=== PATIENT | female | born 1940 | race Caucasian/White ===

== ENCOUNTER → 2018-03-02 01:04 | Outpatient (CLI) | payer MEDICARE, OTHER, SELFPAY ==
--- NOTE | 2018-03-02 13:23 | DI.REPORT_ITS ---
SYMPTOM/DIAGNOSIS: RT NIPPLE PAIN, N64.4 MAMMOGRAM, RIGHT BREAST ULTRASOUND: 03/02 Mammograms were interpreted according to the usual protocol including computer analysis with CAD system, tomosynthesis and C view imaging. Mammogram and right breast ultrasound are interpreted in conjunction. The patient reportedly has tenderness associated with the right areolar region. No mass or clumped microcalcification identified in either breast. Comparison with previous examination of 07/16/15 shows no change in appearance of the breast. Breast ultrasound shows no evidence of a mass in the retroareolar portion of the right breast. CONCLUSION: No specific evidence of malignancy at this time. Routine screening examinations are suggested at yearly intervals in this age group according to the ACS/ACR guidelines. Category 1, breast density category B MQSA ASSESSMENT OF FINDINGS: Negative. Category 1. Patient will receive a letter notifying them of these results. BI-RADS category B. There are scattered areas of fibroglandular density.
== END ==
PROVIDERS: PCP Family Medicine; Visit Provider Family Medicine
DX: N64.4 Mastodynia (principal)
CPT/HCPCS: 76642; 77066; G0279; 77062

== ENCOUNTER 2018-07-04 16:43 | Outpatient (CLI) | payer MEDICARE, OTHER, SELFPAY ==
--- NOTE | 2018-07-04 15:27 | DI.RAD_ITS ---
SYMPTOMS/DIAGNOSIS: JOINT PAIN RIGHT KNEE: Three views were obtained. Cartilaginous joint spaces appear fairly well maintained as visualized. Minimal hypertrophic spurring of the bones of the knee noted. CONCLUSION: Minimal DJD of the knee.
== END 2018-07-04 17:03 ==
PROVIDERS: Visit Provider Nurse Practitioner
DX: M25.561 Pain in right knee (principal); M17.11 Unilateral primary osteoarthritis, right knee
CPT/HCPCS: 73562

== ENCOUNTER 2018-08-03 17:32 | Outpatient (REF) | payer MEDICARE, OTHER, SELFPAY ==
[2018-08-03 20:05] LABS: Anion Gap 9.3 mmol/L (3-11); BUN 13 mg/dL (7-18); CO2 31.7 mmol/L (21.0-32.0); CREATININE 0.92 mg/dL (0.55-1.02); Chloride 100 mmol/L (98-107); Estimated GFR 59.35 (mL/min/1.73m2); Glucose 96 mg/dL (70-100); Potassium 3.3 mmol/L (3.5-5.1); Sodium 141 mmol/L (136-145)
== END 2018-08-03 17:52 ==
LOC: NCHCN 17:32
PROVIDERS: Visit Provider Family Medicine
DX: I10 Essential (primary) hypertension (principal)
CPT/HCPCS: 80048

== ENCOUNTER 2019-01-17 19:20 | Outpatient (REF) | payer MEDICARE, OTHER, SELFPAY ==
[2019-01-17 19:14] LABS: HCT 36.6 % (36.0-46.0); HGB 12.2 g/dL (12.0-15.5); Mean Corp. HGB Concentration 33.3 g/dL (32.0-36.0); Mean Corpuscular Hemoglobin 31.2 pg (27.0-33.0); Mean Corpuscular Volume 93.6 fL (80-95); Mean Platelet Volume 10.7 fL (8.0-11.0); Platelet Count 274 x1000/uL (130-400); RBC 3.91 m/cumm (4.00-5.20); RBC Distribution Width 12.1 % (11.7-14.6); White Blood Cell Count 7.11 k/cumm (4.4-10.8)
[2019-01-17 20:02] LABS: ALT 19 U/L (12-78); AST 17 U/L (15-37); Albumin 3.6 g/dL (3.4-5.0); Alkaline Phosphatase 80 U/L (46-116); Anion Gap 10.3 mmol/L (3-11); BUN 33 mg/dL (7-18); Bilirubin, Total 0.3 mg/dL (0.2-1.0); CO2 26.7 mmol/L (21.0-32.0); CREATININE 1.29 mg/dL (0.55-1.02); Calcium 8.9 mg/dL (8.5-10.1); Chloride 104 mmol/L (98-107); Estimated GFR 40.18 (mL/min/1.73m2); Glucose 90 mg/dL (70-100); Potassium 3.8 mmol/L (3.5-5.1); Sodium 141 mmol/L (136-145); Vitamin B12 333 pg/mL (193-986)
[2019-01-17 20:09] LABS: ESR 46 MM/HR (0-30)
== END 2019-01-17 19:40 ==
LOC: NCHCN 19:20
PROVIDERS: PCP Family Medicine; Visit Provider Family Medicine
DX: R63.4 Abnormal weight loss (principal); I10 Essential (primary) hypertension; E87.6 Hypokalemia; R51 Headache; K21.9 Gastro-esophageal reflux disease without esophagitis; H53.9 Unspecified visual disturbance
CPT/HCPCS: 80053; 85027; 85652; 82607

== ENCOUNTER 2019-01-25 00:26 | Outpatient (CLI) | payer MEDICARE, OTHER, SELFPAY ==
--- NOTE | 2019-01-25 15:23 | DI.MRI_ITS ---
SYMPTOM/DIAGNOSIS: HEADACHE, R51, VISUAL CHANGES, H53.9 BRAIN MRI: Sagittal T 2, axial T 2, axial diffusion, axial FLAIR, axial GRE and axial T 1 pulse sequences were performed. Moderate generalized atrophy is demonstrated. There is no evidence of a mass or hemorrhage. There are small regions of increased signal in the frontoparietal white matter bilaterally consistent with small vessel disease. The ventricles are unremarkable. The normal flow void is demonstrated in the cerebral vessels. SUMMARY: Atrophic changes and evidence of small vessel disease. There is no evidence of an infarct or mass.
== END 2019-01-25 00:46 ==
PROVIDERS: PCP Family Medicine; Visit Provider Family Medicine
DX: R51 Headache (principal); H53.9 Unspecified visual disturbance; I67.89 Other cerebrovascular disease
CPT/HCPCS: 70551

== ENCOUNTER 2019-02-06 16:04 | Outpatient (REF) | payer MEDICARE, OTHER, SELFPAY ==
[2019-02-06 19:49] LABS: Anion Gap 10.6 mmol/L (3-11); BUN 27 mg/dL (7-18); CO2 28.4 mmol/L (21.0-32.0); CREATININE 1.32 mg/dL (0.55-1.02); Calcium 8.7 mg/dL (8.5-10.1); Chloride 101 mmol/L (98-107); Estimated GFR 39.13 (mL/min/1.73m2); Glucose 122 mg/dL (70-100); Potassium 3.6 mmol/L (3.5-5.1); Sodium 140 mmol/L (136-145)
[2019-02-06 21:06] LABS: ESR 48 mm/hr (0-30)
== END 2019-02-06 16:24 ==
LOC: NCHCN 16:04
PROVIDERS: PCP Family Medicine; Visit Provider Family Medicine
DX: R51 Headache (principal); N28.9 Disorder of kidney and ureter, unspecified
CPT/HCPCS: 80048; 85652

== ENCOUNTER 2019-09-19 16:54 | Outpatient (REF) | payer MEDICARE, OTHER, SELFPAY ==
[2019-09-19 19:04] LABS: Anion Gap 9.3 mmol/L (3-11); BUN 18 mg/dL (7-18); CO2 29.7 mmol/L (21.0-32.0); CREATININE 1.02 mg/dL (0.55-1.02); Calcium 8.8 mg/dL (8.5-10.1); Chloride 101 mmol/L (98-107); Estimated GFR 52.55 (mL/min/1.73m2); Glucose 81 mg/dL (74-106); Potassium 3.8 mmol/L (3.5-5.1); Sodium 140 mmol/L (136-145)
[2019-09-19 20:16] LABS: ESR 46 mm/hr (0-30)
== END 2019-09-19 17:14 ==
LOC: NCHCN 16:54
PROVIDERS: PCP Family Medicine; Visit Provider Family Medicine
DX: N28.9 Disorder of kidney and ureter, unspecified (principal); I10 Essential (primary) hypertension; E87.6 Hypokalemia; R70.0 Elevated erythrocyte sedimentation rate
CPT/HCPCS: 80048; 85652

== ENCOUNTER 2020-03-26 10:58 | Outpatient (REF) | payer MEDICARE, OTHER, SELFPAY ==
[2020-03-26 18:58] LABS: Anion Gap 8.1 mmol/L (3-11); BUN 17 mg/dL (7-18); CO2 28.9 mmol/L (21.0-32.0); CREATININE 1.13 mg/dL (0.55-1.02); Calcium 8.9 mg/dL (8.5-10.1); Chloride 100 mmol/L (98-107); Estimated GFR 46.69 (mL/min/1.73m2); Glucose 96 mg/dL (74-106); Magnesium 2.1 mg/dL (1.8-2.4); Potassium 4.1 mmol/L (3.5-5.1); Sodium 137 mmol/L (136-145)
[2020-03-26 19:33] LABS: ESR 45 mm/hr (0-30)
== END 2020-03-26 11:18 ==
LOC: NCHCN 10:58
PROVIDERS: PCP Family Medicine; Visit Provider Family Medicine
DX: E87.6 Hypokalemia (principal); R25.2 Cramp and spasm; R70.0 Elevated erythrocyte sedimentation rate
CPT/HCPCS: 80048; 85652; 83735

== ENCOUNTER 2020-04-04 02:06 | Outpatient (CLI) | payer MEDICARE, OTHER, SELFPAY ==
--- NOTE | 2020-04-04 | DI.MAMMO_ITS ---
EXAM: MG MAMMO DIAGNOSTIC BI and U/S breast LT limited CLINICAL HISTORY: TENDER LT LATERAL LUMP 2 OCLOCK,N63.0. TECHNIQUE: Craniocaudal and mediolateral oblique Full Field Digital Mammography views with Computer Aided Diagnosis followed by Tomosynthesis and left breast ultrasound. COMPARISON: Comparison with prior examinations. FINDINGS: Mammography/Tomosynthesis: Masses/Architectural Distortion: None seen. Microcalcifictions: No suspicious pleomorphic-type are seen. Skin Thickening/Nipple Retraction: None. Left breast US: Echotexture: Normal appearance of the glandular tissue. Shadowing: No suspicious foci. Cyst: None. Solid lesions: There is a 2.3 cm sonographically benign-appearing lymph node at the 2 o'clock positio n of the left breast in the left axillary tail corresponding to the palpable abnormality. Ductal dilation: None. IMPRESSION: 1. No evidence of malignancy is noted. 2. Unless there is more urgent need, follow-up screening mammography is recommended, as per [place] [employer] guidelines. 3. The findings were discussed with the patient on the date of the examination. BI-RADS Category 1 - Negative Breast Density - Category B - Scattered areas of fibroglandular density A negative radiographic report should not delay biopsy if a dominant or clinically suspicious mass is present. Up to ten percent of cancers are not identified on mammography. A negative report may reinforce clinical impression. Adenosis and dense breasts may obscure an underlying neoplasm. False positive reports average 6 to 10%. Patient will receive a letter notifying them of these results.
== END 2020-04-04 02:26 ==
PROVIDERS: PCP Family Medicine; Visit Provider Family Medicine
DX: N63.21 Unspecified lump in the left breast, upper outer quadrant (principal); R92.8 Other abnormal and inconclusive findings on diagnostic imaging of breast
CPT/HCPCS: 76642; 77062; 77066; G0279

== ENCOUNTER → 2020-04-29 14:22 | Outpatient (BNVA) | payer MEDICARE, OTHER, SELFPAY | PROVIDERS: PCP Family Medicine; Referring Provider Family Medicine; Visit Provider Surgery | DX: N63.21 Unspecified lump in the left breast, upper outer quadrant (principal); Z80.3 Family history of malignant neoplasm of breast | CPT/HCPCS: 99204; 99214 ==

== ENCOUNTER 2020-05-10 02:03 | Outpatient (CLI) | payer MEDICARE, OTHER, SELFPAY ==
[2020-05-13 10:12] LABS: SARS-CoV-2 RNA Not Detected (NotDetected); SARS-CoV-2 RNA Source Nasal/Nares
== END 2020-05-10 02:23 ==
PROVIDERS: Surgery; PCP Family Medicine; Visit Provider Surgery
DX: Z01.818 Encounter for other preprocedural examination (principal)
CPT/HCPCS: U0003

== ENCOUNTER 2020-05-14 01:33 | Outpatient (CLI) | payer MEDICARE, OTHER, SELFPAY | END 2020-05-14 01:53 | PROVIDERS: PCP Family Medicine; Visit Provider Surgery | DX: N64.4 Mastodynia (principal); R59.0 Localized enlarged lymph nodes; N63.20 Unspecified lump in the left breast, unspecified quadrant | CPT/HCPCS: 99212 ==

== ENCOUNTER 2020-12-04 19:31 | Outpatient (REF) | payer MEDICARE, OTHER, SELFPAY ==
[2020-12-04 16:47] LABS: ESR 53 mm/hr (0-30)
[2020-12-04 17:05] LABS: ALT 16 U/L (14-59); AST 18 U/L (15-37); Albumin 3.6 g/dL (3.4-5.0); Alkaline Phosphatase 84 U/L (46-116); Anion Gap 7.5 mmol/L (3-11); BUN 22 mg/dL (7-18); Bilirubin, Total 0.4 mg/dL (0.2-1.0); CO2 29.5 mmol/L (21.0-32.0); CREATININE 1.1 mg/dL (0.55-1.02); Chloride 102 mmol/L (98-107); Creatine Kinase 86 U/L (26-192); Estimated GFR 48.04 (mL/min/1.73m2); Glucose 101 mg/dL (74-106); Potassium 4.3 mmol/L (3.5-5.1); Sodium 139 mmol/L (136-145); TSH (W/Ref FT4) 2.24 uIU/mL (0.36-3.74); Total Protein 7.4 g/dL (6.4-8.2)
== END 2020-12-04 19:32 | disposition home or self-care (01) ==
LOC: NCHCN 19:31
PROVIDERS: PCP Family Medicine; Visit Provider Family Medicine
DX: R25.2 Cramp and spasm (principal); R70.0 Elevated erythrocyte sedimentation rate; N28.89 Other specified disorders of kidney and ureter
CPT/HCPCS: 80053; 82550; 85652; 84443

== ENCOUNTER 2021-03-03 12:45 | Emergency (ER) | payer MEDICARE, OTHER, SELFPAY ==
[2021-03-03] VITALS (25 sets, daily range): BP systolic 111–134; BP diastolic 38–79; PULSE 60–73; RESP 9–24; TEMP 36.5–36.7; O2SAT 93–97
--- NOTE | 2021-03-03 12:45 | DI.CT_ITS ---
Exam(s) CT HEAD WO EXAM: CT HEAD WO CLINICAL HISTORY: fall. TECHNIQUE: Imaging Protocol: Axial computed tomography images with coronal and sagittal reformatted images were created and reviewed COMPARISON: CT HEAD WITHOUT CONTRAST from 12/28/2017 FINDINGS: There are no skull fractures nor fluid in the visualized paranasal sinuses. There is a surgical def ect in the medial wall the right maxillary sinus and the maxillary sinuses presently clear, as is the opposite-left maxillary sinus. The previously opacified left sphenoid sinus is presently clear as a re the model air cells and frontal sinuses. Mastoid air cells are also clear. There is heavy calcification of the left vertebral artery at the skull base, unchanged. Milder calci fication of the right vertebral artery at this level. Heavy calcification of the intracavernous inte rnal carotid arteries also noted. 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 There is no evidence of intracranial hemorrhage, mass effect, or shift of midline structures. There are no extra-axial fluid collections. The ventricles are not enlarged or shifted and there is no blo od within the ventricular system nor within the basal cisterns. Mild asymmetric hypodensity around the frontal horn of the right lateral ventricle is unchanged. No evidence of new territorial infarction. IMPRESSION: No acute intracranial findings on this noninfused CT scan of the brain. White matter findings as above, unchanged from December 2017. Vascular calcifications the skull base again noted as described above. Significant improvement in previously present paranasal sinus disease. There is evidence of previous endoscopic surgery, with a surgical defect in the medial wall the right maxillary sinus evident. RADIATION DOSE DELIVERED: 679.73mGy.cm Total DLP DATA REPOSITORY: All CT scans at this facility are submitted to the National Radiology Data Registry (NRDR) Dose Index Registry (DIR) with the [employer] (ACR). RADIATION OPTIMIZATION: All CT scans at this facility use at least one of these dose optimization te chniques: automated exposure control; mA and/or kV adjustment per patient size (includes targeted exa ms where dose is matched to clinical indication); or iterative reconstruction.
--- NOTE | 2021-03-03 12:45 | RT.EKG_ITS ---
APPROVED REPORT Exam: Resting ECG Reason for Exam: syncope Patient Location: E HR:68 bpm ECG Measurements Heart Rate 68 AXIS NJ 142 P -9 QRSd 85 QRS -10 QT 398 T 17 QTc 423 Conclusion Sinus rhythm...normal P axis, V-rate 60- 99
--- NOTE | 2021-03-03 13:01 | ED.GENADUL_ITS ---
Discharge Plan Disposition Patient Disposition: HOME Condition: Stable Discharge Details Clinical Impression: Episode of syncope, Concussion, Contusion of knee Primary Care Provider: Solomon Leslie ED Provider: Xuan Diaz Home Meds and New Rx's Prescriptions: Continued Lumigan 0.01 % drops 1 drp ophthalmic (eye) DAILY RF: 0 acetaminophen 325 mg capsule 325 mg PO ONCE PRNRF: 0 docusate sodium 100 mg capsule 100 mg PO .every other night RF: 0 lisinopril-hydrochlorothiazide 10-12.5 mg tablet 1 tab PO DAILY RF: 0 Flovent HFA 12 GM HFA aerosol inhaler 2 puff Inhalation DAILY Qty: 3 RF: 12 omeprazole 20 MG capsule,delayed release(DR/EC) 20 mg PO DAILY Qty: 90 RF: 12 escitalopram oxalate [Lexapro] 10 MG tablet 10 mg PO DAILY Qty: 90 RF: 11 Metoprolol Succinate 25 MG TAB.ER.24H 25 mg PO DAILY Qty: 90 RF: 11 Discharge Instructions Instructions: Syncope (ED), Concussion (ED) Additional Instructions: As discussed, I believe that you had a syncopal episode. Because it would is cu rrently slightly unclear. This may be associated with any unusual rhythm of your heart as we discussed such as when you had paroxysmal tachycardia historically. Please discuss repeating your Holter monitor with Dr. Leslie. Please encourage hydration. Please call your primary care tomorrow and follow- up appointment for later this week. In regard to concussion, please encourage hydration. Please encourage brain rest including abstaining from screen time as well as physical exertion until your headache is completely cleared. Regard to your knee pain, please encourage rest, ice, elevation. Tylenol and/or ibuprofen as needed for discomfort. As discussed, please return with any new or worsening symptoms. Please follow- up with Dr. Leslie this week for reevaluation. Referrals: Solomon Leslie [Primary Care Provider] - Discharge Data Discharge Date/Time-TO BE ENTERED AT DEPARTURE: 03/03/21 17:52 Medical Decision Making Patient is a pleasant 80-year-old female presents with chief complaint of fall. Patient reports that at 7 AM she was repairing her dog's medications when she suddenly had a feeling of weakness and dizziness. States that she felt like she was dipping. States that she was then fell backwards onto the ground and struck the posterior aspect of her head. States she was awake when she actually hit the ground but believes she may have lost consciousness on the way down briefly. States she did have some chest discomfort during that episode but no sense of palpitations. Patient has had SVT before but states this did not feel the same. She denies any shortness of breath. States she was sweaty afterwards. He has not had recurrence of symptoms since then. States that she was recently started on cyclobenzaprine, otherwise her medications have been the same. She only takes cyclobenzaprine at night. She denies having history of syncopal episodes. States that she does periodically have chest discomfort but does not link this with any particular activity or with exertion. States is been about 2 months since she last had this discomfort. Also suffered injury to the left knee. She does have a small abrasion to the right knee but she states that the nontender. Patient not anticoagulated. She did take an NSAID which greatly help with her discomfort. Past medical history is pertinent for tremor, vertigo, depression, hyperlipidemia, reactive airway disease. On exam, patient appears nontoxic. She is resting comfortably. She does appear slightly anxious. Vital signs are stable. She has a small area of swelling at the top of her head. No appreciable skull fracture or evidence of significant trauma. No break in the skin. She has no midline cervical, thoracic or lumbar spine pain. Lungs are clear, normal cardiac exam. No lower extremity edema. She does have some discomfort with palpation of the anterior aspect of the left knee. Ligamentously intact. Full extension. She is lacking approximately 15 degrees of full flexion compared to the contralateral side. Small abrasion noted on the right anterior knee. Patient is neurologically intact. Will assess gait and balance when she is returned from her head CT. Differential is fairly broad. She does have hx of vertigo as well as SVT. these are highests on ddx based on her discription. However, reports that it was slightly different than previous episodes of these. She has had no exetrional sxs, low suspicion of ACS. She has no SOB, is not tachycardic or hypoxic. Not consistent with PE. She has 2+ distal pulses in all extremities and no pain, no evidence to suggest dissection or signficant bleeding. Considered elctrolyte abnormality, thyroid dysfunction. ECG reviewed by Dr. Rios. NSR, rate 68 with no acute ischemic changes. FINDINGS: There is no evidence fracture nor obvious joint effusion. There is significant degenerative changes knee. There is advanced narrowing of the patellofemoral compartment lateral aspect. Chondrocalcinosis is seen in the lateral compartm ent of the tibiofemoral joint. Milder chondrocalcinosis seen in the medial compartment. No marginal osteophytes evident although there is degenerative pointing the tibial spines. Bone density normal. No osseous lesions. IMPRESSION: Degenerative changes, as described above. No fracture evident. FINDINGS: There are no skull fractures nor fluid in the visualized paranasal sinuses. There is a surgical defect in the medial wall the right maxillary sinus and the maxillary sinuses presently clear, as is the opposite-left maxillary sinus. The previously opacified left sphenoid sinus is presently clear as are the model air cells and frontal sinuses. Mastoid air cells are also clear. There is heavy calcification of the left vertebral artery at the skull base, unchanged. Milder calcification of the right vertebral artery at this level. Heavy calcification of the intracavernous internal carotid arteries also noted. 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 There is no evidence of intracranial hemorrhage, mass effect, or shift of midline structures. There are no extra-axial fluid collections. The ventricles are not enlarged or shifted and there is no blood within the ventricular system nor within the basal cisterns. Mild asymmetric hypodensity around the frontal horn of the right lateral ventricle is unchanged. No evidence of new territorial infarction. IMPRESSION: No acute intracranial findings on this noninfused CT scan of the brain. White matter findings as above, unchanged from December 2017. Vascular calcifications the skull base again noted as described above. Significant improvement in previously present paranasal sinus disease. There is evidence of previous endoscopic surgery, with a surgical defect in the medial wall the right maxillary sinus evident. Labs reviewed. No leukocytosis, stable H&H. Creatining and BUN slightlyu elevated from her baseline. No other signficant abnormalities on CMP. TSH WNL. Repeat troponin remains WNL. Discussed findings with the patient. Unclear exact cause of her syncopal episode. We discussed event monitor, patient would prefer to hold off on this. Would prefer to discuss this with her PCP further. We discussed inpatient monitoring but patient prefers d/c to home. Return precautions discussed. Encouraged hydration. She will f/u with PCP in the next week for reevaluation. All of her questions and concerns were addressed, she is in agreement with this plan. HPI General Mode of arrival: ambulatory . Date/Time Provider Initiated Documentation: 03/03/21 12:45 . Limitations to Documentation: no limitations . Information obtained by: patient and RN notes reviewed . History of Present Illness 80 year old F presents to the emergency department with the chief complaint of fall, described as mild, with intensity rated at 2. Quality is described as aching, and is localized to the face, left and lower extremity. Patient reports no radiation. Patient started experiencing this hour(s) (0700) and it has been constant. Medication improves symptom(s), (improved after NSAID) No exacerbating factors reported . Patient notes chest pain, diaphoresis and weakness (generalized); denies cough, fever/chills, nausea/vomiting, rash and shortness of breath. Patient did receive the following treatments prior to arrival, NSAID Related Data Home Medications Medication Instructions Recorded Confirmed Flovent HFA 2 puff INHALATION DAILY #3 inhaler 10/23/16 04/29/20 omeprazole 20 mg PO DAILY #90 tab-cap 07/29/17 05/10/20 escitalopram oxalate [Lexapro] 10 mg PO DAILY #90 tab-cap 11/09/17 05/10/20 acetaminophen 325 mg capsule 325 mg PO ONCE PRN 04/26/20 05/10/20 bimatoprost 0.01 % eye drops 1 drp OPHTHALMIC (EYE) DAILY 04/26/20 05/10/20 docusate sodium 100 mg capsule 100 mg PO .every other night cap 04/26/20 05/10/20 lisinopril 10 1 tab PO DAILY 04/26/20 05/10/20 mg-hydrochlorothiazide 12.5 mg tablet Previous Rx's Medication Instructions Recorded omeprazole 20 mg PO DAILY #90 tab-cap 07/29/17 escitalopram oxalate [Lexapro] 10 mg PO DAILY #90 tab-cap 11/09/17 Allergies Allergy/AdvReac Type Severity Reaction Status Date / Time celecoxib Allergy Intermediate Skin Rash Verified 03/03/21 12:55 codeine Allergy Unknown Verified 03/03/21 12:55 morphine AdvReac Intermediate Nausea Verified 03/03/21 12:55 methylprednisolone AdvReac Nausea Verified 03/03/21 12:55 [From Medrol] General Stated Complaint: Dizzy/Sync CIPRIANO: 2 Review of Systems Constitutional Constitutional: Reports as per HPI, Denies chills, Denies fever(s), Reports headache(s) and Reports weakness (generalized) Eyes Eyes: Reports as per HPI, Denies blurry vision, Denies change in vision and Denies loss of vision ENT Ears, Nose, Mouth, and Throat: Denies abnormal hearing and Reports headache(s) Cardiovascular Cardiovascular: Reports as per HPI, Reports chest pain (resolved) and Denies dyspnea Respiratory Respiratory: Reports as per HPI, Denies cough, Denies pain on inspiration, Denies pain with cough and Denies dyspnea Gastrointestinal Gastrointestinal: Reports as per HPI, Denies abdominal pain, Denies nausea and Denies vomiting Genitourinary Genitourinary: Reports as per HPI and Denies urinary incontinence Musculoskeletal Musculoskeletal: Reports as per HPI Integumentary/Breasts Skin/Breast: Reports as per HPI and Reports other (abrasion right knee) Neurologic Neurologic: Reports as per HPI, Denies abnormal hearing, Denies abnormal movements, Denies abnormal speech, Reports headache(s), Denies lack of coordination, Denies localized weakness, Denies loss of vision, Denies seizure- like activity, Denies paresthesias and Reports weakness (generalized) [facility] Medical History Depressive disorder (06/10/02) Essential tremor GERD (gastroesophageal reflux disease) Glaucoma HIATAL HERNIA REPAIR Hyperlipidemia Reactive airway disease (06/04/14) Seasonal allergic rhinitis Surgical History Extraction of cataract 08/2013 History of cholecystectomy History of colonoscopy History of esophagogastroduodenoscopy (EGD) History of tonsillectomy Hysterectomy, Laproscopic RADICAL; FOR FIBROIDS Rotator Cuff Repair RIGHT Family History Mother Essential hypertension Personal history of malignant neoplasm SKIN Depression Heart disease Stroke Father Personal history of malignant neoplasm [place] Grandfather Arthritis Grandfather , IN A FIRE at age 80. Diabetes Stroke Grandmother No problems noted. Grandmother Essential hypertension Personal history of malignant neoplasm BREAST Stroke Son Diabetes Son Essential hypertension Hyperlipidemia Daughter Essential hypertension Fibromyalgia Heart disease Hyperlipidemia Social History Smoking/Tobacco Use Status: Never Smoking risk assessment performed?: Yes Alcohol Intake: never Drug use: Never Do you feel safe at home: Yes Do you feel safe in your relationship?: Yes Exam Const General: cooperative, healthy appearing, comfortable, no acute distress, well developed, well groomed and anxious Nutritional Appearance: average body habitus and well nourished Orientation: alert, awake and oriented x3 [facility] Head: no palpable skull fracture, normocephalic, no Connelly's sign, no hematomas, no lacerations, no palpable skull fracture, no raccoon eyes and scalp tenderness Head images: 1. area of swelling. No discoloration, no break in the skin. No palpable skull fracture Ears: hearing grossly normal bilaterally, external ears normal and TM's normal bilaterally General nose exam: external nose normal Mouth: oral mucosae normal, lip normal and tongue normal Throat: posterior oropharynx normal Eyes General: appearance normal, both eyes and all related structures Visual Tamayo: normal visual tamayo by confrontation Alignment and Position: alignment normal Periorbital: periorbital findings normal Eyelids: eyelids normal Conjunctivae: conjunctivae normal Pupils: PERRL EOM: EOM intact bilaterally Neck Neck: normal visual inspection, full ROM, no lymphadenopathy, no meningeal signs, trachea midline and supple Chest Chest: normal inspection of the chest, normal palpation of entire chest wall, no crepitus and no localized rib tenderness Resp Effort & Inspection: normal respiratory effort, able to speak in complete sentences and no respiratory distress Auscultation: clear to auscultation bilaterally, no rales, no rhonchi and no wheezes Cardio Rate: regular rate Rhythm: regular rhythm Heart Sounds: S1 normal and S2 normal GI Inspection: normal to inspection, no abdominal wall ecchymosis, no edema and non-distended Palpation: soft, no hepatosplenomegaly, not firm, no guarding, no pulsatile masses, not rigid and nontender Auscultation: normal bowel sounds Back/Spine/Pelvis Back: no CVA tenderness Cervical Spine: normal cervical lordosis and cervical ROM normal Thoracic/Lumbar Spine: thoracic and lumbar spine normal to inspection, thoraco- lumbar ROM normal, No thoraco-lumbar ROM limited, No thoraco-lumbar spasm and No thoracic spinal tenderness Pelvis: no pain with anterior-posterior compression and no pain with lateral compression Skin General skin exam: no rashes or lesions noted Lesions: no lesions Rashes: no rashes Trauma: no lacerations or abrasions Wounds: no wounds Neuro General: patient alert, patient awake, patient oriented x3, gait normal, tone normal and moves all extremities Cranial Nerves: CN's II-XI intact bilaterally Cognition: normal cognition Speech: speech normal Gait: normal gait Motor: muscle tone normal throughout and strength 5/5 throughout Sensory Exam: no sensory deficits noted (no saddle paresthesias) Extrem General: normal to inspection, full ROM, capillary refill normal, no pedal edema and no calf tenderness Psych Appearance: grossly normal and well kempt Mental Status: mental status grossly normal Speech and Movement: speech and movement normal Course Vital Signs Vital signs: Vital Signs Temperature 36.7 C 03/03/21 12:48 Pulse 68 03/03/21 12:48 Respiratory Rate 12 03/03/21 12:48 Blood Pressure 134/46 L 03/03/21 12:48 Pulse Oximetry 97 03/03/21 12:48 Temperature 36.7 C 03/03/21 12:48 Temperature Source Skin 03/03/21 12:48 Pulse 68 03/03/21 12:48 Respiratory Rate 12 03/03/21 12:48 Respiratory Effort 03/03/21 12:56 Blood Pressure 134/46 L 03/03/21 12:48 Pulse Oximetry 97 03/03/21 12:48 Oxygen Delivery Method Room Air 03/03/21 12:48 Oxygen Flow Rate 0 03/03/21 12:48 Pain Level 8 03/03/21 12:48 Comment 03/03/21 12:48
--- NOTE | 2021-03-03 13:15 | DI.RAD_ITS ---
Exam(s) XR KNEE LT 4V AP,LAT,RNADALL,PAT EXAM: XR KNEE LT 4V AP,LAT,RANDALL,PAT CLINICAL HISTORY: fall, diffuse pain. TECHNIQUE: 2D digital imaging was performed. COMPARISON: CR RIGHT KNEE LIMITED 1 OR 2 VIEW from 12/30/2015 FINDINGS: There is no evidence fracture nor obvious joint effusion. There is significant degenerative changes knee. There is advanced narrowing of the patellofemoral compartment lateral aspect. Chondrocalcinos is is seen in the lateral compartment of the tibiofemoral joint. Milder chondrocalcinosis seen in th e medial compartment. No marginal osteophytes evident although there is degenerative pointing the ti bial spines. Bone density normal. No osseous lesions. IMPRESSION: Degenerative changes, as described above. No fracture evident. DATA REPOSITORY: RADIATION DOSE DELIVERED:
[2021-03-03 13:34] LABS: Abs Immature Grans 0.03 10^3/uL (0.0-0.06); Absolute Basophil Count 0.07 10^3/uL (0.0-0.2); Absolute Eosinophil Count 0.08 10^3/uL (0.0-0.7); Absolute Lymphocyte Count 2.82 10^3/uL (1.2-3.4); Absolute Monocyte Count 0.72 10^3/uL (0.1-0.8); Absolute Neutrophil Count 6.18 10^3/uL (1.2-6.7); Basophils % 0.7; Eosinophils % 0.8; HCT 37.5 % (36.0-46.0); Immature Grans % 0.3; Lymphocytes % 28.5; MCH 28.2 pg (27.0-33.0); MPV 9.8 fL (8.0-11.0); Monocytes % 7.3; Neutrophils % 62.4; Nucleated RBC 0 %; Platelet Count 265 10^3/uL (130-400); RBC 4.26 10^6/uL (3.93-5.22); RDW 13.4 % (11.7-14.6); RDW-SD 43.3 fL
[2021-03-03 13:45] LABS: Bilirubin Small (Negative); Blood Negative (Negative); Clarity Sl Cloudy (Clear); Glucose Negative (Negative); Ketones Trace mg/dL (Negative); Leukocyte Esterase Negative (Negative); Nitrite Negative (Negative); Specific Gravity 1.015 (1.005-1.025); Urobilinogen 0.2 EU/dL (Up TO 0.2); pH 5.5 (5-8)
[2021-03-03 13:45] LABS: ALT 16 U/L (14-59); AST 17 U/L (15-37); Albumin 3.5 g/dL (3.4-5.0); Alkaline Phosphatase 77 U/L (46-116); Anion Gap 6.1 mmol/L (3-11); BUN 31 mg/dL (7-18); Bilirubin, Total 0.5 mg/dL (0.2-1.0); CO2 29.9 mmol/L (21.0-32.0); CREATININE 1.2 mg/dL (0.55-1.02); Chloride 101 mmol/L (98-107); Estimated GFR 43.45 (mL/min/1.73m2); Glucose 96 mg/dL (74-106); Sodium 137 mmol/L (136-145); Total Protein 7.6 g/dL (6.4-8.2)
[2021-03-03 13:53] LABS: TSH (W/Ref FT4) 3.46 uIU/mL (0.36-3.74)
[2021-03-03 13:55] LABS: Magnesium 2.3 mg/dL (1.8-2.4); TSH 3.43 uIU/mL (0.36-3.74)
[2021-03-03 13:56] LABS: Troponin I < 0.05 ng/mL (<0.06)
[2021-03-03] MEDS: Normal Saline 1,000 ML 500 ML IV (14:22)
[2021-03-03 16:53] LABS: Troponin I < 0.05 ng/mL (<0.06)
== END 2021-03-03 17:52 | disposition home or self-care (01) ==
PROVIDERS: Emergency Provider Physician Assistant; PCP Family Medicine
DX: R55 Syncope and collapse (principal); S80.02XA Contusion of left knee, initial encounter; S06.0X9A Concussion with loss of consciousness of unspecified duration, initial encounter; W18.39XA Other fall on same level, initial encounter; R42 Dizziness and giddiness; E78.5 Hyperlipidemia, unspecified
CPT/HCPCS: 36415; 80053; 93005; 96360; 96361; 99285; 70450; 73564; 81003; 83735; 84443; 84484; 85025; 93010; 99284

== ENCOUNTER 2021-03-12 03:16 | Outpatient (CLI) | payer MEDICARE, OTHER, SELFPAY ==
--- NOTE | 2021-04-03 09:15 | ZIOP_ITS ---
Date of service: 04/03/21 Time of Service: 09:15 14 Day [employer] Presser Referring Provider:: Solomon Leslie Indications:: Syncope Note: This was a 14-day cardiac catheterization technician ordered for symptoms of syncope Predominant rhythm was sinus. Average heart rate was 67. Minimum heart rate was 51, maximum 121 There were rare ventricular ectopic beats There were occasional atrial premature beats. There were occasional self-limited atrial runs, the longest of which was 20 beats in duration. Majority of these were asymptomatic There was no atrial fibrillation. There was no high-grade AV block. There were no pauses greater than 3 seconds Patient symptoms were reported. Most of these were associated with sinus rhythm, rarely with sinus tachycardia, not with any dysrhythmia.. 1 isolated PVC corresponded to symptoms. One 6 beat run of SVT corresponded to symptom
== END 2021-03-12 03:17 | disposition home or self-care (01) ==
LOC: RT 03:16
PROVIDERS: PCP Family Medicine; Visit Provider Family Medicine
DX: R55 Syncope and collapse (principal)
CPT/HCPCS: 93246; 93270

== ENCOUNTER 2021-04-03 09:15 | Outpatient (CLI) | payer MEDICARE, OTHER, SELFPAY | END 2021-04-03 09:16 | LOC: CARDO 04-07 13:02 | PROVIDERS: PCP Family Medicine; Referring Provider Family Medicine; Visit Provider Internal Medicine Cardiovascular Disease | DX: R55 Syncope and collapse (principal); I47.1 Supraventricular tachycardia; I49.1 Atrial premature depolarization | CPT/HCPCS: 93248 ==

== ENCOUNTER 2021-09-09 17:32 | Observation (INO) | payer MEDICARE, OTHER, SELFPAY ==
[2021-09-09] VITALS (14 sets, daily range): BP systolic 141–175; BP diastolic 64–82; PULSE 57–82; RESP 9–20; TEMP 36.5–36.7; O2SAT 93–96
--- NOTE | 2021-09-09 17:30 | RT.EKG_ITS ---
APPROVED REPORT Exam: Resting ECG Reason for Exam: syncopal episode Patient Location: E HR:58 bpm ECG Measurements Heart Rate 58 AXIS SC 157 P -24 QRSd 91 QRS -2 QT 435 T 21 QTc 427 Conclusion Sinus bradycardia...rate< 60 sinus arminda, t wave inversion III
--- NOTE | 2021-09-09 18:00 | DI.RAD_ITS ---
Exam(s) XR PORTABLE CHEST AP EXAM: XR PORTABLE CHEST AP CLINICAL HISTORY: recurrent syncope. TECHNIQUE: 2D digital imaging was performed. COMPARISON: CR CHEST 2 VIEWS PA,LAT from 12/28/2017 FINDINGS: LUNGS: Clear. No pleural abnormality seen. HEART: Normal. MEDIASTINUM: Normal. OTHER FINDINGS: None. IMPRESSION: No acute pulmonary findings. DATA REPOSITORY: RADIATION DOSE DELIVERED: Total DLP
[2021-09-09 18:08] LABS: Bilirubin Negative (Negative); Blood Trace-intact (Negative); Clarity Clear (Clear); Glucose Negative (Negative); Ketones Negative (Negative); Leukocyte Esterase Negative (Negative); Nitrite Negative (Negative); Specific Gravity 1.015 (1.005-1.025); Urobilinogen 0.2 EU/dL (Up TO 0.2)
[2021-09-09] MEDS: Normal Saline 500 ML 1000 ML IV (18:20)
[2021-09-09 18:29] LABS: Abs Immature Grans 0.02 10^3/uL (0.0-0.06); Absolute Basophil Count 0.11 10^3/uL (0.0-0.2); Absolute Eosinophil Count 0.25 10^3/uL (0.0-0.7); Absolute Lymphocyte Count 3.84 10^3/uL (1.2-3.4); Absolute Monocyte Count 0.65 10^3/uL (0.1-0.8); Absolute Neutrophil Count 3.93 10^3/uL (1.2-6.7); Basophils % 1.3; Eosinophils % 2.8; HCT 36.3 % (36.0-46.0); HGB 11.2 g/dL (11.2-15.7); Immature Grans % 0.2; Lymphocytes % 43.6; MCH 26.7 pg (27.0-33.0); MCHC 30.9 % (32.0-36.0); MCV 86.4 fL (80-95); MPV 9.9 fL (8.0-11.0); Monocytes % 7.4; Neutrophils % 44.7; Nucleated RBC 0 %; Platelet Count 330 10^3/uL (130-400); RDW 13.2 % (11.7-14.6); RDW-SD 41.4 fL
[2021-09-09 18:30] LABS: Bacteria Negative HPF (Negative); C & S Indicated? No; Casts Negative LPF (Negative); Crystals Negative HPF (Negative); Epithelial Cells Negative HPF (Negative); Mucus Negative (Negative); Other Cells Negative (Negative); RBC Negative HPF (0-2); WBC Negative HPF (0-5)
--- NOTE | 2021-09-09 18:42 | ED.GENADUL_ITS ---
Discharge Plan Disposition Patient Disposition: [facility] INPATIENT Condition: Stable Discharge Details Chief Complaint: Dizzy/Sync Clinical Impression: Syncope Primary Care Provider: Solomon Leslie ED Provider: Allen Miles Home Meds and New Rx's Prescriptions: No Action acetaminophen 325 mg capsule 325 mg PO ONCE PRN0RF Flovent HFA 12 GM HFA aerosol inhaler 2 puff Inhalation DAILY Qty: 3 12RF Label Comments: pt has not used in a while 02/04/17 omeprazole 20 MG capsule,delayed release(DR/EC) 20 mg PO DAILY Qty: 90 12RF escitalopram oxalate [Lexapro] 10 MG tablet 10 mg PO DAILY Qty: 90 11RF lisinopril 10 mg tablet 10 mg PO DAILY 0RF Vyzulta 0.024 % drops 0RF Label Comments: INSTILL 1 DROP IN BOTH EYES EVERY EVENING DIRECTED Vyzulta 0.024 % drops 1 drp ophthalmic (eye) .QHS 0RF Label Comments: INSTILL 1 DROP IN BOTH EYES EVERY EVENING DIRECTED magnesium 250 mg Tablet 250 mg PO DAILY 0RF Medical Decision Making 81-year-old female history of hyperlipidemia vertigo and recurrent syncope presents with syncope from rest in the doctor's office this afternoon, no chest pain or shortness of breath, did have diaphoresis and nausea during event not currently, EKG sinus bradycardia nonischemic, neurologically intact afebrile nontoxic. No signs of trauma. Consider vasovagal syncope versus orthostasis versus must consider arrhythmia versus unlikely PE versus must consider ACS versus less likely intracranial process such as hemorrhage or CVA. Patient stable, anxious regarding multiple syncopal events is worried about falling at home alone, primary care and patient would feel more comfortable having patient received expedited cardiac evaluation as an inpatient. Patient labs have been sent, EKG chest x-ray, will likely admit patient for telemetry further observation echo and cardiac eval. Resting comfortably no acute distress neurologically intact. No syncopal episodes or arrhythmia during ED stay. Given level of symptomatology increasing as well as syncope from rest and recommendation for admission by primary care patient will be admitted to the hospital for further evaluation cardiology evaluation echocardiogram. HPI General Date/Time Provider Initiated Documentation: 09/09/21 17:33 . HPI Narrative: 81-year-old female history of vertigo hyperlipidemia recurrent syncope, presents referred in by primary care Dr. Mitchell after syncopal episode in the office from a seated position, has had multiple events of syncope over the past several w eeks to months often without a prodrome, most often it is when patient is standing however today was from a seated/resting position. No chest pain or shortness of breath, patient did endorse some diaphoresis and nausea. Patient has had a Holter monitor over the past several weeks that showed no arrhythmia. Denies thromboembolic risk factors denies leg pain, denies chest pain denies shortness of breath denies weakness numbness or change in speech. No blood thinner use. Related Data Home Medications Medication Instructions Recorded Confirmed fluticasone propionate 110 2 puff INHALATION DAILY #3 inhaler 10/23/16 09/09/21 mcg/actuation HFA aerosol inhaler (Flovent HFA) omeprazole 20 mg capsule,delayed 20 mg PO DAILY #90 tab-cap 07/29/17 09/09/21 release escitalopram oxalate 10 mg tablet 10 mg PO DAILY #90 tab-cap 11/09/17 09/09/21 (Lexapro) acetaminophen 325 mg capsule 325 mg PO ONCE PRN 04/26/20 09/09/21 latanoprostene bunod 0.024 % eye 1 drp OPHTHALMIC (EYE) .QHS 09/09/21 09/09/21 drops (Vyzulta) latanoprostene bunod 0.024 % eye drp 09/09/21 09/09/21 drops (Vyzulta) lisinopril 10 mg tablet 10 mg PO DAILY 09/09/21 09/09/21 magnesium 250 mg tablet 250 mg PO DAILY 09/09/21 09/09/21 Previous Rx's Medication Instructions Recorded omeprazole 20 mg capsule,delayed 20 mg PO DAILY #90 tab-cap 07/29/17 release escitalopram oxalate 10 mg tablet 10 mg PO DAILY #90 tab-cap 11/09/17 (Lexapro) Allergies Allergy/AdvReac Type Severity Reaction Status Date / Time celecoxib Allergy Intermediate Skin Rash Verified 09/09/21 17:52 codeine Allergy Unknown Verified 09/09/21 17:52 morphine AdvReac Intermediate Nausea Verified 09/09/21 17:52 methylprednisolone AdvReac Nausea Verified 09/09/21 17:52 [From Medrol] General Stated Complaint: Dizzy/Sync CIPRIANO: 3 Review of Systems Narrative: Review of Systems Constitutional: negative Eyes: negative ENT: negative Cardiovascular: Syncope Respiratory: negative Gastrointestinal: negative : negative Musculoskeletal: negative Skin: negative Neurologic: negative Psych: negative PFSH All Active Problems (Updated 09/09/21 @ 20:46 by Allen Miles MD) Episode of syncope (Chronic) Concussion (Acute) Contusion of knee (Acute) Syncope (Chronic) Breast pain, left (Acute) Breast pain, right (Acute 03/01/18) Elevated blood pressure reading in office without diagnosis of hypertension (Acute 07/29/17) Insomnia (Acute) Lumbar back pain (Acute 12/17/14) Memory changes (Acute 12/17/14) Polyp of colon (Acute) adenoma Radicular pain of left lower extremity (Acute 12/17/14) Right hip pain (Acute 12/05/15) Soft tissue lesion of foot (Acute 07/04/15) Tachycardia (Acute 11/09/17) Tremor (Acute) Trochanteric bursitis, right hip (Acute 05/22/16) Tubular adenoma (Acute) Vertigo (Acute 03/01/18) Breast mass (Acute) Elevated sed rate (Acute) Depressive disorder (Acute 06/10/02) Hyperlipidemia (Acute) Reactive airway disease (Acute 06/04/14) Glaucoma (Chronic) Essential tremor (Acute) Medical History Depressive disorder (06/10/02) Essential tremor GERD (gastroesophageal reflux disease) Glaucoma HIATAL HERNIA REPAIR Hyperlipidemia Reactive airway disease (06/04/14) Seasonal allergic rhinitis Surgical History Extraction of cataract 08/2013 History of cholecystectomy History of colonoscopy History of esophagogastroduodenoscopy (EGD) History of tonsillectomy Hysterectomy, Laproscopic RADICAL; FOR FIBROIDS Rotator Cuff Repair RIGHT Family History Mother Essential hypertension Personal history of malignant neoplasm SKIN Depression Heart disease Stroke Father Personal history of malignant neoplasm [place] Grandfather Arthritis Grandfather , IN A FIRE at age 80. Diabetes Stroke Grandmother No problems noted. Grandmother Essential hypertension Personal history of malignant neoplasm BREAST Stroke Son Diabetes Son Essential hypertension Hyperlipidemia Daughter Essential hypertension Fibromyalgia Heart disease Hyperlipidemia Social History (Reviewed 03/03/21 @ 13:33 by SAMAN Coffman Smoking/Tobacco Use Status: Never Smoking risk assessment performed?: Yes Alcohol Intake: never Drug use: Never Do you feel safe at home: Yes Do you feel safe in your relationship?: Yes Exam Narrative Exam Narrative: Physical Examination General: alert, awake, cooperative, resting comfortably, no acute distress HEENT: normocephalic, atraumatic; PERRL, EOM intact, conjunctiva normal; no nasal discharge; moist mucous membranes, oral and pharyngeal mucosa normal, tolerating secretions Neck: supple, trachea midline; full ROM Chest: normal to inspection Respiratory: normal respiratory effort, speaking in full sentences, clear to auscultation, no wheezing, rales or rhonchi Cardiac: regular rate, regular rhythm, S1S2 intact, no murmurs rubs or gallops GI: abdomen soft, non-tender, non-distended; no palpable mass or hepatosplenomegaly Skin: no lesions, rashes or trauma appreciated Neuro: AAOx3, normal speech, moving all extremities; 5-5 strength upper and lower extremities, cranial nerves II to XII intact Extremities: No peripheral edema Psych: Appropriate mood and affect Course Vital Signs Vital signs: Vital Signs Temperature 36.7 C 09/09/21 17:43 Pulse 63 09/09/21 17:43 Respiratory Rate 16 09/09/21 17:43 Blood Pressure 141/76 H 09/09/21 17:43 Pulse Oximetry 96 09/09/21 17:43 Temperature 36.7 C 09/09/21 17:43 Temperature Source Skin 09/09/21 17:43 Pulse 57 L 09/09/21 18:30 Pulse 58 L 09/09/21 18:30 Respiratory Rate 10 L 09/09/21 18:30 Respiratory Effort Non-Labored 09/09/21 18:39 Respiratory Depth Normal 09/09/21 18:39 Respiratory Pattern Normal 09/09/21 18:39 Blood Pressure 169/64 H 09/09/21 18:30 Blood Pressure Mean 91 09/09/21 18:30 Blood Pressure Position Supine 09/09/21 17:43 Pulse Oximetry 94 09/09/21 18:30 Oxygen Delivery Method Room Air 09/09/21 17:43 Oxygen Flow Rate 0 09/09/21 17:43 Pain Level 4 09/09/21 17:43 Lab/Test Results Lab/Test Results: Laboratory Tests Range/Units 09/09/21 09/09/21 09/09/21 15:48 17:45 18:00 WBC (4.4-10.8) 10^3/uL 8.80 RBC (3.93-5.22) 10^6/uL 4.20 Hgb (11.2-15.7) g/dL 11.2 Hct (36.0-46.0) % 36.3 MCV (80-95) fL 86.4 MCH (27.0-33.0) pg 26.7 L MCHC (32.0-36.0) % 30.9 L RDW (11.7-14.6) % 13.2 Plt Count (130-400) 10^3/uL 330 MPV (8.0-11.0) fL 9.9 Immature Gran % 0.2 Neutrophils % 44.7 Lymphocytes % 43.6 Monocytes % 7.4 Eosinophils % 2.8 Basophils % 1.3 Nucleated RBC % % 0 Absolute Neutrophils (1.2-6.7) 10^3/uL 3.93 Absolute Lymphocytes (1.2-3.4) 10^3/uL 3.84 H Absolute Monocytes (0.1-0.8) 10^3/uL 0.65 Absolute Eosinophils (0.0-0.7) 10^3/uL 0.25 Absolute Basophils (0.0-0.2) 10^3/uL 0.11 Urine Color (Yellow) Yellow Cancelled Urine Clarity (Clear) Clear Cancelled Urine pH (5-8) 7.0 Cancelled Ur Specific [place] (1.005-1.025) 1.015 Cancelled Urine Protein (Negative) mg/dL Negative Cancelled Urine Ketones (Negative) mg/dL Negative Cancelled Urine Blood (Negative) Trace-intact H Cancelled Urine Nitrite (Negative) Negative Cancelled Urine Bilirubin (Negative) Negative Cancelled Urine Urobilinogen (Up TO 0.2) EU/dL 0.2 Cancelled Ur Leukocyte Esterase (Negative) Negative Cancelled Urine RBC (0-2) HPF Negative Urine WBC (0-5) HPF Negative Ur Epithelial Cells (Negative) HPF Negative Urine Crystals (Negative) HPF Negative Urine Bacteria (Negative) HPF Negative Urine Casts (Negative) LPF Negative Urine Mucus (Negative) Negative Urine Other (Negative) Negative Ur Culture Indicated? No Urine Glucose (Negative) mg/dL Negative Cancelled
--- NOTE | 2021-09-09 18:45 | DI.CT_ITS ---
Exam(s) CT BRAIN NECK CTA EXAM: CT BRAIN NECK CTA CLINICAL HISTORY: multiple syncopes, personality change per family. TECHNIQUE: Imaging Protocol: Axial CT angiography was performed with multi-slice acquisition and mu lti-planar and/or 3D reconstructions. CONTRAST MATERIAL: Intravenous: Omnipaque 350 Contrast volume:structured data in ml COMPARISON: No exams were available for comparison FINDINGS: CT angiography of the cervical cranial region was performed according to the usual protocol with intr avenous infusion of 85 cc of Omnipaque 350.. Initial noncontrast scanning of the head is unremarkable except for mild generalized cerebral atrophy . Visualized lung apices are clear. Visualized portions of thoracic aorta and pulmonary arterial circul ation are unremarkable. There is no evidence of a cervical mass or adenopathy. The tracheal laryngeal structures appear intact. The common, internal, and external carotid arteries are within normal limits in the cervical region w ith no evidence of aneurysm, stenosis, or dissection. The vertebral arteries are unremarkable in appearance in the cervical region with no evidence of aneu rysm, stenosis, or dissection. Intracranial portions of the internal carotid arteries appear normal with no evidence of aneurysm, st enosis, or dissection. Intracranial vertebral arteries and basilar artery appear normal with no evidence of aneurysm, stenos is or dissection. No aneurysm identified in the region of the [id number]. The anterior, middle, and posterior cer ebral arteries and major branches appear intact with no evidence of aneurysm, stenosis, or dissection . No enhancing brain lesion identified on 5 minutes delayed images.. IMPRESSION: Negative CT angiography of the cervical cranial region. RADIATION DOSE DELIVERED: 1,797.35mGy.cmTotal DLP 1,797.35mGy.cm Total DLP !Error CTDIvol DATA REPOSITORY: All CT scans at this facility are submitted to the National Radiology Data Registry (NRDR) Dose Index Registry (DIR) with the [employer] (A[employer]). RADIATION OPTIMIZATION: All CT scans at this facility use at least one of these dose optimization te chniques: automated exposure control; mA and/or kV adjustment per patient size (includes targeted exa ms where dose is matched to clinical indication); or iterative reconstruction.
[2021-09-09 19:01] LABS: ALT < 6 U/L (14-59); AST 17 U/L (15-37); Albumin 3.6 g/dL (3.4-5.0); Alkaline Phosphatase 94 U/L (46-116); Anion Gap 11.1 mmol/L (3-11); BUN 17 mg/dL (7-18); Bilirubin, Total 0.3 mg/dL (0.2-1.0); CO2 24.9 mmol/L (21.0-32.0); CREATININE 1.2 mg/dL (0.55-1.02); Calcium 8.7 mg/dL (8.5-10.1); Chloride 102 mmol/L (98-107); Estimated GFR 43.34 (mL/min/1.73m2); Glucose 100 mg/dL (74-106); Magnesium 2.2 mg/dL (1.8-2.4); NT-proBNP 148 pg/mL (<300); Potassium 3.9 mmol/L (3.5-5.1); Sodium 138 mmol/L (136-145); Total Protein 8.3 g/dL (6.4-8.2); Troponin I < 50 ng/L (<or=60)
--- NOTE | 2021-09-09 19:03 | DI.VRAD_ITS ---
PROCEDURE INFORMATION: Exam: XR Chest Exam date and time: 09/09/2021 6:47 PM Age: 81 years old Clinical indication: Other: Recurrent syncope TECHNIQUE: Imaging protocol: XR of the chest. Views: 1 view. Other technique: Portable exam. COMPARISON: CR CHEST 2 VIEWS PA,LAT 12/28/2017 3:10 PM FINDINGS: Lungs: Unremarkable. No consolidation. Pleural spaces: Unremarkable. No pleural effusion. No pneumothorax. Heart/Mediastinum: Borderline cardiomegaly unchanged. Vasculature: Atherosclerotic change again seen in the vasculature. Bones/joints: Degenerative changes again noted right shoulder. IMPRESSION: No evidence for acute abnormality in the chest. Dictated and Authenticated by: Diane Leyva MD. Ordering:ROBIN Villa MD
[2021-09-09] MEDS: Omnipaque 350 MG/ML 100 ML BTL IJ (19:19)
[2021-09-09] MEDS: Normal Saline Flush 10 ML SYR IVP (19:21)
--- NOTE | 2021-09-09 19:56 | DI.VRAD_ITS ---
PROCEDURE INFORMATION: Exam: CT Angiography Head With Contrast, Arteriography Exam date and time: 09/09/2021 6:59 PM Age: 81 years old Clinical indication: Other: Multiple syncopes, personality change per family TECHNIQUE: Imaging protocol: Computed tomography angiography of the head with contrast. Exam focused on the arteries. 3D rendering (Not supervised by radiologist): MIP and/or 3D reconstructed images were created by the technologist. Contrast material: OMIPAQUE 350; Contrast volume: 85 ml; Contrast route: INTRAVENOUS (IV); COMPARISON: CT HEAD WO 03/03/2021 2:06 PM FINDINGS: ANTERIOR CIRCULATION: Right internal carotid artery: Unremarkable. Intracranial segment is patent with no significant stenosis. No aneurysm. Right middle cerebral artery: Unremarkable. No occlusion or significant stenosis. No aneurysm. Right anterior cerebral artery: Unremarkable. No occlusion or significant stenosis. No aneurysm. Left internal carotid artery: Unremarkable. Intracranial segment is patent with no significant stenosis. No aneurysm. Left middle cerebral artery: Unremarkable. No occlusion or significant stenosis. No aneurysm. Left anterior cerebral artery: Unremarkable. No occlusion or significant stenosis. No aneurysm. POSTERIOR CIRCULATION: Right vertebral artery: Unremarkable. No occlusion or significant stenosis. No aneurysm. Left vertebral artery: Unremarkable. No occlusion or significant stenosis. No aneurysm. Basilar artery: Unremarkable. No occlusion or significant stenosis. No aneurysm. Right posterior cerebral artery: Unremarkable. No occlusion or significant stenosis. No aneurysm. Left posterior cerebral artery: Unremarkable. No occlusion or significant stenosis. No aneurysm. Brain: No definite mass, mass effect, or midline shift. Cerebral ventricles: No ventriculomegaly. Bones/joints: Unremarkable. No acute fracture. Soft tissues: Unremarkable. IMPRESSION: No evidence for central vascular occlusion or stenosis. PROCEDURE INFORMATION: Exam: CT Angiography Neck With Contrast Exam date and time: 09/09/2021 6:59 PM Age: 81 years old Clinical indication: Other: Multiple syncopes, personality change per family TECHNIQUE: Imaging protocol: Computed tomography angiography of the neck with contrast. 3D rendering (Not supervised by radiologist): MIP and/or 3D reconstructed images were created by the technologist. Radiation optimization: All CT scans at this facility use at least one of these dose optimization techniques: automated exposure control; mA and/or kV adjustment per patient size (includes targeted exams where dose is matched to clinical indication); or iterative reconstruction. Contrast material: OMIPAQUE 350; Contrast volume: 85 ml; Contrast route: INTRAVENOUS (IV); COMPARISON: CT HEAD WO 03/03/2021 2:06 PM FINDINGS: Right common carotid artery: No stenosis. No dissection or occlusion. Right internal carotid artery: No stenosis of the extracranial segment. No dissection or occlusion. Right external carotid artery: No occlusion or stenosis of the origin. Left common carotid artery: No stenosis. No dissection or occlusion. Left internal carotid artery: No stenosis of the extracranial segment. No dissection or occlusion. Left external carotid artery: No occlusion or stenosis of the origin. Right vertebral artery: No stenosis. No dissection or occlusion. Left vertebral artery: No stenosis. No dissection or occlusion. Soft tissues: Normal. No significant soft tissue swelling. Bones/joints: No acute fracture. IMPRESSION: No evidence for hemodynamically significant stenosis or occlusion. REFERENCES: NASCET CRITERIA. The degree of internal carotid artery stenosis is based on NASCET criteria. Normal is no stenosis. Mild is less than 50% stenosis. Moderate is 50-69% stenosis. Severe is 70% to 99% stenosis. Total occlusion is no detectable patent lumen. Dictated and Authenticated by: Diane Leyva MD. Ordering:ROBIN Villa MD
[2021-09-09 21:06] LABS: Source Nasal/Nares
[2021-09-09 21:23] LABS: Troponin I < 50 ng/L (<or=60)
[2021-09-09 21:46] LABS: COVID-19 PCR Negative (Negative)
[2021-09-09] MEDS: Enoxaparin 40 MG/0.4 ML SYR SC (23:13)
[2021-09-09] MEDS: Acetaminophen 325 MG TAB PO (23:13)
--- NOTE | 2021-09-09 23:22 | HPE_ITS ---
Date of service: 09/09/21 Time of Service: 23:22 Assessment and Plan Assessment and plan (1) Syncope: Status: Chronic Assessment and plan: check MRI brain, echocardiogram (although doubt that this will be revealing of any cause for her episodes of syncope; request cardiology and neurology consultation; monitor orthostatic vitals; may need 30 day cardiac event recorder or even an implantable loop recorder History of Present Illness History of Present Illness Chief Complaint: syncope Narrative: 81-year-old female with a past medical history of glaucoma, essential hyper tension who presents from her primary care provider's office with 2 episodes of syncope today. Prior to this she had had 2 episodes in February 2021. She had a prior work-up including a 14-day cardiac event recorder that was unremarkable March 2021. States this morning while ambulating to the bathroom she had a syncopal spell without warning. She says so she hit the floor she was awake. There was no visible tonic-clonic activity. She did not have any pre-syncopal warning of dizziness, palpitations, CP. Her syncopal spell was witnessed by her daughter who lives with her. She was then seen in the office by her primary care provider and when she was getting up off the examination table she had a spell which sounds vertiginous in nature which she felt like the room was spinning. Her daughter in the office and was try to help her up and the patient slid off the edge of the table landing on her buttocks on the pullout footstool for the examination table. Patient says that so she hit that she immediately was awake. She had EKG done in the office that showed no arrhythmias. She was sent to the emergency department by her PCP for further evaluation and admission including echocardiography and cardiology consultation. Diagnostic work-up in the emergency department included routine labs including CBC which was unremarkable, CMP that was also unremarkable. Troponin I levels x2 sets's which were normal. Nasal swab for COVID-19 was negative. Chest x-ray showed no acute abnormality. CTA of the head neck showed no evidence of vascular occlusion or stenosis. Treatment emergency department included a bolus of IV saline x1000 mL. Patient is now admitted to the medical/surgical floor on telemetry monitoring for further cardiac and neurologic work-up of her syncopal spells and near syncopal spells. Review of Systems Constitutional Constitutional: Reports as per HPI Eyes Eyes: Reports system reviewed and no additional complaints, except as documented ENT Ears, Nose, Mouth, and Throat: Reports system reviewed and no additional complaints, except as documented Cardiovascular Cardiovascular: Reports as per HPI Respiratory Respiratory: Reports system reviewed and no additional complaints, except as documented Gastrointestinal Gastrointestinal: Reports system reviewed and no additional complaints, except as documented Genitourinary Genitourinary: Reports urinary incontinence Musculoskeletal Musculoskeletal: Reports system reviewed and no additional complaints, except as documented Integumentary/Breasts Skin/Breast: Reports system reviewed and no additional complaints, except as documented Neurologic Neurologic: Reports as per HPI Endocrine Endocrine: Reports system reviewed and no additional complaints, except as documented Hematologic/Lymphatic Hematologic/Lymphatic: Reports system reviewed and no additional complaints, except as documented Allergic/Immunologic Allergic/Immunologic: Reports system reviewed and no additional complaints, except as documented PFSH All Active Problems Episode of syncope (Chronic) Concussion (Acute) Contusion of knee (Acute) Syncope (Chronic) Breast pain, left (Acute) Breast pain, right (Acute 03/01/18) Elevated blood pressure reading in office without diagnosis of hypertension (Acute 07/29/17) Insomnia (Acute) Lumbar back pain (Acute 12/17/14) Memory changes (Acute 12/17/14) Polyp of colon (Acute) adenoma Radicular pain of left lower extremity (Acute 12/17/14) Right hip pain (Acute 12/05/15) Soft tissue lesion of foot (Acute 07/04/15) Tachycardia (Acute 11/09/17) Tremor (Acute) Trochanteric bursitis, right hip (Acute 05/22/16) Tubular adenoma (Acute) Vertigo (Acute 03/01/18) Breast mass (Acute) Elevated sed rate (Acute) Depressive disorder (Acute 06/10/02) Hyperlipidemia (Acute) Reactive airway disease (Acute 06/04/14) Glaucoma (Chronic) Essential tremor (Acute) Medical History GERD (gastroesophageal reflux disease) Seasonal allergic rhinitis Surgical History Extraction of cataract 08/2013 History of cholecystectomy History of colonoscopy History of esophagogastroduodenoscopy (EGD) History of tonsillectomy Hysterectomy, Laproscopic RADICAL; FOR FIBROIDS Rotator Cuff Repair RIGHT Family History Mother Essential hypertension Personal history of malignant neoplasm SKIN Depression Heart disease Stroke Father Personal history of malignant neoplasm [place] Grandfather Arthritis Grandfather , IN A FIRE at age 80. Diabetes Stroke Grandmother No problems noted. Grandmother Essential hypertension Personal history of malignant neoplasm BREAST Stroke Son Diabetes Son Essential hypertension Hyperlipidemia Daughter Essential hypertension Fibromyalgia Heart disease Hyperlipidemia Social History Smoking/Tobacco Use Status: Never Smoking risk assessment performed?: Yes Alcohol Intake: never Drug use: Never Do you feel safe at home: Yes Do you feel safe in your relationship?: Yes Meds Allergies and Home Medications Allergies Allergy/AdvReac Type Severity Reaction Status Date / Time celecoxib Allergy Intermediate Skin Rash Verified 09/09/21 17:52 codeine Allergy Unknown Verified 09/09/21 17:52 morphine AdvReac Intermediate Nausea Verified 09/09/21 17:52 methylprednisolone AdvReac Nausea Verified 09/09/21 17:52 [From Medrol] Home Medications Medication Instructions Recorded Confirmed Type fluticasone propionate 110 2 puff INHALATION DAILY #3 inhaler 10/23/16 09/09/21 History mcg/actuation HFA aerosol inhaler (Flovent HFA) omeprazole 20 mg capsule,delayed 20 mg PO DAILY #90 tab-cap 07/29/17 09/09/21 Rx release escitalopram oxalate 10 mg tablet 10 mg PO DAILY #90 tab-cap 11/09/17 09/09/21 Rx (Lexapro) acetaminophen 325 mg capsule 325 mg PO ONCE PRN 04/26/20 09/09/21 History latanoprostene bunod 0.024 % eye 1 drp OPHTHALMIC (EYE) .QHS 09/09/21 09/09/21 History drops (Vyzulta) latanoprostene bunod 0.024 % eye drp 09/09/21 09/09/21 History drops (Vyzulta) lisinopril 10 mg tablet 10 mg PO DAILY 09/09/21 09/09/21 History magnesium 250 mg tablet 250 mg PO DAILY 09/09/21 09/09/21 History Exam Narrative Exam Narrative: Elderly white female alert and oriented person place time circumstance in no acute distress. HEENT is unremarkable. No dysarthric speech normal facial mimetic muscle movement full extraocular motion intact pupils equally round reactive to light. Oropharynx noninjected no exudate normal movement of her tongue and palate normal speech pattern Neck supple nontender normal carotid pulses no bruits no JVD no thyromegaly Lungs clear to auscultation Heart regular rate and rhythm without murmur rub or gallop Abdomen is soft nontender without bruits no palpable masses no organomegaly Extremities without peripheral cyanosis or edema Neurologic exam cranial nerves II through XII grossly intact no focal motor or sensory deficits normal DTRs Babinski's absent bilaterally normal strength and range of motion. No pronator drift. No ataxia Results Labs Result diagrams: 09/09/21 18:00 09/09/21 18:00 Labs: Laboratory Results - last 24 hr 09/09/21 09/09/21 09/09/21 15:48 17:45 18:00 WBC RBC Hgb Hct MCV MCH MCHC RDW Plt Count MPV Immature Gran % Neutrophils % Lymphocytes % Monocytes % Eosinophils % Basophils % Nucleated RBC % Absolute Neutrophils Absolute Lymphocytes Absolute Monocytes Absolute Eosinophils Absolute Basophils Sodium 138 Potassium 3.9 Chloride 102 Carbon Dioxide 24.9 Anion Gap 11.1 H BUN 17 Creatinine 1.2 H Estimated GFR/1.73 m2 43.34 Glucose 100 Calcium 8.7 Magnesium 2.2 Total Bilirubin 0.3 AST 17 ALT < 6 L Alkaline Phosphatase 94 Troponin I < 50 NT-Pro-B Natriuret Pep 148 Total Protein 8.3 H Albumin 3.6 Urine Color Yellow Cancelled Urine Clarity Clear Cancelled Urine pH 7.0 Cancelled Ur Specific [place] 1.015 Cancelled Urine Protein Negative Cancelled Urine Ketones Negative Cancelled Urine Blood Trace-intact H Cancelled Urine Nitrite Negative Cancelled Urine Bilirubin Negative Cancelled Urine Urobilinogen 0.2 Cancelled Ur Leukocyte Esterase Negative Cancelled Urine RBC Negative Urine WBC Negative Ur Epithelial Cells Negative Urine Crystals Negative Urine Bacteria Negative Urine Casts Negative Urine Mucus Negative Urine Other Negative Ur Culture Indicated? No Urine Glucose Negative Cancelled COVID-19 Source SARS-CoV-2 (PCR) 09/09/21 09/09/21 09/09/21 18:00 21:00 21:00 WBC 8.80 RBC 4.20 Hgb 11.2 Hct 36.3 MCV 86.4 MCH 26.7 L MCHC 30.9 L RDW 13.2 Plt Count 330 MPV 9.9 Immature Gran % 0.2 Neutrophils % 44.7 Lymphocytes % 43.6 Monocytes % 7.4 Eosinophils % 2.8 Basophils % 1.3 Nucleated RBC % 0 Absolute Neutrophils 3.93 Absolute Lymphocytes 3.84 H Absolute Monocytes 0.65 Absolute Eosinophils 0.25 Absolute Basophils 0.11 Sodium Potassium Chloride Carbon Dioxide Anion Gap BUN Creatinine Estimated GFR/1.73 m2 Glucose Calcium Magnesium Total Bilirubin AST ALT Alkaline Phosphatase Troponin I < 50 NT-Pro-B Natriuret Pep Total Protein Albumin Urine Color Urine Clarity Urine pH Ur Specific [place] Urine Protein Urine Ketones Urine Blood Urine Nitrite Urine Bilirubin Urine Urobilinogen Ur Leukocyte Esterase Urine RBC Urine WBC Ur Epithelial Cells Urine Crystals Urine Bacteria Urine Casts Urine Mucus Urine Other Ur Culture Indicated? Urine Glucose COVID-19 Source Cancelled SARS-CoV-2 (PCR) Cancelled 09/09/21 21:00 WBC RBC Hgb Hct MCV MCH MCHC RDW Plt Count MPV Immature Gran % Neutrophils % Lymphocytes % Monocytes % Eosinophils % Basophils % Nucleated RBC % Absolute Neutrophils Absolute Lymphocytes Absolute Monocytes Absolute Eosinophils Absolute Basophils Sodium Potassium Chloride Carbon Dioxide Anion Gap BUN Creatinine Estimated GFR/1.73 m2 Glucose Calcium Magnesium Total Bilirubin AST ALT Alkaline Phosphatase Troponin I NT-Pro-B Natriuret Pep Total Protein Albumin Urine Color Urine Clarity Urine pH Ur Specific [place] Urine Protein Urine Ketones Urine Blood Urine Nitrite Urine Bilirubin Urine Urobilinogen Ur Leukocyte Esterase Urine RBC Urine WBC Ur Epithelial Cells Urine Crystals Urine Bacteria Urine Casts Urine Mucus Urine Other Ur Culture Indicated? Urine Glucose COVID-19 Source Nasal/Nares SARS-CoV-2 (PCR) Negative Last Vital Signs Temp 36.5 C 09/09/21 22:06 Pulse 75 09/09/21 22:14 Resp 20 09/09/21 22:06 BP 171/82 H 09/09/21 22:06 Pulse Ox 95 09/09/21 22:06
[2021-09-09] MEDS: Escitalopram 10 MG TAB PO (23:49)
[2021-09-09] MEDS: Lisinopril 10 MG TAB PO (23:49)
[2021-09-09] MEDS: Omeprazole 20 MG CAPCR PO (23:49)
[2021-09-09] MEDS: Refresh PLUS Eye Drops 0.4ml 1 EACH OU (23:58)
[2021-09-10] VITALS (8 sets, daily range): BP systolic 120–145; BP diastolic 62–73; PULSE 62–71; RESP 16–18; TEMP 35.9–37.5; O2SAT 94–97
[2021-09-10] MEDS: Magnesium Gluconate 500 MG TAB 250 MG PO (08:24)
--- NOTE | 2021-09-10 08:53 | INITIAL_ITS ---
- If Service Date Differs Date of service: 09/10/21 Time of Service: 08:53 Care Management Initial Assess REASON FOR HOSPITALIZATION:: Syncope PAST MEDICAL HISTORY/PAST SURGICAL HISTORY:: All Active Problems . Episode of syncope (Chronic). Concussion (Acute). Contusion of knee (Acute). Syncope (Chronic). Breast pain, left (Acute). Breast pain, right (Acute 03/01/18). Elevated blood pressure reading in office without diagnosis of hypertension (Acute 07/29/17). Insomnia (Acute). Lumbar back pain (Acute 12/17/14). Memory changes (Acute 12/17/14). Polyp of colon (Acute). adenoma. Radicular pain of left lower extremity (Acute 12/17/14). Right hip pain (Acute 12/05/15). Soft tissue lesion of foot (Acute 07/04/15). Tachycardia (Acute 11/09/17). Tremor (Acute). Trochanteric bursitis, right hip (Acute 05/22/16). Tubular adenoma (Acute). Vertigo (Acute 03/01/18). Breast mass (Acute). Elevated sed rate (Acute). Depressive disorder (Acute 06/10/02). Hyperlipidemia (Acute). Reactive airway disease (Acute 06/04/14). Glaucoma (Chronic). Essential tremor (Acute). Medical History . GERD (gastroesophageal reflux disease). Seasonal allergic rhinitis. Surgical History . Extraction of cataract. 08/2013. History of cholecystectomy. History of colonoscopy. History of esophagogastroduodenoscopy (EGD). History of tonsillectomy. Hysterectomy, Laproscopic. RADICAL; FOR FIBROIDS. Rotator Cuff Repair. RIGHT PREVIOUS FUNCTIONAL STATUS/SOCIAL/FAMILY SUPPORTS:: Princess lives in a home in [place], [place] The house has a complete apartment in the lower level with a kitchen, bath, livingroom and 2 bedrooms. Princess and her son Avelino live there. Her daughter Belkys and her family live on the main floor. Princess is . She has another son Ced who also lives in [place]. The family is very close and supportive of one another. Princess is independent and only uses a cane on occasion. CURRENT FUNCTIONAL STATUS:: Princess was sitting up in a chair when CM met with her. She was very pleasant and interacted well with CM. Princess talkked about her family and their unique living arrangement. Her when her children were younger and she thinks that their desire to live together stems from that time. She informed CM that sometimes they have meals together but that they all have their own space and privacy so it works well for all of them. Princess also talked about her syncopal episodes and her fear of being alone as a result. In the evening the family is together but everyone works during the day. CM discussed possible ways to increase her sense of safety. She is considering purchasing a smart watch that can detect a fall and send an alert. She also plans to get a Life Alert system and possibly security cameras that can be monitored by her children from their phone. ADVANCE DIRECTIVES:: none on file Has patient been provided with info about the portal/API?: Yes Did the patient sign up for the portal?: Yes (previously) CODE STATUS:: Full Code INSURANCE COVERAGE / FINANCIAL ISSUES:: Medicare. for Life CURRENT HOME/COMMUNITY SERVICES/EQUIPMENT:: none PRIMARY CARE PHYSICIAN:: Solomon Leslie POTENTIAL DISCHARGE NEEDS:: Follow up with PCP and plan of care PATIENT/FAMILY EDUCATION NEEDS:: Review of discharge instructions, activity, follow up plan, limitations, discuss [employer] TRANSPORTATION:: via private vehicle with family PLAN:: Princess will likley be discharged home with no new services. She will follow up with her PCP, Cardiology and other community providers and transport with family. CM will continue to support Princess and her discharge planning needs.
[2021-09-10] MEDS: Acetaminophen 325 MG TAB PO (09:09)
[2021-09-10] MEDS: Normal Saline Flush 10 ML SYR IVP (09:10)
[2021-09-10] MEDS: Refresh PLUS Eye Drops 0.4ml 1 EACH OU ×2 (09:14→19:51)
--- NOTE | 2021-09-10 11:32 | DI.MRI_ITS ---
Exam(s) MR BRAIN WO EXAM: MR BRAIN WO CLINICAL HISTORY: syncope, vertigo TECHNIQUE: Multiplanar multisequence MRI of the brain was performed. COMPARISON: No exams were available for comparison FINDINGS: There is mild generalized cerebral atrophy and there are multiple areas of abnormal signal in perive ntricular and subcortical white matter consistent with mild microvascular ischemic changes.. No signal abnormality identified in the brain. The orbital and temporal bone structures appear intact as does the pituitary. Diffusion weighted imaging shows no evidence of infarction. Susceptibility weighted imaging shows no evidence of intracranial hemorrhage. There is normal flow void in the [place] vasculature. IMPRESSION: No evidence of acute intracranial process. DATA REPOSITORY:
--- NOTE | 2021-09-10 16:57 | W.PM.PROGNOT ---
Date of Service Date of service: 09/10/21 Time of Service: 16:57 Assessment and Plan Assessment and plan (1) Syncope: Status: Chronic Assessment and plan: awaiting MRI brain, echocardiogram (although doubt that this will be revealing of any cause for her episodes of syncope; request cardiology and neurology consultation; monitor orthostatic vitals; may need 30 day cardiac event recorder or even an implantable loop recorder no events since admission no dysrhythmias on telemetry will see cardiology tomorrow. see neurology note, plan to stop ibuprofen, start gabapentin 100 mg po qid prn headache considering complex migraine. discussed with DR Jones Subjective Subjective Patient reports: no new complaints, feels better, tolerating liquids well, tolerating a regular diet and afebrile Exam Const General: cooperative, healthy appearing, comfortable and no acute distress Nutritional Appearance: overweight Orientation: alert, awake and oriented x3 HENMT Head: normal to inspection, normocephalic and atraumatic Mouth: oral mucosae normal Eyes General: appearance normal, both eyes and all related structures Neck Neck: normal visual inspection Chest Chest: normal inspection of the chest Resp Effort & Inspection: normal respiratory effort Cardio Rate: regular rate Rhythm: regular rhythm GI Inspection: normal to inspection Palpation: soft Auscultation: normal bowel sounds Skin General skin exam: no rashes or lesions noted Neuro General: patient alert, patient awake, patient oriented x3, no focal motor deficits and CN's II-XI intact bilaterally Cognition: normal cognition Speech: speech normal Gait: normal gait Motor: muscle tone normal throughout Sensory Exam: no sensory deficits noted Objective Last Vital Signs Temp 37.1 C 09/10/21 15:40 Pulse 67 09/10/21 15:40 Resp 16 09/10/21 15:40 BP 120/70 09/10/21 15:40 Pulse Ox 94 09/10/21 15:40 Laboratory Results - last 24 hr 09/09/21 09/09/21 09/09/21 15:48 17:45 18:00 WBC RBC Hgb Hct MCV MCH MCHC RDW Plt Count MPV Immature Gran % Neutrophils % Lymphocytes % Monocytes % Eosinophils % Basophils % Nucleated RBC % Absolute Neutrophils Absolute Lymphocytes Absolute Monocytes Absolute Eosinophils Absolute Basophils Sodium 138 Potassium 3.9 Chloride 102 Carbon Dioxide 24.9 Anion Gap 11.1 H BUN 17 Creatinine 1.2 H Estimated GFR/1.73 m2 43.34 Glucose 100 Calcium 8.7 Magnesium 2.2 Total Bilirubin 0.3 AST 17 ALT < 6 L Alkaline Phosphatase 94 Troponin I < 50 NT-Pro-B Natriuret Pep 148 Total Protein 8.3 H Albumin 3.6 Urine Color Yellow Cancelled Urine Clarity Clear Cancelled Urine pH 7.0 Cancelled Ur Specific [place] 1.015 Cancelled Urine Protein Negative Cancelled Urine Ketones Negative Cancelled Urine Blood Trace-intact H Cancelled Urine Nitrite Negative Cancelled Urine Bilirubin Negative Cancelled Urine Urobilinogen 0.2 Cancelled Ur Leukocyte Esterase Negative Cancelled Urine RBC Negative Urine WBC Negative Ur Epithelial Cells Negative Urine Crystals Negative Urine Bacteria Negative Urine Casts Negative Urine Mucus Negative Urine Other Negative Ur Culture Indicated? No Urine Glucose Negative Cancelled COVID-19 Source SARS-CoV-2 (PCR) 09/09/21 09/09/21 09/09/21 18:00 21:00 21:00 WBC 8.80 RBC 4.20 Hgb 11.2 Hct 36.3 MCV 86.4 MCH 26.7 L MCHC 30.9 L RDW 13.2 Plt Count 330 MPV 9.9 Immature Gran % 0.2 Neutrophils % 44.7 Lymphocytes % 43.6 Monocytes % 7.4 Eosinophils % 2.8 Basophils % 1.3 Nucleated RBC % 0 Absolute Neutrophils 3.93 Absolute Lymphocytes 3.84 H Absolute Monocytes 0.65 Absolute Eosinophils 0.25 Absolute Basophils 0.11 Sodium Potassium Chloride Carbon Dioxide Anion Gap BUN Creatinine Estimated GFR/1.73 m2 Glucose Calcium Magnesium Total Bilirubin AST ALT Alkaline Phosphatase Troponin I < 50 NT-Pro-B Natriuret Pep Total Protein Albumin Urine Color Urine Clarity Urine pH Ur Specific [place] Urine Protein Urine Ketones Urine Blood Urine Nitrite Urine Bilirubin Urine Urobilinogen Ur Leukocyte Esterase Urine RBC Urine WBC Ur Epithelial Cells Urine Crystals Urine Bacteria Urine Casts Urine Mucus Urine Other Ur Culture Indicated? Urine Glucose COVID-19 Source Cancelled SARS-CoV-2 (PCR) Cancelled 09/09/21 21:00 WBC RBC Hgb Hct MCV MCH MCHC RDW Plt Count MPV Immature Gran % Neutrophils % Lymphocytes % Monocytes % Eosinophils % Basophils % Nucleated RBC % Absolute Neutrophils Absolute Lymphocytes Absolute Monocytes Absolute Eosinophils Absolute Basophils Sodium Potassium Chloride Carbon Dioxide Anion Gap BUN Creatinine Estimated GFR/1.73 m2 Glucose Calcium Magnesium Total Bilirubin AST ALT Alkaline Phosphatase Troponin I NT-Pro-B Natriuret Pep Total Protein Albumin Urine Color Urine Clarity Urine pH Ur Specific [place] Urine Protein Urine Ketones Urine Blood Urine Nitrite Urine Bilirubin Urine Urobilinogen Ur Leukocyte Esterase Urine RBC Urine WBC Ur Epithelial Cells Urine Crystals Urine Bacteria Urine Casts Urine Mucus Urine Other Ur Culture Indicated? Urine Glucose COVID-19 Source Nasal/Nares SARS-CoV-2 (PCR) Negative
--- NOTE | 2021-09-10 17:13 | W.NEUROCONSU ---
Date of service: 09/10/21 Time of Service: 17:13 Assessment and Plan Assessment and plan (1) Syncope: Status: Chronic (2) Chronic headache: Status: Acute (3) Migraine headache with aura: Status: Acute Assessment and plan: Ms. Alston is a 81 year-old woman admitted after 2 recent spells yesterday. She has no epileptic risk factors and her events do not sound like seizure. Events sound most consistent with syncope. Not likely to be cardiac given lack of events over time, but defer to cardiology team. Events are not clearly orthostatic but certainly possible. However, I suspect events may be vasovagal and may be due to her chronic daily migraines - complicated by medication overuse and ?JA. She will continue further work-up as per primary team and cardiology. Otherwise, I recommend she stop ibuprofen. Instead, she can use gabapentin 100mg q6hr prn headache. If this is ineffective, would increase to 300mg q6hr prn. ADRs discussed. I also recommend a referral to the sleep clinic for outpatient evaluation of JA. She should follow-up in neurology clinic in 4-6 weeks. Please call with any further questions or concerns. History of Present Illness History of Present Illness Chief Complaint: syncope Narrative: Handedness: right. HPI: Ms. Alston is a 81 year-old woman with hypertension, hyperlipidemia, depression, and GERD. She was admitted yesterday to [facility] after 2 spells. In the last 1 year, she has had 4 total events. #1. and #2. February 2021. These are hard to recall. Recalls moving around kitchen and then getting a sensation as if she was going to fall vs pass out and then falling backwards. She recalls hitting the ground. These were unwitnessed. #3. 3/08/02 AM. After awaking, she got up to use the bathroom. She stopped to feet her cat. After standing up and turning around, she had a sensation as if she was dropping. She remembers starting to fall over and remembers hitting the ground. She doesn't remember in between. Her fall was unwitnessed. She called out to her family who came and helped her up. She had no post-ictal fatigue. #4. 3 PM. At PCP's office. She laid down to get EKG when she felt the room spinning. She had to close her eyes and keep her head still to stop the sensation. After the EKG was completed, she had the same sensation upon sitting. After sitting still with eyes closed, sensation again resolved. However, when she went to stand up, she developed that dropping sensation and slid down to the floor - daughter and staff there to help her not fall. There was no obvious YULIA, however, she notes that her daughter told her after sliding down that she cursed several times using language she finds abhorrent and would never use. She has no recollection of this happening still today. She dose however recall feeling nauseated, overheated, and with red ears after this event. Prior, she has had no other passing out episodes or episodes of vertigo. She has a history of palpitations and SVT but none of the events have been associated with palpitations. She has no family history of seizures. No prior SHIPPING HELPER infections or TBIs. She has chronic daily headaches of unclear duration and a history of ocular migraines last summer. She takes ibuprofen 400mg BID for her headaches with temporary improvement. She drinks one cup of coffee daily. She has risk factors for JA and has been recommended PSG in the past but has been hesitant to pursue. She notes that she had headaches after events #3 and #4 - does not recall if she did with the earlier events. She takes a magnesium supplement daily. She has no numbness in her feet. She occasionally becomes imbalanced but notes that these events are different. She stopped driving several years ago as she no longer needed to drive. She lives in a multi-generational home with separate but attached living quarters. She is home alone during the day. Work-up: -Labs: WBC 8.8, Hgb 11.2, Plt 330, Na 138, Cr 1.2, Trop x2 neg, U spec grav 1.015 -MRI brain w/o (09/10/21): No acute findings. Minimal chronic vascular changes. I reviewed these images personally and this is my personal interpretation. -cardiac monitor technician x 14 days (Mar 2021): HR 51-121. Several atrial runs. 1 x 6 beats SVT. None of the above events were captured. Consults Requesting physician: Jean Carlos Oliveira Review of Systems Constitutional Constitutional: Reports as per HPI PFSH All Active Problems (Updated 09/10/21 @ 19:52 by Nabila Cartagena MD) Migraine headache with aura (Acute) Chronic headache (Acute) Episode of syncope (Chronic) Concussion (Acute) Contusion of knee (Acute) Syncope (Chronic) Breast pain, left (Acute) Breast pain, right (Acute 03/01/18) Elevated blood pressure reading in office without diagnosis of hypertension (Acute 07/29/17) Insomnia (Acute) Lumbar back pain (Acute 12/17/14) Memory changes (Acute 12/17/14) Polyp of colon (Acute) adenoma Radicular pain of left lower extremity (Acute 12/17/14) Right hip pain (Acute 12/05/15) Soft tissue lesion of foot (Acute 07/04/15) Tachycardia (Acute 11/09/17) Tremor (Acute) Trochanteric bursitis, right hip (Acute 05/22/16) Tubular adenoma (Acute) Vertigo (Acute 03/01/18) Breast mass (Acute) Elevated sed rate (Acute) Depressive disorder (Acute 06/10/02) Hyperlipidemia (Acute) Reactive airway disease (Acute 06/04/14) Glaucoma (Chronic) Essential tremor (Acute) Medical History GERD (gastroesophageal reflux disease) Seasonal allergic rhinitis Surgical History Extraction of cataract 08/2013 History of cholecystectomy History of colonoscopy History of esophagogastroduodenoscopy (EGD) History of tonsillectomy Hysterectomy, Laproscopic RADICAL; FOR FIBROIDS Rotator Cuff Repair RIGHT Family History Mother Essential hypertension Personal history of malignant neoplasm SKIN Depression Heart disease Stroke Father Personal history of malignant neoplasm HODGKINS Grandfather Arthritis Grandfather , IN A FIRE at age 80. Diabetes Stroke Grandmother No problems noted. Grandmother Essential hypertension Personal history of malignant neoplasm BREAST Stroke Son Diabetes Son Essential hypertension Hyperlipidemia Daughter Essential hypertension Fibromyalgia Heart disease Hyperlipidemia Social History Smoking/Tobacco Use Status: Never Smoking risk assessment performed?: Yes Alcohol Intake: never Drug use: Never Do you feel safe at home: Yes Do you feel safe in your relationship?: Yes Visit Medication and Allergies Active Medications Generic Name Dose Route Start Last Admin Trade Name Freq PRN Reason Stop Dose Admin Acetaminophen 325 - 650 mg 09/09/21 20:48 09/10/21 09:09 Acetaminophen 325 Mg Tab PO 650 mg Q4H PRN PRN Administration Al Hydrox/Mg Hydrox/Simethicone 30 ml 09/09/21 20:48 Mylanta Suspension 30 Ml Cup PO Q2H PRN PRN Carboxymethylcellulose Sodium 1 each 09/09/21 23:23 09/10/21 09:14 Refresh Plus Eye Drops 0.4ml OU 1 drp Q4H PRN PRN Administration Diazepam 5 mg 09/10/21 08:30 Diazepam 5 Mg Tab PO ONCE PRN emergency communications operator to MRI scan Dimethicone/Zinc Oxide 0 gm 09/09/21 20:48 Chela Protect Cream 142 Gm Tube TP PRN PRN Docusate Sodium 100 mg 09/09/21 20:48 Docusate Sodium 100 Mg Cap PO TID PRN PRN Enoxaparin Sodium 40 mg 09/09/21 23:00 09/09/21 23:13 Enoxaparin 40 Mg/0.4 Ml Syr SC 40 mg Q24H KIRSTEN Administration Escitalopram Oxalate 10 mg 09/09/21 23:15 09/09/21 23:49 Escitalopram 10 Mg Tab PO 10 mg HS KIRSTEN Administration Gabapentin 100 mg 09/10/21 16:56 Gabapentin 100 Mg Cap PO QID PRN PRN Sodium Chloride 500 mls @ 0 mls/hr 09/09/21 20:48 Saline 500ml Bag IV PRN PRN As Directed IV Miscellaneous Supplies 1 each 09/09/21 21:00 Iv Access IV DIRECTED KIRSTEN Lisinopril 10 mg 09/09/21 23:15 09/09/21 23:49 Lisinopril 10 Mg Tab PO 10 mg HS KIRSTEN Administration Magnesium Gluconate 250 mg 09/10/21 08:30 09/10/21 08:24 Magnesium Gluconate 500 Mg Tab PO 250 mg DAILY KIRSTEN Administration Magnesium Hydroxide 30 ml 09/09/21 20:48 Milk Of Magnesia 30 Ml Cup PO DAILY PRN PRN Omeprazole 20 mg 09/09/21 23:15 09/09/21 23:49 Omeprazole 20 Mg Capcr PO 20 mg HS KIRSTEN Administration Patient's Own 1 each 09/10/21 22:00 Medication ( OU Latanoprostene Bunod HS KIRSTEN [Vyzulta] 0.024 % Drops) Polyethylene Glycol 17 gm 09/09/21 20:48 Polyethylene Glycol 3350 17 Gm Packet PO DAILY PRN PRN Constipation Sodium Chloride 0 ml 09/09/21 20:48 09/10/21 09:10 Normal Saline Flush 10 Ml Syr IVP 10 ml PRN PRN Administration Allergies celecoxib Allergy (Intermediate, Verified 09/09/21 17:52) Skin Rash codeine Allergy (Unknown, Verified 09/09/21 17:52) morphine Adverse Reaction (Intermediate, Verified 09/09/21 17:52) Nausea methylprednisolone [From Medrol] Adverse Reaction (Verified 09/09/21 17:52) Nausea Exam Narrative Exam Narrative: Physical Exam: Gen: Patient of apparent stated age, NAD Head and face: no facial or cranial abnormalities Neck: Supple, no meningismus, no occipital tenderness CV: + S1, S2, RRR Resp: CTA B/L Abd: soft, nontender, nondistended Ext: No edema. No clubbing or cyanosis. No bony deformity. Neuro Exam: Language: fluency, naming, repetition, and comprehension intact; Mental Status: AAOx3, current events intact, fund of knowledge intact; Speech: no dysarthria Cranial nerves: Funduscopy: not performed CN II: visual tamayo intact CN III, IV, : extraocular movements intact, no nystagmus, pupils symmetric and reactive to light CN V: face sensation intact to LT and PP CN VII: no facial asymmetry noted CN VIII: hearing intact bilaterally CN IX, X: palate rises symmetrically CN XI: trapezius/SCM 5/5 bilaterally CN XII: protrudes tongue symmetrically Sensory: intact to LT, PP, vibration, and joint position in all extremities, absent Romberg Motor: bulk and tone intact. Fine motor movements intact bilaterally. No pronator drift. Strength 5/5 throughout including the deltoids, biceps, triceps, wrist extensors, hip flexors, knee flexors, knee extensors, ankle flexors, and ankle extensors. EHL 5/5. Reflexes: hyporeflexic throughout; toes down going bilaterally; Coordination: FTN and HTS intact bilaterally Gait: not tested Results Last Vital Signs Temp 98.8 F 09/10/21 15:40 Pulse 67 09/10/21 15:40 Resp 16 09/10/21 15:40 BP 120/70 09/10/21 15:40 Pulse Ox 94 09/10/21 15:40 Labs Result diagrams: 09/09/21 18:00 09/09/21 18:00 Labs: Laboratory Results - last 24 hr 09/09/21 09/09/21 09/09/21 15:48 17:45 18:00 WBC RBC Hgb Hct MCV MCH MCHC RDW Plt Count MPV Immature Gran % Neutrophils % Lymphocytes % Monocytes % Eosinophils % Basophils % Nucleated RBC % Absolute Neutrophils Absolute Lymphocytes Absolute Monocytes Absolute Eosinophils Absolute Basophils Sodium 138 Potassium 3.9 Chloride 102 Carbon Dioxide 24.9 Anion Gap 11.1 H BUN 17 Creatinine 1.2 H Estimated GFR/1.73 m2 43.34 Glucose 100 Calcium 8.7 Magnesium 2.2 Total Bilirubin 0.3 AST 17 ALT < 6 L Alkaline Phosphatase 94 Troponin I < 50 NT-Pro-B Natriuret Pep 148 Total Protein 8.3 H Albumin 3.6 Urine Color Yellow Cancelled Urine Clarity Clear Cancelled Urine pH 7.0 Cancelled Ur Specific [place] 1.015 Cancelled Urine Protein Negative Cancelled Urine Ketones Negative Cancelled Urine Blood Trace-intact H Cancelled Urine Nitrite Negative Cancelled Urine Bilirubin Negative Cancelled Urine Urobilinogen 0.2 Cancelled Ur Leukocyte Esterase Negative Cancelled Urine RBC Negative Urine WBC Negative Ur Epithelial Cells Negative Urine Crystals Negative Urine Bacteria Negative Urine Casts Negative Urine Mucus Negative Urine Other Negative Ur Culture Indicated? No Urine Glucose Negative Cancelled COVID-19 Source SARS-CoV-2 (PCR) 09/09/21 09/09/21 09/09/21 18:00 21:00 21:00 WBC 8.80 RBC 4.20 Hgb 11.2 Hct 36.3 MCV 86.4 MCH 26.7 L MCHC 30.9 L RDW 13.2 Plt Count 330 MPV 9.9 Immature Gran % 0.2 Neutrophils % 44.7 Lymphocytes % 43.6 Monocytes % 7.4 Eosinophils % 2.8 Basophils % 1.3 Nucleated RBC % 0 Absolute Neutrophils 3.93 Absolute Lymphocytes 3.84 H Absolute Monocytes 0.65 Absolute Eosinophils 0.25 Absolute Basophils 0.11 Sodium Potassium Chloride Carbon Dioxide Anion Gap BUN Creatinine Estimated GFR/1.73 m2 Glucose Calcium Magnesium Total Bilirubin AST ALT Alkaline Phosphatase Troponin I < 50 NT-Pro-B Natriuret Pep Total Protein Albumin Urine Color Urine Clarity Urine pH Ur Specific [place] Urine Protein Urine Ketones Urine Blood Urine Nitrite Urine Bilirubin Urine Urobilinogen Ur Leukocyte Esterase Urine RBC Urine WBC Ur Epithelial Cells Urine Crystals Urine Bacteria Urine Casts Urine Mucus Urine Other Ur Culture Indicated? Urine Glucose COVID-19 Source Cancelled SARS-CoV-2 (PCR) Cancelled 09/09/21 21:00 WBC RBC Hgb Hct MCV MCH MCHC RDW Plt Count MPV Immature Gran % Neutrophils % Lymphocytes % Monocytes % Eosinophils % Basophils % Nucleated RBC % Absolute Neutrophils Absolute Lymphocytes Absolute Monocytes Absolute Eosinophils Absolute Basophils Sodium Potassium Chloride Carbon Dioxide Anion Gap BUN Creatinine Estimated GFR/1.73 m2 Glucose Calcium Magnesium Total Bilirubin AST ALT Alkaline Phosphatase Troponin I NT-Pro-B Natriuret Pep Total Protein Albumin Urine Color Urine Clarity Urine pH Ur Specific [place] Urine Protein Urine Ketones Urine Blood Urine Nitrite Urine Bilirubin Urine Urobilinogen Ur Leukocyte Esterase Urine RBC Urine WBC Ur Epithelial Cells Urine Crystals Urine Bacteria Urine Casts Urine Mucus Urine Other Ur Culture Indicated? Urine Glucose COVID-19 Source Nasal/Nares SARS-CoV-2 (PCR) Negative
[2021-09-10] MEDS: Polyethylene Glycol 3350 17 GM PACKET PO (22:11)
[2021-09-10] MEDS: Enoxaparin 40 MG/0.4 ML SYR SC (22:11)
[2021-09-10] MEDS: Escitalopram 10 MG TAB PO (22:11)
[2021-09-10] MEDS: Omeprazole 20 MG CAPCR PO (22:12)
[2021-09-10] MEDS: Lisinopril 10 MG TAB PO (22:12)
[2021-09-10] MEDS: Gabapentin 100 MG CAP PO (22:13)
--- NOTE | 2021-09-10 22:36 | NUR.NOTE ---
Addendum entered by Daphne Santos 09/10/21 22:39: Pt's call negro is in reach. Original Note: Nursing Note: Pt requested for the bed alarm to be off as it goes off every time she repositions. Pt is call negro appropriate and stated that she will call for assistance if she needs to get up to go to the bathroom .Education about fall safety in regard to bed alarms. Pt understands and wishes to leave the alarm off. Pt also requested to have all 4 bed rails up as it helps her turn and reposition in bed.
[2021-09-11] VITALS: PULSE 63
[2021-09-11 03:36] VITALS: BP 124/62; PULSE 66; RESP 18; TEMP 36.8; O2SAT 97
[2021-09-11 06:47] LABS: Platelet Count 268 10^3/uL (130-400)
[2021-09-11 07:26] VITALS: BP 118/55; PULSE 65; RESP 17; TEMP 36.6; O2SAT 95
[2021-09-11 07:44] VITALS: PULSE 64
[2021-09-11] MEDS: Magnesium Gluconate 500 MG TAB 250 MG PO (07:51)
[2021-09-11] MEDS: Refresh PLUS Eye Drops 0.4ml 1 EACH OU (07:51)
[2021-09-11] MEDS: Normal Saline Flush 10 ML SYR IVP (07:58)
[2021-09-11] MEDS: Acetaminophen 325 MG TAB PO (08:06)
--- NOTE | 2021-09-11 08:52 | CCONE_ITS ---
Date of service: 09/11/21 Time of Service: 08:52 Assessment and Plan Assessment and plan (1) Episode of syncope: Status: Chronic Assessment and plan: Patient has had several spells. The 2 in February and the 1 early Wednesday are similar. The one later on Wednesday in the doctor's office sounds more like vertigo. The fact that one spell occurred on the toilet while straining makes vasovagal syncope a strong consideration. Overall I do not think any of these sound like a cardiac dysrhythmia. She has no significant structural heart disease, no symptoms concerning for angina. There are no specific recommendations as to medication changes. I also have no specific recommendations as to additional cardiac testing (2) Vertigo: Status: Acute (3) Elevated blood pressure reading in office without diagnosis of hypertension: Status: Acute History of Present Illness History of Present Illness Chief Complaint: Syncope Narrative: Cardiac evaluation is requested in this 81-year-old woman Who has had several spells 2 of these occurred back in February 2021. On one occasion she was walking in her kitchen and going to feed her cat when without any premonitory symptoms she fell over backwards and hit her head. She says she dropped to the floor. Other than a subsequent headache, she had no sequelae. She had a second episode which occurred while she was sitting on the toilet. This was witnessed by her daughter and may have been associated with straining to move her bowels, as she had been constipated. She did not fall at that time but was caught before she could go over forwards. These episodes prompted cardiac monitoring, which showed predominant sinus rhythm with an average heart rate of 67. There were rare atrial and ventricular ectopic beats. There were several self-limited atrial runs. Overall there was no concerning dysrhythmia that would account for syncope Patient then did well without further symptoms until September 09. She again had an episode where she collapsed without warning. She fell forward and hit her arms. At that point her daughter brought her to her primary care provider. When she was placed on the exam table to have an EKG and lay down, she developed a spinning sensation which was entirely new. She had to close her eyes. She was nauseated. When she went to get up off the exam table she experienced further spinning sensation and then she started to go down again. She did not end up on the ground because people caught her. She then began to behave bizarrely and reportedly used profanity that would be unusual for her. The patient does not recall any of these behavioral changes. An ambulance was summoned. Her mental status was at baseline when she got in the ambulance. She has been monitored here in the hospital without any obvious dysrhythmia. Her baseline electrocardiogram shows early R wave transition, sinus rhythm. An ec hocardiogram was performed. This was interpreted by [facility]. LV function was normal. There was mild aortic stenosis with a peak gradient of 18, mean of 9 and an estimated right ventricular systolic pressure of 35 to 40 mmHg She has a longstanding history of palpitations. These have not been worse lately and appeared to not correspond in any way to her spells Review of Systems Cardiovascular Cardiovascular: Reports as per HPI, Denies chest pain, Reports syncope, Reports lightheadedness and Denies slow heart rate Neurologic Neurologic: Reports syncope PFSH All Active Problems Migraine headache with aura (Acute) Chronic headache (Acute) Episode of syncope (Chronic) Concussion (Acute) Contusion of knee (Acute) Syncope (Chronic) Breast pain, left (Acute) Breast pain, right (Acute 03/01/18) Elevated blood pressure reading in office without diagnosis of hypertension (Acute 07/29/17) Insomnia (Acute) Lumbar back pain (Acute 12/17/14) Memory changes (Acute 12/17/14) Polyp of colon (Acute) adenoma Radicular pain of left lower extremity (Acute 12/17/14) Right hip pain (Acute 12/05/15) Soft tissue lesion of foot (Acute 07/04/15) Tachycardia (Acute 11/09/17) Tremor (Acute) Trochanteric bursitis, right hip (Acute 05/22/16) Tubular adenoma (Acute) Vertigo (Acute 03/01/18) Breast mass (Acute) Elevated sed rate (Acute) Depressive disorder (Acute 06/10/02) Hyperlipidemia (Acute) Reactive airway disease (Acute 06/04/14) Glaucoma (Chronic) Essential tremor (Acute) Medical History GERD (gastroesophageal reflux disease) Seasonal allergic rhinitis Surgical History Extraction of cataract 08/2013 History of cholecystectomy History of colonoscopy History of esophagogastroduodenoscopy (EGD) History of tonsillectomy Hysterectomy, Laproscopic RADICAL; FOR FIBROIDS Rotator Cuff Repair RIGHT Family History Mother Essential hypertension Personal history of malignant neoplasm SKIN Depression Heart disease Stroke Father Personal history of malignant neoplasm HODGKINS Grandfather Arthritis Grandfather , IN A FIRE at age 80. Diabetes Stroke Grandmother No problems noted. Grandmother Essential hypertension Personal history of malignant neoplasm BREAST Stroke Son Diabetes Son Essential hypertension Hyperlipidemia Daughter Essential hypertension Fibromyalgia Heart disease Hyperlipidemia Social History Smoking/Tobacco Use Status: Never Smoking risk assessment performed?: Yes Alcohol Intake: never Drug use: Never Do you feel safe at home: Yes Do you feel safe in your relationship?: Yes Exam Const Other: Well-developed well-nourished mildly overweight looks younger than stated age no acute distress. Very good historian Neck Other: No neck vein distention normal carotid upstrokes no bruits Resp Other: Lungs are clear Cardio Other: Heart is regular brief 1/6 to 2/6 systolic ejection quality murmur Extrem Other: No peripheral edema intact distal pulses Results Last Vital Signs Temp 36.6 C 09/11/21 07:26 Pulse 65 09/11/21 07:26 Resp 17 09/11/21 07:26 BP 118/55 L 09/11/21 07:26 Pulse Ox 95 09/11/21 07:26 Labs Result diagrams: 09/11/21 06:32 09/09/21 18:00 Labs: Laboratory Results - last 24 hr 09/11/21 06:32 Plt Count 268
--- NOTE | 2021-09-11 09:11 | CMPROGNOTE_ITS ---
- If Service Date Differs Date of service: 09/11/21 Time of Service: 09:11 Care Management Progress Note S/O: A: 81 year old female admitted to [facility] on 09/09/2021 for Syncope. P: Princess will likley be discharged home with no new services. She will follow up with her PCP, Cardiology and other community providers and transport with family. CM will continue to support Princess and her discharge planning needs.
[2021-09-11 11:45] VITALS: BP 125/72; PULSE 68; RESP 17; TEMP 37; O2SAT 95
--- NOTE | 2021-09-11 13:21 | W.PM.DS.N ---
Date of service: 09/11/21 Time of Service: 13:21 DS: Diagnosis Discharge Diagnosis (1) Episode of syncope: Start date: 09/11/21 Start time: 13:22 Status: Chronic Asessment and Plan: Seen by both cardiology and neurology, this has been worked up in the past, appears to be vagalvaso in manner. She has not had any episodes while in the hospital She is refusing a 30 day event recorder as she states she has already had 2 without any evidence of activity therefore she is being discharged home without any device. (2) Vertigo: Start date: 09/11/21 Start time: 13:40 Status: Acute Asessment and Plan: Happened prior to admission at PCP office. No events while in the hospital. discussed with Dr. Jones Discharge Plan Disposition Patient Disposition: HOME Condition: Good Discharge Details Reason For Visit: Syncope Admit Date/Time: 09/09/21 20:30 Admit Provider: Jean Carlos Oliveira Attending Provider: Jean Carlos Oliveira Primary Care Provider: [facility] Hospital Course: 81 y.o female with PMH of HTN, syncope, back pain, migraines, HLD, depression, tremor, admitted from PCP office overnight after having syncopal episode. She was evaluated by both cardiology and neurology and found to have nothing more than chronic migraines byneurology who recommends gabapentin 100 q6 hour prn BACA with increase (can be done by PCP) up to 300 mg for BACA. There was recommendation for 30 day event recorder but patient is refusing as she states she has done this twice in the past and nothing has been found. From cardiac stand point this does not appear to be cardiac related. Vasovagal likely as patient revealed sometimes this happens when she urinates. Will have her f/u with her PCP with in 1-2 weeks. F/u with neurology in 4-6 weeks. Home Meds and New Rx's Prescriptions: New gabapentin 100 mg Capsule 100 mg PO QID PRN PRNQty: 30 0RF Continued acetaminophen 325 mg capsule 325 mg PO ONCE PRN0RF omeprazole 20 MG capsule,delayed release(DR/EC) 20 mg PO DAILY Qty: 90 12RF escitalopram oxalate [Lexapro] 10 MG tablet 10 mg PO DAILY Qty: 90 11RF lisinopril 10 mg tablet 10 mg PO DAILY 0RF Vyzulta 0.024 % drops 1 drp ophthalmic (eye) .QHS 0RF Label Comments: INSTILL 1 DROP IN BOTH EYES EVERY EVENING DIRECTED magnesium 250 mg Tablet 250 mg PO DAILY 0RF polyethylene glycol 3350 [Miralax] 17 gram/dose powder 17 g PO PRN PRN0RF Label Comments: Take by mouth as needed prn for bowel movements Discharge Instructions Instructions: Vertigo (DC), Syncope (DC), Dizziness (GEN) Additional Instructions: f/u with PCP in 1-2 weeks take gapabentin every 6 hours as needed for BACA F/u with Dr. Reeder in 4-6 week Activity:: Activity as Tolerated Equipment/Supplies:: No Equipment Needed Diet:: Low Sodium Discharge Orders Discharge Orders: Discharge Order (Routine); Ordered 09/11/21 Ordered By: Laurel Belcher DS: Summary Time Spent with Patient providing and/or coordinating discharge services: Less than 30 minutes Status at Discharge Functional status at discharge: independent ambulation Overall status at discharge: patient is back to baseline Mental Status: mental status grossly normal Speech and Movement: speech and movement normal Mood: congruent mood Affect: normal affect Exam Const General: cooperative, healthy appearing, comfortable and no acute distress Nutritional Appearance: overweight Orientation: alert, awake and oriented x3 HENMT Head: normal to inspection, normocephalic and atraumatic Mouth: oral mucosae normal Eyes General: appearance normal, both eyes and all related structures Neck Neck: normal visual inspection Chest Chest: normal inspection of the chest Resp Effort & Inspection: normal respiratory effort Cardio Rate: regular rate Rhythm: regular rhythm GI Inspection: normal to inspection Palpation: soft Auscultation: normal bowel sounds Skin General skin exam: no rashes or lesions noted Neuro General: patient alert, patient awake, patient oriented x3, no focal motor deficits and CN's II-XI intact bilaterally Cognition: normal cognition Speech: speech normal Gait: normal gait Motor: muscle tone normal throughout Sensory Exam: no sensory deficits noted Psych Mental Status: mental status grossly normal Speech and Movement: speech and movement normal Mood: congruent mood Affect: normal affect DS: Data Vitals/I&O Vitals and I&O: Vital Signs Temperature 37 C 09/11/21 11:45 Temperature Source Tympanic 09/11/21 11:45 Pulse 68 09/11/21 11:45 Pulse Rhythm Regular 09/11/21 11:57 Pulse 66 09/09/21 21:30 Respiratory Rate 17 09/11/21 11:45 Respiratory Effort 09/11/21 11:57 Respiratory Depth Normal 09/11/21 11:57 Respiratory Pattern Normal 09/11/21 11:57 Blood Pressure 125/72 09/11/21 11:45 Blood Pressure Mean 90 09/09/21 21:30 Blood Pressure Position Supine 09/09/21 17:43 Pulse Oximetry 95 09/11/21 11:45 Oxygen Delivery Method Room Air 09/11/21 07:26 Oxygen Flow Rate 0 09/11/21 07:26 Pain Level 3 09/11/21 08:06 Comment 09/10/21 07:59 Intake & Output 09/10/21 09/11/21 09/11/21 23:59 11:59 23:59 Intake Total 490 / 850 Output Total 1050 / 1925 600 / 600 Balance -560 / -1075 -600 / -600 Weight 85 kg Intake: IV Oral 480 / 840 Output: Urine 1050 / 1925 600 / 600 Other: Urine Color Yellow Yellow Urine Appearance Clear Clear Urine Odor None None Voiding Methods Toilet Toilet Data Completed and Pending Completed studies during hospitalization [Text1]: FINDINGS: ?There is mild generalized cerebral atrophy and there are multiple areas of abnormal signal in periventricular and subcortical white matter consistent with mild microvascular ischemic changes.. No signal abnormality identified in the brain. The orbital and temporal bone structures appear intact as does the pituitary. Diffusion weighted imaging shows no evidence of infarction. Susceptibility weighted imaging shows no evidence of intracranial hemorrhage. There is normal flow void in the [place] vasculature. IMPRESSION: No evidence of acute intracranial process. FINDINGS: LUNGS: Clear. No pleural abnormality seen. HEART: Normal. MEDIASTINUM: Normal. OTHER FINDINGS: None. IMPRESSION: No acute pulmonary findings. FINDINGS: CT angiography of the cervical cranial region was performed according to the usual protocol with intravenous infusion of 85 cc of Omnipaque 350.. Initial noncontrast scanning of the head is unremarkable except for mild generalized cerebral atrophy. Visualized lung apices are clear. Visualized portions of thoracic aorta and pulmonary arterial circulation are unremarkable. There is no evidence of a cervical mass or adenopathy. The tracheal laryngeal structures appear intact. The common, internal, and external carotid arteries are within normal limits in the cervical region with no evidence of aneurysm, stenosis, or dissection. The vertebral arteries are unremarkable in appearance in the cervical region with no evidence of aneurysm, stenosis, or dissection. Intracranial portions of the internal carotid arteries appear normal with no evidence of aneurysm, stenosis, or dissection. Intracranial vertebral arteries and basilar artery appear normal with no evidence of aneurysm, stenosis or dissection. No aneurysm identified in the region of the [id number]. The anterior, middle, and posterior cerebral arteries and major branches appear intact with no evidence of aneurysm, stenosis, or dissection. No enhancing brain lesion identified on 5 minutes delayed images.. IMPRESSION: Negative CT angiography of the cervical cranial region. FINDINGS: Lungs: Unremarkable. No consolidation. Pleural spaces: Unremarkable. No pleural effusion. No pneumothorax. Heart/Mediastinum: Borderline cardiomegaly unchanged. Vasculature: Atherosclerotic change again seen in the vasculature. Bones/joints: Degenerative changes again noted right shoulder. IMPRESSION: No evidence for acute abnormality in the chest. POSTERIOR CIRCULATION: Right vertebral artery: Unremarkable. No occlusion or significant stenosis. No aneurysm.? Left vertebral artery: Unremarkable. No occlusion or significant stenosis. No aneurysm.? Basilar artery: Unremarkable. No occlusion or significant stenosis. No aneurysm. Right posterior cerebral artery: Unremarkable. No occlusion or significant stenosis. No aneurysm.? Left posterior cerebral artery: Unremarkable. No occlusion or significant stenosis. No aneurysm.? Brain: No definite mass, mass effect, or midline shift. Cerebral ventricles: No ventriculomegaly. Bones/joints: Unremarkable. No acute fracture. Soft tissues: Unremarkable. IMPRESSION: No evidence for central vascular occlusion or stenosis. Labs on day of discharge: Labs from last 24 hours 09/11/21 06:32 Plt Count 268 PFSH All Active Problems Migraine headache with aura (Acute) Chronic headache (Acute) Episode of syncope (Chronic) Concussion (Acute) Contusion of knee (Acute) Syncope (Chronic) Breast pain, left (Acute) Breast pain, right (Acute 03/01/18) Elevated blood pressure reading in office without diagnosis of hypertension (Acute 07/29/17) Insomnia (Acute) Lumbar back pain (Acute 12/17/14) Memory changes (Acute 12/17/14) Polyp of colon (Acute) adenoma Radicular pain of left lower extremity (Acute 12/17/14) Right hip pain (Acute 12/05/15) Soft tissue lesion of foot (Acute 07/04/15) Tachycardia (Acute 11/09/17) Tremor (Acute) Trochanteric bursitis, right hip (Acute 05/22/16) Tubular adenoma (Acute) Vertigo (Acute 03/01/18) Breast mass (Acute) Elevated sed rate (Acute) Depressive disorder (Acute 06/10/02) Hyperlipidemia (Acute) Reactive airway disease (Acute 06/04/14) Glaucoma (Chronic) Essential tremor (Acute) Medical History GERD (gastroesophageal reflux disease) Seasonal allergic rhinitis Surgical History Extraction of cataract 08/2013 History of cholecystectomy History of colonoscopy History of esophagogastroduodenoscopy (EGD) History of tonsillectomy Hysterectomy, Laproscopic RADICAL; FOR FIBROIDS Rotator Cuff Repair RIGHT Family History Mother Essential hypertension Personal history of malignant neoplasm SKIN Depression Heart disease Stroke Father Personal history of malignant neoplasm [place] Grandfather Arthritis Grandfather , IN A FIRE at age 80. Diabetes Stroke Grandmother No problems noted. Grandmother Essential hypertension Personal history of malignant neoplasm BREAST Stroke Son Diabetes Son Essential hypertension Hyperlipidemia Daughter Essential hypertension Fibromyalgia Heart disease Hyperlipidemia Social History Smoking/Tobacco Use Status: Never Smoking risk assessment performed?: Yes Alcohol Intake: never Drug use: Never Do you feel safe at home: Yes Do you feel safe in your relationship?: Yes
--- NOTE | 2021-09-11 15:16 | PDOC.CMDIS ---
- If Service Date Differs Date of service: 09/11/21 Time of Service: 15:16 LACE Index Scoring Tool - Questions: Length of Stay (in days): 2 Acuity (Admit via E.D.?): Yes E.D. Visits: 2 - Answers: Total Score: 7 Risk of Readmission: Low Risk Care Management Discharge Reason for Hospitalization: Syncope Discharge Plan: Discharge home with no new [facility] services via private vehicle with daughter. Resume activity as tolerated and consume a low sodium diet. May take Gabapentin QID-PRN for headaches. Follow up with PCP on 09/19/21 and Neurology on 10/20/21. Patient/Family Education Needs: Review discharge instructions, limitations, medications and plan to follow up with community providers. ask me three.
== END 2021-09-11 14:45 | disposition home or self-care (01) ==
LOC: ER 21:18 → MS 21:51
PROVIDERS: Admitting Provider Internal Medicine; Emergency Provider Emergency Medicine; PCP Family Medicine; Visit Provider Internal Medicine
DX: R55 Syncope and collapse (principal); G89.29 Other chronic pain; G43.109 Migraine with aura, not intractable, without status migrainosus; E78.5 Hyperlipidemia, unspecified; R61 Generalized hyperhidrosis; R00.1 Bradycardia, unspecified; G47.00 Insomnia, unspecified; M54.50 Low back pain, unspecified; F32.9 Major depressive disorder, single episode, unspecified; J45.909 Unspecified asthma, uncomplicated; K21.9 Gastro-esophageal reflux disease without esophagitis; G25.0 Essential tremor; I10 Essential (primary) hypertension
CPT/HCPCS: 36415; 70496; 70498; 80053; 87635; 93005; 96360; 99213; 99285; J1650; 70551; 71045; 81003; 81015; 83735; 83880; 84484; 85025; 85049; 93010; 93306; 99217; 99225; G0378; J3490

== ENCOUNTER → 2021-09-10 07:38 | Outpatient (BNVA) | payer MEDICARE, OTHER, SELFPAY | PROVIDERS: PCP Family Medicine; Referring Provider Family Medicine; Visit Provider Psychiatry & Neurology Neurology | DX: R69 Illness, unspecified (principal) ==

== ENCOUNTER → 2021-09-11 08:07 | Outpatient (BNVA) | payer MEDICARE, OTHER, SELFPAY | PROVIDERS: PCP Family Medicine; Referring Provider Family Medicine; Visit Provider Internal Medicine Cardiovascular Disease | DX: R69 Illness, unspecified (principal) ==

== ENCOUNTER → 2021-10-13 13:44 | Outpatient (BNVA) | payer MEDICARE, OTHER, SELFPAY | PROVIDERS: PCP Family Medicine; Referring Provider Family Medicine; Visit Provider Internal Medicine Cardiovascular Disease | DX: R55 Syncope and collapse (principal); I10 Essential (primary) hypertension | CPT/HCPCS: 99214 ==

== ENCOUNTER 2023-01-07 15:22 | Outpatient (REF) | payer MEDICARE, OTHER, SELFPAY ==
[2023-01-07 21:36] LABS: Abs Immature Grans 0.02 10^3/uL (0.0-0.06); Absolute Basophil Count 0.08 10^3/uL (0.0-0.2); Absolute Eosinophil Count 0.19 10^3/uL (0.0-0.7); Absolute Lymphocyte Count 3.03 10^3/uL (1.2-3.4); Absolute Monocyte Count 0.55 10^3/uL (0.1-0.8); Absolute Neutrophil Count 3.68 10^3/uL (1.2-6.7); Basophils % 1.1; Eosinophils % 2.5; HCT 33.3 % (36.0-46.0); HGB 9.8 g/dL (11.2-15.7); Immature Grans % 0.3; Lymphocytes % 40.1; MCH 23.4 pg (27.0-33.0); MCHC 29.4 % (32.0-36.0); MCV 80 fL (80-95); Monocytes % 7.3; Neutrophils % 48.7; Platelet Count 344 10^3/uL (130-400); RBC 4.18 10^6/uL (3.93-5.22); RDW 15.8 % (11.7-14.6); RDW-SD 45.3 fL; WBC 7.55 10^3/uL (4.4-10.8)
[2023-01-07 21:52] LABS: ALT 14 U/L (14-59); AST 25 U/L (15-37); Albumin 3.4 g/dL (3.4-5.0); Alkaline Phosphatase 100 U/L (46-116); Anion Gap 7.9 mmol/L (3-11); BUN 19 mg/dL (7-18); Bilirubin, Total 0.2 mg/dL (0.2-1.0); CO2 27.1 mmol/L (21.0-32.0); CREATININE 1.1 mg/dL (0.55-1.02); Calcium 8.7 mg/dL (8.5-10.1); Chloride 103 mmol/L (98-107); Glucose 88 mg/dL (74-106); Magnesium 2.1 mg/dL (1.8-2.4); Potassium 4.6 mmol/L (3.5-5.1); Sodium 138 mmol/L (136-145); TSH (W/Ref FT4) 3.14 uIU/mL (0.36-3.74); Total Protein 7.7 g/dL (6.4-8.2)
[2023-01-07 21:54] LABS: Hemoglobin A1C 6.5 % (<5.7)
== END 2023-01-07 15:23 | disposition home or self-care (01) ==
LOC: NCHCN 15:22
PROVIDERS: PCP Family Medicine; Visit Provider Nurse Practitioner Family
DX: R20.2 Paresthesia of skin (principal); R25.2 Cramp and spasm
CPT/HCPCS: 80053; 83036; 83735; 84443; 85025

== ENCOUNTER 2023-04-19 15:03 | Outpatient (REF) | payer MEDICARE, OTHER, SELFPAY | END 2023-04-19 15:04 | disposition home or self-care (01) | LOC: NCHCN 15:03 | PROVIDERS: PCP Family Medicine; Visit Provider Nurse Practitioner Family | DX: R35.0 Frequency of micturition (principal) | CPT/HCPCS: 87086 ==

== ENCOUNTER → 2023-04-19 15:31 | Outpatient (CLI) | payer MEDICARE, OTHER, SELFPAY ==
--- NOTE | 2023-04-19 | DI.RAD_ITS ---
Exam(s) XR SACRUM COCCYX EXAM: XR SACRUM COCCYX CLINICAL HISTORY: SACRAL BACK PAIN M54.89. TECHNIQUE: 2D digital imaging was performed. COMPARISON: No exams were available for comparison FINDINGS: BONES: No acute fracture is present. No bony destructive lesion is seen. JOINTS: Mild spurring at the SI joints. Hip joints are unremarkable. No periarticular erosions. SOFT TISSUE: Normal. IMPRESSION: mild degenerative changes of the SI joints.. DATA REPOSITORY: RADIATION DOSE DELIVERED:
== END ==
PROVIDERS: PCP Family Medicine; Visit Provider Nurse Practitioner Family
DX: M54.89 Other dorsalgia (principal)
CPT/HCPCS: 72220

== ENCOUNTER 2023-07-23 15:57 | Outpatient (REF) | payer MEDICARE, OTHER, SELFPAY ==
[2023-07-23 18:22] LABS: Abs Immature Grans 0.02 10^3/uL (0.0-0.06); Absolute Basophil Count 0.12 10^3/uL (0.0-0.2); Absolute Eosinophil Count 0.17 10^3/uL (0.0-0.7); Absolute Lymphocyte Count 3.23 10^3/uL (1.2-3.4); Absolute Monocyte Count 0.53 10^3/uL (0.1-0.8); Absolute Neutrophil Count 3.43 10^3/uL (1.2-6.7); Basophils % 1.6; Eosinophils % 2.3; HCT 35.8 % (36.0-46.0); HGB 10.6 g/dL (11.2-15.7); Immature Grans % 0.3; Lymphocytes % 43.1; MCH 23.7 pg (27.0-33.0); MCHC 29.6 % (32.0-36.0); MCV 80 fL (80-95); Monocytes % 7.1; Neutrophils % 45.6; Platelet Count 338 10^3/uL (130-400); RBC 4.47 10^6/uL (3.93-5.22); RDW 15.8 % (11.7-14.6); RDW-SD 46.1 fL
[2023-07-23 18:40] LABS: ALT 16 U/L (14-59); AST 21 U/L (15-37); Albumin 3.4 g/dL (3.4-5.0); Alkaline Phosphatase 97 U/L (46-116); Anion Gap 7.6 mmol/L (3-11); BUN 20 mg/dL (7-18); Bilirubin, Total 0.4 mg/dL (0.2-1.0); CO2 27.4 mmol/L (21.0-32.0); CREATININE 1.2 mg/dL (0.55-1.02); Calcium 9.3 mg/dL (8.5-10.1); Chloride 103 mmol/L (98-107); Estimated GFR 45.48 (mL/min/1.73m2); Glucose 95 mg/dL (74-106); Potassium 4.5 mmol/L (3.5-5.1); Sodium 138 mmol/L (136-145)
[2023-07-23 19:30] LABS: Hemoglobin A1C 6.3 % (<5.7)
== END 2023-07-23 15:58 | disposition home or self-care (01) ==
LOC: NCHCN 15:57
PROVIDERS: PCP Family Medicine; Visit Provider Nurse Practitioner Family
DX: I10 Essential (primary) hypertension (principal); E11.9 Type 2 diabetes mellitus without complications
CPT/HCPCS: 80053; 83036; 85025

== ENCOUNTER → 2023-08-20 02:03 | Outpatient (CLI) | payer MEDICARE, OTHER, SELFPAY ==
--- NOTE | 2023-08-20 10:45 | DI.MRI_ITS ---
Exam(s) MR LOWER JOINT RT WO EXAM: MR LOWER JOINT RT WO CLINICAL HISTORY: PAIN RT KNEE M25.561INSTABILITY, REDUCED ROM, ? MENISCAL TEAR. TECHNIQUE: Multiplanar multisequence MRI was performed. COMPARISON: Most recent plain films are dated 04 July 2018 FINDINGS: BONES: There is no fracture or contusion pattern. JOINTS: No joint effusion is present. Articular cartilage: Patellofemoral joint: Articular cartilage show severe thinning, extending down to bone. Mild underlying high signal in the marrow.. Medial femoral tibial joint: Cartilage thinning. No focal defect. Lateral femoral tibial joint: Cartilage thinning. No focal defect. TENDONS: Extensor mechanism: Unremarkable. Medial retinaculum: Unremarkable. Lateral retinaculum: Unremarkable. Popliteus: Unremarkable. MUSCLES: Unremarkable. MENISCI: Medial meniscus: The posterior horn is extremely diminutive and irregular. There is a low density se en on in the joint space at the inferior margin of the patella which could represent a displaced meni scal fragment or loose body. The lateral meniscus is unremarkable. SOFT TISSUES: Unremarkable. LIGAMENTS: Anterior Cruciate: Unremarkable. Posterior Cruciate: Unremarkable. Medial Collateral:Unremarkable. Lateral Collateral: Unremarkable. IMPRESSION: Tear of the posterior horn of the medial meniscus. And low-density fragment seen beneath the inferio r border of the patella which could represent loose body versus displaced meniscal fragment. DATA REPOSITORY:
== END ==
PROVIDERS: PCP Family Medicine; Visit Provider Nurse Practitioner Family
DX: M23.211 Derangement of anterior horn of medial meniscus due to old tear or injury, right knee (principal)
CPT/HCPCS: 73721

== ENCOUNTER 2023-09-09 14:16 | Outpatient (CLI) | payer MEDICARE, OTHER, SELFPAY ==
--- NOTE | 2023-09-09 12:45 | DI.RAD_ITS ---
Exam(s) XR KNEE RT 3V AP,LAT,RANDALL EXAM: XR KNEE RT 3V AP,LAT,RANDALL CLINICAL HISTORY: RIGHT KNEE PAIN. TECHNIQUE: 2D digital imaging was performed of the right knee. Three views obtained. Merchant, AP, l ateral and PA tunnel views were obtained. COMPARISON: CR RIGHT KNEE LIMITED 1 OR 2 VIEW from 12/30/2015 FINDINGS: BONES: No acute fracture is present. No bony destructive lesion is seen. There is an enthesophyte at the superior patella. JOINTS: There is moderate narrowing of the medial femoral tibial joint. There are osteophytes seen a t the posterior patella and in the medial femoral tibial joint. There is calcification seen in the l ateral femoral tibial joint consistent with chondrocalcinosis. This can be seen with CPPD arthropath y. No joint effusion is seen. SOFT TISSUE: Normal. IMPRESSION: Moderate right knee arthrosis. DATA REPOSITORY: RADIATION DOSE DELIVERED:
== END 2023-09-09 14:17 | disposition home or self-care (01) ==
LOC: DIORS 14:16
PROVIDERS: PCP Nurse Practitioner Family; Referring Provider Nurse Practitioner Family; Visit Provider Physician Assistant
DX: M17.11 Unilateral primary osteoarthritis, right knee
CPT/HCPCS: 20610; 73562; 99213; J1030

== ENCOUNTER 2023-10-01 13:57 | Outpatient (REF) | payer MEDICARE, OTHER, SELFPAY ==
[2023-10-01 15:16] LABS: Abs Immature Grans 0.09 10^3/uL (0.0-0.06); Absolute Basophil Count 0.07 10^3/uL (0.0-0.2); Absolute Lymphocyte Count 1.69 10^3/uL (1.2-3.4); Absolute Monocyte Count 1.16 10^3/uL (0.1-0.8); Basophils % 0.5; Eosinophils % 0.3; HCT 32.8 % (36.0-46.0); HGB 10.1 g/dL (11.2-15.7); Immature Grans % 0.6; Lymphocytes % 11.7; MCH 25.2 pg (27.0-33.0); MCHC 30.8 % (32.0-36.0); MCV 82 fL (80-95); MPV 10.2 fL (8.0-11.0); Neutrophils % 78.9; Platelet Count 305 10^3/uL (130-400); RBC 4.01 10^6/uL (3.93-5.22); RDW-SD 50.7 fL; WBC 14.46 10^3/uL (4.4-10.8)
[2023-10-01 15:19] LABS: Absolute Eosinophil Count 0.04 10^3/uL (0.0-0.7); Absolute Neutrophil Count 11.41 10^3/uL (1.2-6.7)
[2023-10-01 16:26] LABS: Iron 9 ug/dL (50-170); Total Iron Binding Capacity 264 ug/dL (250-450); Transferrin Sat 3 % (15-50)
[2023-10-01 16:31] LABS: ALT 115 U/L (14-59); AST 116 U/L (15-37); Albumin 2.6 g/dL (3.4-5.0); Alkaline Phosphatase 428 U/L (46-116); Anion Gap 15.1 mmol/L (3-11); BUN 17 mg/dL (7-18); Bilirubin, Total 2.6 mg/dL (0.2-1.0); CO2 20.9 mmol/L (21.0-32.0); CREATININE 1.2 mg/dL (0.55-1.02); Calcium 8.7 mg/dL (8.5-10.1); Chloride 99 mmol/L (98-107); Estimated GFR 45.48 (mL/min/1.73m2); Ferritin 247 ng/mL (8-252); Folate 4.4 ng/mL (8.6-20.0); Glucose 123 mg/dL (74-106); Potassium 3.6 mmol/L (3.5-5.1); Sodium 135 mmol/L (136-145); Total Protein 6.9 g/dL (6.4-8.2); Vitamin B12 438 pg/mL (193-986)
== END 2023-10-01 13:58 | disposition home or self-care (01) ==
LOC: NCHCN 13:57
PROVIDERS: PCP Nurse Practitioner Family; Visit Provider Student in an Organized Health Care Education/Training Program
DX: D64.9 Anemia, unspecified (principal); R10.13 Epigastric pain; R79.89 Other specified abnormal findings of blood chemistry; Z79.899 Other long term (current) drug therapy
CPT/HCPCS: 80053; 87338; 82607; 82728; 82746; 83540; 83550; 85025

== ENCOUNTER 2023-10-01 18:14 | Emergency (ER) | payer MEDICARE, OTHER, SELFPAY ==
[2023-10-01] VITALS (43 sets, daily range): BP systolic 124–183; BP diastolic 45–114; PULSE 72–124; RESP 14–25; TEMP 37.6; O2SAT 93–98
--- NOTE | 2023-10-01 18:29 | DI.CT_ITS ---
Exam(s) CT CHEST PE ABD PELVIS W EXAM: CT CHEST PE ABD PELVIS W CLINICAL HISTORY: dyspnea, abdomen pain and elevated lft's. TECHNIQUE: Imaging Protocol: Axial CT angiography was performed with multi-slice acquisition and mu lti-planar and/or 3D reconstructions. CONTRAST MATERIAL: Intravenous: Omnipaque 350 Contrast volume:100 ml COMPARISON: CT CT BRAIN NECK CTA from 09/09/2021 FINDINGS: CHEST: Pulmonary Arteries: No evidence of filling defects to suggest pulmonary emboli. Tracheobronchial tree: No bronchiectasis or mucus plugging. Mediastinum and Winifred: Small hiatal hernia. No dominant adenopathy or fluid collection. Pulmonary parenchyma: Limited evaluation due to expiratory changes. No consolidation or dominant dereck surable mass. Pleura: No effusion. No pneumothorax. Heart: The heart is mildlydilated. [id number] coronary artery calcifications are seen. Zita l annular calcifications. Aorta: Thoracic aorta non-dilated. Moderate atherosclerotic changes Bones: Unremarkable for age. Tubes, Catheters, and Lines: None. Soft tissues: Unremarkable. ABDOMEN and PELVIS: Liver: Normal size. Normal density. No suspicious measurable mass. Portal, Superior Mesenteric, and Splenic Veins: Unremarkable. Gallbladder and Biliary Tract: Status post cholecystectomy. Common bile duct is dilated to 12 millim eters. Air bubble within common bile duct minimal amount intrahepatic biliary dilatation. Mild intr ahepatic biliary air. This could be secondary to sphincterotomy. No definite obstructing stones or masses. Pancreas: Somewhat atrophic. No abnormal calcifications or inflammatory process. Spleen: Normal. Adrenals: No masses seen. Kidneys: Normal size, contour and axis. No radiodense stones. No obstructive uropathy. No masses seen . Vasculature: Abdominal aorta non-dilated. Heavily calcified. Mild stenosis at celiac axis. Heavy calcification at the renal ostia with moderate to severe stenosis, right greater than left. 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 5 millimeter calcified mid left renal ar izaiah aneurysm. Calcification along the iliac arteries and proximal femoral arteries without signific ant stenosis. Bowel: No obstruction or bowel wall thickening. Sigmoid diverticulosis. No evidence of diverticulit is. Appendix normal. Appendix is unremarkable. Peritoneal Cavity: No ascites, collection or mesenteric inflammatory response. Lymph Nodes: Within normal limits. Soft Tissues: Unremarkable. Bladder: Nearly empty, not well evaluated. Reproductive Organs: Status post hysterectomy. Bones: Unremarkable for age.. IMPRESSION: 1. No evidence of pulmonary embolism or aortic dissection. No acute pulmonary abnormality.. 2. No acute abdominal or pelvic process. Aorta heavily calcified. Heavy calcification at the renal ostia with moderate to severe stenosis. 3. Status post cholecystectomy. Small amount of biliary air could be related to previous sphincterot ramesh. Clinical correlation recommended. RADIATION DOSE DELIVERED: Total DLP DATA REPOSITORY: All CT scans at this facility are submitted to the National Radiology Data Registry (NRDR) Dose Index Registry (DIR) with the [employer] (ACR). RADIATION OPTIMIZATION: All CT scans at this facility use at least one of these dose optimization te chniques: automated exposure control; mA and/or kV adjustment per patient size (includes targeted exa ms where dose is matched to clinical indication); or iterative reconstruction.
--- NOTE | 2023-10-01 18:30 | ED.GENADUL_ITS ---
Discharge Plan Disposition Specific Acute Inpt Facility: [facility] Condition: Stable Discharge Details Chief Complaint: GenMedical Clinical Impression: Sepsis, Acute cholangitis Primary Care Provider: Amanda Stevens ED Provider: Tye Magdaleno Home Meds and New Rx's Prescriptions: No Action acetaminophen 325 mg capsule 325 mg PO ONCE PRN omeprazole 20 MG capsule,delayed release(DR/EC) 20 mg PO DAILY Qty: 90 12RF escitalopram oxalate [Lexapro] 10 MG tablet 10 mg PO DAILY Qty: 90 11RF Lumigan 0.01 % drops 1 drp ophthalmic (eye) DAILY lisinopril 10 mg tablet 10 mg PO DAILY Hold Instructions: Changed by Provider metformin 500 mg tablet 500 mg PO DAILY Hold Instructions: Changed by Provider Vyzulta 0.024 % drops 1 drp ophthalmic (eye) .QHS Patient Comments: INSTILL 1 DROP IN BOTH EYES EVERY EVENING DIRECTED magnesium 250 mg Tablet 250 mg PO DAILY polyethylene glycol 3350 [Miralax] 17 gram/dose powder 17 g PO PRN PRN Patient Comments: Take by mouth as needed prn for bowel movements HPI General Date/Time Provider Initiated Documentation: 10/01/23 18:18 . Limitations to Documentation: no limitations . Information obtained by: patient . History of Present Illness 83 year old F presents to the emergency department with the chief complaint of Fatigue, chills, described as moderate, Patient started experiencing this month(s) (2) and it has been intermittent. No relieving factors improve symptom(s), No exacerbating factors reported . Patient notes cough and nausea/vomiting; denies chest pain. Patient did receive the following treatments prior to arrival, none Related Data Home Medications Medication Instructions Recorded Confirmed omeprazole 20 mg capsule,delayed 20 mg PO DAILY #90 tab-caps 07/29/17 10/01/23 release escitalopram oxalate 10 mg tablet 10 mg PO DAILY #90 tab-caps 11/09/17 10/01/23 (Lexapro) acetaminophen 325 mg capsule 325 mg PO ONCE PRN 04/26/20 10/01/23 latanoprostene bunod 0.024 % eye 1 drp ophthalmic (eye) .QHS 09/09/21 10/01/23 drops (Vyzulta) magnesium 250 mg tablet 250 mg PO DAILY 09/09/21 10/01/23 polyethylene glycol 3350 17 17 g PO PRN PRN 09/10/21 10/01/23 gram/dose oral powder (Miralax) bimatoprost 0.01 % eye drops 1 drp ophthalmic (eye) DAILY 09/22/21 10/01/23 (Lumigan) lisinopril 10 mg tablet 10 mg PO DAILY 08/25/23 10/01/23 metformin 500 mg tablet 500 mg PO DAILY 08/25/23 10/01/23 Previous Rx's Medication Instructions Recorded omeprazole 20 mg capsule,delayed 20 mg PO DAILY #90 tab-caps 07/29/17 release escitalopram oxalate 10 mg tablet 10 mg PO DAILY #90 tab-caps 11/09/17 (Lexapro) Allergies Allergy/AdvReac Type Severity Reaction Status Date / Time celecoxib Allergy Intermediate Skin Rash Verified 10/01/23 18:26 codeine Allergy Unknown Other (See Verified 10/01/23 18:26 Comment) morphine AdvReac Intermediate Nausea Verified 10/01/23 18:26 prednisone AdvReac Intermediate Other (See Verified 10/01/23 18:26 Comment) methylprednisolone AdvReac Nausea Verified 10/01/23 18:26 [From Medrol] General Stated Complaint: GenMedical CIPRIANO: 3 Review of Systems All systems reviewed & are unremarkable except as noted in HPI and below Constitutional Constitutional: Reports chills and Denies fever(s) Cardiovascular Cardiovascular: Denies chest pain and Denies dyspnea Respiratory Respiratory: Reports cough and Denies dyspnea Gastrointestinal Gastrointestinal: Reports abdominal pain and Denies vomiting Musculoskeletal Musculoskeletal: Denies joint swelling Exam Const General: no acute distress Orientation: alert HENMT Head: normal to inspection Ears: external ears normal General nose exam: external nose normal Mouth: moist mucous membranes Eyes General: appearance normal, both eyes and all related structures Neck Neck: normal visual inspection Resp Effort & Inspection: normal respiratory effort Auscultation: clear to auscultation bilaterally Cardio Rate: regular rate Heart Sounds: no murmurs GI Palpation: soft and tender Skin General skin exam: no rashes or lesions noted Neuro General: patient alert and patient oriented x3 Extrem General: normal to inspection Psych Mental Status: mental status grossly normal Course Vital Signs Vital signs: Vital Signs Temperature 37.6 C 10/01/23 18:18 Pulse 124 H 10/01/23 18:18 Respiratory Rate 18 10/01/23 18:18 Blood Pressure 183/114 H 10/01/23 18:18 Pulse Oximetry 98 10/01/23 18:18 Temperature 37.6 C H 10/01/23 18:22 Temperature Source Oral 10/01/23 18:22 Pulse 122 H 10/01/23 18:22 Respiratory Rate 18 10/01/23 18:22 Respiratory Effort Normal 10/01/23 18:22 Respiratory Depth Normal 10/01/23 18:22 Respiratory Pattern Normal 10/01/23 18:22 Blood Pressure 183/114 H 10/01/23 18:22 Blood Pressure Position Supine 10/01/23 18:22 Pulse Oximetry 98 10/01/23 18:22 Oxygen Delivery Method Room Air 10/01/23 18:22 Oxygen Flow Rate 0 10/01/23 18:18 Pain Level 0 10/01/23 18:22 Lab/Test Results Lab/Test Results: 10/01/23 18:24 Blood Blood Culture - Pending 10/01/23 18:24 Blood Blood Culture - Pending Medical Decision Making 83-year-old female with a history of hyperlipidemia, comes in with several months of fatigue, loss of appetite, losing weight, and intermittent chills. She had lab work done today which showed a white count of 14 and her LFTs were elevated so she was referred here. She is alert and oriented on arrival, denies any chest pain, no rashes, no headache or neck stiffness. She does appear pale, she has clear lungs, abdomen is soft but is tender in the right upper quadrant. Unclear etiology for her symptoms, will check procalcitonin, repeat CBC and CMP, and obtain CTA of the chest abdomen pelvis to evaluate for entities such as pneumonia, cholecystitis, and given the weight loss screen for intrathoracic or intra-abdominal cancer. Patient's white count 11, LFTs continue to be elevated, which is new for her today, CT showing pneumobilia, concern for possible cholangitis, patient stable, will order Zosyn and consult GI at [facility] GI Dr. gtz reviewed the labs and imaging and feels she likely has cholangitis, prefers to have patient transferred sooner rather than later, transfer center is going to check to see if they can accommodate. Patient stable blood pressure 125/72, heart rate 90. Transfer center called back and they can accommodate the patient I spoke with Dr. Dumont hospitalist at [facility] and reviewed the case and she accepts to their center. Patient updated and is in agreement with the plan. Differential Diagnosis Differential Diagnosis: Cholecystitis, cancer, pneumonia Medical Records Medical records reviewed: Yes I reviewed the patient's medical records. Imaging Data Radiologic Study: Attestation: I personally reviewed and interpreted this imaging study as follows: Imaging: CT Scan Radiologist's impression: VASCULATURE: Pulmonary arteries: No pulmonary emboli. Aorta: No aortic aneurysm. No aortic dissection. 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 Chronic appearing moderate to severe stenosis right worse than left renal artery ostia. There may be additionally a tiny peripherally calcified mid left renal artery aneurysm of about 5 mm. This is almost certainly chronic CHEST: Lungs: Micro atelectasis and air trapping. No airspace consolidation to suggest pneumonia or infarct. Pleural spaces: Unremarkable. No pneumothorax. No pleural effusion. Heart: Mild cardiomegaly. Diaphragm: Elevated right hemidiaphragm. Small hiatal hernia. ABDOMEN AND PELVIS: Liver: No hepatic masses. Gallbladder and bile ducts: Pneumobilia is most consistent with a sphincterotomy. Cholecystectomy. Typical caliber of the CBD for a post cholecystectomy patient. Pancreas: . No mass. No ductal dilation. Spleen: . No splenomegaly. Adrenal glands: . No mass. Kidneys and ureters: . No solid mass. No hydronephrosis. Stomach and bowel: Colonic diverticulosis without diverticulitis. No colitis. No focal pathology in the small bowel. Intraperitoneal space: . No free air. No significant fluid collection. Urinary bladder: Mild asymmetric thickening left bladder wall. Reproductive: Hysterectomy. Lymph nodes: Unremarkable. No enlarged lymph nodes. Bones/joints: Chronic bony changes with no acute fracture. Soft tissues: Unremarkable. IMPRESSION: 1. No acute findings. 2. Mild asymmetric thickening left bladder wall, could be asymmetric cystitis, chronic neurogenic changes, less likely malignancy. 3. Incidental findings as described. Lab Data Lab results reviewed: Yes I reviewed the patient's lab results. Quality:SDOH Health Related Social Needs: No Data to Display PFSH All Active Problems (Updated 10/01/23 @ 21:22 by Tye Magdaleno MD) Acute cholangitis (Acute) Sepsis (Acute) Osteoarthritis of right knee (Acute) DEPO MEDROL 09/09/23 Rotator cuff syndrome (Acute 04/25/13) Herpes zoster (Acute 10/10/03) Soft tissue lesion of foot (Acute 07/04/15) Essential hypertension (Acute 04/24/13) Acute pain of right knee (Acute 12/05/15) Heart murmur (Acute) Diverticulosis of colon without diverticulitis (Acute) Anemia (Chronic) Concussion (Acute) Contusion of knee (Acute) Breast pain, left (Acute) Breast pain, right (Acute 03/01/18) Insomnia (Acute) Lumbar back pain (Acute 12/17/14) Memory changes (Acute 12/17/14) Polyp of colon (Acute) adenoma Radicular pain of left lower extremity (Acute 12/17/14) Right hip pain (Acute 12/05/15) Soft tissue lesion of foot (Acute 07/04/15) Tachycardia (Acute 11/09/17) Tremor (Acute) Trochanteric bursitis, right hip (Acute 05/22/16) Tubular adenoma (Acute) Breast mass (Acute) Elevated sed rate (Acute) Depressive disorder (Acute 06/10/02) Hyperlipidemia (Acute) Reactive airway disease (Acute 06/04/14) Glaucoma (Chronic) Essential tremor (Acute) Medical History Chronic headache Closed fracture of humerus (09/12/12) Elevated blood pressure reading in office without diagnosis of hypertension (07/29/17) Episode of syncope GERD (gastroesophageal reflux disease) Migraine headache with aura Seasonal allergic rhinitis Syncope Vertigo (03/01/18) Surgical History Extraction of cataract 08/2013 History of cholecystectomy History of colonoscopy History of esophagogastroduodenoscopy (EGD) History of repair of hiatal hernia History of surgical procedure History of tonsillectomy Hysterectomy, Laproscopic RADICAL; FOR FIBROIDS Rotator Cuff Repair RIGHT Status post rotator cuff repair Family History Mother Essential hypertension Personal history of malignant neoplasm SKIN Depression Heart disease Stroke Father Personal history of malignant neoplasm HODGKINS Grandfather Arthritis Grandfather , IN A FIRE at age 80. Diabetes Stroke Grandmother No problems noted. Grandmother Essential hypertension Personal history of malignant neoplasm BREAST Stroke Son Diabetes Son Essential hypertension Hyperlipidemia Daughter Essential hypertension Fibromyalgia Heart disease Hyperlipidemia Social History Smoking/Tobacco Use Status: Never Smoking risk assessment performed?: Yes Alcohol Intake: never Drug use: Never Do you feel safe at home: Yes Do you feel safe in your relationship?: Yes
[2023-10-01 18:52] LABS: Abs Immature Grans 0.08 10^3/uL (0.0-0.06); Absolute Basophil Count 0.07 10^3/uL (0.0-0.2); Absolute Lymphocyte Count 1.35 10^3/uL (1.2-3.4); Absolute Monocyte Count 0.87 10^3/uL (0.1-0.8); Basophils % 0.6; Eosinophils % 0.8; HCT 34.9 % (36.0-46.0); HGB 10.7 g/dL (11.2-15.7); Immature Grans % 0.7; Lymphocytes % 11.3; MCH 25.2 pg (27.0-33.0); MCHC 30.7 % (32.0-36.0); MCV 82 fL (80-95); Monocytes % 7.3; Neutrophils % 79.3; RBC 4.25 10^6/uL (3.93-5.22); RDW 17.1 % (11.7-14.6); RDW-SD 51.4 fL; WBC 11.97 10^3/uL (4.4-10.8)
[2023-10-01 18:56] LABS: Lactate 2.6 mmol/L (0.6-1.4)
[2023-10-01] MEDS: Normal Saline 1,000 ML 1000 ML IV (18:57)
[2023-10-01 19:04] LABS: INR 1.1 (0.9-1.1); PTT Activated 28.6 sec (23.6-32.8); Prothrombin Time 11.1 sec (9.1-11.1)
[2023-10-01] MEDS: Omnipaque 350 MG/ML 100 ML BTL IJ (19:04)
[2023-10-01] MEDS: Normal Saline - Diluent 50 ML VIAL IJ (19:04)
[2023-10-01 19:08] LABS: ALT 108 U/L (14-59); AST 89 U/L (15-37); Albumin 2.7 g/dL (3.4-5.0); Alkaline Phosphatase 425 U/L (46-116); Anion Gap 10.9 mmol/L (3-11); BUN 18 mg/dL (7-18); Bilirubin, Direct 1.5 mg/dL (0.0-0.2); Bilirubin, Total 2.1 mg/dL (0.2-1.0); CO2 25.1 mmol/L (21.0-32.0); CREATININE 1.2 mg/dL (0.55-1.02); Calcium 9.3 mg/dL (8.5-10.1); Chloride 95 mmol/L (98-107); Estimated GFR 45.48 (mL/min/1.73m2); Glucose 121 mg/dL (74-106); Lipase 21 U/L (16-77); Magnesium 1.7 mg/dL (1.8-2.4); Potassium 3.4 mmol/L (3.5-5.1); Sodium 131 mmol/L (136-145); Total Protein 8.4 g/dL (6.4-8.2)
[2023-10-01 19:10] LABS: Absolute Neutrophil Count 9.49 10^3/uL (1.2-6.7)
[2023-10-01 19:12] LABS: Diff Comment PLT Morph Reviewed; RBC Morphology Normal
[2023-10-01 19:34] LABS: Procalcitonin 3.7 ng/mL
[2023-10-01 19:36] LABS: COVID-19 PCR Negative (Negative); Influenza A PCR Negative (Negative); Influenza B PCR Negative (Negative); RSV PCR Negative (Negative)
[2023-10-01 19:37] LABS: Source NASOPHARYNX
[2023-10-01 19:49] LABS: Bilirubin Small (Negative); Blood Trace-intact (Negative); Clarity Clear (Clear); Glucose Negative (Negative); Ketones Negative (Negative); Leukocyte Esterase Negative (Negative); Nitrite Negative (Negative); Specific Gravity 1.015 (1.005-1.025)
[2023-10-01] MEDS: MAGNESIUM SULFATE 1 GM/100 ML BAG IVPB (19:50)
--- NOTE | 2023-10-01 19:51 | DI.VRAD_ITS ---
PROCEDURE INFORMATION: Exam: CTA Chest With Contrast CTA Abdomen With Contrast Exam date and time: 10/01/2023 19:08 Age: 83 years old Clinical indication: Other: Abdomen pain; Difficulty breathing or dyspnea; Abdominal pain; Generalized; Additional info: Dyspnea, abdomen pain and elevated lft's TECHNIQUE: Imaging protocol: Computed tomographic angiography of the chest with contrast. Exam focused on the arteries. Computed tomographic angiography of the abdomen with contrast. Exam focused on the arteries. 3D rendering (Not supervised by radiologist): MIP and/or 3D reconstructed images were created by the technologist. Contrast material: OMNI 350; Contrast volume: 100 ml; Contrast route: INTRAVENOUS (IV); COMPARISON: CR XR PORTABLE CHEST AP 09/09/2021 18:34 FINDINGS: VASCULATURE: Pulmonary arteries: No pulmonary emboli. Aorta: No aortic aneurysm. No aortic dissection. 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 Chronic appearing moderate to severe stenosis right worse than left renal artery ostia. There may be additionally a tiny peripherally calcified mid left renal artery aneurysm of about 5 mm. This is almost certainly chronic. CHEST: Lungs: Micro atelectasis and air trapping. No airspace consolidation to suggest pneumonia or infarct. Pleural spaces: Unremarkable. No pneumothorax. No pleural effusion. Heart: Mild cardiomegaly. Diaphragm: Elevated right hemidiaphragm. Small hiatal hernia. ABDOMEN AND PELVIS: Liver: No hepatic masses. Gallbladder and bile ducts: Pneumobilia is most consistent with a sphincterotomy. Cholecystectomy. Typical caliber of the CBD for a post cholecystectomy patient. Pancreas: . No mass. No ductal dilation. Spleen: . No splenomegaly. Adrenal glands: . No mass. Kidneys and ureters: . No solid mass. No hydronephrosis. Stomach and bowel: Colonic diverticulosis without diverticulitis. No colitis. No focal pathology in the small bowel. Intraperitoneal space: . No free air. No significant fluid collection. Urinary bladder: Mild asymmetric thickening left bladder wall. Reproductive: Hysterectomy. Lymph nodes: Unremarkable. No enlarged lymph nodes. Bones/joints: Chronic bony changes with no acute fracture. Soft tissues: Unremarkable. IMPRESSION: 1. No acute findings. 2. Mild asymmetric thickening left bladder wall, could be asymmetric cystitis, chronic neurogenic changes, less likely malignancy. 3. Incidental findings as described. Dictated and Authenticated by: Kari Coates MD. Ordering:RENATO Gamble MD
[2023-10-01 19:57] LABS: Bacteria Negative HPF (Negative); Crystals Rare Calcium Oxalate HPF (Negative); Epithelial Cells Many HPF (Negative); Mucus Trace (Negative); RBC 0-2 HPF (0-2); WBC 0-2 HPF (0-5)
[2023-10-01 19:58] LABS: C & S Indicated? No
[2023-10-01] MEDS: PIPERACILLIN/TAZO 4.5 GM in Normal Saline 100 ML IVPB (20:29)
[2023-10-01] MEDS: Acetaminophen 500 MG TAB 1000 MG PO (21:41)
[2023-10-01] MEDS: Normal Saline 1,000 ML 125 ML IV (22:39)
--- NOTE | 2023-10-02 10:38 | NUR.NOTE ---
Received specimen report stating that Pt has positive test results. Spoke with Dr Ramos about the results and faxed a copy of the specimen to [facility].
--- NOTE | 2023-10-07 00:26 | ED.FU.B_ITS ---
Date of service: 10/07/23 Time of Service: 00:26 Follow Up Plan: Blood cultures resulted growing e.coli resistant to ampicillin and ampicillin/sulfa Bactrim, otherwise sensitive. Other blood culture growing Staphylococcus capitis. I called [facility] [place]: They note that the patient was discharged after s ignificant clinical improvement. Blood culture results were sent to [facility] transfer center who will relay them to the hospitalist team.
--- NOTE | 2023-10-07 00:26 | W.ED.FU ---
Date of service: 10/07/23 Time of Service: 00:26 Follow Up Plan: Blood cultures resulted growing e.coli resistant to ampicillin and ampicillin/sulfa Bactrim, otherwise sensitive. Other blood culture growing Staphylococcus capitis. I [place] [facility] [place] They note that the patient was discharged after significant clinical improvement. Blood culture results were sent to [facility] [place] who will relay them to the hospitalist team.
== END 2023-10-01 22:42 | disposition home or self-care (01) ==
LOC: ER 18:46
PROVIDERS: Emergency Provider Emergency Medicine; PCP Nurse Practitioner Family
DX: K83.09 Other cholangitis (principal); A41.9 Sepsis, unspecified organism; Z90.49 Acquired absence of other specified parts of digestive tract; I10 Essential (primary) hypertension; E78.5 Hyperlipidemia, unspecified; Z11.52 Encounter for screening for COVID-19
CPT/HCPCS: 36415; 71275; 74177; 80053; 83690; 84145; 87040; 87077; 87637; 96361; 96365; 96367; 99285; 81003; 81015; 82248; 83605; 83735; 85025; 85610; 85730; 87186; J2543; J3475; J3490

== ENCOUNTER 2023-10-06 12:44 | Outpatient (REF) | payer MEDICARE, OTHER, SELFPAY ==
[2023-10-06 16:37] LABS: ALT 30 U/L (14-59); AST 22 U/L (15-37); Albumin 2.2 g/dL (3.4-5.0); Alkaline Phosphatase 210 U/L (46-116); BUN 7 mg/dL (7-18); Bilirubin, Total 0.5 mg/dL (0.2-1.0); CREATININE 0.8 mg/dL (0.55-1.02); Calcium 8.4 mg/dL (8.5-10.1); Chloride 102 mmol/L (98-107); Estimated GFR 73.98 (mL/min/1.73m2); Glucose 92 mg/dL (74-106); Potassium 3.9 mmol/L (3.5-5.1); Sodium 138 mmol/L (136-145); TSH 2.59 uIU/Ml (0.36-3.74); Total Protein 6.4 g/dL (6.4-8.2)
== END 2023-10-06 12:45 | disposition home or self-care (01) ==
LOC: LBN 12:44
PROVIDERS: PCP Nurse Practitioner Family; Visit Provider Student in an Organized Health Care Education/Training Program
DX: I10 Essential (primary) hypertension (principal)
CPT/HCPCS: 80053; 84443

== ENCOUNTER 2023-10-12 15:22 | Outpatient (REF) | payer MEDICARE, OTHER, SELFPAY ==
[2023-10-12 15:22] LABS: ALT 17 U/L (14-59); AST 19 U/L (15-37); Albumin 2.5 g/dL (3.4-5.0); Alkaline Phosphatase 160 U/L (46-116); Anion Gap 13.2 mmol/L (3-11); BUN 14 mg/dL (7-18); Bilirubin, Total 0.4 mg/dL (0.2-1.0); CO2 27.8 mmol/L (21.0-32.0); Calcium 8.5 mg/dL (8.5-10.1); Chloride 103 mmol/L (98-107); Glucose 87 mg/dL (74-106); Potassium 4.5 mmol/L (3.5-5.1); Sodium 144 mmol/L (136-145); Total Protein 7.1 g/dL (6.4-8.2)
== END 2023-10-12 15:23 | disposition home or self-care (01) ==
LOC: NCHCN 15:22
PROVIDERS: PCP Nurse Practitioner Family; Visit Provider Student in an Organized Health Care Education/Training Program
DX: E88.09 Other disorders of plasma-protein metabolism, not elsewhere classified (principal)
CPT/HCPCS: 80053

== ENCOUNTER 2024-02-09 12:36 | Outpatient (REF) | payer MEDICARE, OTHER, SELFPAY ==
--- OUTSIDE RECORDS SUMMARY | 2024-02-09 12:39 | XMS_ITS | Encounter Summary ---
Author Organization [facility] [place] [address] Care Team Providers Care Boiler Coverer Name Role Phone Lauren Tee Primary Care Provider + Reason for Visit * Auth/Cert (Routine) Specialty Diagnoses / Procedures Referred By Sav t Referred To Contact Diagnoses Cholangitis R/o cholangitis [place] [address] [facility] Referral ID Status Reason Start Date Expiration Date Visits Re quested Visits Authorized [id number] 1 1 Encounter Details Date Type Department Care Team (Late st Contact Info) Description 10/04/2023 10:00 AM EDT - 10/04/2023 11:00 AM EDT Surgery [place] [address] Brijesh Fisher MD [facility] [place] [address] ERCP (WRVU 5.85) Social History Tobacco Use Types Packs/Day Years Used Date Smoking Tobacco: Never Smokeless Tobacco: Never Tobacco Cessation:Counseling Given: Not Answered Comments:Denies vaping Alcohol Use Standard Drinks/Week Comments No 0 (1 standard drink = 0.6 oz pur e alcohol) [facility] Utilities Answer Date Recorded In the past 12 months has [employer] electric, gas, oil, or water company threatened to shut off services in your home? No 10/03/2023 Hunger Vital Sign Answer Date Recorded Within the past 12 months, y ou worried that your food would run out before you got the money to buy more. Never true 10/03/19 Within the past 12 months, t he food you bought just didn't last and you didn't have money to get more. Never true 10/03/2023 PRAPARE - Transportation Answer Date Re corded In the past 12 months, has l ack of transportation kept you from medical appointments or from getting medications? No 09/10 In the past 12 months, has l ack of transportation kept you from meetings, work, or from getting things needed for daily living? No 10/03/2023 Housing Stability Vital Sign Answer Best e Recorded In the last 12 months, was t here a time when you were not able to pay the mortgage or rent on time? No 10/03/2023 In the last 12 months, how many places have you lived? 1 10/03/2023 In the last 12 months, was t here a time when you did not have a steady place to sleep or slept in a fci (including now)? No 10/03/2023 DH IPV Inpatient Questions Answer Date Recorded Does Anyone Try to Keep You From Having Contact with Others or Doing Things Outside Your Home? no 10/02/2023 Feels Threatened by Someone no 09/10 Feels Unsafe at Home or Work/School no 10/02/2023 Physical Signs of Abuse Present no 10/02/2023 Sex and Gender Information Value Date Recorded Sex Assigned at Not on file Gender Identity Not on file Sexual Orientation Not on file documented as of this encounter Last Filed Vital Signs Vital Sign Reading Time Taken Comments Blood Pressure 116/50 10/04/2023 11:00 AM EDT Pulse 59 10/04/2023 10:44 AM EDT Temperature 36.8 ??C (98.2 ??F) 10/04/2023 8:15 AM ED T Respiratory Rate 17 10/04/2023 11:0 0 AM EDT Oxygen Saturation 94% 10/04/2023 11: 00 AM EDT Inhaled Oxygen Concentration - - Weight 76.2 kg (167 lb 15.9 oz) 024 12:12 AM EDT Height 161 cm (5' 3.39) 10/02/2023 12: 12 AM EDT Body Mass Index 29.4 10/02/2023 12:12 AM EDT documented in this encounter Discharge Summaries * Holly Flanagan DO - 10/04/2023 11:46 AM EDT Discharge Summary Patient Name: Princess Alston Patient Age: 83 y.o. Language: Irish Race: White Ethnicity: Not nor Admit date: 10/01/2023 Discharge date and time: 10/03 Attending Physician: Salvador Perea MD Discharge Physician: Dr. Garcia Follow-up Recommendations for Providers: #Hui Med Changes: N/A #Monitoring/Labs -Patient records showed Pravastatin stopped in 2020. Unclear of last lipid panel/A1c results. Please consider restarting as appropriate. -Could consider outpatient TSH for ongoing chills (deferred on admission due to concern for possible infection influencing results) -Please repeat iron studies after antibiotics and consider iron supplementation (iron deficient here but also in the setting of illness) -Consider colonoscopy based on patient's goals -Consider MDS workup Inpatient Provider Contact Information: For questions regarding this document or issues relating to this hospitalization on the Medical Service, please contact your inpatient physician through the [facility] General Utility Maintenance Repairer . Issues afterhours and on weekends will be handled by the Hospitalist staff on-call. Discharge Diagnoses (Hospital Problems) and Secondary Diagnoses (Chronic Problems): Active Hospital Problems Diagnosis Cholangitis Resolved Hospital Problems No resolved problems to display. Active Non-Hospital Problems Diagnosis Pseudophakia Operations/Major Procedures: Operations: Procedure(s): ERCP (WRVU 5.85) CHOLANGIOGRAM ERCP W/SPHINCTEROTOMY/PAPILLOTOMY (WRVU 6.5) ERCP W/REMOVAL CALCULI/DEBRIS FROM BILARY/PANCREATIC DUCT(S) (WRVU 6.63) 10/04/2023 Other Major Procedures: n/a History of Presentation: Princess is an 83 year old woman with a PMH of cholecystectomy, GERD (hx H.pylori), HTN, DM (or pre-DM), and anxiety who is a transfer from [facility] for possible cholangitis. She has been struggling with intermittent severe chills and epigastric abdominal pain for the last 6-8 weeks. In the past week she had intermittent low grade fevers of 99 degrees. Labs were ordered by her PCP for workup which showed newly elevated LFTs. She was instructed by her PCP to be evaluated in the ED for this. On arrival to the ED she was hemodynamically stable but tachycardic with a HR of 122, afebrile. Labs showed a leukocytosis of 14, Alk phos 225, Tbili 2.1, AST 89, ALT 108. Lactate mildly elevated at 2.4. She was given IV fluids and started on pip/tazo. A CT abdomen pelvis showed pneumobilia. She is now transferred to [facility] out of concern for cholangitis with need for ERCP. On arrival to [facility], she is hemodynamically stable and afebrile. She feels tired but denies current fever/chills, abdominal pain, nausea, vomiting, or other associated symptoms. No tobacco use, no alcohol use, no drug use. PCP had her stop metformin and lisinopril recently. Hospital Course: #Choledocholithiasis without cholangitis Patient started on Zosyn (10/01-10/03) empirically due to concern for cholangitis. ERCP on 10/03 with choledocholithasis, stones were removed. Diet advanced as tolerated. #Anxiety continued home escitalopram 10 mg. #GERD #Hx of H. Pylori, previously treated Given pantoprazole 40 mg (home omeprazole not on formulary). #HTN Held home lisinopril originally due to concern for infection, VSS, restarted after re-assuring ERCP. Vital Signs at Discharge: BP: 129/49, Heart Rate: 59, Temp: 36.5 ??C (97.7 ??F), Resp: 19, BMI (Calculated): 29.39 Height: 161 cm (5' 3.39) (10/02/2311) Weight: 76.2 kg (167 lb 15.9 oz) (03/23/24 0012) Functional and Cognitive Status: Princess Alston is awake, alert, and oriented to person, place, and time, and able to return to normal activity with exceptions as outlined in the instructions below. Important Studies and Lab Data: Labs: Recent Labs 10/04/23 0406 10/03/23 0336 10/02/23 0133 WBC 6.7 8.6 10.1* HGB 7.9* 8.3* 8.2* HCT 25.3* 26.9* 27.0* PLATELET 249 247 234 Recent Labs 10/04/23 0406 10/03/23 0336 10/02/23 0133 NA 137 138 134* K 3.4* 3.9 3.5 CL 107 106 103 CO2 22 22 19* BUN 9 10 13 CREATININE 0.84 0.91 0.94 Recent Labs 10/04/23 0406 10/03/23 0336 10/02/23 0133 AST 22 16 42* ALT 26 33* 55* ALKPHOS 241* 223* 286* BILITOT 0.4 0.5 1.1 BILIDIR 0.2 0.3 0.7* Recent Labs 10/04/23 0406 10/03/23 0336 10/02/23 0133 CALCIUM 8.1* 8.4* 8.1* MAGNESIUM -- -- 0.82 No results for input(s): INR, PT, PTT in the last 168 hours. No results for input(s): CK, TROPONINT in the last 168 hours. No results for input(s): POCGLU in the last 168 hours. Studies: ERCP 10/03 with choledocholithasis, no cholangitis Pending Studies and Lab Data: n/a Discharge Conditions/Prognosis: Upon discharge the pt is hemodynamically stable, without requiring supplemental oxygen, afebrile and pain free Discharge to: home Updated Allergies/ADRs: Allergies Allergen Reactions Celebrex [Celecoxib] Rash Codeine Phosphate Morphine Sulfate CIS - Nausea/Vomiting Prednisone Nausea And Vomiting Balsam Sanchez CIS - contact dermatitis Immunizations Given this Hospitalization: Immunization History Administered Date(s) Administered Influenza Vaccine, Whole 05/20/2005, 04/03/2009 Pneumococcal Polysaccharide (Pneumovax 23) 07/12/1999 Td, adult 02/23/2002 Discharge Medications: Your Medications Continued medications, unchanged Dose Details cyclobenzaprine 5 mg tablet Commonly known as: Flexeril Take 1 tablet by mouth nightly as needed for Muscle spasms. 5 mg Quantity: 14 tablet Refills: 0 escitalopram 10 mg tablet Commonly known as: Lexapro Take 10 mg by mouth daily. 10 mg Refills: 0 lisinopriL-hydroCHLOROthiazide 10-12.5 mg tablet Commonly known as: Zestoretic Refills: 0 PRILOSEC ORAL Refills: 0 Vyzulta 0.024 % Drops Generic drug: latanoprostene bunod Refills: 0 STOPPED Medications CIS FREE TEXT MED citalopram 20 mg tablet Commonly known as: CeleXA PravachoL 20 mg tablet Generic drug: pravastatin Smoking Status at Discharge: Social History Tobacco Use Smoking Status Never Smokeless Tobacco Never Tobacco Comments Denies vaping Instructions Given to Patient at Discharge: Patient Instructions Patient Instructions on Discharge to Home Why you were hospitalized - You were hospitalized for concerning liver lab abnormalities in the setting of ongoing chills and abdominal pain. Our GI team evaluated you and removed a few gall stones from your common bile duct; however, there was no evidence of infection in the common bile duct called cholangitis. Monitoring -Patient records showed Pravastatin stopped in 2020. Unclear of last lipid panel/A1c results. Please consider restarting as appropriate. -Could consider outpatient TSH for ongoing chills (deferred on admission due to concern for possible infection influencing results) Call your doctor or seek medical attention if you develop the following - chest pain, shortness of breath, passing out, feeling dizzy upon standing, passing out, diarrhea, constipation lasting longerthan 2 days, fevers (temperature over 100.3), chills, abdominal pain, vomiting, difficulty or discomfort when urinating, bloody or black bowel movements, or any other acute or concerning symptom. Other Important Instructions F/u PCP 10/10 Follow-up Appointments No future appointments. Your Discharge Medication List Your Medications Continued medications, unchanged Dose Details cyclobenzaprine 5 mg tablet Commonly known as: Flexeril Take 1 tablet by mouth nightly as needed for Muscle spasms. 5 mg Quantity: 14 tablet Refills: 0 escitalopram 10 mg tablet Commonly known as: Lexapro Take 10 mg by mouth daily. 10 mg Refills: 0 lisinopriL-hydroCHLOROthiazide 10-12.5 mg tablet Commonly known as: Zestoretic Refills: 0 PRILOSEC ORAL Refills: 0 Vyzulta 0.024 % Drops Generic drug: latanoprostene bunod Refills: 0 STOPPED Medications CIS FREE TEXT MED citalopram 20 mg tablet Commonly known as: CeleXA PravachoL 20 mg tablet Generic drug: pravastatin Your Inpatient Medical Team at [facility] Name(s) of your inpatient provider(s): Dr. Garcia Attending: Residents: For questions regarding issues relating to your hospitalization on the Hospital Medicine Service, please contact your inpatient physician through the [facility] General Utility Maintenance Repairer [phone]. Issues after hours and on weekends will be handled by the Hospitalist staff on-call. Your Primary Care Provider KEKE Porter [phone] Holly Flanagan, Internal Medicine, PGY-1 10/04/2023 General Instructions Endoscopic Retrograde Cholangiopancreatogram (ERCP): What to Expect at Home Your Recovery After you have an endoscopic retrograde cholangiopancreatogram (ERCP), you will be able to go home after your doctor or a nurse checks to make sure you are not having any problems. If you stay in thehospital overnight, you may go home the next day. You may have a sore throat for a day or two after the procedure. This care sheet gives you a general idea about how long it will take for you to recover. But each person recovers at a different pace. Follow the steps below to get better as quickly as possible. How can you care for yourself at home? Activity Rest when you feel tired. You can do your normal activities when it feels okay to do so. Diet Follow your doctor's directions for eating. Unless your doctor has told you not to, drink plenty of fluids. Do not drink alcohol. Medicines Your doctor will tell you if and when you can restart your medicines. He or she will also give you instructions about taking any new medicines. If you take blood thinners, such as warfarin (Coumadin), clopidogrel (Plavix), or aspirin, be sure to talk to your doctor. He or she will tell you if and when to start taking those medicines again. Make sure that you understand exactly what your doctor wants you to do. If a sphincterotomy was done during the test, your doctor may tell you not to take aspirin or otheranti-inflammatory medicines for a few days. These include ibuprofen (Advil, Motrin) and naproxen (Aleve). If you have a sore throat the day after the procedure, use an uhvg-wot-qtfjqsu spray to numb your throat. Sucking on throat lozenges and gargling with warm salt water may also help relieve your symptoms. Other instructions For your safety, do not drive or operate machinery until the medicine wears off and you can think clearly. Your doctor may tell you not to drive or operate machinery until the day after your test. Do not sign legal documents or make major decisions until the medicine wears off and you can think clearly. The anesthesia can make it hard for you to fully understand what you are agreeing to. Additional Information for Sedation Patients For patients who received sedation: You may have received medications before and/or during your procedure which effects your judgement and reaction time. Do not drive, operate machinery, drink alcoholic beverages or make important decisions for 24 hours. Be careful on stairs as you may be unsteady on your feet. You may eat a regular diet as tolerated. Do not smoke if you are alone. IV site: Slight redness or tenderness is normal, you can use a warm compress if you would like. If tenderness and/or redness increase or if foul drainage occurs, please contact your Doctor. Please call [phone] before 8pm Mon-Fri with problems, questions or concerns. If you call after 8pm or on weekends, call the Hospital at [phone] and ask to speak to the Steam Shovel Operating Engineer rehabilitation tech and the doughnut machine operator helper will contact that person for you. When should you call for help? Call 551 anytime you think you may need emergency care. For example, call if: You passed out (lost consciousness). You pass maroon or bloody stools. You have trouble breathing. Call your doctor now or seek immediate medical care if: You have pain that does not get better after you take pain medicine. You are sick to your stomach or cannot drink fluids. You have new or worse belly pain. You have blood in your stools. You have a fever. You cannot pass stools or gas. Watch closely for changes in your health, and be sure to contact your doctor if you have any problems, like Where can you learn more? [email or web address] View your After Visit Summary and more online at [email or web address] If you would like to provide feedback about your hospital experience, please call the Office of Patient and Family Relations at . If you have received this After Visit Summary in error, please immediately return it in person to the department, or notify the [facility] Privacy Office by calling toll free at between the hours of 8AM and 5PM to arrange for our retrieval of the documents at no cost to you. Content Version: 12.2 ?? [id number] [employer]. Care instructions adapted under license by [facility]. If you have questions about a medical condition or this instruction, always ask your healthcare professional. [employer] disclaims any warranty or liability for your use of this information. YOU ARE SCHEDULED FOR FOLLOW UP APPOINTMENT WITH YOUR PRIMARY CARE PROVIDER, LAUREN DAVIES, ON 10/11/2023 AT 10:10AM Discharge References/Attachments None documented in this encounter Discharge Instructions * Discharge Instructions* Rhoda Lind CMA - 10/04/2023 11:21 AM EDT Endoscopic Retrograde Cholangiopancreatogram (ERCP): What to Expect at Home Your Recovery After you have an endoscopic retrograde cholangiopancreatogram (ERCP), you will be able to go home after your doctor or a nurse checks to make sure you are not having any problems. If you stay in thehospital overnight, you may go home the next day. You may have a sore throat for a day or two after the procedure. This care sheet gives you a general idea about how long it will take for you to recover. But each person recovers at a different pace. Follow the steps below to get better as quickly as possible. How can you care for yourself at home? Activity Rest when you feel tired. You can do your normal activities when it feels okay to do so. Diet Follow your doctor's directions for eating. Unless your doctor has told you not to, drink plenty of fluids. Do not drink alcohol. Medicines Your doctor will tell you if and when you can restart your medicines. He or she will also give you instructions about taking any new medicines. If you take blood thinners, such as warfarin (Coumadin), clopidogrel (Plavix), or aspirin, be sure to talk to your doctor. He or she will tell you if and when to start taking those medicines again. Make sure that you understand exactly what your doctor wants you to do. If a sphincterotomy was done during the test, your doctor may tell you not to take aspirin or otheranti-inflammatory medicines for a few days. These include ibuprofen (Advil, Motrin) and naproxen (Aleve). If you have a sore throat the day after the procedure, use an ozkk-mki-kzvvwyk spray to numb your throat. Sucking on throat lozenges and gargling with warm salt water may also help relieve your symptoms. Other instructions For your safety, do not drive or operate machinery until the medicine wears off and you can think clearly. Your doctor may tell you not to drive or operate machinery until the day after your test. Do not sign legal documents or make major decisions until the medicine wears off and you can think clearly. The anesthesia can make it hard for you to fully understand what you are agreeing to. Additional Information for Sedation Patients For patients who received sedation: You may have received medications before and/or during your procedure which effects your judgement and reaction time. Do not drive, operate machinery, drink alcoholic beverages or make important decisions for 24 hours. Be careful on stairs as you may be unsteady on your feet. You may eat a regular diet as tolerated. Do not smoke if you are alone. IV site: Slight redness or tenderness is normal, you can use a warm compress if you would like. If tenderness and/or redness increase or if foul drainage occurs, please contact your Doctor. Please call [phone] before 8pm Mon-Fri with problems, questions or concerns. If you call after 8pm or on weekends, call the Hospital at [phone] and ask to speak to the Steam Shovel Operating Engineer rehabilitation tech and the doughnut machine operator helper will contact that person for you. When should you call for help? Call 911 anytime you think you may need emergency care. For example, call if: You passed out (lost consciousness). You pass maroon or bloody stools. You have trouble breathing. Call your doctor now or seek immediate medical care if: You have pain that does not get better after you take pain medicine. You are sick to your stomach or cannot drink fluids. You have new or worse belly pain. You have blood in your stools. You have a fever. You cannot pass stools or gas. Watch closely for changes in your health, and be sure to contact your doctor if you have any problems, like Where can you learn more? [facility] View your After Visit Summary and more online at [email or web address] If you would like to provide feedback about your hospital experience, please call the Office of Patient and Family Relations at . If you have received this After Visit Summary in error, please immediately return it in person to the department, or notify the [facility] Privacy Office by calling toll free at between the hours of 8AM and 5PM to arrange for our retrieval of the documents at no cost to you. Content Version: 12.2 ?? [id number] [employer]. Care instructions adapted under license by [facility]. If you have questions about a medical condition or this instruction, always ask your healthcare professional. [employer] disclaims any warranty or liability for your use of this information. YOU ARE SCHEDULED FOR FOLLOW UP APPOINTMENT WITH YOUR PRIMARY CARE PROVIDER, LAUREN DAVIES, ON 10/11/2023 AT 10:10AM * Patient Instructions* Tye Aburto MD - 10/04/2023 11:51 AM EDT Patient Instructions on Discharge to Home Why you were hospitalized - You were hospitalized for concerning liver lab abnormalities in the setting of ongoing chills and abdominal pain. Our GI team evaluated you and removed a few gall stones from your common bile duct; however, there was no evidence of infection in the common bile duct called cholangitis. Monitoring -Patient records showed Pravastatin stopped in 2020. Unclear of last lipid panel/A1c results. Please consider restarting as appropriate. -Could consider outpatient TSH for ongoing chills (deferred on admission due to concern for possible infection influencing results) Call your doctor or seek medical attention if you develop the following - chest pain, shortness of breath, passing out, feeling dizzy upon standing, passing out, diarrhea, constipation lasting longerthan 2 days, fevers (temperature over 100.3), chills, abdominal pain, vomiting, difficulty or discomfort when urinating, bloody or black bowel movements, or any other acute or concerning symptom. Other Important Instructions F/u PCP 10/10 Follow-up Appointments No future appointments. Your Discharge Medication List Your Medications New Medications Dose Details amoxicillin-clavulanate 875-125 mg tablet Commonly known as: Augmentin Take 1 tablet by mouth 2 times daily. 1 tablet Quantity: 3 tablet Refills: 0 Continued medications, unchanged Dose Details cyclobenzaprine 5 mg tablet Commonly known as: Flexeril Take 1 tablet by mouth nightly as needed for Muscle spasms. 5 mg Quantity: 14 tablet Refills: 0 escitalopram 10 mg tablet Commonly known as: Lexapro Take 10 mg by mouth daily. 10 mg Refills: 0 lisinopriL-hydroCHLOROthiazide 10-12.5 mg tablet Commonly known as: Zestoretic Refills: 0 PRILOSEC ORAL Refills: 0 Vyzulta 0.024 % Drops Generic drug: latanoprostene bunod Refills: 0 STOPPED Medications CIS FREE TEXT MED citalopram 20 mg tablet Commonly known as: CeleXA PravachoL 20 mg tablet Generic drug: pravastatin Your Inpatient Medical Team at [facility] Name(s) of your inpatient provider(s): Dr. Garcia Attending: Residents: For questions regarding issues relating to your hospitalization on the Hospital Medicine Service, please contact your inpatient physician through the [facility] General Utility Maintenance Repairer [phone]. Issues after hours and on weekends will be handled by the Hospitalist staff on-call. Your Primary Care Provider KEKE Porter [phone] Tye Aburto MD Internal Medicine, PGY-1 10/04/2023 documented in this encounter Medications at Time of Discharge Medication Sig Dispensed Refills Start Date End Date amoxicillin-clavulanate (Augmentin) 875-125 mg tablet Take 1 tablet by mouth 2 times daily. 3 tablet 10/04/2023 escitalopram (Lexapro) 10 mg Tablet Take 10 mg by mouth daily. 12/14/2020 lisinopriL-hydrochloroth iazide (Zestoretic) 10-12.5 mg Tablet 12/07/2020 Vyzulta 0.024 % Drops 10/24/2020 cyclobenzaprine (Flexeril) 5 mg Tablet Take 1 tablet by mouth nightly as needed for Muscle spasms. 14 tablet 02/13/2021 OMEPRAZOLE (PRILOSEC ORAL) 04/16/2009 documented as of this encounter Progress Notes * Salvador Garcia MD - 10/04/2023 3:00 PM EDT Hospital Medicine - Attending Day of Discharge Documentation Discharge diagnosis Active Hospital Problems Diagnosis Cholangitis Resolved Hospital Problems No resolved problems to display. Secondary Issues Active Non-Hospital Problems Diagnosis Pseudophakia I have personally seen and examined the patient and they are ready for discharge. I spent <30 minutes (Day of Discharge Code 58605) involved in the final examination of the patient, discussion of the hospital stay, instructions for continuing care to all relevant caregivers, and preparation of discharge records, prescriptions and referral forms. Plans Discharge to home Follow-up scheduled with none Please see the Discharge Summary for complete details of any medication changes and additional plans. * Marlee Bueno RN - 10/04/2023 2:58 PM EDT D/C instructions given at this time. She has no concerns at this time. Daughter here for transportation. IV access already removed prior. Belongings sent with pt. D/C home at this time. * Cristina Daniel RN - 10/03/2023 10:57 AM EDT Pt NPO since [place], ?ERCP today. Denies pain or nausea. IV ABX continued. VSS. Report given to RN. Dhruv At 1100. * Haily Rudolph MD - 10/03/2023 8:40 AM EDT MEDICINE PAGER [phone] - [facility] Daily Progress Note Page [phone] to reach a provider 01/02 Admit Date: 10/01/2023 Encounter Date: October 03, 2023 Anticipated Discharge Date: 10/06/2023 Hospital Day: 2 24 Hour Events/Subjective: -NAEO -feeling well this AM, denying any abdominal pain, nausea, vomiting, or diarrhea Objective: Last value Range last 24 hrs Temp: 37.1 ??C (98.8 ??F) Temp: [36.7 ??C (98.1 ??F)-37.1 ??C (98.8 ??F)] Heart Rate from SpO2: 68 bpm Heart Rate: -- BP: 136/68 BP: (121-138)/(48-68) Resp: 16 Resp: [16-18] SpO2: 99 % SpO2: [95 %-99 %] Height: 161 cm (5' 3.39) Weight: 76.2 kg (167 lb 15.9 oz) BMI (Calculated): 29.39 BMI Classification: Over Weight Intake/Output Summary (Last 24 hours) at 10/03/2023 0840 Last data filed at 10/03/2023 0831 Gross per 24 hour Intake 2918 ml Output 1300 ml Net 1618 ml Patient Vitals for the past 72 hrs: Weight 10/02/23 0012 76.2 kg (167 lb 15.9 oz) EXAM: Gen: Alert & oriented x3, in NAD HEENT: MMM CV: Normal rate and regular rhythm. No murmurs appreciated. Pulm: Normal respiratory effort, CTA with good air entery bilaterally, no rales/rhonchi/wheezes Abd: Soft, bowel sounds present, nontender Ext: No pedal edema, good ROM of right shoulder Neuro: Grossly intact, moving all four extremities. 8.3 138 106 10 2.6 5.9 8.4 8.6 H/H 247 3.9 22 .91 .3 .5 -- 26.9 16 33 -- 223 73.1N (.3B) / 14.8L / 9.9M / 1.3E / .6B Results for orders placed or performed during the hospital encounter of 10/01/23 (from the past 24 hour(s)) Request For 2nd Read CT Chest Abdomen Pelvis (Exam End: 10/02/2023 12:14 PM) Impression 1. Biliary dilation, pneumobilia and hyperdense versus enhancing material at the ampulla. Equivocal mural enhancement without thickening. Favor obstructing sludge over mass given lack of pancreatic ductal calcification. Findings raise the possibility for an obstructing central common duct cholesterol cholelithiasis. Gastroenterologic opinion recommended. 2. 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 3. Normal caliber thoracic and abdominal aorta without dissection. Thank you for letting us participate in the care of this patient. If you are a health care provider and have any questions regarding this report, please contact the number below. For patients who have questions please contact the health college and career counselor that requested your imaging first. Electronically signed by: Vania Rodriguez MD, [facility] ([phone]), at 10/02/2023 1:[address] Angiogram Chest for Pulmonary Embolus w Contrast (Exam End: 10/02/2023 12:29 PM) Impression No pulmonary embolism identified. No acute findings or active disease in the chest. Coronary arterial sclerosis. Thank you for letting us participate in the care of this patient. If you are a health care provider and have any questions regarding this report, please contact the number below. For patients who have questions please contact the health college and career counselor that requested your imaging first. A/P 2nd read 1. Biliary dilation, pneumobilia and hyperdense versus enhancing material at the ampulla. Equivocalmural enhancement without thickening. Favor obstructing sludge over mass given lack of pancreatic ductal calcification. Findings raise the possibility for an obstructing central common duct cholesterol cholelithiasis. Gastroenterologic opinion recommended. 2. 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 3. Normal caliber thoracic and abdominal aorta without dissection. CONSULTANTS: IP CONSULT TO GASTROENTEROLOGY Assessment: Princess Alston is a 83 y.o. female w/ PMH of cholecystectomy, HTN, anxiety, GERD (history of treated H. Pylori), pre-DM admitted for elevated LFTs and ongoing fevers concerning for cholangitis. 10/03/23 Patient remains HDS and asymptomatic at this time. LFTs improving. CTAP second read more concerningfor obstructing sludge rather than mass. Will likely undergo ERCP tomorrow for further evaluation. Continuing IV abx for now. Plan: #Concern for cholangitis -- pip/tazo -- GI following, appreciate recs -plan for ERCP -- PRN tylenol #Anxiety - continue home escitalopram 10 mg #GERD #Hx of H. Pylori, previously treated -- pantoprazole 40 mg (home omeprazole not on formulary) #DM -- hold home metformin -- sensitive SSI #HTN -- held home lisinopril originally due to concern for infection, VSS, consider re-starting tomorrow Diet: NPO diet (Give Meds) Last BM documented: 10/01/23 DVT Prophylaxis: None Daily Checklist: Last Family Communication: Discharge Location: [facility] Basic Mobility Raw Score: 24 PT: OT: Code status Attempt Cardiopulmonary Resuscitation - Inpatient PCP Solomon Leslie MD [phone] Active Hospital Problems Diagnosis Cholangitis Resolved Hospital Problems No resolved problems to display. Associated attestation - Salvador Garcia MD - 10/04/2023 7:55 AM EDT Attending Attestation and Certification Please see Haily Rudolph MD's note for details of the patient history of presentation and data. Ihave discussed, reviewed and agree with the documented History, Physical findings, Assessment and Plan of care. I have examined the patient myself and personally reviewed all studies. In addition, I certify thatI am a [facility] credentialed attending provider with admitting privileges and that the patient meets or has met medical necessity to require an inpatient IPI level of care meeting a minimum of two midnights or is on the [facility] inpatient only procedure list (status C) due to: Cholangitis For ERCP on 10/04. Likely discharge thereafter. * Alcides Jonas MD - 10/03/2023 7:30 AM EDT GASTROENTEROLOGY & HEPATOLOGY INPATIENT PROGRESS NOTE ID: 83 yo female with hx of CCY two days of RUQ abdominal pain and chills sent from her PCP's office to the ER after a finding of abnormal LFTs c/f cholangitis. Interval History: -- Remains afebrile, VSS\ -- Patient feels well -- WBC and T Bili normalized; on IV Zosyn CT A/P 2nd read 1. Biliary dilation, pneumobilia and hyperdense versus enhancing material at the ampulla. Equivocalmural enhancement without thickening. Favor obstructing sludge over mass given lack of pancreatic ductal calcification. Findings raise the possibility for an obstructing central common duct cholesterol cholelithiasis. Gastroenterologic opinion recommended. 2. 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 3. Normal caliber thoracic and abdominal aorta without dissection. Active Hospital Problem List Patient Active Problem List Diagnosis Code Pseudophakia Z96.1 Cholangitis K83.09 Scheduled Meds: escitalopram 10 mg Oral Daily sodium chloride 0.9 % (flush) 5 mL Intravenous BID piperacillin-tazobactam 3.375 g Intravenous Q8H pantoprazole EC 40 mg Oral Daily polyethylene glycoL (MIRALAX) oral powder 17 g Oral Daily hyaluronidase 1-10 mL Subcutaneous Once Continuous Infusions: sodium chloride 0.9% 1,000 mL (10/02/23 2204) PRN Meds:.sodium chloride 0.9 % (flush), lidocaine, acetaminophen, melatonin, influenza vaccine (65yrs +) Physical Examination Vitals: 10/02/23 0804 10/02/23 1240 10/02/23 2042 10/03/23 0152 BP: 146/74 132/59 121/48 138/59 BP Location (NBP): Left arm Left arm Left arm Left arm Patient Position: Lying Sitting Lying Lying Resp: 18 18 18 16 Temp: 37.2 ??C (99 ??F) 36.7 ??C (98.1 ??F) 37.1 ??C (98.8 ??F) 36.8 ??C (98.2 ??F) TempSrc: Oral Oral Oral Oral SpO2: 98% 97% 95% 99% Weight: Height: PHYSICAL EXAM GENERAL: No acute distress, alert and oriented HEENT: AT/NC, sclerae anicteric, moist mucous membranes ABDOMEN: Soft, normoactive bowel sounds, non-tender, non-distended EXT: Warm, no edema SKIN: No jaundice Pertinent Recent labs CBC Lab Results Component Value Date WBC 8.6 10/03/2023 Hemoglobin 8.3 (L) 10/03/2023 Hematocrit 26.9 (L) 10/03/2023 Platelets 247 10/03/2023 Lab Results Component Value Date Sodium 138 10/03/2023 Potassium 3.9 10/03/2023 Chloride 106 10/03/2023 CO2 22 10/03/2023 BUN 10 10/03/2023 Creatinine 0.91 10/03/2023 Glucose Lvl 98 10/03/2023 LFT's Lab Results Component Value Date Alk Phos 223 (H) 10/03/2023 AST 16 10/03/2023 Albumin 2.6 (L) 10/03/2023 Bili, Direct 0.3 10/03/2023 Total Bilirubin 0.5 10/03/2023 ALT 33 (H) 10/03/2023 Total Protein 5.9 (L) 10/03/2023 Pertinent Endoscopic Procedures/Reports: N/A Pertinent Recent Imaging: Results for orders placed or performed during the hospital encounter of 10/01/23 CT Angiogram Chest for Pulmonary Embolus w Contrast (Exam End: 10/02/2023 12:29 PM) Impression No pulmonary embolism identified. No acute findings or active disease in the chest. Coronary arterial sclerosis. Thank you for letting us participate in the care of this patient. If you are a health care provider and have any questions regarding this report, please contact the number below. For patients who have questions please contact the health college and career counselor that requested your imaging first. Request For 2nd Read CT Chest Abdomen Pelvis (Exam End: 10/02/2023 12:14 PM) Impression 1. Biliary dilation, pneumobilia and hyperdense versus enhancing material at the ampulla. Equivocal mural enhancement without thickening. Favor obstructing sludge over mass given lack of pancreatic ductal calcification. Findings raise the possibility for an obstructing central common duct cholesterol cholelithiasis. Gastroenterologic opinion recommended. 2. 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 3. Normal caliber thoracic and abdominal aorta without dissection. Thank you for letting us participate in the care of this patient. If you are a health care provider and have any questions regarding this report, please contact the number below. For patients who have questions please contact the health college and career counselor that requested your imaging first. Electronically signed by: Vania Rodriguez MD, [facility] ([phone]), at 10/02/2023 1:28 PM Impression: 83 yo female with hx of CCY two days of RUQ abdominal pain and chills sent from her PCP's office tothe ER after a finding of abnormal LFTs c/f cholangitis. Patient's liver tests and symptoms overall improved on IV antibiotics. Second read on OSH CT notingbiliary dilation, pneumobilia and hyperdense versus enhancing material at the ampulla favoring obstructing sludge over mass. We should pursue evaluation with ERCP given presentation was consistent with cholangitis. Given ongoing improvement today, will plan for ERCP tomorrow. Recommendations: - ERCP tomorrow, NPOaMN - Continue IV antibiotics - Trend LFTs This case was discussed with Dr. Jonas. Guido Morelos D.O. Fellow in Gastroenterology & Hepatology Pager #[phone] 10/03/2023 I have seen and evaluated the patient with Dr. Morelos. I have reviewed the fellow's history during the encounter and I agree with the details as written above. My physical examination confirms the above findings. The assessment and plan were formulated in discussion with me at the time of the encounter and I agree with them as documented. Hoping for late- morning ERCP tomorrow with hopeful plan for d/c afterwards. Alcides Jonas MD, [employer] grades 9 through 12 teacher Attendant Child Activity, Gastroenterology and Hepatology * Deanna Richard RN - 10/03/2023 6:08 AM EDT OUTCOME EVALUATION NOTE: OUTCOME SUMMARY: Princess Alston is here for RUQ pain, chills, and elevated LFTS, with suspected cholangitis. A&Ox4 and VSS. Does not endorse pain or nausea. NS continued at 100 mL/hr. IV zosyn infused per SEP. Initiated NPO at midnight for possible ERCP today. Pain and swelling at IV site. Vasc paged and at bedside to assess. PIV removed, new PIV replaced. UA collected and sent. Patient sleeping between nursing care. PLAN MOVING FORWARD: Monitor labs and vitals IV abx ERCP today? INDIVIDUALIZED FALL PREVENTION INTERVENTIONS: Patient-specific fall risk factors per assessment: [current deficits]: IV pole, hospitalization, generalized weakness Assistance [level of assistance required for transfers and ambulation]: SBA Supervision [direct monitoring required during toileting and ADLs]: Eyes on Surveillance [continuous indirect monitoring]: masimo, purposeful rounding, bed alarm on, call light in reach, room near unit station Patient-specific fall prevention interventions for sensory deficits provided, if applicable: [X] N/A CPG GOAL OUTCOME EVALUATION: * Jannie Watson RN - 10/02/2023 4:46 PM EDT OUTCOME EVALUATION NOTE: OUTCOME SUMMARY: A&Ox4, VSS on RA. No c/o pain, n/v. IVF & ABX continued. CTA chest & abd done, neg for PE. No ERCP today. Regular diet. Will be NPO at [place] for ERCP tomorrow. PLAN MOVING FORWARD: Monitor labs and vitals IV abx ERCP 10/02 INDIVIDUALIZED FALL PREVENTION INTERVENTIONS: Patient-specific fall risk factors per assessment: [current deficits]: IV pole, hospitalization, generalized weakness Assistance [level of assistance required for transfers and ambulation]: SBA Supervision [direct monitoring required during toileting and ADLs]: Eyes on Surveillance [continuous indirect monitoring]: masimo, purposeful rounding, bed alarm on, call light in reach, room near unit station Patient-specific fall prevention interventions for sensory deficits provided, if applicable: [X] N/A CPG GOAL OUTCOME EVALUATION: * Holly Flanagan, DO - 10/02/2023 1:48 PM EDT MEDICINE PAGER [phone] - [facility] Daily Progress Note Page [phone] to reach a provider 01/02 Admit Date: 10/01/2023 Encounter Date: October 02, 2023 Anticipated Discharge Date: Hospital Day: 1 24 Hour Events/Subjective: -Admitted overnight -Endorses frequent urination, interest in external cath -no chills -endorses right shoulder pain from previous rigors Objective: Last value Range last 24 hrs Temp: 36.7 ??C (98.1 ??F) Temp: [36.7 ??C (98.1 ??F)-37.2 ??C (99 ??F)] Heart Rate from SpO2: 74 bpm Heart Rate: -- BP: 132/59 BP: (112-160)/(59-82) Resp: 18 Resp: [16-18] SpO2: 97 % SpO2: [95 %-98 %] Height: 161 cm (5' 3.39) Weight: 76.2 kg (167 lb 15.9 oz) BMI (Calculated): 29.39 BMI Classification: Over Weight Intake/Output Summary (Last 24 hours) at 10/02/2023 1650 Last data filed at 10/02/2023 1500 Gross per 24 hour Intake 1095 ml Output -- Net 1095 ml Patient Vitals for the past 72 hrs: Weight 10/02/23 0012 76.2 kg (167 lb 15.9 oz) EXAM: Gen: Alert & oriented x3, in NAD HEENT: MMM CV: Normal rate and regular rhythm. No murmurs appreciated. Pulm: Normal respiratory effort, CTA with good air entery bilaterally, no rales/rhonchi/wheezes Abd: Soft, RUQ tenderness, + Romero's sign Ext: No pedal edema, good ROM of right shoulder Neuro: Grossly intact, moving all four extremities. 8.2 134 103 13 2.6 5.9 8.1 10.1 H/H 234 3.5 19 .94 .7 1.1 0.82 27 42 55 -- 286 75.7N (.6B) / 14.1L / 8.3M / .7E / .6B Results for orders placed or performed during the hospital encounter of 10/01/23 (from the past 24 hour(s)) Request For 2nd Read CT Chest Abdomen Pelvis (Exam End: 10/02/2023 12:14 PM) Impression 1. Biliary dilation, pneumobilia and hyperdense versus enhancing material at the ampulla. Equivocal mural enhancement without thickening. Favor obstructing sludge over mass given lack of pancreatic ductal calcification. Findings raise the possibility for an obstructing central common duct cholesterol cholelithiasis. Gastroenterologic opinion recommended. 2. 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 3. Normal caliber thoracic and abdominal aorta without dissection. Thank you for letting us participate in the care of this patient. If you are a health care provider and have any questions regarding this report, please contact the number below. For patients who have questions please contact the health college and career counselor that requested your imaging first. Electronically signed by: Vania Rodriguez MD, [facility] ([phone]), at 10/02/2023 1:[address] Angiogram Chest for Pulmonary Embolus w Contrast (Exam End: 10/02/2023 12:29 PM) Impression No pulmonary embolism identified. No acute findings or active disease in the chest. Coronary arterial sclerosis. Thank you for letting us participate in the care of this patient. If you are a health care provider and have any questions regarding this report, please contact the number below. For patients who have questions please contact the health college and career counselor that requested your imaging first. ULTANTS: IP CONSULT TO GASTROENTEROLOGY Assessment: Princess Alston is a 83 y.o. female w/ PMH of cholecystectomy, HTN, anxiety, GERD (history of treated H. Pylori), pre-DM admitted for elevated LFTs and ongoing fevers concerning for cholangitis. 10/02/23 Overall patient stable. Afebrile while here, tolerating PO, but persistent RUQ pain. While patient has had gallbladder removed, I do wonder if a gallstone or gall sludge was transiently stuck in CBD leading to LFT elevation and pneumobilia. However, this wouldn't explain current tenderness to palpation on exam (unless there was residual inflammation there). CT a/p limited as ductal diameter difficult to appreciate s/p cholecystectomy. CT PE performed to evaluate for PE because of ongoing shortness of breath associated with xiphoid/lower sternal pain--negative for PE or pneumonia. For now, will make NPO at midnight for possible evaluation by GI tomorrow. Plan: #Ongoing chills, RUQ abdominal pain for 2 months #Pneumobilia on CT c/a/p at [facility] -- pip/tazo -- repeat CBC, CMP -- 1L IVF -- GI following, appreciate recs -- F/u 2nd read -- PRN tylenol #Anxiety - continue home escitalopram 10 mg #GERD #Hx of H. Pylori, previously treated -- pantoprazole 40 mg (home omeprazole not on formulary) #DM -- hold home metformin -- sensitive SSI #HTN -- held home lisinopril originally due to concern for infection, VSS, consider re-starting tomorrow Diet: NPO diet (Give Meds) Carb Control diet 60/60/75 CHO counting level 2 Last BM documented: 10/01/23 DVT Prophylaxis: None Daily Checklist: Last Family Communication: Discharge Location: [facility] Basic Mobility Raw Score: 24 PT: OT: Code status Attempt Cardiopulmonary Resuscitation - Inpatient PCP Solomon Leslie MD [phone] Active Hospital Problems Diagnosis Cholangitis Resolved Hospital Problems No resolved problems to display. * Deanna Richard RN - 10/02/2023 6:28 AM EDT OUTCOME EVALUATION NOTE: OUTCOME SUMMARY: Princess Alston is here for RUQ pain, chills, and elevated LFTS, with suspected cholangitis. Arrived from OSH around 2350. A&Ox4 and VSS. Does not endorse pain or nausea. NS started at 100 mL/hr. IV zosyn infused per SEP. Initiated NPO upon arrival for possible ERCP today. Patient sleeping between nursing care. PLAN MOVING FORWARD: Monitor labs and vitals IV abx ERCP today? INDIVIDUALIZED FALL PREVENTION INTERVENTIONS: Patient-specific fall risk factors per assessment: [current deficits]: IV pole, hospitalization, generalized weakness Assistance [level of assistance required for transfers and ambulation]: SBA Supervision [direct monitoring required during toileting and ADLs]: Eyes on Surveillance [continuous indirect monitoring]: masimo, purposeful rounding, bed alarm on, call light in reach, room near unit station Patient-specific fall prevention interventions for sensory deficits provided, if applicable: [X] N/A CPG GOAL OUTCOME EVALUATION: documented in this encounter H&P Notes * Terrance Rosario MD - 10/04/2023 9:07 AM EDT Gastroenterology and Hepatology Pre-Procedure History and Physical Exam Procedure: ERCP Indication: possible CBD stone, cholangitis, remote hx of cholecystectomy Patient Active Problem List Diagnosis Code Pseudophakia Z96.1 Cholangitis K83.09 EXAM: HEENT: Airway examined, oropharynx clear Mallampati Score: per anesthesia LUNGS: Clear to auscultation HEART: Regular rate and rhythm, normal S1, S2 ABDOMEN: Normal bowel sounds, soft, non tender, non distended A/P: Proceed with the planned endoscopic procedure. ASA 3 - Patient with moderate systemic disease with functional limitations Sedation Plan: anesthesia Risks and benefits of the procedure explained to the patient. Consent form signed and included in the patient's chart. Terrance Rosario MD Advanced Endoscopy Fellow Gastroenterology & Hepatology * Smiley Martin MD - 10/02/2023 12:36 AM EDT Images from the original note were not included. [facility] Medicine H&P Patient info: Name: Princess Alston : 1940 PCP: Solomon Leslie MD PCP phone number: [phone] Date of Admission: 10/01/2023 ( Hospital Day 1 day ) Attending:Sebastian Dumont MD ID: Princess Alston is a 83 y.o. female w/ PMH of cholecystectomy, GERD, HTN, anxiety, DM (or preDM) on Hospital Day1 for No chief complaint on file. HPI: Princess is an 83 year old woman with a PMH of cholecystectomy, GERD (hx H.pylori), HTN, DM (or pre-DM), and anxiety who is a transfer from [facility] for possible cholangitis. She has been struggling with intermittent severe chills and epigastric abdominal pain for the last 6-8 weeks. In the past week she had intermittent low grade fevers of 99 degrees. Labs were ordered by her PCP for workup which showed newly elevated LFTs. She was instructed by her PCP to be evaluated in the ED for this. On arrival to the ED she was hemodynamically stable but tachycardic with a HR of 122, afebrile. Labs showed a leukocytosis of 14, Alk phos 225, Tbili 2.1, AST 89, ALT 108. Lactate mildly elevated at 2.4. She was given IV fluids and started on pip/tazo. A CT abdomen pelvis showed pneumobilia. She is now transferred to [facility] out of concern for cholangitis with need for ERCP. On arrival to [facility], she is hemodynamically stable and afebrile. She feels tired but denies current fever/chills, abdominal pain, nausea, vomiting, or other associated symptoms. No tobacco use, no alcohol use, no drug use. PCP had her stop metformin and lisinopril recently. Review of Systems As per HPI PMH Past Medical History: Diagnosis Date Cataract Depression Patient lost x 4 years ago Hyperlipidemia Hypertension Strabismus Patched as a child PS Past Surgical History: Procedure Laterality Date CATARACT EXTRACTION, EXTRACAPSULAR, W/ LENS INSERTION 10/24/2013 OD SMP CATARACT REMOVAL 2008 OS smp Family History Family History Problem Relation Age of Onset Cataracts Mother Hypertension Mother Thyroid Disease Mother Heart Disease Mother Diabetes Paternal Grandfather Glaucoma Neg Hx Macular Degeneration Neg Hx Retinal Detachment Neg Hx Strabismus Neg Hx Amblyopia Neg Hx Cancer Father Social History Social History Socioeconomic History Marital status: Spouse name: Not on file Number of children: Not on file Years of education: Not on file Highest education level: Not on file Occupational History Not on file Tobacco Use Smoking status: Never Smokeless tobacco: Never Substance and Sexual Activity Alcohol use: No Drug use: Never Sexual activity: Not Currently Partners: Male Other Topics Concern Not on file Social History Narrative Not on file Social Determinants of Health Financial Resource Strain: Not on file Food Insecurity: Not on file Transportation Needs: Not on file Physical Activity: Not on file Intimate Partner Violence: Not At Risk (10/02/2023) IPV Inpatient Questions Prevent Contact with Others: no Feels Threatened by Someone: no Feels Unsafe at Home: no Physical Signs of Abuse Present: no Housing Stability: Not on file Allergies: Allergies Allergen Reactions Celebrex [Celecoxib] Rash Codeine Phosphate Morphine Sulfate CIS - Nausea/Vomiting Prednisone Nausea And Vomiting Balsam Sanchez CIS - contact dermatitis Objective: Vitals Last value Range last 24 hrs Temperature Temp: 36.7 ??C (98.1 ??F) Temp: [36.7 ??C (98.1 ??F)] Heart Rate Heart Rate: -- Blood Pressure BP: 112/63 BP: (112)/(63) Art Line BP BP (Arterial Line): -- MAP (NBP): [79 mmHg] Respiratory Rate Resp: 16 Resp: [16] SpO2 SpO2: 95 % SpO2: [95 %] Oxygen Delivery Oxygen Therapy O2 Device: None (Room air) No intake or output data in the 24 hours ending 10/02/23 0129 No data found. Admit wt: Physical Exam: Gen: in bed in NAD. HEENT: anicteric, EOMI intact, MMM. CV: RRR, no murmurs/rubs/gallops Resp: CTAB, no crackles/wheezes/ronchi, normal work of breathing Abd: normal bowel sounds, soft, non-tender to palpation, no rebound or guarding Ext: 2+ distal pulses, no pedal edema. Neuro: no focal deficits noted, moves all extremities spontaneously Psych: cooperative. Skin: no rashes on exposed skin. Lines/Drains/Airways Lines: PIV 10/02/23 0030 18 gauge median cubital vein (antecubital fossa), right (Active) Indication/Daily Review of Necessity fluid therapy intermittent;medication therapy intermittent 10/02/23 0000 Site Preparation/Maintenance dressing: dry and intact 03/23/24 0000 Securement catheter stabilization device, secured with 10/02/23 Patency/Maintenance flushed without difficulty;alcohol impregnated cap applied 10/02/23 Phlebitis 0-->no symptoms 10/02/23 Infiltration 0-->no symptoms 10/02/23 Site Signs/Symptoms no redness;no swelling;no warmth;no pain;no palpable cord;no streak formation;no drainage 10/02/23 Labs: No results for input(s): WBC, HGB, HCT, PLATELET, MCV in the last 168 hours. No results for input(s): NA, CL, CO2, K, MAGNESIUM, PHOS, CALCIUM, BUN, CREATININE in the last 168 hours. LFTs No results for input(s): PROT, ALBUMIN, AST, ALT, ALKPHOS, BILITOT, BILIDIR in the last 168 hours. Coags No results for input(s): INR, PT, PTT, FIBRINOGEN, DDIMER in the last 168 hours. Invalid input(s): THROMBIN TIME Cardiac Enzymes No results for input(s): CK, TROPONINT, PROBNP in the last 168 hours. Endocrine No results for input(s): TSH, CORTISOL in the last 7068 hours. Invalid input(s): [id number] No results for input(s): POCGLU in the last 168 hours. Heme No results for input(s): LDH, HAPTOGLOBIN, URICACID in the last 168 hours. ABG (Arterial Blood Gas) No results found for: PHART, PO2ART, LMJ1PLG, MGP1VJW Microbiology: Microbiology Results (Last 30 days) No results found for the last 720 hours. Imaging: No results found for this visit on 10/01/23. Medications See MAR Assessment & Plan: Princess Alston is a 83 y.o. female w/ PMH of cholecystectomy, HTN, anxiety, GERD (history of treated H. Pylori), DM on HD# 1 for possible cholangitis. She is currently hemodynamically stable and pain-free. No fever, jaundice, RUQ pain, or AMS. CT c/a/p images are available in PACS. Will continue pip/tazo, give additional IVF, obtain repeat labs, and keep NPO for anticipated ERCP. #Concern for cholangitis #Pneumobilia -- pip/tazo -- repeat CBC, CMP -- 1L IVF -- NPO -- consult GI for ERCP -- PRN tylenol #Anxiety - continue home escitalopram 10 mg #GERD #Hx of H. Pylori, previously treated -- pantoprazole 40 mg (home omeprazole not on formulary) #DM -- hold home metformin -- sensitive SSI #HTN -- hold home lisinopril #Routine Diet: NPO diet (Give Meds) DVT Prophylaxis: low risk GI Prophylaxis: home PPI Bowel regimen: Daily miralax Code Status: Attempt Cardiopulmonary Resuscitation - Inpatient Dispo: Pending clinical course Smiley Martin MD Internal Medicine, PGY-3 [facility] Medicine, #[id number] 10/02/23 1:29 AM Associated attestation - Salvador Garcia MD - 10/02/2023 8:51 PM EDT Attending Attestation and Certification Please see Smiley Martin MD's note for details of the patient history of presentation and data. I have discussed, reviewed and agree with the documented History, Physical findings, Assessment and Plan of care. I have examined the patient myself and personally reviewed all studies. In addition, I certify thatI am a D-H credentialed attending provider with admitting privileges and that the patient meets or has met medical necessity to require an inpatient IPI level of care meeting a minimum of two midnights or is on the [facility] inpatient only procedure list (status C) due to: Possible Cholangitis Appreciate GI consultation. Patient is status post cholecystectomy, but presents with symptoms thatcould possibly represent cholangitis. Imaging is inconclusive as patient has dilated CBD from previous cholecystectomy. Total bilirubin mildly up. Patient to pursue ERCP tomorrow. Patient complains of pleuritic right chest pain. Will rule out PE with CT PE today. documented in this encounter Miscellaneous Notes * Plan of Care - Marlee Bueno RN - 10/04/2023 3:00 PM EDT Problem: Adult Inpatient Plan of Care Goal: Plan of Care Review Outcome: Outcome (s) achieved Goal: Patient-Specific Goal (Individualized) Outcome: Outcome (s) achieved Goal: Absence of Hospital-Acquired Illness or Injury Outcome: Outcome (s) achieved Goal: Optimal Comfort and Wellbeing Outcome: Outcome (s) achieved Goal: Readiness for Transition of Care Outcome: Outcome (s) achieved Problem: Fall Injury Risk Goal: Absence of Fall and Fall-Related Injury Outcome: Outcome (s) achieved * Care Management Discharge - Joanne Chin RN - 10/04/2023 12:59 PM EDT CARE MANAGEMENT FINAL DISCHARGE NOTE Chart reviewed, care reviewed with primary team and at interdisciplinary rounds. Patient is medically ready for discharge to Home. Needs for Transition of Care: Plan for discharge is: Home w/o Services Outpatient Agency/Support Group Needs: None Agency Referrals & Follow-up Care: Contact information for follow-up Lauren Tee PA Relationship: PCP - General [facility] [address] [place] [address] Transportation: family or friend will provide *Jhonny Rizvi Wheelchair van/Ambulance? No Functional status prior to admission: Independent Home Environment: Others in the home: child(brad), adult. Current Living Arrangements: home/apartment/condo. Accessibility Concerns:lives on first floor. [address]. Current Functional Ability: Assistive Person *SBA DME used at home: walker - standard DME Needed at Discharge: None Patient is insured through: Primary Insurance: MEDICARE Payor: MEDICARE / Plan: MEDICARE PART A & B / Product Type: *No Product type* / Secondary Insurance: FOR LIFE Prescription Coverage: Yes This plan was formulated with input from patient and team. All are in agreement with plan. Joanne Chin RN, BSN Director Of Partnerships - Medicine Office of Care Management Office: Pager: [phone] * Plan of Care - Gisele Javier RN - 10/04/2023 5:08 AM EDT OUTCOME EVALUATION NOTE: OUTCOME SUMMARY: 10/02 PM: A&OX4. VSS on RA. Afebrile. Denies chest pain, SOB, nausea, vomiting. Pt tolerated dinner. She had intermittent epigastric pain after dinner but resolved soon. Prn tylenol given X1 for Rshoulder pain with good effect. NPO after MN for ERCP. PLAN MOVING FORWARD: IV zosyn NPO for ERCP 10/03 INDIVIDUALIZED FALL PREVENTION INTERVENTIONS: Patient-specific fall risk factors per assessment: [current deficits]: age, medications, weakness, IV line Assistance [level of assistance required for transfers and ambulation]: SBA Supervision [direct monitoring required during toileting and ADLs]: independent Surveillance [continuous indirect monitoring]: hourly rounding, call negro in reach, room near the nursing station, bed alarm on Patient-specific fall prevention interventions for sensory deficits provided, if applicable: [X] N/A CPG GOAL OUTCOME EVALUATION: Ongoing * Initial Assessments - Mague Hensley RN - 10/03/2023 6:09 PM EDT Office of Care Management Initial Assessment Mague Hensley RN reviewed record and discussed patient with Care Team. Source of Information: Team, bedside nurse, medical record, and Child (children) Introduced self/reviewed role; services accepted. Admitted From: Transfer from another hospital Location: [facility] Reason for Hospitalization: I've lost a lot of weight and have really bad stomach pains when I eat Covid Vaccination Status: 1st, 2nd & booster Last COVID test: Lab Results Component Value Date COVID19 Not Detected 05/10/2020 Past medical History: Past Medical History: Diagnosis Date Cataract Depression Patient lost x 4 years ago Hyperlipidemia Hypertension Strabismus Patched as a child Hospitalizations Within the Past 30 Days: no previous admission in last 30 days Current Decision-Making Capacity: Advance Care Planning: Attempt Cardiopulmonary Resuscitation - Inpatient Received -Advanced Directive: Yes, on file Who is your DPOA-HC?: Child Current Coping/Education/Information Needs: denies Current Functional Ability: Assistive Person Functional Status Prior to Admission: Independent Prior ADLs & IADLs: Assistance Needed with ADLs & IADLs Home Environment: Others in the home: child(brad), adult. Current Living Arrangements: home/apartment/condo. Accessibility Concerns:lives on first floor. [address]. In the last 12 months, was there a time when you were not able to pay the mortgage or rent on time?: No In the last 12 months, how many places have you lived?: 1 In the last 12 months, was there a time when you did not have a steady place to sleep or slept in ashelter (including now)?: No In the past 12 months has the [employer], gas, oil, or water Why Not Give Back threatened to shut off services in your home?: No Within the past 12 months, you worried that your food would run out before you got the money to buymore.: Never true Within the past 12 months, the food you bought just didn't last and you didn't have money to get more.: Never true Resource / Environmental Concerns: Resource/Environmental Concerns: none In the past 12 months, has lack of transportation kept you from medical appointments or from getting medications?: No In the past 12 months, has lack of transportation kept you from meetings, work, or from getting things needed for daily living?: No Current DME: [facility] Home Address confirmed as: [address] [place] [address] Social & Family Supports: All names listed below confirmed with patient as current and correct Extended Emergency Contact Information Primary Emergency Contact: Belkys Mann Mobile Relation: Child Secondary Emergency Contact: Avelino Alston Mobile Relation: Child Current Care Provided by: self, child(brad) Provides Primary Care For: no one Caregiver if needed: child(brad), adult Quality of Family relationships: helpful, involved Community Resources being provided currently: none Behavioral Health History: denies Substance Use/Abuse listed: Social History Tobacco Use Smoking Status Never Smokeless Tobacco Never 0 No problems reported 1-2 Low level 3-5 Moderate level 6-8 Substantial level 9- 10 Severe level 0 to 7 points: Low risk 8 to 15 points: Medium risk 16 to 19 points: High risk 20 to 40 points: Addiction likely Other Pertinent/Service Specific Information: denies Health/Prescription Coverage: Primary Insurance: MEDICARE Payor: MEDICARE / Plan: MEDICARE PART A & B / Product Type: *No Product type* / Secondary Insurance: FOR LIFE ONLY if patient has Medicare A&B - Does this patient have secondary insurance?: Yes ; Prescription Coverage: Yes Preferred Pharmacy: [id number] - [place], [place] - [address] [place] [id number] [facility] - [place], [place] - [address] [facility] [address] [facility] [address] Status: Patient is a : No Primary Care Provider listed: KEKE [place] out of [facility] in [facility]email sent to yoel to update Patient/Caregiver Goals of Treatment: to d/c home with family when medically ready. Potential Needs for Transition of Care: none Agency Referrals: Not Applicable Transportation: no concerns Transportation Anticipated: family or friend will provide Concerns to be Addressed: no discharge needs identified Assessment: Patient is admitted to medicine service for Cholangitis [K83.09]. Wound/Ostomy Clinical Nurse Specialist called patient's daughter (Belkys) to obtain all the information for this IA. Patient lives with her daughter, son and JILLIAN in a 2 story home with [address]. Patient has been wearing a knee brace and uses a FWW as needed for gait stability. Patient is independent with dressing and requires assistance from daughter (Belkys) with bathing & other needs. Plan for family to transport patient at discharge. Plan: Plan pending patient's hospital course. Per chart review- Plan for ERCP tomorrow, IV abxs, and continue to monitor LFTs. Plan for patient to d/c home with family supports in place when medically ready. A member of the Care Management team will continue to monitor progress, follow for continuity of care and assist with transition of care planning. Mague Hensley RN, CM Pager-[phone] * Plan of Care - Letitia Godinez RN - 10/03/2023 5:04 PM EDT OUTCOME EVALUATION NOTE: OUTCOME SUMMARY: Assumed care of patient at 1100, report from Cristina GOLDBERG. VSS on RA. Denied pain, nausea. Continues on IVF and zosyn. NPO for possible ERCP - changed to regular diet around lunch and plan for NPO at MN3/25 for ERCP. Family at bedside. Washed up with minimal assistance at bedside. Resting between care. PLAN MOVING FORWARD: Continue IV Zosyn Monitor LFTs NPO 10/03 at midnight for ERCP INDIVIDUALIZED FALL PREVENTION INTERVENTIONS: Patient-specific fall risk factors per assessment: [current deficits]: IV access, hospital environment, generalized weakness Assistance [level of assistance required for transfers and ambulation]: SBA Supervision [direct monitoring required during toileting and ADLs]: Eyes on Surveillance [continuous indirect monitoring]: Masimo, rounding, call negro in reach, bed alarm Patient-specific fall prevention interventions for sensory deficits provided, if applicable: [X] N/A CARE PLAN GOAL OUTCOME EVALUATION: Problem: Adult Inpatient Plan of Care Goal: Plan of Care Review Outcome: Ongoing (Interventions Implemented as Appropriate) Goal: Patient-Specific Goal (Individualized) Outcome: Ongoing (Interventions Implemented as Appropriate) Goal: Absence of Hospital-Acquired Illness or Injury Outcome: Ongoing (Interventions Implemented as Appropriate) Goal: Optimal Comfort and Wellbeing Outcome: Ongoing (Interventions Implemented as Appropriate) Goal: Readiness for Transition of Care Outcome: Ongoing (Interventions Implemented as Appropriate) Problem: Fall Injury Risk Goal: Absence of Fall and Fall-Related Injury Outcome: Ongoing (Interventions Implemented as Appropriate) * Consult Note - Anna Munoz RD - 10/02/2023 9:34 PM EDT Nutrition Consult Note Princses Alston is a 83 y.o. female admitted with w/ PMH of cholecystectomy, HTN, anxiety, GERD (history of treated H. Pylori), pre-DM admitted for elevated LFTs and ongoing fevers concerning for cholangitis. Reason for Assessment: Consult, MST Evaluation Nutrition Recommendations: Liberalize diet to provide variety optimizing intake: Regular diet Added Ensure plus BID Encourage adequate intake Document % po intake in flowsheets Daily weights Current Nutrition Regimen: Active Orders Diet Carb Control diet 60/60/75 CHO counting level 2 Frequency: Effective Now Number of Occurrences: Until Specified NPO diet (Give Meds) Frequency: Effective Midnight Number of Occurrences: Until Specified Assessment: Lab Results Component Value Date NA 134 (L) 10/02/2023 K 3.5 10/02/2023 CL 103 10/02/2023 CO2 19 (L) 10/02/2023 BUN 13 10/02/2023 CREATININE 0.94 10/02/2023 ESTGFR 61 10/02/2023 MAGNESIUM 0.82 10/02/2023 CALCIUM 8.1 (L) 10/02/2023 AST 42 (H) 10/02/2023 ALT 55 (H) 10/02/2023 ALKPHOS 286 (H) 10/02/2023 BILITOT 1.1 10/02/2023 BILIDIR 0.7 (H) 10/02/2023 No results found for: POCGLU Patient Lines/Drains/Airways Status Active Nutritional LDAs Name Placement date Placement time Site Days PIV 10/02/232126 22 gauge;1 in length cephalic vein (lateral side of arm), left 10/02/232126 -- less than 1 Physical Findings Gastrointestinal: constipation Oxygen Therapy / Airway Device: None (Room air) Shift Pressure Injury Prevention Occiput: No Injury Thoracic Spine: No Injury Sacral: No Injury Ischial - left: No Injury Ischial - right: No Injury Heel - left: No Injury Heel - right: No Injury Elbow - left: No Injury Elbow - right: No Injury Device Sites: IV sites, O2 sat monitor Last Bowel Movement: 10/01/23 Intake/Output Summary (Last 24 hours) at 10/02/20232133 Last data filed at 10/02/20232045 Gross per 24 hour Intake 1095 ml Output 400 ml Net 695 ml Relevant medications: miralax, protonix, others reviewed Anthropometrics: Admit Weight: 76.2 kg Estimated body mass index is 29.4 kg/m?? as calculated from the following: Height as of this encounter: 161 cm (5' 3.39). Weight as of this encounter: 76.2 kg (167 lb 15.9 oz). [place] Body Weight (IBW) (kg): 53.15 Usual Body Weight: 81kg (178lbs) (Pt reported) Weight Loss: unintentional Duration of Weight Loss: Other (2 months) Weight Lost: 4.7kg % of Weight Lost: 5% Wt Readings from Last 10 Encounters: 10/02/23 76.2 kg (167 lb 15.9 oz) 02/13/21 83.7 kg (184 lb 8 oz) Patient Vitals for the past 168 hrs: Weight 10/02/23 0012 76.2 kg (167 lb 15.9 oz) Weight Source: Standing Scale Estimated / Assessed Needs: Used current weight (76.2kg) Kcal / K - 1905 Kcal (20 Kcal/Kg - 25 Kcal/Kg) Estimated Protein Needs: 61 g - 91 g (0.8 g/Kg - 1.2 g/Kg) Nutrition intake and intake history / interview: Saw patient for MST Cx. She was alert and interactive. C/O chronic constipation (bowel regimen in place) with LBM on 09/29, poor dentition, feeling weak, and poor appetite for 2 months. Princess reports having about 50% of usual intake in same time period. Meals during this time consisted of Gr. Yogurt for breakfast. Her family cooks for dinner and she was only having 1/3 of her meal. She lives in a multigenerational home with her daughter and family. Amenable to trying Ensure TID. Recommend liberalizing diet with no evidence of DM. Blood glucose 107mg/dl no documented A1C. Need NFPE, monitor po intake and weight trends. Nutrition Focused Physical Exam: Not performed Reason NFPE Not Performed: Patient not available at time of assessment (provider arrived during interview). Malnutrition Diagnosis: Not enough data to assess (Keily, JPEN J Parenteral Enteral Nutr. 2011; 36(3): 273-83) Nutrition to continue to follow up while inpatient Thank you, Anna Donahue. BEKAH Munoz, LDN Clinical Nutrition * Consult Note - Alcides Jonas MD - 10/02/2023 7:28 AM EDT GASTROENTEROLOGY & HEPATOLOGY CONSULTATION Initial Consult Note Requesting Provider: Daya Dumont* REASON FOR CONSULTATION Cholangitis? HISTORY OF PRESENT ILLNESS 83 yo female with hx of CCY two days of RUQ abdominal pain and chills sent from her PCP's office tothe ER after a finding of abnormal LFTs c/f cholangitis. At the OSH: VS: 160/90, Temp 37.6, HR 122, RR 18, 98% RA CT shows pneumobilia No hx of Alysha-en-Y and not on blood thinners. Labs: WBC 14k T Bili 2.1, AST 89, ALT 108, AP 225 Started on IV Zosyn Here: Tachycardic (110s), otherwise HDS WBC 10k, Hbg 8.1, MCV 82, Plt 234 Na 134, CO2 19 Albumin 2.6 T Bili 1.1, AP 286, AST 42, ALT 55 IV Zosyn, 100 cc/hr of NS Patient reports to us that she'd been having rigors 2 days ago. Had abdominal pain but has seized since being here. She feels overall better. Reports her CCY was years ago and can't remember when, denies she's ever had an ERCP. No other acute symptoms noted. ROS: 10 systems reviewed and positive for those in HPI, otherwise negative PAST MEDICAL/SURGICAL HISTORY: Past Medical History: Diagnosis Date Cataract Depression Patient lost x 4 years ago Hyperlipidemia Hypertension Strabismus Patched as a child MEDICATIONS escitalopram 10 mg Oral Daily sodium chloride 0.9 % (flush) 5 mL Intravenous BID piperacillin-tazobactam 3.375 g Intravenous Q8H pantoprazole EC 40 mg Oral Daily polyethylene glycoL (MIRALAX) oral powder 17 g Oral Daily sodium chloride 0.9% 1,000 mL (10/02/23 0125) sodium chloride 0.9 % (flush), lidocaine, acetaminophen, melatonin, influenza vaccine (65 yrs +) ALLERGIES Allergies Allergen Reactions Celebrex [Celecoxib] Rash Codeine Phosphate Morphine Sulfate CIS - Nausea/Vomiting Prednisone Nausea And Vomiting Balsam Sanchez CIS - contact dermatitis SOCIAL HISTORY Social History Socioeconomic History Marital status: Spouse name: Not on file Number of children: Not on file Years of education: Not on file Highest education level: Not on file Occupational History Not on file Tobacco Use Smoking status: Never Smokeless tobacco: Never Substance and Sexual Activity Alcohol use: No Drug use: Never Sexual activity: Not Currently Partners: Male Other Topics Concern Not on file Social History Narrative Not on file Social Determinants of Health Financial Resource Strain: Not on file Food Insecurity: Not on file Transportation Needs: Not on file Physical Activity: Not on file Intimate Partner Violence: Not At Risk (10/02/2023) DH IPV Inpatient Questions Prevent Contact with Others: no Feels Threatened by Someone: no Feels Unsafe at Home: no Physical Signs of Abuse Present: no Housing Stability: Not on file FAMILY HISTORY Family History Problem Relation Age of Onset Cataracts Mother Hypertension Mother Thyroid Disease Mother Heart Disease Mother Diabetes Paternal Grandfather Glaucoma Neg Hx Macular Degeneration Neg Hx Retinal Detachment Neg Hx Strabismus Neg Hx Amblyopia Neg Hx Cancer Father Vitals: 10/02/23 0012 10/02/23 0620 BP: 112/63 160/82 BP Location (NBP): Left arm Left arm Patient Position: Lying Lying Resp: 16 18 Temp: 36.7 ??C (98.1 ??F) 36.7 ??C (98.1 ??F) TempSrc: Oral Oral SpO2: 95% 98% Weight: 76.2 kg (167 lb 15.9 oz) Height: 161 cm (5' 3.39) PHYSICAL EXAM GENERAL: No acute distress, alert and oriented ABDOMEN: Soft, non-tender, non-distended EXT: Warm, no edema NEURO: Grossly intact, moves all extremities, no asterixis SKIN: No jaundice LABS: Lab Results Component Value Date Sodium 134 (L) 10/02/2023 Potassium 3.5 10/02/2023 Chloride 103 10/02/2023 CO2 19 (L) 10/02/2023 BUN 13 10/02/2023 Creatinine 0.94 10/02/2023 Glucose Lvl 107 10/02/2023 CBC Lab Results Component Value Date WBC 10.1 (H) 10/02/2023 Hemoglobin 8.2 (L) 10/02/2023 Hematocrit 27.0 (L) 10/02/2023 Platelets 234 10/02/2023 LFT's Lab Results Component Value Date Alk Phos 286 (H) 10/02/2023 AST 42 (H) 10/02/2023 Albumin 2.6 (L) 10/02/2023 Bili, Direct 0.7 (H) 10/02/2023 Total Bilirubin 1.1 10/02/2023 ALT 55 (H) 10/02/2023 Total Protein 5.9 (L) 10/02/2023 IMAGING: Reviewed in [facility] ENDOSCOPY: Reviewed in [facility] IMPRESSION: 83 yo female with hx of CCY two days of RUQ abdominal pain and chills sent from her PCP's office tothe ER after a finding of abnormal LFTs c/f cholangitis. Patient's liver tests and symptoms overall improved on IV antibiotics. CT reviewed, possible there is a small stone in the distal CBD though hard to assess this definitively and pneumobilia present. In any case we should pursue evaluation with ERCP given presentation was consistent with cholangitis. Given improved today, will reassess timing of endoscopic evaluatoin tomorrow. RECOMMENDATIONS: - Consider ERCP tomorrow - NPOaMN - Trend LFTs - F/U BCX from OSH - Continue IV antibiotics The plan as outlined above was discussed with Dr. Jonas. Guido Morelos D.O. Fellow in Gastroenterology & Hepatology Pager #[phone] 10/02/2023' I have seen and evaluated the patient with Dr. Morelos. I have reviewed the fellow's history during the encounter and I agree with the details as written above. My physical examination confirms the above findings. The assessment and plan were formulated in discussion with me at the time of the encounter and I agree with them as documented. Alcides Jonas MD, MS grades 9 through 12 teacher Attendant Child Activity, Gastroenterology and Hepatology documented in this encounter Plan of Treatment Not on file documented as of this encounter Procedures Procedure Name Priority Date/Time Associated Diagnosis Comments XR ERCP Routine 10/04/2023 12:23 PM EDT Ercp, W/Removal Stone, Raman/Pancr Ducts ([id number]) 10/04/2023 9:54 AM EDT cholangitis Ercp, Sphincterotomy ([id number]) 10/04/2023 9:54 AM EDT cholangitis CHOLANGIOGRAM 10/04/2023 9:54 AM EDT cholangitis Ercp, Diagnostic ([id number]) 10/04/2023 9:54 AM EDT cholangitis ERCP Routine 10/04/2023 9:08 AM EDT BILIRUBIN, DIRECT Routine 10/04/2023 4:0 6 AM EDT HEMOGRAM Routine 10/04/2023 4:06 AM EDT DIFFERENTIAL, AUTOMATED Routine 10/04/19 4:06 AM EDT HC VENIPUNCTURE Routine 10/04/2023 4:06 AM EDT COMPREHENSIVE METABOLIC PANEL (NON-FASTING) Routine 10/04/2023 4:06 AM EDT BILIRUBIN, DIRECT Routine 10/03/2023 3:3 6 AM EDT HEMOGRAM Routine 10/03/2023 3:36 AM EDT DIFFERENTIAL, AUTOMATED Routine 10/03/19 3:36 AM EDT HC IRON BINDING CAPACITY Routine 10/03/2023 3:36 AM EDT HC RETIC,AUTO INCLUDES RETHE & IRF Routine 10/03/2023 3:36 AM EDT HC CBC,PLT & AUTO DIFF Routine 3:36 AM EDT HC LACTIC DEHYDROGENASE Routine 10/03/19 3:36 AM EDT HC HAPTOGLOBINS, SERUM Routine 3:36 AM EDT HC FERRITIN, SERUM Routine 10/03/2023 3: 36 AM EDT COMPREHENSIVE METABOLIC PANEL (NON-FASTING) Routine 10/03/2023 3:36 AM EDT URINE HOLD Routine 10/02/2023 8:50 PM EDT URINALYSIS WITH REFLEX CULTURE Routine 10/02/2023 8:[address] CHEST PULMONARY EMBOLISM W CONTRAST STAT 10/02/2023 12:29 PM EDT REQUEST FOR 2ND READ CT CHEST ABDOMEN PELVIS Routine 10/02/2023 12:14 PM EDT HEMOGRAM STAT 10/02/2023 1:33 AM EDT DIFFERENTIAL, AUTOMATED STAT 10/02/19 1:33 AM EDT GREEN TUBE HOLD STAT 10/02/2023 1:33 AM EDT HC L-LACTATE STAT 10/02/2023 1:33 AM EDT HC CBC,PLT & AUTO DIFF STAT 1:33 AM EDT HC MAGNESIUM, SERUM STAT 10/02/2023 1 :33 AM EDT HEPATIC FUNCTION PANEL STAT 1:33 AM EDT BASIC METABOLIC PANEL (NON-FASTING) STAT 10/02/2023 1:33 AM EDT documented in this encounter Results * XR ERCP (10/04/2023 12:23 PM EDT) Narrative ANDREY - 10/04/2023 12:25 PM EDT See PACS for result report. Salvador Perea MD IMG FILM LIBRARY ORD ERABLES [place], [place] * ERCP (10/04/2023 9:08 AM EDT) ERCP [facility] Endoscopy Procedure Date: 10/04/2023 9:08 AM ? Patient Name: Princess Alston ? Date of : 1940 ? Age: 83 ? Order #: [id number] ? Instrument Name: [id number] ? Procedure: ? ERCP Indications: ? Evaluation and possible treatment ? of bile duct stone(s) Providers: ? Brijesh Fisher MD, Terrance Moya ? Freeman Rosario, ? Tye Gonzales Referring : ?Salvador Waldron: ? General Anesthesia Complications: ? No immediate complications. Procedure: ? Pre-Anesthesia Assessment: ? - Prior to the procedure, a History ? and Physical was performed, and ? patient medications and allergies ? were reviewed. The patient is ? competent. The risks and benefits ? of the procedure and the sedation ? options and risks were discussed ? with the patient. All questions ? were answered and informed consent ? was obtained. Patient ? identification and proposed ? procedure were verified in the ? pre-procedure area. Mental Status ? Examination: alert and oriented. ? Airway Examination: normal ? oropharyngeal airway and neck ? mobility. Respiratory Examination: ? clear to auscultation. CV ? Examination: normal. Prophylactic ? Antibiotics: The patient does not ? require prophylactic antibiotics. ? Prior Anticoagulants: The patient ? has taken no anticoagulant or ? antiplatelet agents. ASA Grade ? Assessment: II - A patient with ? mild systemic disease. After ? reviewing the risks and benefits, ? the patient was deemed in ? satisfactory condition to undergo ? the procedure. The anesthesia plan ? was to use general anesthesia. ? Immediately prior to administration ? of medications, the patient was ? re-assessed for adequacy to receive ? sedatives. The heart rate, ? respiratory rate, oxygen ? saturations, blood pressure, ? adequacy of pulmonary ventilation, ? and response to care were monitored ? throughout the procedure. The ? physical status of the patient was ? re-assessed after the procedure. ? The procedure, indications, ? benefits, risks and alternatives ? were explained to the patient. ? Specifically discussed were ? potential complications including, ? but not limited to, bleeding, ? perforation, infection, ? pancreatitis, missing a cancer, and ? adverse medication reactions. The ? Duodenoscope was introduced through ? the mouth, and advanced to the ? duodenum where it was used to ? inject contrast into and used to ? inject contrast into the bile duct. ? The ERCP was accomplished without ? difficulty. The patient tolerated ? the procedure well. ? Findings: ? The pre sales technical consultant film was normal. The esophagus was ? successfully intubated under direct vision. The scope ? was advanced to a normal major papilla in the ? descending duodenum without detailed examination of ? the pharynx, larynx and associated structures, and ? upper GI tract. The upper GI tract was grossly ? normal. The ampulla was located within the bottom of ? a diverticula but the bile duct was easily deeply ? cannulated with the short-nosed traction ? sphincterotome and a 25 Jagwire advanced to the ? intrahepatic ducts. Contrast was injected. ? Cholangiogram revealed a diffusely dilated CBD to 11 ? mm without filling into the cystic duct. There were ? several small round filling defects in the CBD. A 12 ? mm biliary sphincterotomy was made with a traction ? (standard) sphincterotome using ERBE electrocautery. ? There was no post-sphincterotom y bleeding. Next the ? duct was swept with the 11.5 mm balloon and multiple ? soft, brown pigment stones were removed. There was no ? pus. Occlusion cholangiogram revealed no focal ? filling defects. The PD was not accessed. ? Moderate Sedation: ? Not applicable - See Anesthesia documentation Impression: ?Choledocholithia sis without ? cholangitis s/p sphincterotomy and ? stone removal Recommendation: ?Return to floor ? Advance diet as tolerated ? Attending Participation: ? I was present and participated during the entire ? procedure, including non-hui portions. ? ___ Brijesh Fisher MD 10/04/2023 10:47:33 AM This report has been signed electronically. Number of Addenda: 0 Note Initiated On: 10/04/2023 9:08 AM [facility] 10/04/2023 9:08 AM EDT Salvador Perea MD GENERAL SURGICAL ORD ERABLES [facility] * Bilirubin, Direct (10/04/2023 4:06 AM EDT) Bili, Direct 0.2 0.0 - 0.3 mg/dL [facility] Blood 10/04/2023 4:06 AM EDT 10/04/2023 4:25 AM EDT Narrative Resulting Agency Comment Spec In Lab Holly Flanagan DO CHEMISTRY ORDERABL ES [facility] [place] [address] * Differential, Automated (10/04/2023 4:06 AM EDT) Pathologist [facility] Neutrophils % 64.3 % [facility] Neutr Abs (ANC) 4.33 1.70 - 6.10 x10(3)/[facility] LABORATORY Lymphocytes % 21.5 % [facility] Lymphocytes Abs 1.4 0.9 - 3.2 x10(3)/[facility] Monocytes % 11.1 % [facility] Monocyte Abs 0.8 0.3 - 0.9 x10(3)/[facility] LAB[facility]ORY Eosinophils % 1.6 % [facility] Eosinophils Abs 0.1 0.0 - 0.4 x10(3)/[facility] LAB[facility]ORY Basophils % 0.9 % [facility] Basophils Abs 0.1 0.0 - 0.1 x10(3)/[facility] LABORATORY Immature Gran % 0.60 % [facility] Comment: Immature granulocytes(IG's)percentage and absolute count will include metamyelocytes, myelocytes, and promyelocytes. Blood smears from CBCs yielding IG's will be scanned manually for concordance. If this scan disagrees with the automated IG or if promyelocytes are noted, a manual differential will be performed. Sayra Gran Abs 0.04 0.00 - 0.04 x10(3)/[facility] LAB[facility]ORY Blood 10/04/2023 4:06 AM EDT 10/04/2023 4:26 AM EDT Narrative Resulting Agency Comment Spec In Lab Sebastian Dumont MD HEMATOLOG Y ORDERABLES Performing Organization Address City/State/[facility] Co de Phone Number [facility] [place] [address] * (ABNORMAL) Hemogram (10/04/2023 4:06 AM EDT) WBC 6.7 4.0 - 9.5 x10(3)/[facility] LABORATORY RBC 3.08(L) 4.00 - 5.21 x10(6)/[facility] Hemoglobin 7.9(L) 11.7 - 15.5 g/dL [facility] Hematocrit 25.3(L) 35.7 - 45.8 % [facility] MCV 82.1(L) 82.6 - 94.4 fL [facility] MCH 25.6(L) 27.1 - 32.0 pg [facility] MCHC 31.2(L) 31.7 - 35.0 g/dL [facility] Platelets 249 145 - 357 x10(3)/[facility] LABORATORY RDWSD 52.6(H) 37.0 - 46.0 [facility] LABORATORY RDWCV 17.5(H) 11.5 - 14.1 % [facility] MPV 9.8 7.6 - 12.9 [facility]ORY nRBC % Auto 0.0 % [facility] nRBC Abs Auto 0.000 0.000 - 0.000 x10(3)/[facility] Blood 10/04/2023 4:06 AM EDT 10/04/2023 4:26 AM EDT Narrative Resulting Agency Comment Spec In Lab Sebastian Dumont MD HEMATOLOG Y ORDERABLES [facility] [place] [address] * (ABNORMAL) Comprehensive metabolic panel (non-fasting) (10/04/2023 4:06 AM EDT) Glucose Lvl 110 65 - 199 mg/dL [facility] Comment:Diabetes: >=200 mg/d L plus symptoms BUN 9 8 - 18 mg/dL [facility] Creatinine 0.84 0.70 - 1.20 mg/dL [facility] Sodium 137 135 - 145 mmol/L [facility] Potassium 3.4(L) 3.5 - 5.0 mmol/L [facility] Comment: Please note: ??Patients with WBC >100,000 may have falsely elevated Potassium levels. ??For accurate Potassium quantification in these patients send serum separator tube (gold top) for subsequent determinations. ??Contact the Clinical Chemistry Laboratory if there are any questions. Chloride 107 98 - 107 mmol/L [facility] CO2 22 22 - 31 mmol/L [facility] Anion Gap 8 5 - 15 mmol/L [facility] Calcium 8.1(L) 8.5 - 10.5 mg/dL [facility] Total Protein 5.5(L) 6.1 - 8.0 g/dL [facility] Albumin 2.6(L) 3.2 - 5.2 g/dL [facility] AST 22 0 - 30 unit/L [facility] ALT 26 0 - 30 unit/L [facility] Alk Phos 241(H) 35 - 105 unit/L [facility] Total Bilirubin 0.4 0.2 - 1.3 mg/dL [facility] Estimated GFR 70 >=60 mL/min/1. 73 m?? [facility] Comment: This patient's estimated GFR was calculated using the 2020 CKD-EPI equation. The estimated GFR can vary from the measured GFR by up to 30% in the absence of rapidly changing kidney function. Assessment of the estimated GFR is not appropriate when creatinine concentrations are rapidly changing. For clinical situations in which a more precise estimate of GFR is necessary, consider alternative methods of GFR estimation such as a 24-hour urine creatinine clearance. Assignment of CKD stage 1-5 for patients with an eGFR near the transition point between stages may be based on clinical assessment of muscle mass and symptoms in addition to eGFR. Blood 10/04/2023 4:06 AM EDT 10/04/2023 4:25 AM EDT Narrative Resulting Agency Comment Spec In Lab Sebastian Dumont MD CHEMISTRY ORDERABLES Performing Organization Address [facility]/ZIP Co de Phone Number [facility] [place] [address] * Bilirubin, Direct (10/03/2023 3:36 AM EDT) Bili, Direct 0.3 0.0 - 0.3 mg/dL [facility] Blood 10/03/2023 3:36 AM EDT 10/03/2023 4:12 AM EDT Narrative Resulting Agency Comment Spec In Lab Holly Flanagan DO CHEMISTRY ORDERABL ES Performing Organization Address City/[facility]/ZIP Co de Phone Number [facility] [place] [address] * (ABNORMAL) Differential, Automated (10/03/2023 3:36 AM EDT) Neutrophils % 73.1 % [facility] Neutr Abs (ANC) 6.27(H) 1.70 - 6.10 x10(3)/mc L [facility] Lymphocytes % 14.8 % [facility] Lymphocytes Abs 1.3 0.9 - 3.2 x10(3)/mc L [facility] Monocytes % 9.9 % [facility] Monocyte Abs 0.8 0.3 - 0.9 x10(3)/[facility] LABORATORY Eosinophils % 1.3 % [facility] Eosinophils Abs 0.1 0.0 - 0.4 x10(3)/[facility] LABORATORY Basophils % 0.6 % [facility] Basophils Abs 0.0 0.0 - 0.1 x10(3)/[facility] LABORATORY Immature Gran % 0.30 % [facility] Comment: Immature granulocytes(IG's)percentage and absolute count will include metamyelocytes, myelocytes, and promyelocytes. Blood smears from CBCs yielding IG's will be scanned manually for concordance. If this scan disagrees with the automated IG or if promyelocytes are noted, a manual differential will be performed. Sayra Gran Abs 0.03 0.00 - 0.04 x10(3)/[facility] LABORATORY Blood 10/03/2023 3:36 AM EDT 10/03/2023 4:11 AM EDT Narrative Resulting Agency Comment Spec In Lab Sebastian Dumont MD HEMATOLOG Y ORDERABLES Performing Organization Address City/State/[facility] Co de Phone Number [facility] [place] [address] * (ABNORMAL) Hemogram (10/03/2023 3:36 AM EDT) WBC 8.6 4.0 - 9.5 x10(3)/[facility] LABORATORY RBC 3.28(L) 4.00 - 5.21 x10(6)/[facility] Hemoglobin 8.3(L) 11.7 - 15.5 g/dL [facility] Hematocrit 26.9(L) 35.7 - 45.8 % [facility] MCV 82.0(L) 82.6 - 94.4 fL [facility] MCH 25.3(L) 27.1 - 32.0 pg [facility] MCHC 30.9(L) 31.7 - 35.0 g/dL [facility] Platelets 247 145 - 357 x10(3)/[facility] LABORATORY RDWSD 51.8(H) 37.0 - 46.0 fL [facility] RDWCV 17.5(H) 11.5 - 14.1 % [facility] MPV 9.8 7.6 - 12.9 fL [facility] nRBC % Auto 0.0 % [facility] nRBC Abs Auto 0.000 0.000 - 0.000 x10(3)/[facility] Blood 10/03/2023 3:36 AM EDT 10/03/2023 4:11 AM EDT Narrative Resulting Agency Comment Spec In Lab Sebastian Dumont MD HEMATOLOG Y ORDERABLES Performing Organization Address City/[facility]/[place] [address] * (ABNORMAL) Reticulocyte Count (10/03/2023 3:36 AM EDT) Retic Ct % 0.9 0.7 - 2.5 % [facility] Retic Ct Abs 0.030 0.020 - 0.110 x10(6)/[facility] Immature Retic% 16.3(H) 0.5 - 13.8 % [facility] Reticulated Hgb 26.6(L) 29.8 - 39.4 pg [facility] Blood 10/03/2023 3:36 AM EDT 10/03/2023 4:11 AM EDT Narrative Resulting Agency Comment Spec In Lab Salvador Perea MD HEMATOLOGY ORDERABLE S Performing Organization Address City/[facility]/ZIP Co de Phone Number [facility] [place] [address] * (ABNORMAL) Haptoglobin (10/03/2023 3:36 AM EDT) Haptoglobin 376(H) 30 - 200 mg/dL [facility] Comment: Haptoglobin concentrations in newborns is low to undetectable; however, adult concentrations are usually attained by 4 months of age. ??No sex-related differences for haptoglobin have been detected. Blood 10/03/2023 3:36 AM EDT 10/03/2023 4:11 AM EDT Narrative Resulting Agency Comment Spec In Lab Salvador Perea MD CHEMISTRY ORDERABLES Performing Organization Address City/[facility]/ZIP Co de Phone Number [facility] [place] [address] * (ABNORMAL) Lactate Dehydrogenase (10/03/2023 3:36 AM EDT) Pathologist [facility] LDH 96(L) 110 - 220 unit/L [facility] Blood 10/03/2023 3:36 AM EDT 10/03/2023 4:12 AM EDT Narrative Resulting Agency Comment Spec In Lab Salvador Perea MD CHEMISTRY ORDERABLES Performing Organization Address [facility] Co de Phone Number [facility] [place] [address] * Ferritin (10/03/2023 3:36 AM EDT) Pathologist [facility] Ferritin 142 11 - 328 ng/mL [facility] Comment: Please note that as of 06/16/2023, the reference intervals for Ferritin have been updated. Blood 10/03/2023 3:36 AM EDT 10/03/2023 4:11 AM EDT Narrative Resulting Agency Comment Spec In Lab Salvador Perea MD CHEMISTRY ORDERABLES Performing Organization Address City/[facility]/ZIP Co de Phone Number [facility] [place] [address] * (ABNORMAL) Iron and TIBC (10/03/2023 3:36 AM EDT) Iron 18(L) 30 - 150 mcg/dL [facility] TIBC 178(L) 250 - 450 mcg/dL [facility] Iron Saturation 10(L) 20 - 50 % [facility] Blood 10/03/2023 3:36 AM EDT 10/03/2023 4:12 AM EDT Narrative Resulting Agency Comment Spec In Lab Salvador Perea MD CHEMISTRY ORDERABLES [facility] [place] [address] * (ABNORMAL) Comprehensive metabolic panel (non-fasting) (10/03/2023 3:36 AM EDT) Glucose Lvl 98 65 - 199 mg/dL [facility] Comment:Diabetes: >=200 mg/d L plus symptoms BUN 10 8 - 18 mg/dL [facility] Creatinine 0.91 0.70 - 1.20 mg/dL [facility] Sodium 138 135 - 145 mmol/L [facility] Potassium 3.9 3.5 - 5.0 mmol/L [facility] Comment: Please note: ??Patients with WBC >100,000 may have falsely elevated Potassium levels. ??For accurate Potassium quantification in these patients send serum separator tube (gold top) for subsequent determinations. ??Contact the Clinical Chemistry Laboratory if there are any questions. Chloride 106 98 - 107 mmol/L [facility] CO2 22 22 - 31 mmol/L [facility] Anion Gap 10 5 - 15 mmol/L [facility] Calcium 8.4(L) 8.5 - 10.5 mg/dL [facility] Total Protein 5.9(L) 6.1 - 8.0 g/dL [facility] Albumin 2.6(L) 3.2 - 5.2 g/dL [facility] AST 16 0 - 30 unit/L [facility] ALT 33(H) 0 - 30 unit/L [facility] Alk Phos 223(H) 35 - 105 unit/L [facility] Total Bilirubin 0.5 0.2 - 1.3 mg/dL [facility] Estimated GFR 63 >=60 mL/min/1. 73 m?? [facility] Comment: This patient's estimated GFR was calculated using the 2020 CKD-EPI equation. The estimated GFR can vary from the measured GFR by up to 30% in the absence of rapidly changing kidney function. Assessment of the estimated GFR is not appropriate when creatinine concentrations are rapidly changing. For clinical situations in which a more precise estimate of GFR is necessary, consider alternative methods of GFR estimation such as a 24-hour urine creatinine clearance. Assignment of CKD stage 1-5 for patients with an eGFR near the transition point between stages may be based on clinical assessment of muscle mass and symptoms in addition to eGFR. Blood 10/03/2023 3:36 AM EDT 10/03/2023 4:12 AM EDT Narrative Resulting Agency Comment Spec In Lab Sebastian Dumont MD CHEMISTRY ORDERABLES [facility] [address] * Urine Hold (10/02/2023 8:50 PM EDT) Urine Hold Sample in lab. [facility] Comment: Collection date/time has been modified to: 20:50:00. ??Previous collection date/time: 20:36:00. Corrected from Sample in lab. [NA] on 10/02/23 21:00:54 EDT by Fredy Curtis. Urine Urine / Unknown 10/02/2023 8 :50 PM EDT 10/02/2023 9:00 PM EDT Holly Flanagan DO URINE ORDERABLES Performing Organization Address [facility] Co de Phone Number [facility] [place] [address] * Urinalysis with reflex Culture (10/02/2023 8:50 PM EDT) Glucose UA Negative Negative mg/dL [facility] Protein UA Negative Negative mg/dL [facility] Bilirubin UA Negative Negative mg/dL [facility] Comment: Clinical correlation required for positive Urine Bilirubin results as false positive may occur with some drugs and drug related products. If a false positive is suspected a serum total bilirubin should be considered if clinically indicated. Urobilinogen UA Normal Normal mg/dL [facility] pH UA 6.5 5.0 - 8.0 [facility] Blood UA Negative Negative mg/dL [facility] Ketones UA Negative Negative mg/dL [facility] Nitrite UA Negative Negative [facility] Leukocytes UA Negative Negative [facility] Appearance UA Clear Clear [facility] Spec [place] UA 1.017 1.005 - 1.030 [facility] Color UA Yellow Yellow [facility] Culture Reflexed No [facility] Clean Catch Urine 10/02/2023 8:50 PM EDT 10/02/2023 9:00 PM EDT Narrative Resulting Agency Comment Spec In Lab Salvador Perea MD URINE ORDERABLES Performing Organization Address [facility]/ZIP Co de Phone Number [facility] [place] [address] * CT Angiogram Chest for Pulmonary Embolus w Contrast (10/02/2023 12:29 PM EDT) Anatomical Region Laterality Modality Chest Computed Tomogra phy Impressions 10/02/2023 12:39 PM EDT No pulmonary embolism identified. No acute findings or active disease in the chest. Coronary arterial sclerosis. Thank you for letting us participate in the care of this patient. ??If you are a health care provider and have any questions regarding this report, please contact the number below. ??For patients who have questions please contact the health college and career counselor that requested your imaging first. ? Narrative 10/02/2023 12:39 PM EDT EXAMINATION: CTA CHEST PULMONARY EMBOLISM W CONTRAST CLINICAL HISTORY: Pulmonary embolism (PE) suspected, unknown D-dimer; cp, sob, r/o pe vs pna TECHNIQUE: 3 mm thick axial contiguous sections were obtained through the chest via helical acquisition after the intravenous administration of contrast, Administered 51.0 ml of OMNIPAQUE 350.00 mg/ml. Thin-section reconstructions as well as coronal and sagittal MIP reformatted images were generated to aid in evaluation. COMPARISON: October 01, 2023 FINDINGS: Pulmonary arteries: No pulmonary arterial filling defects. Other cardiovascular structures: Atherosclerotic disease with coronary arterial sclerosis. Pulmonary parenchyma: No significant findings. Airways: No significant findings. Pleura: No significant findings. Lymph nodes: No significant findings. Other mediastinal structures: No significant findings. Upper abdomen: No significant findings. Skeletal structures: No significant findings. Procedure Note Wilver Han MD - 10/02/2023 EXAMINATION: CTA CHEST PULMONARY EMBOLISM W CONTRAST CLINICAL HISTORY: Pulmonary embolism (PE) suspected, unknown D-dimer; cp,sob, r/o pe vs pna TECHNIQUE: 3 mm thick axial contiguous sections were obtained through thechest via helical acquisition after the intravenous administration ofcontrast, Administered 51.0 ml of OMNIPAQUE 350.00 mg/ml. Thin-sectionreconstructions as well as coronal and sagittal MIP reformatted images were generated to aidin evaluation. COMPARISON: October 01, 2023 FINDINGS: Pulmonary arteries: No pulmonary arterial filling defects. Other cardiovascular structures: Atherosclerotic disease with coronaryarterial sclerosis. Pulmonary parenchyma: No significant findings. Airways: No significant findings. Pleura: No significant findings. Lymph nodes: No significant findings. Other mediastinal structures: No significant findings. Upper abdomen: No significant findings. Skeletal structures: No significant findings. IMPRESSION No pulmonary embolism identified. No acute findings or active disease in the chest. Coronary arterial sclerosis. Thank you for letting us participate in the care of this patient. If youare a health care provider and have any questions regarding this report,please contact the number below. For patients who have questions please contactthe health college and career counselor that requested your imaging first. Salvador Perea MD IMG CT ORDERABLES * Request For 2nd Read CT Chest Abdomen Pelvis (10/02/2023 12:14 PM EDT) Anatomical Region Laterality Modality Chest, Abdomen, Pelvis SO Impressions 10/02/2023 1:28 PM EDT 1. ??Biliary dilation, pneumobilia and hyperdense versus enhancing material at the ampulla. Equivocal mural enhancement without thickening. Favor obstructing sludge over mass given lack of pancreatic ductal calcification. Findings raise the possibility for an obstructing central common duct cholesterol cholelithiasis. Gastroenterologic opinion recommended. 2. 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 3. ??Normal caliber thoracic and abdominal aorta without dissection. Thank you for letting us participate in the care of this patient. ??If you are a health care provider and have any questions regarding this report, please contact the number below. ??For patients who have questions please contact the health college and career counselor that requested your imaging first. ? Narrative 10/02/2023 1:28 PM EDT EXAMINATION: REQUEST FOR 2ND READ CT CHEST ABDOMEN PELVIS CLINICAL HISTORY: c/f cholangitis iso ongoin fevers/chills, RUQ tenderness; Sending Institution [facility]; Date of exam [id number]; I believe a reinterpretation of this exam may alter care of Patient. Yes TECHNIQUE: Helical CT angiogram of the chest, abdomen and pelvis following the intravenous administration of contrast. 100 cc Omnipaque 350 intravenous contrast. Maximum intensity projection (MIP) were reformatted. Study performed October 01, [address] [facility]. COMPARISON: None FINDINGS: VASCULAR FINDINGS Heart: Normal size. Thoracic aorta: Maximum caliber smooth-walled ascending thoracic aorta 3.4 cm. Caliber tapers expectedly through the arch and descending thoracic aortic segments. Moderate atherosclerotic mural calcification. No dissection. Arch branch vessel origins: Patent Pulmonary arteries: No central filling defects. Abdominal aorta: Circumferential mural calcification. No dissection. Celiac: Moderate origin calcification and stenosis SMA: Moderate origin calcification and stenosis Right renal artery: Moderate origin calcification and stenosis. Circumferentially calcified 7 mm distal aneurysm. Left renal artery: Moderate origin calcification stenosis. Circumferentially calcified 7 mm mid aneurysm. RISSA: Moderate origin calcification stenosis Right: Common iliac artery: No stenosis. Internal iliac artery: No stenosis. External iliac artery: No stenosis. Common femoral artery: No stenosis. Left: Common iliac artery: No stenosis. Internal iliac artery: No stenosis. External iliac artery: No stenosis. Common femoral artery: No stenosis. NON-VASCULAR FINDINGS Lungs and large airways: No consolidation. No mass. Pleura: No effusion. Mediastinum and fred: No pathologically enlarged lymph nodes. No hematoma. Liver: Normal size and attenuation without lesions. Bile ducts: Mild biliary dilation. Pneumobilia. Hyperdense versus enhancing material at the ampulla. Equivocal mural enhancement without thickening. Central gas bubble in the common duct, series 14 image 44 may in fact reflect central lucency of the cholesterol stone. Gallbladder: Absent Pancreas: Atrophic. No ductal dilation. Spleen: Normal. Adrenals: Normal. Kidneys: Normal. Urinary Bladder: Collapsed mild eccentric thickening left bladder wall. Lymph Nodes: No enlarged lymph nodes. Bowel: Small hiatal hernia. Stomach collapsed. Normal caliber small bowel. Diverticulosis without acuity. Peritoneum and retroperitoneum: No hemorrhage. No pneumoperitoneum. No fluid collection or mesenteric inflammation. Abdominal wall: No muscular asymmetry Reproductive organs: Uterus not visualized. Osseous structures: No suspicious lesions. Procedure Note Vania Rodriguez MD - 10/02/2023 EXAMINATION: REQUEST FOR 2ND READ CT CHEST ABDOMEN PELVIS CLINICAL HISTORY: c/f cholangitis iso ongoin fevers/chills, RUQtenderness; Sending Institution [facility]; Date of exam [id number]; I believe a reinterpretation of this exam may alter care ofPatient. Yes TECHNIQUE: Helical CT angiogram of the chest, abdomen and pelvis followingthe intravenous administration of contrast. 100 cc Omnipaque 350 intravenous contrast. Maximum intensity projection (MIP) were reformatted. Studyperformed October 01, [address] [facility]. COMPARISON: None FINDINGS: VASCULAR FINDINGS Heart: Normal size. Thoracic aorta: Maximum caliber smooth-walled ascending thoracic aorta 3.4cm. Caliber tapers expectedly through the arch and descending thoracicaortic segments. Moderate atherosclerotic mural calcification. No dissection. Arch branch vessel origins: Patent Pulmonary arteries: No central filling defects. Abdominal aorta: Circumferential mural calcification. No dissection. Celiac: Moderate origin calcification and stenosis SMA: Moderate origin calcification and stenosis Right renal artery: Moderate origin calcification and stenosis. Circumferentially calcified 7 mm distal aneurysm. Left renal artery: Moderate origin calcification stenosis.Circumferentially calcified 7 mm mid aneurysm. RISSA: Moderate origin calcification stenosis Right: Common iliac artery: No stenosis. Internal iliac artery: No stenosis. External iliac artery: No stenosis. Common femoral artery: No stenosis. Left: Common iliac artery: No stenosis. Internal iliac artery: No stenosis. External iliac artery: No stenosis. Common femoral artery: No stenosis. NON-VASCULAR FINDINGS Lungs and large airways: No consolidation. No mass. Pleura: No effusion. Mediastinum and fred: No pathologically enlarged lymph nodes. Nohematoma. Liver: Normal size and attenuation without lesions. Bile ducts: Mild biliary dilation. Pneumobilia. Hyperdense versusenhancing material at the ampulla. Equivocal mural enhancement without thickening.Central gas bubble in the common duct, series 14 image 44 may in fact reflectcentral lucency of the cholesterol stone. Gallbladder: Absent Pancreas: Atrophic. No ductal dilation. Spleen: Normal. Adrenals: Normal. Kidneys: Normal. Urinary Bladder: Collapsed mild eccentric thickening left bladder wall. Lymph Nodes: No enlarged lymph nodes. Bowel: Small hiatal hernia. Stomach collapsed. Normal caliber smallbowel. Diverticulosis without acuity. Peritoneum and retroperitoneum: No hemorrhage. No pneumoperitoneum. Nofluid collection or mesenteric inflammation. Abdominal wall: No muscular asymmetry Reproductive organs: Uterus not visualized. Osseous structures: No suspicious lesions. IMPRESSION 1. Biliary dilation, pneumobilia and hyperdense versus enhancing materialat the ampulla. Equivocal mural enhancement without thickening. Favorobstructing sludge over mass given lack of pancreatic ductal calcification. Findingsraise the possibility for an obstructing central common duct cholesterol cholelithiasis. Gastroenterologic opinion recommended. 2. 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 3. Normal caliber thoracic and abdominal aorta without dissection. Thank you for letting us participate in the care of this patient. If youare a health care provider and have any questions regarding this report,please contact the number below. For patients who have questions please contactthe health college and career counselor that requested your imaging first. Salvador Perea MD IMG OUTSIDE INTERPRE TATION ORDERABLES * Green Tube HOLD (10/02/2023 1:33 AM EDT) [facility] Green Hold Sample in lab. [facility] Blood Venous Draw / Unknown 10/02/2023 1:33 AM EDT 10/02/2023 1:41 AM EDT Sebastian Dumont MD CHEMISTRY ORDERABLES [facility] [place] [address] * (ABNORMAL) Differential, Automated (10/02/2023 1:33 AM EDT) [facility] Neutrophils % 75.7 % [facility] Neutr Abs (ANC) 7.65(H) 1.70 - 6.10 x10(3)/[facility] Lymphocytes % 14.1 % [facility] Lymphocytes Abs 1.4 0.9 - 3.2 x10(3)/[facility] Monocytes % 8.3 % [facility] Monocyte Abs 0.8 0.3 - 0.9 x10(3)/[facility] Eosinophils % 0.7 % [facility] Eosinophils Abs 0.1 0.0 - 0.4 x10(3)/[facility] Basophils % 0.6 % [facility] Basophils Abs 0.1 0.0 - 0.1 x10(3)/[facility] Immature Gran % 0.60 % [facility] Comment: Immature granulocytes(IG's)percentage and absolute count will include metamyelocytes, myelocytes, and promyelocytes. Blood smears from CBCs yielding IG's will be scanned manually for concordance. If this scan disagrees with the automated IG or if promyelocytes are noted, a manual differential will be performed. Sayra Gran Abs 0.06(H) 0.00 - 0.04 x10(3)/[facility] Blood 10/02/2023 1:33 AM EDT 10/02/2023 1:40 AM EDT Narrative Resulting Agency Comment Spec In Lab Sebastian Dumont MD HEMATOLOG Y ORDERABLES [facility] [place] [address] * (ABNORMAL) Hemogram (10/02/2023 1:33 AM EDT) WBC 10.1(H) 4.0 - 9.5 x10(3)/[facility] RBC 3.30(L) 4.00 - 5.21 x10(6)/[facility] Hemoglobin 8.2(L) 11.7 - 15.5 g/dL [facility] Hematocrit 27.0(L) 35.7 - 45.8 % [facility] MCV 81.8(L) 82.6 - 94.4 fL [facility] MCH 24.8(L) 27.1 - 32.0 pg [facility] MCHC 30.4(L) 31.7 - 35.0 g/dL [facility] Platelets 234 145 - 357 x10(3)/[facility]ORY RDWSD 50.5(H) 37.0 - 46.0 [facility]ORY RDWCV 17.0(H) 11.5 - 14.1 % [facility] MPV 9.5 7.6 - 12.9 [facility] nRBC % Auto 0.0 % [facility] nRBC Abs Auto 0.000 0.000 - 0.000 x10(3)/[facility] Blood 10/02/2023 1:33 AM EDT 10/02/2023 1:40 AM EDT Narrative Resulting Agency Comment Spec In Lab Sebastian Dumont MD HEMATOLOG Y ORDERABLES Performing Organization Address City/State/[facility] Co de Phone Number [facility] [place] [address] * Lactate, whole blood, send to lab ([facility]) (10/02/2023 1:33 AM EDT) Lactate WB 1.2 0.5 - 2.2 mmol/L [facility] Blood 10/02/2023 1:33 AM EDT 10/02/2023 1:40 AM EDT Narrative Resulting Agency Comment Spec In Lab Sebastian Dumont MD CHEMISTRY ORDERABLES Performing Organization Address City/[facility]/ZIP Co de Phone Number [facility] [place] [address] * Magnesium (10/02/2023 1:33 AM EDT) Pathologist [facility] Magnesium 0.82 0.69 - 1.07 mmol/L [facility] Blood 10/02/2023 1:33 AM EDT 10/02/2023 1:40 AM EDT Narrative Resulting Agency Comment Spec In Lab Sebastian Dumont MD CHEMISTRY ORDERABLES Performing Organization Address [facility] Co de Phone Number [facility] [place] [address] * (ABNORMAL) Hepatic Function Panel (10/02/2023 1:33 AM EDT) Pathologist [facility] Total Protein 5.9(L) 6.1 - 8.0 g/dL [facility] Albumin 2.6(L) 3.2 - 5.2 g/dL [facility] AST 42(H) 0 - 30 unit/L [facility] ALT 55(H) 0 - 30 unit/L [facility] Alk Phos 286(H) 35 - 105 unit/L [facility] Total Bilirubin 1.1 0.2 - 1.3 mg/dL [facility] Bili, Direct 0.7(H) 0.0 - 0.3 mg/dL [facility] Blood 10/02/2023 1:33 AM EDT 10/02/2023 1:40 AM EDT Narrative Resulting Agency Comment Spec In Lab Sebastian Dumont MD CHEMISTRY ORDERABLES Performing Organization Address City/[facility]/ZIP Co de Phone Number [facility] [place] [address] * (ABNORMAL) Basic Metabolic Panel (non-fasting) (10/02/2023 1:33 AM EDT) Glucose Lvl 107 65 - 199 mg/dL [facility] Comment:Diabetes: >=200 mg/d L plus symptoms BUN 13 8 - 18 mg/dL [facility] Creatinine 0.94 0.70 - 1.20 mg/dL [facility] Sodium 134(L) 135 - 145 mmol/L [facility] Potassium 3.5 3.5 - 5.0 mmol/L [facility] Comment: Please note: ??Patients with WBC >100,000 may have falsely elevated Potassium levels. ??For accurate Potassium quantification in these patients send serum separator tube (gold top) for subsequent determinations. ??Contact the Clinical Chemistry Laboratory if there are any questions. Chloride 103 98 - 107 mmol/L [facility] CO2 19(L) 22 - 31 mmol/L [facility] Anion Gap 12 5 - 15 mmol/L [facility] Calcium 8.1(L) 8.5 - 10.5 mg/dL [facility] Estimated GFR 61 >=60 mL/min/1. 73 m?? [facility] Comment: This patient's estimated GFR was calculated using the 2020 CKD-EPI equation. The estimated GFR can vary from the measured GFR by up to 30% in the absence of rapidly changing kidney function. Assessment of the estimated GFR is not appropriate when creatinine concentrations are rapidly changing. For clinical situations in which a more precise estimate of GFR is necessary, consider alternative methods of GFR estimation such as a 24-hour urine creatinine clearance. Assignment of CKD stage 1-5 for patients with an eGFR near the transition point between stages may be based on clinical assessment of muscle mass and symptoms in addition to eGFR. Blood 10/02/2023 1:33 AM EDT 10/02/2023 1:40 AM EDT Narrative Resulting Agency Comment Spec In Lab Sebastian Dumont MD CHEMISTRY ORDERABLES [facility] [place] [address] documented in this encounter Visit Diagnoses Not on filedocumented in this encounter Admitting Diagnoses Diagnosis Cholangitis documented in this encounter Administered Medications Inactive Administered Medications - up to 3 most recent administrations Medication Order MAR Action Action Date Dose Rate Site acetaminophen (Tylenol) tablet 650 mg 650 mg, Oral, EVERY 6 HOURS PRN, Starting on 10/02/23 at 0042, Until 10/04/23 at 1717, Pain, Fever, Administer for pain or temperature greater than or equal to 38.2 degrees Celsius. Maximum daily dose of acetaminophen from all sources not to exceed 4,000 mg. When ordered for pain, acetaminophen should be given even when other ordered pain medications are indicated., Routine Given 10/04/2023 11:08 AM EDT 650 mg Given 10/03/2023 9:35 PM EDT 650 mg Given 10/02/2023 5:39 PM EDT 650 mg escitalopram (Lexapro) tablet 10 mg 10 mg, Oral, DAILY, First dose on 10/02/23 at 0900, Until Discontinued, Routine Given 10/04/2023 8:23 AM EDT 10 mg Given 10/03/2023 8:33 AM EDT 10 mg Given 10/02/2023 9:09 AM EDT 10 mg influenza vaccine adjuvanted (Adult 65 Yrs +) (FluAD Quad) (PF) IM injection 0.5 mL 0.5 mL, Intramuscular, PRIOR TO DISCHARGE, 1 dose, Starting on 10/02/23 at 0900, Until 10/04/23 at 1717, Per Protocol, Routine pantoprazole EC (Protonix) tablet 40 mg 40 mg, Oral, DAILY, First dose on 10/02/23 at 0900, Until Discontinued, DO NOT CRUSH OR OPEN, Routine Given 10/04/2023 8:23 AM EDT 40 mg Given 10/03/2023 8:33 AM EDT 40 mg Given 10/02/2023 9:09 AM EDT 40 mg polyethylene glycoL (Miralax) packet 17 g 17 g, Oral, DAILY, First dose on 10/02/23 at 0900, Until Discontinued, Routine Given 10/03/2023 5:41 PM EDT 17 g Given 10/02/2023 2:23 PM EDT 17 g sodium chloride 0.9 % (flush) (BD PosiFlush Normal Saline 0.9) flush 5 mL 5 mL, Intravenous, 2 TIMES DAILY, First dose on 10/02/23 at 0130, Until Discontinued, Routine Given 10/04/2023 8:28 AM EDT 5 mLs Given 10/03/2023 9:00 PM EDT 5 mLs Given 10/02/2023 9:10 AM EDT 5 mLs sodium chloride 0.9% infusion 1,000 mL, at 100 mL/hr, Intravenous, CONTINUOUS, Starting on 10/02/23 at 0130, Until 10/04/23 at 1717 New Bag 10/04/2023 1:07 AM EDT 1,000 mLs 100 m L/hr New Bag 10/03/2023 5:29 PM EDT 1,000 mLs 100 mL/hr New Bag 10/03/2023 8:25 AM EDT 1,000 mLs 100 mL/hr documented in this encounter Active and Recently Administered Medications Times are shown in EDT. Scheduled Medication Order 10/02/2023 10/03/2023 10/04/2023 escitalopram (Lexapro) tablet 10 mg 10 mg, Oral, DAILY, First dose on 10/02/23 at 0900, Until Discontinued, Routine 0909 (Given - Provider: Jannie Watson RN) 0833 (Given - Provider: Cristina Daniel, YUSUF) 0823 (Given - Provider: Marlee Bueno RN)0900 ([facility] Hold - Provider: Admin Adt - Reason: Transfer to a Procedural area)1132 (MAR Unhold - Provider: Admin Adt) pantoprazole EC (Protonix) tablet 40 mg 40 mg, Oral, DAILY, First dose on 10/02/23 at 0900, Until Discontinued, DO NOT CRUSH OR OPEN, Routine 0909 (Given - Provider: Jannie Watson RN) 0833 (Given - Provider: Cristina Daniel, YUSUF) 0823 (Given - Provider: Marlee Bueno, YUSUF)0900 (MAR Hold - Provider: Admin Adt - Reason: Transfer to a Procedural area)1132 (MAR Unhold - Provider: Admin Adt) piperacillin-tazobact am (Zosyn) 3.375 g vial attach to sodium chloride 0.9% 50 mL Mini-Bag Plus (CANCELED) 3.375 g, Intravenous, EVERY 8 HOURS, First dose on 10/02/23 at 0130, Until Discontinued, Administer over 4 Hours, Warning Vesicant/Irritant Medication Do not administer or Y-site with lactated ringers., Indication for (Active or Suspected): GI/Intra-abdominal 0125 (New Bag - Provider: Deanna Richard RN)0525 (Stopped - Provider: Deanna Richard RN)0909 (New Bag - Provider: Jannie Watson RN)1309 (Stopped - Provider: Jannie Watson, RN)1737 (New Bag - Provider: Jannie Watson, RN)2046 (Paused - Provider: Deanna Richard RN - Comment: IV infiltrated)2125 (Restarted - Provider: Deanna Richard RN)2219 (Stopped - Provider: Deanna Richard, YUSUF) 0155 (New Bag - Provider: Deanna Richard RN)0555 (Stopped - Provider: Deanna Richard RN)0952 (New Bag - Provider: Cristina Daniel RN)1352 (Stopped - Provider: Letiita Godinez, YUSUF)1729 (New Bag - Provider: Letitia Godinez, YUSUF)2129 (Stopped - Provider: Gisele Javier RN) 0107 (New Bag - Provider: Gisele Javier RN)0507 (Stopped - Provider: Gisele Javier RN)0832 (Canceled Entry - Provider: Marlee Bueno RN - Reason: Transfer to a Procedural area - Comment: pt going for ERCP)0900 (SEP Hold - Provider: Admin Adt - Reason: Transfer to a Procedural area)0930 (Automatically Held - Provider: Admin Adt)1132 (SEP Unhold - Provider: Admin Adt)1135 (New Bag - Provider: Marlee Bueno RN)1323 (Stopped - Provider: Marlee Beuno RN - Comment: Time automatically adjusted from order being discontinued) polyethylene glycoL (Miralax) packet 17 g 17 g, Oral, DAILY, First dose on 10/02/23 at 0900, Until Discontinued, Routine 1423 (Given - Provider: Jannie Watson RN) 0833 (Not Given - Provider: Cristina Daniel RN - Reason: NPO)1741 (Given - Provider: Letitia Godinez RN - Comment: no longer NPO per patient request) 0900 (Not Given - Provider: Marlee Bueno, RN - Reason: Patient/family refused)0900 (SEP Hold - Provider: Admin Adt - Reason: Transfer to a Procedural area)1132 (SEP Unhold - Provider: Admin Adt) potassium chloride ER (Klor-Con M) crystal tablet 40 mEq (COMPLETED) 40 mEq, Oral, ONCE, 1 dose, On Wed10/04/23 at 0630, potassium chloride ER particle/crystal tablets (Klor-Con M) may be broken in half and each half swallowed separately. Tablets can be dissolved in ~4 ounces of water; allow ~2 minutes to dissolve, stir well and drink immediately. Do not crush, chew, or suck on tablet., Routine 0635 (Given - Provid er: Gisele Javier RN) sodium chloride 0.9 % (flush) (BD PosiFlush Normal Saline 0.9) flush 5 mL 5 mL, Intravenous, 2 TIMES DAILY, First dose on Wed10/02/23 at 0130, Until Discontinued, Routine 0126 (Given - Provider: Deanna Richard, YUSUF)0910 (Given - Provider: Jannie Watson RN)2100 (Not Given - Provider: Deanna Richard RN - Reason: Loss of access - Comment: IV infiltrated) 0952 (Not Given - Provider: Cristina Daniel RN - Reason: See comment - Comment: iv infusing)2100 (Given - Provider: Gisele Javier RN) 0828 (Given - Provider: Marlee Bueno, YUSUF)0900 (SEP Hold - Provider: Admin Adt - Reason: Transfer to a Procedural area)1132 (SEP Unhold - Provider: Admin Adt) Continuous Medication Order 10/02/2023 10/03/2023 10/04/2023 lactated ringers infusion (CANCELED) 100 mL/hr, Intravenous, CONTINUOUS, Starting on Wed10/04/23 at 0930, Until Wed10/04/23 at 1121, Endoscopy (Day of Procedure) 0907 (New Bag - Provider: Aliyah Nava RN)0953 (Anesthesia Volume Adjustment - Provider: Ankur Newberry CRNA) sodium chloride 0.9% infusion 1,000 mL, at 100 mL/hr, Intravenous, CONTINUOUS, Starting on 10/02/23 at 0130, Until 10/04/23 at 1717 0125 (New Bag - Provider: Deanna Richard, RN)1400 (New Bag - Provider: Jannie Watson RN)2046 (Paused - Provider: Deanna Richard RN - Comment: IV infiltrated)2125 (New Bag - Provider: Deanna Richard, RN)2204 (New Bag - Provider: Deanna Richard, RN) 0825 (New Bag - Provider: Tete Valle, YUSUF)1729 (New Bag - Provider: Letitia Godinez RN) 0107 (New Bag - Provider: Gisele Javier RN)0900 (SEP Hold - Provider: Admin Adt - Reason: Transfer to a Procedural area)1132 (SEP Unhold - Provider: Admin Adt)1717 (Due: Stopped) PRN Medication Order 10/02/2023 10/03/2023 10/04/2023 acetaminophen (Tylenol) tablet 650 mg 650 mg, Oral, EVERY 6 HOURS PRN, Starting on 10/02/23 at 0042, Until 10/04/23 at 1717, Pain, Fever, Administer for pain or temperature greater than or equal to 38.2 degrees Celsius. Maximum daily dose of acetaminophen from all sources not to exceed 4,000 mg. When ordered for pain, acetaminophen should be given even when other ordered pain medications are indicated., Routine 1739 (Given - Provider: Jannie Watson RN) 2135 (Given - Provider: Gisele Javier RN) 0900 (SEP Hold - Provider: Admin Adt - Reason: Transfer to a Procedural area)1108 (Given - Provider: Aliyah Nava RN)1132 (SEP Unhold - Provider: Admin Adt) influenza vaccine adjuvanted (Adult 65 Yrs +) (FluAD Quad) (PF) IM injection 0.5 mL 0.5 mL, Intramuscular, PRIOR TO DISCHARGE, 1 dose, Starting on 10/02/23 at 0900, Until 10/04/23 at 1717, Per Protocol, Routine 0900 (SEP Hold - Provider: Admin Adt - Reason: Transfer to a Procedural area)1132 ([facility] Unhold - Provider: Admin Adt) iohexoL (Omnipaque) (350 mg/mL) solution 0-200 mL (COMPLETED) 0-200 mL, Intravenous, ONCE PRN, 1 dose, Starting on 10/02/23 at 1224, Until 10/02/23 at 1224, Per Protocol, Warning Vesicant/Irritant Medication , Radiology Contrast, Routine 1224 (Given - Provider: Nicole Hein) lidocaine (Xylocaine) 1% (10 mg/mL) injection 3 mg 3 mg (0.3 mL), Subcutaneous, ONCE PRN, 1 dose, Starting on 10/02/23 at 0042, Until 10/04/23 at 1717, for discomfort with PIV insertion, Routine 0900 ([facility] Hold - Provider: Admin Adt - Reason: Transfer to a Procedural area)1132 ([facility] Unhold - Provider: Admin Adt) melatonin tablet 3 mg 3 mg, Oral, NIGHTLY PRN, Starting on 10/02/23 at 0042, Until 10/04/23 at 1717, Sleep, Sleep, Routine 0900 ([facility] Hold - Provider: Admin Adt - Reason: Transfer to a Procedural area)1132 ([facility] Unhold - Provider: Admin Adt) sodium chloride 0.9 % (flush) (BD PosiFlush Normal Saline 0.9) flush 5-20 mL 5-20 mL, Intravenous, EVERY 1 MIN PRN, Starting on 10/02/23 at 0042, Until 10/04/23 at 1717, flush, Flush pertains to all indwelling lines. Flush per protocol found in the job aid using the link provided on this medication record., Routine 0900 ([facility] Hold - Provider: Admin Adt - Reason: Transfer to a Procedural area)1132 ([facility] Unhold - Provider: Admin Adt) documented in this encounter Care Teams Boiler Coverer Relationship Specialty Start Date End Date Lauren Tee PA [facility] [place] [address] PCP - General Internal Medicine 10/01/23 documented as of this encounter
--- OUTSIDE RECORDS SUMMARY | 2024-02-09 12:39 | XMS_ITS | Encounter Summary ---
Author Organization [facility] Address [facility] [place] [address] Care Team Providers Care Photoengraving Proofer Name Role Phone Justin Tee Primary Care Provider + Encounter Details Date Type Department Care Team (Late st Contact Info) Description 10/07/2023 Notes Only Hospitalist at [facility] [place] [phone] Tye Aburto MD [facility] GENERAL [place] [address] Social History Tobacco Use Types Packs/Day Years Used Date Smoking Tobacco: Never Smokeless Tobacco: Never Comments:Denies vaping Alcohol Use Standard Drinks/Week Comments No 0 (1 standard drink = 0.6 oz pur e alcohol) [facility] Utilities Answer Date Recorded In the past 12 months has e [employer], gas, oil, or water [employer] threatened to shut off services in your home? No 10/03/2023 Hunger Vital Sign Answer Date Recorded Within the past 12 months, y ou worried that your food would run out before you got the money to buy more. Never true 10/03/19 24 Within the past 12 months, t he [...] place to sleep or slept in a group home (including now)? No 10/03/2023 DH IPV Inpatient [...] on file documented as of this encounter Progress Notes * Tye Aburto MD - 10/07/2023 8:16 AM EDT Called Princess to update her on the blood cultures collected at [facility] that popped positive for e.coli and staph capitus. Will have her take a 7-day course of levofloxacin to complete course of antibiotics post ERCP. Answered all questions. Patient reports she is feeling well. Tye Aburto MD documented in this encounter Plan of Treatment Not on file documented as of this encounter Visit Diagnoses Not on filedocumented in this encounter Care Teams Photoengraving Proofer Relationship Specialty Start Date End Date [place] [address] PCP - General Internal Medicine 10/01/23 documented as of this encounter
--- OUTSIDE RECORDS SUMMARY | 2024-02-09 12:39 | XMS_ITS | Encounter Summary ---
Author Organization [facility] Address [facility] [place] [address] Care Team Providers Care Auto Dismantler Name Role Phone Justin Tee Primary Care Provider + Encounter Details Date Type Department Care Team (Late st Contact Info) Description 10/07/2023 Orders Only Hospitalist at [facility] [place] [phone] Tye Aburto MD [facility] GENERAL [place] [address] Social History Tobacco Use Types Packs/Day Years Used Date Smoking Tobacco: Never Smokeless Tobacco: Never Comments:Denies vaping Alcohol Use Standard Drinks/Week Comments No 0 (1 standard drink = 0.6 oz pur e alcohol) [facility] Utilities Answer Date Recorded In the past 12 months has e [employer], gas, oil, or water [employer] threatened to shut off services in your [...] place to sleep or slept in a correction (including now)? No 10/03/2023 DH IPV Inpatient [...] on file documented as of this encounter Plan of Treatment Not on file documented as of this encounter Visit Diagnoses Not on filedocumented in this encounter Care Teams Auto Dismantler Relationship Specialty Start Date End Date Justin [place] [address] PCP - General Internal Medicine 10/01/23 documented as of this encounter
--- OUTSIDE RECORDS SUMMARY | 2024-02-09 12:39 | XMS_ITS | Encounter Summary ---
Author Organization [facility] Address [facility] [place] [address] Care Team Providers Care Time Study Clerk Name Role Phone Justin Tee Primary Care Provider + Encounter Details Date Type Department Care Team (Late st Contact Info) Description 10/07/2023 External Results Transfer Center [facility] [place] [phone] Social History Tobacco Use Types Packs/Day Years Used Date Smoking Tobacco: Never Smokeless Tobacco: Never Comments:Denies vaping Alcohol Use Standard Drinks/Week Comments No 0 (1 standard drink = 0.6 oz pur e alcohol) [facility] Utilities Answer Date Recorded In the past 12 months has th e [employer], gas, oil, or water [employer] threatened to shut off services in your [...] place to sleep or slept in a detention (including now)? No 10/03/2023 DH IPV Inpatient [...] Procedure Name Priority Date/Time Associated Diagnosis Comments BLOOD CULTURE Routine 10/02/2023 12:41 AM EDT documented in this encounter Results * Blood culture (10/02/2023 12:41 AM EDT) Blood Historical Provider MICROBIOLOGY - BL OOD ORDERABLES documented in this encounter Visit Diagnoses Not on filedocumented in this encounter Care Teams Time Study Clerk Relationship Specialty Start Date End Date Justin [place] [address] [place] [address] PCP - General Internal Medicine 10/01/23 documented as of this encounter
--- OUTSIDE RECORDS SUMMARY | 2024-02-09 12:39 | XMS_ITS | Clinical Summary ---
Author Organization [facility] Address [facility] [place] [address] Care Team Providers Care Certified Prosthetist Name Role Phone Justin Tee Primary Care Provider + Allergies Active Allergy Reactions Criticality Noted Date Comments [place] CIS - contact dermatitis Celecoxib Rash 08/11/2013 Codeine Phosphate Morphine Sulfate CIS - Nausea/Vomiting Prednisone Nausea And Vomiting 02/13/2021 Medications Medication Sig Dispensed Refills Start Date End Date Status OMEPRAZOLE (PRILOSEC ORAL) 04/16/2009 Active escitalopram (Lexapro) 10 mg Tablet Take 10 mg by mouth daily. 12/14/2020 Active lisinopriL-hydrochlor othiazide (Zestoretic) 10-12.5 mg Tablet 12/07/2020 Active Vyzulta 0.024 % Drops 10/24/2020 Act marcus cyclobenzaprine (Flexeril) 5 mg Tablet Take 1 tablet by mouth nightly as needed for Muscle spasms. 14 tablet 02/13/2021 Active amoxicillin-clavulana te (Augmentin) 875-125 mg tablet Take 1 tablet by mouth 2 times daily. 3 tablet 10/04/2023 Active levoFLOXacin (Levaquin) 750 mg tablet Take 1 tablet by mouth daily. 7 tablet 10/07/2023 Active Active Problems Problem Noted Date Diagnosed Date Cholangitis 10/02/2023 Pseudophakia 12/05/2013 Overview (12/05/2013): OU Resolved Problems Problem Noted Date Diagnosed Date Resolved Date Age related cataract 08/14/2013 014 Immunizations Name Administration Dates Next Due Influenza Vaccine, Whole 04/03/2009,05/20/2005 Pneumococcal Polysaccharide (Pneumovax 23) 07/12 TD Adult 02/23/2002 Family History Medical History Relation Comments Cancer Father Cataracts Mother Heart Disease Mother Hypertension Mother Thyroid Disease Mother Diabetes Paternal Grandfather Amblyopia Neg Hx Glaucoma Neg Hx Macular Degeneration Neg Hx Retinal Detachment Neg Hx Strabismus Neg Hx Relation Status Comments Father Mother Paternal Grandfather Social History Tobacco Use Types Packs/Day Years Used Date Smoking Tobacco: Never Smokeless Tobacco: Never Tobacco Cessation:Counseling Given: Not Answered Comments:Denies vaping Alcohol Use Standard Drinks/Week Comments No 0 (1 standard drink = 0.6 oz pur e alcohol) [facility] Utilities Answer Date Recorded In the past 12 months has th e electric, gas, oil, or water company threatened [...] place to sleep or slept in a care home (including now)? No 10/03/2023 DH IPV [...] on file Sexual Orientation Not on file Last Filed Vital Signs Vital Sign Reading Time Taken Comments Blood Pressure 129/49 10/04/2023 12:30 PM EDT Pulse 59 10/04/2023 10:44 AM EDT Temperature 36.5 ??C (97.7 ??F) 10/04/2023 1 2:30 PM EDT Respiratory Rate 19 10/04/2023 12:3 0 PM EDT Oxygen Saturation 98% 10/04/2023 12: 30 PM EDT Inhaled Oxygen Concentration - - Weight 76.2 kg (167 lb 15.9 oz) 024 12:12 AM EDT Height 161 cm (5' 3.39) 10/02/2023 12: 12 AM EDT Body Mass Index 29.4 10/02/2023 12:12 AM EDT Plan of Treatment Health Maintenance Due Date Last Done Comments Tdap adult 1961 Zoster vaccine (1 of 2) 1992 Bone Density Scan 2007 Pneumoccocal Vaccine: 65+ (2 of 2 - PCV) 2007 07/12/1999 Tetanus vaccine 02/24/2012 02/23/2002 Covid-19 Vaccine ( - 2022- season) 2023 Influenza (Flu) vaccine (1 o f 1 - Influenza standard series) 03/12/2024 04/03/2009, 05/20/2005 Medical Devices Implanted Type Area Guide Tour Device Identifier Shelf Expiration Date Model / Serial / Lot Iol,[id number],22. 0 ([id number]) ([employer]) - [id number] Implanted:Qty: 1 on 10/24/2013 by Libby Cintron MD at [facility] IMPLANTS Right: Eye [employer] - [id number] 07/26/2018 SN60WF 22.0 / [id number] / Advance Directives Documents on File Type Date Recorded Patient Hospice Care Consultant Expl anation Advance Directives and Livin g Will 10/24/2013 12:44 PM * Attempt Cardiopulmonary Resuscitation - Inpatient (Latest Code Status on File) Date Activated Date Inactivated Comments 10/02/2023 12:30 AM 10/04/2023 5:17 PM Question Answer Comments Code Status decision made by: Patient * Attempt Cardiopulmonary Resuscitation - Inpatient Date Activated Date Inactivated Comments 10/02/2023 12:09 AM 10/02/2023 12:30 AM Question Answer Comments Code Status decision made by: Patient Care Teams Certified Prosthetist Relationship Specialty Start Date [place] [address] PCP - General Internal Medicine 10/01/23
--- OUTSIDE RECORDS SUMMARY | 2024-02-09 12:39 | XMS_ITS | Encounter Summary ---
Author Organization [facility] Address [facility] [place] [address] Care Team Providers Care Service Unit Operator Name Role Phone Justin Tee Primary Care Provider + Encounter Details Date Type Department Care Team (Late st Contact Info) Description 10/11/2023 Telephone Gastroenterology at [facility] [place] [phone] Kareen Solorio Social History Tobacco Use Types Packs/Day Years Used Date Smoking Tobacco: Never Smokeless Tobacco: Never Comments:Denies vaping Alcohol Use Standard Drinks/Week Comments No 0 (1 standard drink = 0.6 oz pur e alcohol) [facility] Utilities Answer Date Recorded In the [...] place to sleep or slept in a prison (including now)? No 10/03/2023 DH IPV Inpatient [...] on file documented as of this encounter Miscellaneous Notes * Telephone Encounter - Kareen Solorio - 10/11/2023 11:57 AM EDT SOCCER: Study Of forCeps Cannulation during ERcp PI: Augie Fisher MD [place] [facility] # [id number] Objective of visit: IKareen , research coordinator, spoke to Princess Alston over the phone regarding protocol [id number]. As per the study protocol, I asked about the patient's pain and answered questions. Assessment/Outcome: Princess Alston reported that she is feeling tired and just not herself lately. She does not reportany pain related to the study and has no follow up questions for me. Plan: Update Dr. Fisher about the end of the study, patient's progress, and questions. File all CRFs into binder and close out patient on study. documented in this encounter Plan of Treatment Not on file documented as of this encounter Visit Diagnoses Not on filedocumented in this encounter Care Teams Service Unit Operator Relationship Specialty Start Date [place] [address] PCP - General Internal Medicine 10/01/23 documented as of this encounter
--- OUTSIDE RECORDS SUMMARY | 2024-02-09 12:39 | XMS_ITS | Encounter Summary ---
[place] [address] Care Team Providers Care Software Development Analyst Name Role Phone Justin Tee Primary Care Provider + Reason for Visit * Auth/Cert (Routine) Specialty Diagnoses / Procedures Referred By Sav t Referred To Contact Diagnoses Cholangitis R/o cholang[place] [address] [facility] Referral ID Status Reason Start Date Expiration Date Visits Re quested Visits Authorized [id number] 1 1 Encounter Details Date Type Department Care Team (Late st Contact Info) Description 10/04/2023 9:55 AM EDT Anesthesia [place] [address] Holly Newberry MD [facility] [place] [address] Anesthesia Record Procedure Summary Procedure Name Responsible Anesthesiologist Anesthesia Start Time Anesthesia Stop Time ERCP (WRVU 5.85) (Trunk) Holly Newberry MD 10/04/23 0955 10/04/23 1047 Events Date Time Event Comment 10/04/2023 0925 0955 AN Verify 0955 Start 0955 An Start Data 1004 An Induction 1005 An Intubation 1005 Anesthesia Ready 1012 Procedure Start 1040 Extubation/LMA Out 1043 an stop data 1047 Recovery or ICU Handoff Eliana ent care was transferred to the destination unit staff after review of the patient's medical history, current anesthetic/surgical status and plan, according to the Provider Handoff Checklist. 1047 Stop Meds Name Total IV Lidocaine 100 mg Propofol 200 mg PHENYLephrine 280 mcg Ondansetron 8 mg Succinylcholine 80 mg labetalol 10 mg lactated ringers infusion 500 mL * Agents Name O2 Air N2O Sevoflurane (et) * Blood No blood administrations on file. Lines, Drains, and Airways Type Details Placement Removal PIV 10/02/23; 2126; yptt-ell-sqieuu catheter system; 22 gauge, 1 in length; cephalic vein (lateral side of arm), left; Anatomical Landmarks; distraction, tolerated well; catheter tip/device sent to lab for culture; 10/04/23; 132 (leaking) 10/02/232126 by Laurel Trujillo LPN 10/04/23 132 by Marlee Bueno, RN ETT Mask Ventilation: No t Attempted (0); ETT Type: Cuffed, Oral; ETT Size: 7 mm; Mac Blade: 3; Notes: Asleep, Pre-O2, Stylette, RSI; Attempts: 1; Laryngoscopy Grade: 2; Secured at Teeth: 20 cm; Inserted by: Rohith VICTORIA; Removal Date: 10/04/23; Removal Time: 1040 10/04/23 1005 by Ankur Newberry CRNA 10/04/23 1040 by Ankur Newberry CRNA documented in this encounter Social History Tobacco Use Types Packs/Day Years Used Date Smoking Tobacco: Never Smokeless Tobacco: Never Comments:Denies vaping Alcohol Use Standard Drinks/Week Comments No 0 (1 standard drink = 0.6 oz pur e alcohol) [facility] Utilities Answer Date Recorded In the past 12 months has [email or web address], gas, oil, or water [employer] threatened to shut off services in your [...] place to sleep or slept in a long term (including now)? No 10/03/2023 DH IPV Inpatient [...] on file documented as of this encounter OR Notes * Anesthesia Postprocedure Evaluation - Holly Newberry MD - 10/04/2023 11:05 AM EDT Department of Anesthesiology Post-procedure Note Patient: Princess Alston Procedure Summary Date: 10/04/23 Room / Location: [facility] ENDO 2 / [facility]OSCOPY Anesthesia Start: 954 Anesthesia Stop: 1046 Procedures: ERCP (WRVU 5.85) (Trunk) CHOLANGIOGRAM ERCP W/SPHINCTEROTOMY/PAPILLOTOMY (WRVU 6.5) ERCP W/REMOVAL CALCULI/DEBRIS FROM BILARY/PANCREATIC DUCT(S) (WRVU 6.63) Diagnosis: (cholangitis) Surgeons: Brijesh Fisher MD Responsible Provider: Holly Newberry MD Anesthesia Type: general ASA Status: 2 All Anesthesia Providers: Anesthesiologist: Holly Newberry MD PEN MAKER: Ankur Newberry CRNA Vitals Value Taken Time BP 130/54 10/04/23 1110 Temp Pulse Resp 17 10/04/23 1110 SpO2 96 % 10/04/23 1112 Pain Level 0 10/04/23 1110 Vitals shown include unfiled device data. Patient Location: PACU/SDP Level of Consciousness: Awake and Alert Pain Management: Satisfactory Analgesia PONV: None Cardiovascular Status: At Baseline and Hemodynamically Stable Respiratory Status: At Baseline and Room Air Postoperative Fluid Status: Intravascular EUvolemia Possible Anesthetic Complications: NONE apparent at time of evaluation Final Primary Anesthesia Type: General (The anesthetic type performed was the same as planned.) Comments: Holly Newberry MD * Anesthesia Preprocedure Evaluation - Holly Newberry MD - 10/04/2023 8:18 AM EDT Images from the original note were not included. Pre-Anesthesia Evaluation for: Princess Alston a 83 y.o. female. Procedure(s): [facility] Patient Active Problem List Diagnosis Date Noted ??? *Cholangitis 10/02/2023 ??? Pseudophakia 12/05/2013 Past Medical History: Diagnosis Date ??? Cataract ??? Depression Patient lost x 4 years ago ??? Hyperlipidemia ??? Hypertension ??? Strabismus Patched as a child Past Surgical History: Procedure Laterality Date ??? CATARACT EXTRACTION, EXTRACAPSULAR, W/ LENS INSERTION 10/24/2013 OD SMP ??? CATARACT REMOVAL 2009 OS smp Social History Tobacco Use ??? Smoking status: Never ??? Smokeless tobacco: Never Substance Use Topics ??? Alcohol use: No Social History Substance and Sexual Activity Drug Use Never Allergies Allergen Reactions ??? Celebrex [Celecoxib] Rash ??? Codeine Phosphate ??? Morphine Sulfate CIS - Nausea/Vomiting ??? Prednisone Nausea And Vomiting ??? [place] CIS - contact dermatitis Medications: MAR and/or home medications have been reviewed. Physical Exam: Preprocedure Vitals Current as of 10/04/23 0818 BP: 137/63 Pulse: Resp: 20 SpO2: 97 Temp: 36.8 ??C (98.2 ??F) Height: 161 cm (5' 3.39) (10/02/23) Weight: 76.2 kg (167 lb 15.9 oz) (10/02/23) BMI: 29.39 IBW: 53.3 kg (117 lb 7.6 oz) Last edited 10/04/23 0815 by MARTÍN Airway Assessment: Mallampati: III TM distance: <3 FB Neck ROM: full Cardiovascular Assessment: Rhythm: regular Rate: normal (+) murmur PE comment: Grade II ASHLEY Pulmonary Assessment: pulmonary exam normal Dental Assessment: Misc Assessment: IV access: Peripheral line Last Filed Perioperative Cognitive Screening None Anesthesia Plan: ASA 2 general, with a(n) intravenous induction 83yoF with PMHx of HTN, HLD, depression, GERD s/p treatment for H. Pylori now with 2 day history ofnausea/vomiting/abdominal pain and imaging c/w cholangitis s/f ERCP. AnesHx: No previous anesthesia records on file. CVHx: Mobile ECHO 2021: Interpretation Summary 1. The left ventricle is normal in size and global systolic function, with ejection fraction 65% per Weeks's biplane method. There are no segmental wall motion abnormalities. Diastolic function is probably normal. 2. The right ventricle is probably normal in size, with normal global systolic function. Pulmonary artery systolic pressure is estimated at 36 mmHg plus right atrial pressure. 3. There is probably mild aortic stenosis, with Vmax 2.1 m/s, mean trans-valvular gradient 9 mmHg, peak gradient 18 mmHg. 4. There is no prior echocardiogram available for comparison. Pertinent imaging: Interpretation Summary 1. The left ventricle is normal in size and global systolic function, with ejection fraction 65% per Weeks's biplane method. There are no segmental wall motion abnormalities. Diastolic function is probably normal. 2. The right ventricle is probably normal in size, with normal global systolic function. Pulmonary artery systolic pressure is estimated at 36 mmHg plus right atrial pressure. 3. There is probably mild aortic stenosis, with Vmax 2.1 m/s, mean trans-valvular gradient 9 mmHg, peak gradient 18 mmHg. 4. There is no prior echocardiogram available for comparison. Plan: GA w/ ETT with RSI Standard ASA monitors Adequate PIV access Region - Other Informed Consent: Anesthetic plan and risks discussed with patient. Plan discussed with PEN MAKER and attending. Anesthesia Screening documented in this encounter Plan of Treatment Not on file documented as of this encounter Visit Diagnoses Not on filedocumented in this encounter Administered Medications Inactive Administered Medications - up to 3 most recent administrations Medication Order MAR Action Action Date Dose Rate Site labetaloL (Normodyne) (5 mg/mL) multi-dose injection Intravenous, PRN, Starting on Wed10/04/23 at 1038, Until Wed10/04/23 at 1127, Anesthesia Intra-op, Routine Given 10/04/2023 10:38 AM EDT 10 mg lidocaine (pf) (Xylocaine) (20 mg/mL) 2% injection syringe Intravenous, PRN, Starting on Wed10/04/23 at 1004, Until Wed10/04/23 at 1123, Anesthesia Intra-op, Routine Given 10/04/2023 10:04 AM EDT 100 mg ondansetron (pf) (Zofran) (2 mg/mL) injection Intravenous, PRN, Starting on Wed10/04/23 at 1017, Until Wed10/04/23 at 1123, Anesthesia Intra-op, Routine Given 10/04/2023 10:17 AM EDT 8 mg PHENYLephrine in NS (PF) (EVE-SYNEPHRINE) 0.8 mg/10 mL (80 mcg/mL) multi-dose injection Syringe Intravenous, PRN, Starting on Wed10/04/23 at 1004, Until Wed10/04/23 at 1123, Anesthesia Intra-op, Routine Given 10/04/2023 10:31 AM EDT 120 mcg Given 10/04/2023 10:26 AM EDT 80 mcg Given 10/04/2023 10:04 AM EDT 80 mcg propofoL (Diprivan) 10 mg/mL bolus injection (Anesthesia) Intravenous, PRN, Starting on Wed10/04/23 at 1012, Until Wed10/04/23 at 1123, Anesthesia Intra-op Given 10/04/2023 10:12 AM EDT 50 mg Given 10/04/2023 10:04 AM EDT 150 mg succinylcholine (Anectine;Quelicin) (20 mg/mL) injection Intravenous, PRN, Starting on Wed10/04/23 at 1004, Until Wed10/04/23 at 1123, Anesthesia Intra-op, Routine Given 10/04/2023 10:04 AM EDT 80 mg documented in this encounter Care Teams Software Development Analyst Relationship Specialty Start Date End Date Justin [place] [address] PCP - General Internal Medicine 10/01/23 documented as of this encounter
--- OUTSIDE RECORDS SUMMARY | 2024-02-09 12:39 | XMS_ITS | Encounter Summary ---
Author Organization [facility] [place] [address] Care Team Providers Care Recruiter Manager Name Role Phone Justin Tee Primary Care Provider + Reason for Visit * Auth/Cert (Routine) Specialty Diagnoses / Procedures Referred By Sav t Referred To Contact Diagnoses Cholangitis R/o cholangitis [place] [address] [facility] Referral ID Status Reason Start Date Expiration Date Visits Re quested Visits Authorized [id number] 1 1 Encounter Details Date Type Department Care Team (Late st Contact Info) Description 10/04/2023 9:10 AM EDT Ancillary Procedure [place] [address] Social History Tobacco Use Types Packs/Day Years Used Date Smoking Tobacco: Never Smokeless Tobacco: Never Comments:Denies vaping Alcohol Use Standard Drinks/Week Comments No 0 (1 standard drink = 0.6 oz pur e alcohol) [facility] Utilities Answer Date Recorded In the past 12 months has [employer] electric, gas, oil, or water company threatened [...] in a fci (including now)? No 10/03/2023 IPV Inpatient Questions Answer Date Recorded Does [...] XR ERCP Routine 10/04/2023 12:23 PM EDT documented in this encounter Results * XR ERCP (10/04/2023 12:23 PM EDT) Narrative [facility] - 10/04/2023 12:25 PM EDT See PACS for result report. Salvador Perea MD IMG FILM LIBRARY ORD ERABLES [place], [place] documented in this encounter Visit Diagnoses Not on filedocumented in this encounter Care Teams Recruiter Manager Relationship Specialty Start Date End Date Justin Tee [place] [address] PCP - General Internal Medicine 10/01/23 documented as of this encounter
--- OUTSIDE RECORDS SUMMARY | 2024-02-09 12:39 | XMS_ITS | Encounter Summary ---
Author Organization [facility] Address [facility] [place] [address] Care Team Providers Care Body Finisher Name Role Phone Justin Tee Primary Care Provider + Encounter Details Date Type Department Care Team (Late st Contact Info) Description 10/04/2023 Notes Only Gastroenterology at [facility] [place] [id number] Marilu Gudino Social History Tobacco Use Types Packs/Day Years Used Date Smoking Tobacco: Never Smokeless Tobacco: Never Comments:Denies vaping Alcohol Use Standard Drinks/Week Comments No 0 (1 standard drink = 0.6 oz pur e alcohol) [facility] Utilities Answer Date Recorded In the past [...] as of this encounter Progress Notes * Marilu Gudino - 10/04/2023 9:33 AM EDT SOCCER: Study Of forCeps Cannulation during ERcp PI: Augie Fisher MD MS Morales # [id number] Objective of visit: Marilu Crum , research coordinator, and Dr. Rosario and Dr. Fisher metwith Princess Alston in endo to provide information regarding protocol [id number], answer questions or concerns about study plan, and evaluate their interest in study participation. Information Provided: Protocol was reviewed with Princess Alston including, a description of the proposed care, treatment, services, medications, interventions, procedures, and follow-up including duration of subject's participation in study. Purpose of the study was also reviewed with the patient. Potential discomforts and risks were reviewed. The patient was informed regarding the uncertainties, both in terms of benefits as well as risks that are part of participation in clinical trials. Discussed confidentiality of patient's health information as specified in the protocol. Patient was advised that they may discontinue treatment at any time and that refusing to participate or discontinuing treatment will not compromise the patient's access to treatment options or care. Financial considerations in the context of clinical trials reviewed. The patient was given written information regarding the protocol during their visit on 10/04/23 andwas offered adequate time to review the information. The patient was given adequate time to ask questions and review concerns, all of which were answered to the patient's satisfaction by Dr. Fisher and Dr. Rosario The PI/Sub I was available to answer any medical related questions if applicable. Princess Alston did not have any inquiries. Assessment/Outcome: Princess Alston verbalized understanding of the protocol and consents for treatment by using the teach-back method and being able to relay the purpose of the study and known possible risks/side effects of the procedure and treatment. Princess Alston signed and dated consent version 1 on 10/04/23 . A copy of the signed consent form was given to them for their records. Original, signed informed consent document will be scanned into the patient's electronic medical record and stored in the subject's study binder. Written informed consent was obtained prior to any study related procedures being done. Plan: Princess Alston agreed to participate in the above mentioned clinical trial. Informed consent form signed Patient will continue to be screened on study [id number] to determine if patient meets criteria during the procedure This patient was enrolled in study protocol [id number] in which they were randomized to receive either the use of forceps or no use of forceps during cannulation in relation to studying the prevention of post-ERCP pancreatitis. The patient was given a copy of the ICF, date of follow up call, and business card with contact information. documented in this encounter Plan of Treatment Not on file documented as of this encounter Visit Diagnoses Not on filedocumented in this encounter Care Teams Body Finisher Relationship Specialty Start Date End Date Justin [place] [address] [place] [address] PCP - General Internal Medicine 10/01/23 documented as of this encounter
--- OUTSIDE RECORDS SUMMARY | 2024-02-09 12:40 | XMS_ITS | Clinical Summary ---
Author Organization [facility] Address [address] [place] [address] Care Team Providers Care Teaching Pastor Name Role Phone Unknown, Provider Primary Care Provider Social History Tobacco Use Types Packs/Day Years Used Date Smoking Tobacco: Never Assessed Sex and Gender Information Value Date Recorded Sex Assigned at Not on file Gender Identity Not on file Sexual Orientation Not on file Plan of Treatment Health Maintenance Due Date Last Done Comments RSV Immunization ( o r 60+ Years) (1 - 1-dose 60+ series) 2002 Fall Risk Screening 2007 COVID-19 Vaccine (2022-24 season) 2023 Care Teams Teaching Pastor Relationship Specialty Start Date End Date Unknown, Provider, PCP - General 05/31/15
--- OUTSIDE RECORDS SUMMARY | 2024-02-09 12:40 | XMS_ITS | Encounter Summary ---
Author Organization [facility] Address [facility] [place] [address] Care Team Providers Care Garment Folder Name Role Phone Juanita Colon MD Primary Care Provider [phone] Reason for Visit * Reason Comments Post Op Post Op Cataract CE/ OD Encounter Details Date Type Department Care Team (Late st Contact Info) Description 10/25/2013 10:45 AM EDT Office [place] [address] Libby Cintron MD [facility] [place] [address] Age related cataract; Status post cataract extraction and insertion of intraocular lens, right Discharge Disposition: Home Social History Tobacco Use Types Packs/Day Years Used Date Smoking Tobacco: Never Alcohol Use Standard Drinks/Week Comments No 0 (1 standard drink = 0.6 oz pur e alcohol) Sex and Gender Information Value Date Recorded Sex Assigned at Not on file Gender Identity Not on file Sexual Orientation Not on file documented as of this encounter Progress Notes * Libby Cintron MD - 10/25/2013 10:40 AM EDT Assessment: Encounter Diagnosis Name Primary? Age related cataract Princess Alston is POD#1 cataract surgery in her right eye Doing well with a normal post operative appearance. Plan: - Prednisolone acetate 1% qid in operative eye - Moxifloxicin qid in operative eye - Ketorolac qid in operative eye - Post op precaution sheet reviewed and given to patient Follow up: - 1 week or as needed. Upon return IOP OU MR operative eye documented in this encounter Plan of Treatment Not on file documented as of this encounter Visit Diagnoses Diagnosis Age related cataract Senile cataract, unspecified Status post cataract extraction and insertion of intraocular lens, right documented in this encounter Care Teams Garment Folder Relationship Specialty Start Date End Date Juanita Colon MD [address] [place] [address] [address] [place] [address] PCP - General 06/03/10 03/26/20 documented as of this encounter
--- OUTSIDE RECORDS SUMMARY | 2024-02-09 12:40 | XMS_ITS | Encounter Summary ---
Author Organization [facility] Address [address] [place] [address] Care Team Providers Care Green Chain Marker Name Role Phone Unavailable Primary Care Provider Unavailabl e Encounter Details Date Type Department Care Team (Late st Contact Info) Description 01/23/2008 Before PRISM Converted Visit ([place]) [address] [phone] Denys Vasques MD [address], [place] [id number] Social History Tobacco Use Types Packs/Day Years Used Date Smoking Tobacco: Never Assessed Sex and Gender Information Value Date Recorded Sex Assigned at Not on file Gender Identity Not on file Sexual Orientation Not on file documented as of this encounter Plan of Treatment Not on file documented as of this encounter Procedures Procedure Name Priority Date/Time Associated Diagnosis Comments SURGICAL PATHOLOGY Routine 01/23/2008 0:00 EDT documented in this encounter Results * SURGICAL PATHOLOGY (01/23/2008 0:00 EDT) Pathology Report: SURGICAL PATHOLOGY REPORT ? Reports generated via electronic interface contain original data; ? however they are lacking the format of the original report. ? Caution should be taken when reading/interpreti ng unformatted reports. ? Name: ? ALECIA, PRINCESS J ? Accession #: ? [id number] ? : ? 1940 (Age: 67) ??F ? Collect Date: ? 01/23/2008 ? Location: ? [facility] ? Receive Date: ? 01/23/2008 ? Provider: DENYS WALKO MD ? Copy to: CONNOR M DOBBERTIN MD ? Final Pathologic Diagnosis: ? Colon, sigmoid polyps, biopsies: ? - Hyperplastic polyps. ? Document reviewed and electronically signed by: ? Danny Omalley MD ? Report ??Date: 01/26/2008 17:39 ? By the signature above, the attending physician certifies that he/she has ? personally conducted a gross and/or microscopic examination of the described ? specimens and rendered or confirmed the above diagnosis. ? Specimen(s) Received: ? Sigmoid polyps x 2 ? Clinical History: ? Colorectal screen ? Gross Description: ? Received in Keny's fixative labelled Alecia and sigmoid polyps x 2 are two stafford-pink soft tissue fragments which average 0.2 x 0.2 x 0.1 cm. ? Submitted entirely in one cassette. ??(Dr. Martinez)/mpl ? End of Report ? [facility] 01/23/2008 01/23/2008 13: 33 EDT Denys Vasques MD PATHOLOGY ORDERABLES Performing Organization Address City/State/[facility] Co de Phone Number [facility] [address] [place] [address] documented in this encounter Visit Diagnoses Not on filedocumented in this encounter
--- OUTSIDE RECORDS SUMMARY | 2024-02-09 12:40 | XMS_ITS | Encounter Summary ---
Author Organization [facility] Address [facility] [place] [address] Care Team Providers Care Horse Doctor Name Role Phone Solomon Leslie MD Primary Care Provider [phone] Encounter Details Date Type Department Care Team (Late st Contact Info) Description 03/28/2020 Orders [place] [address] Allie Elias APRN [facility] [address] Breast lump; Unspecified lump in the left breast, upper outer quadrant Social History Tobacco Use Types Packs/Day Years [...] as of this encounter Visit Diagnoses Diagnosis Breast lump Lump or mass in breast Unspecified lump in the left breast, upper outer quadrant documented in this encounter Care Teams Horse Doctor Relationship Specialty Start Date End Date Solomon Leslie MD [address] [place] [address] [place] [address] PCP - General Family Medicine 03/27/20 09/30/23 documented as of this encounter
--- OUTSIDE RECORDS SUMMARY | 2024-02-09 12:40 | XMS_ITS | Encounter Summary ---
Author Organization [facility] Address [facility] [place] [address] Care Team Providers Care Blood Bank Supervisor Name Role Phone Juanita Colon MD Primary Care Provider Encounter Details Date Type Department Care Team (Late st Contact Info) Description 10/24/2013 1:40 PM EDT - 10/24/2013 2:20 PM EDT Surgery [place] [address] Ruth Langston MD [facility] [place] [address] CATARACT EXTRACTION, EXTRACAPSULAR, W/ LENS INSERTION (WRVU 7.35) Social History Tobacco Use Types Packs/Day Years [...] Sign Reading Time Taken Comments Blood Pressure 132/53 10/24/2013 2:13 PM EDT Pulse 62 10/24/2013 2:13 PM EDT Temperature 36.2 ??C (97.2 ??F) 10/24/2013 12:52 PM E DT Respiratory Rate 18 10/24/2013 2:13 PM EDT Oxygen Saturation 95% 10/24/2013 2:13 PM EDT Inhaled Oxygen Concentration - - Weight 83.9 kg (185 lb) 10/24/2013 12:52 PM EDT Height 161.3 cm (5' 3.5) 10/24/2013 12:52 PM ED T Body Mass Index 32.26 10/24/2013 12:52 PM EDT documented in this encounter Discharge Instructions * Discharge Instructions* Silvia Salazar RN - 10/24/2013 12:54 PM EDT Instructions for the first day following eye surgery Ruth Langston MD Section of Opthalmology [facility] [place] [facility] [phone] -Keep your eye patched, shielded, clean and dry overnight. The patch will be removed during your follow-up visit with Dr. Langston tomorrow. -The surgery center nurses should confirm time of your follow-up appointment for tomorrow with Dr. Langston. This appointment will be at the [facility] in the main building at [facility] [facility]. -Mild discomfort is normal, but if you have any severe eye pain or bleeding call [phone] and ask to speak with the eye doctor installation drafter. -Call your Primary Care Doctor or the Emergency Room for any non eye related medical issues. -Your eye will be red tomorrow - this is normal. You will go home with drops, but you will not start them until after your visit with Dr. Langston tomorrow. Additional instructions about your eyedrops, care of the eye and timing of visual recovery will be provided at that appointment. You may have received medication before and/or during your procedure, which affect your judgement and reaction time therefore for the next 24 hours: You may be unsteady on your feet, be careful on stairs. Do not smoke if you are alone. Do not drink alcoholic beverages. Do not drive or operate any type of machinery. Do not make important legal decisions. documented in this encounter Medications at Time of Discharge Medication Sig Dispensed Refills Start Date End Date OMEPRAZOLE (PRILOSEC ORAL) 04/16/2009 citalopram (CELEXA) 20 mg tablet Take 20 mg by mouth daily. 10/04/2023 CIS Free Text Med - Monopril 20mg, PO, Once daily 04/16/2009 024 pravastatin (PRAVACHOL) 20 mg tablet 20MG, PO, Once daily 04/16/2009 024 documented as of this encounter H&P Notes * Ruth Langston MD - 10/24/2013 1:11 PM EDT Patient denies changes or problems since pre-operative history and physical. documented in this encounter Miscellaneous Notes * OR Attestation - Ruth Langston MD - 10/24/2013 2:17 PM EDT Attestation: Case Date: 10/24/2013 I performed this procedure without the involvement of a resident. 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 Approximately 5 cc of 2% lidocaine with 1:200,000 epinephrine mixed in a 50:50 ratio with 0.5% Marcaine were drawn up into a 10-cc syringe. Approximately 2.0-cc amount of block was given in a retrobulbar fashion behind the right eye. The patient tolerated the anesthesia well and there were no complications. Description of Procedure: After discussing the risks, benefits and alternatives to cataract extraction, the patient elected to proceed and informed consent was signed. On the day of the surgery, the patient was brought to the Operating Room and placed in the supine position. The appropriate anesthesia monitoring devices were applied. The above-described anesthesia was then administered. The operating microscope was then brought onto the operating field. The patient was prepped and draped in the usual sterileophthalmic fashion, leaving the right eye exposed. A wire lid speculum was used to obtain blepharostasis of the right eye. A 69 blade was used to make a 50% scleral thickness 3- mm incision at the superior limbus in the right eye. This incision was then beveled forward using a crescent/pocket blade into clear cornea. A this stage, a supersharp was used at the 11 o'clock position to enter the anterior chamber. Using the second instrument port, the anterior chamber was filled with viscoelastic. The keratome was then used at the initial incision temporally to enter the anterior chamber. A bent 27-gauge needle on viscoelastic was then used to initiate and complete a continuous tear of capsulorrhexis of the anterior capsule. A blunt 27-gauge needle with 3 cc of BSS was then used to hydrodelineate and hydrodissect the nucleus. Once the nucleus was freely mobile, the phakoemulsification instrument was introduced into the anterior chamber. A second instrument was used at the second instrument port. The nucleus was then removed in its entirety using a chop technique. At this stage, the epinucleus was removed. The residual cortex was removed with irrigation and aspiration at this time. The internal diameter of the wound was then extendedslightly using a 69 blade. A foldable Toñito SN60WF 22.0 -diopter lens was then placed into the capsule after the capsule was reinflated with viscoelastic. Both haptics were shown to be in the capsular bag. The residual viscoelastic was then removed using irrigation and aspiration. The wound was found to be water tight. Subconjunctival kefzol and dexamethasone were injected at different places in t he conjunctiva. The eye was patched after dressing it with Trusopt and bacitracin ointment. The eyewas patched with a sterile eye pad and a plastic protective shield. The patient tolerated the procedure well and was discharged to the Same Day Surgery Unit in stable condition. The patient will follow up on postoperative day one with Dr. Ruth Langston in eye clinic. Disposition: aroused from sedation, and taken to the recovery room in a stable condition Condition: doing well without problems * Miscellaneous - Provider, Scanning - 10/24/2013 12:46 PM EDT documented in this encounter Plan of Treatment Not on file documented as of this encounter Procedures Procedure Name Priority Date/Time Associated Diagnosis Comments CATARACT EXTRACTION, EXTRACAPSULAR, W/ LENS INSERTION (WRVU 7.35) 10/24/2013 1:44 PM EDT Age related cataract documented in this encounter Visit Diagnoses Diagnosis Age related cataract Senile cataract, unspecified Age related cataract Senile cataract, unspecified documented in this encounter Administered Medications Inactive Administered Medications - up to 3 most recent administrations Medication Order MAR Action Action Date Dose Rate Site cyclopentolate (CYCLODRYL) 1 % ophthalmic solution 1 drop 1 drop, Right Eye, EVERY 5 MIN, 3 doses, First dose on e 10/24/13 at 1315, Last dose on Wed10/24/13 at 1325, 1 drop to the operative eye every 5 minutes times 3. Start day of surgery, Day of Surgery (Day of Procedure), Routine Given 10/24/2013 1:25 PM EDT 1 drop Given 10/24/2013 1:20 PM EDT 1 drop Given 10/24/2013 1:15 PM EDT 1 drop fentaNYL 50mcg/mL injection 25 mcg, Intravenous, EVERY 5 MIN PRN, Starting on Wed10/24/13 at 1248, Until Tu10/24/13 at 1416, Pain, Hold for respiratory rate less than 8 breaths per minute. (maximum dose 100 mcg) , Intra-Operative (Intra-Procedure), Routine Given 10/24/2013 1:57 PM EDT 25 mcg Given 10/24/2013 1:55 PM EDT 25 mcg Given 10/24/2013 1:00 PM EDT 25 mcg ketorolac tromethamine (ACULAR) 0.5 % ophthalmic solution 1 drop 1 drop, Right Eye, ONCE, 1 dose, On Wed10/24/13 at 1330, Day of Surgery (Day of Procedure), Routine Given 10/24/2013 1:30 PM EDT 1 drop lactated ringers infusion 1,000 mL 1,000 mL, at 100 mL/hr, Intravenous, CONTINUOUS, Starting on Wed10/24/13 at 1315, Until Wed10/24/13 at 1416, Day of Surgery (Day of Procedure) New Bag 10/24/2013 1:15 PM EDT 1,000 mLs 100 mL/hr midazolam (PF) (VERSED) 1 mg/mL injection 0.25-1 mg 0.25-1 mg, Intravenous, EVERY 5 MIN PRN, Starting on Wed10/24/13 at 1248, Until Wed10/24/13 at 1416, Anxiety, Hold for delirium/agitation. (Maximum dose 4 mg.), Intra-Operative (Intra-Procedure), Routine Given 10/24/2013 1:56 PM EDT 1 mg Given 10/24/2013 1:00 PM EDT 1 mg moxifloxacin (VIGAMOX) 0.5 % ophthalmic solution 1 drop 1 drop, Right Eye, EVERY 5 MIN, 3 doses, First dose on e 10/24/13 at 1315, Last dose on Wed10/24/13 at 1325, 1 drop to the operative eye every 5 minutes times 3. Start on the day of surgery. , Day of Surgery (Day of Procedure), Routine Given 10/24/2013 1:25 PM EDT 1 drop Given 10/24/2013 1:20 PM EDT 1 drop Given 10/24/2013 1:15 PM EDT 1 drop PHENYLephrine (MYDFRIN) 2.5 % ophthalmic solution 1 drop 1 drop, Right Eye, EVERY 5 MIN, 3 doses, First dose on Wed10/24/13 at 1315, Last dose on Wed10/24/13 at 1325, 1 drop to the operative eye every 5 minutes times 3. Start on the day of surgery. , Day of Surgery (Day of Procedure), Routine Given 10/24/2013 1:25 PM EDT 1 drop Given 10/24/2013 1:20 PM EDT 1 drop Given 10/24/2013 1:15 PM EDT 1 drop prednisoLONE acetate (PRED FORTE) 1 % ophthalmic suspension 1 drop 1 drop, Right Eye, ONCE, 1 dose, On 10/24/13 at 1315, 1 drop to the operative eye once, start on day of surgery, Day of Surgery (Day of Procedure), Routine Given 10/24/2013 1:15 PM EDT 1 drop documented in this encounter Active and Recently Administered Medications Times are shown in EDT. Scheduled Medication Order 10/22/2013 10/23/2013 10/24/2013 cyclopentolate (CYCLODRYL) 1 % ophthalmic solution 1 drop (COMPLETED) 1 drop, Right Eye, EVERY 5 MIN, 3 doses, First dose on 10/24/13 at 1315, Last dose on 10/24/13 at 1325, 1 drop to the operative eye every 5 minutes times 3. Start day of surgery, Day of Surgery (Day of Procedure), Routine 1315 (Given - Provid er: Silvia Salazar RN)1320 (Given - Provider: Silvia Salazar RN)1325 (Given - Provider: Silvia Salazar RN) ketorolac tromethamine (ACULAR) 0.5 % ophthalmic solution 1 drop (COMPLETED) 1 drop, Right Eye, ONCE, 1 dose, On 10/24/13 at 1330, Day of Surgery (Day of Procedure), Routine 1330 (Given - Provid er: Silvia Salazar RN) moxifloxacin (VIGAMOX) 0.5 % ophthalmic solution 1 drop (COMPLETED) 1 drop, Right Eye, EVERY 5 MIN, 3 doses, First dose on 10/24/13 at 1315, Last dose on 10/24/13 at 1325, 1 drop to the operative eye every 5 minutes times 3. Start on the day of surgery. , Day of Surgery (Day of Procedure), Routine 1315 (Given - Provid er: Silvia Salazar RN)1320 (Given - Provider: Silvia Salazar RN)1325 (Given - Provider: Silvia Salazar RN) PHENYLephrine (MYDFRIN) 2.5 % ophthalmic solution 1 drop (COMPLETED) 1 drop, Right Eye, EVERY 5 MIN, 3 doses, First dose on 10/24/13 at 1315, Last dose on 10/24/13 at 1325, 1 drop to the operative eye every 5 minutes times 3. Start on the day of surgery. , Day of Surgery (Day of Procedure), Routine 1315 (Given - Provid er: Silvia Salazar RN)1320 (Given - Provider: Silvia Salazar RN)1325 (Given - Provider: Silvia Salazar RN) prednisoLONE acetate (PRED FORTE) 1 % ophthalmic suspension 1 drop (COMPLETED) 1 drop, Right Eye, ONCE, 1 dose, On e 10/24/13 at 1315, 1 drop to the operative eye once, start on day of surgery, Day of Surgery (Day of Procedure), Routine 1315 (Given - Provid er: Silvia Salazar RN) Continuous Medication Order 10/22/2013 10/23/2013 10/24/2013 lactated ringers infusion 1,000 mL (CANCELED) 1,000 mL, at 100 mL/hr, Intravenous, CONTINUOUS, Starting on Wed10/24/13 at 1315, Until Wed10/24/13 at 1416, Day of Surgery (Day of Procedure) 1315 (New Bag - Prov ider: Silvia Salazar RN) PRN Medication Order 10/22/2013 10/23/2013 10/24/2013 fentaNYL 50mcg/mL injection (CANCELED) 25 mcg, Intravenous, EVERY 5 MIN PRN, Starting on e 10/24/13 at 1248, Until 10/24/13 at 1416, Pain, Hold for respiratory rate less than 8 breaths per minute. (maximum dose 100 mcg) , Intra-Operative (Intra-Procedure), Routine 1300 (Given - Provid er: Solomon Mcnamara RN)1355 (Given - Provider: Solomon Mcnamara RN)1357 (Given - Provider: Solomon Mcnamara RN) midazolam (PF) (VERSED) 1 mg/mL injection 0.25-1 mg (CANCELED) 0.25-1 mg, Intravenous, EVERY 5 MIN PRN, Starting on e 10/24/13 at 1248, Until 10/24/13 at 1416, Anxiety, Hold for delirium/agitation. (Maximum dose 4 mg.), Intra-Operative (Intra-Procedure), Routine 1300 (Given - Provid er: Solomon Mcnamara RN)1356 (Given - Provider: Solomon Mcnamara RN) documented in this encounter Care Teams Blood Bank Supervisor Relationship Specialty Start Date End Date Juanita Colon MD [address] [place] [address] PCP - General 06/03/10 03/26/20 documented as of this encounter
--- OUTSIDE RECORDS SUMMARY | 2024-02-09 12:40 | XMS_ITS | Continuity of Care Document ---
Author Name [facility] Organization [facility] Care Team Providers Care Sleep Technician Name Role Phone [facility] Unavailable Unavailable Medications Combined list of outpatient medications from Department of Defense and Veterans Affairs facilities.Medications provided include 1) outpatient medications from the last 15 months, and 2) patient-reported medications. Medication Details Route Status Patient Instructions Prescription Expires Prescription Number Last Dispense Date Ordering Provider Order Date Order Qty Source AMOXICILLIN -CLAVULANAT E POTASS (amoxicilli n/potassium clavulanate ), 875-125 MG, TABLET, ORAL, [employer] [facility],, 20 ea. BOTTLE Active [id number] 4 2023 3 Pharmac y Data Transac tion Service Facilit y CLOBETASOL PROPIONATE (CLOBETASOL PROPIONATE) , 0.05%, CREAM(GM), TOPICAL, FOUGERA, 60 g JAR Active [id number] 4 2023 60 Pharmac y Data Transac tion Service Facilit y CLOBETASOL PROPIONATE (CLOBETASOL PROPIONATE) , 0.05%, SOLUTION, TOPICAL, FOUGERA, 50 ml BOTTLE Active [id number] 4 2023 50 Pharmac y Data Transac tion Service Facilit y ESCITALOPRA M OXALATE (ESCITALOPR AM OXALATE), 10 MG, TABLET, ORAL, EXELAN PHARMACE, 1000 ea. BOTTLE Active [id number] 4 2023 90 Pharmac y Data Transac tion Service Facilit y ESCITALOPRA M OXALATE (ESCITALOPR AM OXALATE), 10 MG, TABLET, ORAL, EX[employer]ARMACE, 1000 ea. BOTTLE Active [id number] 4 2023 90 Pharmac y Data Transac tion Service Facilit y LISINOPRIL (lisinopril ), 10 MG, TABLET, ORAL, EXELAN PHARMACE, 1000 ea. BOTTLE Active [id number] 4 2023 90 Pharmac y Data Transac tion Service Facilit y LISINOPRIL (lisinopril ), 10 MG, TABLET, ORAL, EXELAN PHARMACE, 1000 ea. BOTTLE Active [id number] 4 2023 Pharmac y Data Transac tion Service Facilit y METFORMIN HCL ER (metformin HCl), 500 MG, TAB ER 24H, ORAL, [employer], 90 ea. BOTTLE Active [id number] 4 2023 90 Pharmac y Data Transac tion Service Facilit y OMEPRAZOLE (omeprazole ), 20 MG, CAPSULE DR, ORAL, [employer], 1000 ea. BOTTLE Active [id number] 4 2023 90 Pharmac y Data Transac tion Service Facilit y Immunizations Combined list of available immunizations from the Department of Defense and Veterans Affairs facilities. Immunization Series Date Given Administered By Site Reaction Lot Number CVX Code Drug Home Health Aide Caregiver Status Comments Source COVID-19, mRNA, LNP-S, PF, 100 mcg or 50 mcg dose 2020 RITIKA, [employer] (MOD) Not Given COVID-19, mRNA, LNP-S, PF, 100 mcg or 50 mcg dose DoD Social History Combined list of available smoking, tobacco, and other social history from Department of Defense and Veterans Affairs facilities. Social History Type Response Date Comment Sour e This section is an empty social history section. DoD
--- OUTSIDE RECORDS SUMMARY | 2024-02-09 12:40 | XMS_ITS | Encounter Summary ---
Author Organization [facility] Address [facility] [place] [address] Care Team Providers Care Air Conditioner Installer Helper Name Role Phone Juanita Colon MD Primary Care Provider [phone] Reason for Visit * Reason Comments Decreased Visual Acuity OD Pseudophakia OS Encounter Details Date Type Department Care Team (Late st Contact Info) Description 08/14/2013 9:45 AM EST Office Visit [place] [address] Libby Cintron MD [facility] 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 She has some ON asymmetry- would recommend baseline OCT after CE. She would like to proceed with CE OD. R/B/A discussed. Informed consent signed. documented in this encounter Plan of Treatment Not on file documented as of this encounter Procedures Procedure Name Priority Date/Time Associated Diagnosis Comments CATARACT EXTRACTION, EXTRACAPSULAR, W/ LENS INSERTION Routine 08/14/2013 11:25 AM EST Age related cataract documented in this encounter Results * [id number]-PZO CALC BY LASER RXVAITTOYGRI-SM-[id number] EYE (09/21/2013 4:06 PM EDT) Anatomical Region Laterality Modality Other Narrative 09/21/2013 4:06 PM EDT POM done on 09/14/13 Procedure Note Libby Cintron MD - 09/21/2013 POM done on 09/14/13 Libby Cintron MD OPHTHALMOLOGY SERVIC ES ORDERABLES documented in this encounter Visit Diagnoses Diagnosis Age related cataract- Primary Senile cataract, unspecified Age related cataract- Primary Senile cataract, unspecified documented in this encounter Care Teams Air Conditioner Installer Helper Relationship Specialty Start Date End Date Juanita Colon MD [address] [place] [address] [address] [place] [address] PCP - General 06/03/10 03/26/20 documented as of this encounter
--- OUTSIDE RECORDS SUMMARY | 2024-02-09 12:40 | XMS_ITS | Encounter Summary ---
Author Organization [facility] Address [facility] [place] [address] Care Team Providers Care Sports Statistician Name Role Phone Juanita Colon MD Primary Care Provider [phone] Reason for Visit * Reason Onset Date Comments Post Op 1-wk CE-IOL-OD Follow-up 10/30/2013 Post Op Cataract Encounter Details Date Type Department Care Team (Late st Contact Info) Description 10/30/2013 4:00 PM EDT Office Visit [place] [address] Libby Cintron MD [facility] [address] [place]ALM[place] [address] Amblyopia, unspecified laterality (Primary Dx); Status post cataract extraction and insertion of [...] Progress Notes * Libby Cintron MD - 10/30/2013 7:44 PM EDT Assessment: Encounter Diagnosis Name Primary? Amblyopia, unspecified laterality Yes Princess Alston is status post cataract surgery last week in her right eye Doing well with a normal post operative appearance. Plan: - Prednisolone acetate 1% tid in operative eye for 3 weeks - Stop Moxifloxicin - Ketorolac tid in operative eye for 3 weeks Follow up: - ~3 weeks or as needed. Upon Return IOP OU MR OU Dilate operative eye documented in this encounter Plan of Treatment Not on file documented as of this encounter Visit Diagnoses Diagnosis Amblyopia, unspecified laterality- Primary Status post cataract extraction and insertion of intraocular lens, right documented in this encounter Care Teams Sports Statistician Relationship Specialty Start Date End Date Juanita Colon MD [address] [place] [address] PCP - General 06/03/10 03/26/20 documented as of this encounter
--- OUTSIDE RECORDS SUMMARY | 2024-02-09 12:40 | XMS_ITS | Encounter Summary ---
Author Organization [facility] [address] Care Team Providers Care Supply Person Name Role Phone Solomon Leslie MD Primary Care Provider [phone] Reason for Referral * Diagnostic Test (Routine) - Closed Specialty Diagnoses / Procedures Referred By Contac t Referred To Contact Cardiology Diagnoses Syncope, unspecified syncope type Procedures Mobile Jaime Conroy MD [address] [place] [address] [facility] [place] [address] Referral ID Status Reason Start Date Expiration Date V isits Requested Visits Authorized [id number] Closed Specialty Service Requested 09/10/2021 09/10/2022 1 1 Reason for Visit * Diagnostic Test (Routine) - Closed Specialty Diagnoses / Procedures Referred By Contac t Referred To Contact Cardiology Diagnoses Syncope, unspecified syncope type Procedures Mobile Jaime Conroy MD [address] [place] [address] [facility] [place] [address] Referral ID Status Reason Start Date Expiration Date V isits Requested Visits Authorized [id number] Closed Specialty Service Requested 09/10/2021 09/10/2022 1 1 Encounter Details Date Type Department Care Team (Latest Contact Info) Description 09/10/2021 2:10 PM EST - 09/10/2021 11:59 PM EST Hospital Encounter [place] [address] Jaime Viveros MD [address] [place] [address] Syncope, unspecified syncope type Discharge Disposition: Home Social History Tobacco Use Types Packs/Day Years Used Date Smoking Tobacco: Never Smokeless Tobacco: Never Alcohol Use Standard Drinks/Week Comments No 0 (1 standard drink = 0.6 oz pur e alcohol) Sex and Gender Information Value Date Recorded Sex Assigned at Not on file Gender Identity Not on file Sexual Orientation Not on file documented as of this encounter Medications at Time of Discharge Medication Sig Dispensed Refills Start Date End Date escitalopram (Lexapro) 10 mg Tablet Take 10 mg by mouth daily. 12/14/2020 lisinopriL-hydrochlorot hiazide (Zestoretic) 10-12.5 mg Tablet 12/07/2020 Vyzulta 0.024 % Drops 10/24/2020 cyclobenzaprine (Flexeril) 5 mg Tablet Take 1 tablet by mouth nightly as needed for Muscle spasms. 14 tablet 02/13/2021 OMEPRAZOLE (PRILOSEC ORAL) 04/16/2009 citalopram (CELEXA) 20 mg tablet Take 20 mg by mouth daily. 10/04/2023 [facility] - Monopril 20mg, PO, Once daily 04/16/2009 024 pravastatin (PRAVACHOL) 20 mg tablet 20MG, PO, Once daily 04/16/2009 024 documented as of this encounter Plan of Treatment Not on file documented as of this encounter Procedures Procedure Name Priority Date/Time Associated Diagnosis Comments ECHO COMPLETE Routine 09/10/2021 3:08 PM EST Syncope, unspecified syncope type documented in this encounter Results * ECHO COMPLETE (09/10/2021 3:08 PM EST) EF 65 HEARTLAB SYSTEM Anatomical Region Laterality Modality Other 09/10/2021 11:1 3 AM EST Narrative 09/10/2021 3:46 PM EST ?[facility] ?[address] ? [place] [address] ?Voice: ?Fax: ? Echocardiogram Report Name: SAM PRINCESS Brown ?Study Date: 09/10/2021 11:13 AMBP: 136/73 mmHg ? Patient Location: [address] [place] [address] : 1940 ? Height: 160 cm ? Account: [id number] Age: 81 yrs ? Weight: 84 kg Gender: Female ?BSA: 1.9 m2 Ordering Physician: JAIME VIVEROS Referring Physician: JAIME VIVEROS Performed By: BERNARDINO Reason For Study: Syncope Interpreting Fellow: Will Jessica. Exam Location: [facility]. Interpretation Summary 1. The left ventricle is [...] aortic stenosis, with Vmax 2.1 m/s, mean trans- valvular gradient 9 mmHg, peak gradient 18 mmHg. 4. There is no prior echocardiogram available for comparison. Left Ventricle Left ventricle is of normal size. Wall thickness is normal. There is no ventricular septal defect. Left ventricular systolic function is normal. The left ventricular ejection fraction is 65% by Weeks's biplane. There are no segmental wall motion abnormalities. Right Ventricle The right ventricle is of normal size. Right ventricular systolic function is normal. Pulmonary artery systolic pressure is estimated at 36 mmHg plus right atrial pressure. Left Atrium The left atrium is normal. Right Atrium The right atrium is normal. Aortic Valve The aortic valve is mildly thickened. The aortic valve is tricuspid. There is mild aortic stenosis. There is no aortic regurgitation. Mitral Valve The mitral valve is structurally normal. Mild calcification of the mitral annulus. There is no mitral stenosis. There is trace mitral regurgitation. Tricuspid Valve The tricuspid valve is structurally normal. There is trace tricuspid regurgitation. Pulmonic Valve The pulmonic valve appears to be structurally normal. There is no valvular pulmonic stenosis. There is trace pulmonic valve regurgitation. Great Arteries The aortic root is of normal size. No abnormalities are identified. The ascending aorta is mildly dilated. Venous Inferior vena cava is normal in size. Inferior vena cava collapse greater than 50% with respiration. Pericardium/Pleural There is no pericardial effusion. Hemodynamics Left ventricular diastolic function is normal. Ejection Fraction ?2D Measurements ? Volumes LV Biplane EF: 64.8 % ? IVSd: 0.90 cm ?LA volume: 48.4 ml ?LVPWd: 0.94 cm ? EDV(MOD-sp4): 60.8 ml ? EDV(MOD-sp2): 73.2 ml Doppler TR max elnea: 295.0 cm/sec Ao V2 VTI: 44.4 cm Ao valve max: 16.4 mmHg MV E max elena: 103.0 cm/sec MV A max elena: 123.9 cm/sec MV E/A: 0.83 Dimensionless index Aov: 0.71 I ?WMSI = 1.00 ? % Normal = 100 ?Segments ??Size X - Cannot ?? 1 - Normal ?? 2 - ? 3 - Akinetic 4 - ?1-2 ? small Interpret ? Hypokinetic ?Dyskinetic ?? 3-5 ? moderate 5 - ? 6-14 ?large Aneurysmal ?15-16 ?? diffuse Procedure Note Ian Carbone MD - 09/10/2021 [facility] [address] [place] [address] Voice: Fax: Echocardiogram Report Name: PRINCESS ALSTON Study Date:09/10/2021 11:13 AMBP: 136/73 mmHg Patient Location: [id number] : 1940 Height: 160 cm Account: [id number] Age: 81 yrs Weight: 84 kg Gender: Female BSA: 1.9 m2 Ordering Physician: AJIME VIVEROS Referring Physician: JAIME VIVEROS Performed By: BERNARDINO Reason For Study: Syncope Interpreting Fellow: Will Jessica. Exam Location: [facility]. Interpretation Summary 1. The left ventricle is normal in size and global systolic function,with ejection fraction 65% per Weeks's biplane method. There are no segmentalwall motion abnormalities. Diastolic function is probably normal. 2. The right ventricle is probably normal in size, with normal globalsystolic function. Pulmonary artery systolic pressure is estimated at 36 mmHg plusright atrial pressure. 3. There is probably mild aortic stenosis, with Vmax 2.1 m/s, meantrans-valvular gradient 9 mmHg, peak gradient 18 mmHg. 4. There is no prior echocardiogram available for comparison. Left Ventricle Left ventricle is of normal size. Wall thickness is normal. There is no ventricular septal defect. Left ventricular systolic function is normal.The left ventricular ejection fraction is 65% by Weeks's biplane. There are nosegmental wall motion abnormalities. Right Ventricle The right ventricle is of normal size. Right ventricular systolic functionis normal. Pulmonary artery systolic pressure is estimated at 36 mmHg plusright atrial pressure. Left Atrium The left atrium is normal. Right Atrium The right atrium is normal. Aortic Valve The aortic valve is mildly thickened. The aortic valve is tricuspid. Thereis mild aortic stenosis. There is no aortic regurgitation. Mitral Valve The mitral valve is structurally normal. Mild calcification of the mitralannulus. There is no mitral stenosis. There is trace mitral regurgitation. Tricuspid Valve The tricuspid valve is structurally normal. There is trace tricuspid regurgitation. Pulmonic Valve The pulmonic valve appears to be structurally normal. There is novalvular pulmonic stenosis. There is trace pulmonic valve regurgitation. Great Arteries The aortic root is of normal size. No abnormalities are identified. Theascending aorta is mildly dilated. Venous Inferior vena cava is normal in size. Inferior vena cava collapse greaterthan 50% with respiration. Pericardium/Pleural There is no pericardial effusion. Hemodynamics Left ventricular diastolic function is normal. Ejection Fraction 2D Measurements Volumes LV Biplane EF: 64.8 % IVSd: 0.90 cm LA volume: 48.4ml LVPWd: 0.94 cm EDV(MOD-sp4):60.8 ml EDV(MOD-sp2):73.2 ml Doppler TR max elena: 295.0 cm/sec Ao V2 VTI: 44.4 cm Ao valve max: 16.4 mmHg MV E max elena: 103.0 cm/sec MV A max elena: 123.9 cm/sec MV E/A: 0.83 Dimensionless index Aov: 0.71 I WMSI = 1.00 % Normal = 100 SegmentsSize X - Cannot 1 - Normal 2 - 3 - Akinetic 4 - 1-2small Interpret Hypokinetic Dyskinetic 3-5moderate 5 - 6-14large Aneurysmal 15-16diffuse Jaime Viveros MD ECHO ORDERABLE S documented in this encounter Visit Diagnoses Diagnosis Syncope, unspecified syncope type documented in this encounter Care Teams Supply Person Relationship Specialty Start Date End Date Solomon Leslie MD [address] [place] [address] PCP - General Family Medicine 03/27/20 09/30/23 documented as of this encounter
--- OUTSIDE RECORDS SUMMARY | 2024-02-09 12:40 | XMS_ITS | Encounter Summary ---
[place] [address] Care Team Providers Care Vocational Teacher Name Role Phone Justin eTe Primary Care Provider + Encounter Details Date Type Department Care Team (Late st Contact Info) Description 10/01/2023 [place]phone [place] [address] Guido Morelos DO [facility] [place] [address] Social History Tobacco Use Types Packs/Day Years Used Date Smoking Tobacco: Never Smokeless Tobacco: Never Alcohol Use Standard Drinks/Week Comments No 0 (1 standard drink = 0.6 oz pur e alcohol) [facility] Inpatient Questions Answer Date Recorded Does Anyone [...] encounter Miscellaneous Notes * Telephone Encounter - Guido Morelos DO - 10/01/2023 8:44 PM EDT Images from the original note were not included. DIVISION OF GASTROENTEROLOGY & HEPATOLOGY [facility] CALL Name: Princess Alston Date: 10/01/2023 Time: 8:44 PM Referring Location: [facility] Referring Provider: Tye Magdaleno MD 83 yo female with hx of CCY two days of RUQ abdominal pain and chills sent from her PCP's office tot ER after a finding of abnormal LFTs.. VS: 160/90, Temp 37.6, HR 122, RR 18, 98% RA CT shows pneumobilia No hx of Alysha-en-Y and not on blood thinners. Labs: WBC 14k T Bili 2.1, AST 89, ALT 108, AP 225 Started on IV Zosyn Recommendations: Patient's constellation of symptoms are consistent with possible cholangitis. Recommended [place] [facility] if possible as we do not do 'here and back' procedures over the weekend. Continue IV antibiotics and reassuring patient is currently HDS. If unable to accommodate transfer recommended reachingout to other centers in the interim or re-engaging us on Wednesday with close monitoring of LFTs (though not ideal to wait more than 48 hours with c/f potential cholangitis). This is not an official consult, as my recommendations are limited by my inability to interview andexamine the patient as well as personally review the medical record, imaging, and laboratory findings. Guido Morelos DO Fellow - Gastroenterology documented in this encounter Plan of Treatment Not on file documented as of this encounter Visit Diagnoses Not on filedocumented in this encounter Care Teams Vocational Teacher Relationship Specialty Start Date End Date [place] [address] [place] [address] PCP - General Internal Medicine 10/01/23 documented as of this encounter
--- OUTSIDE RECORDS SUMMARY | 2024-02-09 12:40 | XMS_ITS | Encounter Summary ---
Author Organization [facility] [place] [address] Care Team Providers Care Instructor Substitute Cosmetology Name Role Phone Solomon Leslie MD Primary Care Provider [phone] Encounter Details Date Type Department Care Team (Latest Contact Info) Description 05/10/2020 5:46 PM EDT - 05/10/2020 11:59 PM EDT Hospital [place] [phone] Discharge Disposition: Home Social History Tobacco Use [...] Procedure Name Priority Date/Time Associated Diagnosis Comments COVID-19 PCR Routine 05/10/2020 9:58 AM EDT documented in this encounter Results * COVID-19 PCR (05/10/2020 9:58 AM EDT) SARS-CoV-2 RNA Not Detected Not Detected [facility] Comment: This result should be interpreted in combination with the clinical observations, patient history and epidemiological information in making a final diagnosis. For testing of asymptomatic individuals, assay performance characteristics and clinical utility have not been evaluated. Testing for SARS-CoV-2 (Severe acute respiratory syndrome coronavirus 2, formerly known as 2019 novel coronavirus or 2019-nCoV) to aid in the diagnosis of COVID-19 is performed using the [employer] RealTime SARS-CoV-2 Assay as authorized by the FDA Emergency Use Authorization (EUA). This EUA assay is intended for In-vitro Diagnostic (IVD) use with respiratory specimens such as nasopharyngeal swabs collected from individuals during the acute phase of infection. This assay is performed based on the instructions for use provided by [employer] [facility] [facility] and additional guidance provided by CDC and FDA. Testing is performed in the [facility] within the Department of Pathology and Laboratory Medicine at [facility], certified under the Clinical Laboratory Improvement Amendments of 1988 (CLIA), 42 U.S.C. 263a, to perform high complexity tests. Assay performance has been verified according to clinical laboratory regulatory requirements for use with specimens collected from individuals suspected of COVID-19. Test results are provided above. A result of ? Not Detected? indicates that the viral RNA target is not present above the limit of detection, but does not preclude SARS-CoV-2 infection. False negative results may occur if a specimen is improperly collected, transported or handled; if amplification inhibitors are present; or if inadequate numbers of viral particles are present in the specimen. When a diagnostic test is negative, the possibility of a false negative result should be considered in the context of a patient? s recent exposures and the presence of clinical signs and symptoms consistent with COVID-19. A result of ? Detected? indicates that RNA from SARS-CoV-2 was detected and the patient is infected. As required or requested by public health authorities, positive specimens may be sent for additional testing. Positive and negative predictive values for this test are highly dependent on disease prevalence. A result of ? Invalid? indicates that neither the viral RNA targets nor the internal control target was detected. An invalid result suggests the presence of inhibitors. Recollection and re-testing is recommended in the case of an invalid result. CDC COVID-19 criteria for testing on human specimens and clinical management guidance information are available at the CDC Coronavirus Disease 2019 (COVID-19) webpage under ? Information for Healthcare Professionals? (https://www.cdc.gov/coronavirus/2019-ncov/hcp/index.html) Additional information about this and other EUA tests can be found in provider and patient fact sheets at the following FDA website: https://www.fda.gov/medical-devices/dmuhjjdkxml-ajekmaw-1662-seayc-94-ptonoflnb- use-a cffaovdebfvep-drmoogj-uljtmpk/vcnbl-zmnlqcuwzlx-zncr SARS-Cov-2 RNA Source QUALITY CONTROL SUPERVISOR Swab [facility] Nasopharyngeal swab (specimen) Other / Unknown 05/10/2020 9:58 AM EDT 05/10/2020 11:07 PM EDT Narrative Resulting Agency Comment Spec In Lab Aline Andrews MD MICROBIOLOGY - GENER AL ORDERABLES Performing Organization Address City/State/[facility] Co de Phone Number [facility] [place] [phone] documented in this encounter Visit Diagnoses Not on filedocumented in this encounter Care Teams Instructor Substitute Cosmetology Relationship Specialty Start Date End Date Solomon Leslie MD [address] [place] [address] PCP - General Family Medicine 03/27/20 09/30/23 documented as of this encounter
--- OUTSIDE RECORDS SUMMARY | 2024-02-09 12:40 | XMS_ITS | Encounter Summary ---
Author Organization [facility] [place] [address] Care Team Providers Care Furniture Mechanic Name Role Phone Justin Tee Primary Care Provider + Encounter Details Date Type Department Care Team (Late st Contact Info) Description 10/02/2023 12:20 PM EDT Ancillary Procedure [place] [phone] Social History Tobacco Use Types Packs/Day Years Used Date Smoking Tobacco: Never Smokeless Tobacco: Never Alcohol Use Standard Drinks/Week Comments No 0 (1 standard drink = 0.6 oz pur e alcohol) [facility] Utilities Answer Date Recorded In the [...] place to sleep or slept in a retirement (including now)? No 10/03/2023 DH IPV Inpatient [...] Procedure Name Priority Date/Time Associated Diagnosis Comments REQUEST FOR 2ND READ CT CHEST ABDOMEN PELVIS Routine 10/02/2023 12:14 PM EDT documented in this encounter Results * Request For 2nd Read CT Chest [...] who have questions please contact the health palliative care specialist that requested your imaging first. ? Narrative 10/02/2023 1:28 PM EDT EXAMINATION: REQUEST FOR 2ND READ CT CHEST ABDOMEN PELVIS CLINICAL HISTORY: c/f cholangitis iso ongoin fevers/chills, RUQ tenderness; Sending Institution [facility]; Date of exam 20231001; I believe a reinterpretation of this exam may alter care of Patient. Yes TECHNIQUE: Helical CT angiogram of the chest, abdomen and pelvis following the intravenous administration of contrast. 100 cc Omnipaque 350 intravenous contrast. Maximum intensity projection (MIP) were reformatted. Study performed October 01, 2023 at [facility]. COMPARISON: None FINDINGS: VASCULAR FINDINGS Heart: Normal [...] cholangitis iso ongoin fevers/chills, RUQtenderness; Sending Institution [facility]; Date of exam 20231001; I believe a reinterpretation of this exam may alter care ofPatient. Yes TECHNIQUE: Helical CT angiogram of the chest, abdomen and pelvis followingthe intravenous administration of contrast. 100 cc Omnipaque 350 intravenous contrast. Maximum intensity projection (MIP) were reformatted. Studyperformed October 01, 2023 at [facility]. COMPARISON: None FINDINGS: VASCULAR FINDINGS Heart: Normal [...] patients who have questions please contactthe health palliative care specialist that requested your imaging first. Salvador Perea MD IMG OUTSIDE INTERPRE TATION ORDERABLES documented in this encounter Visit Diagnoses Not on filedocumented in this encounter Care Teams Furniture Mechanic Relationship Specialty Start Date End Date Justin Tee [place] [facility] [place] [address] PCP - General Internal Medicine 10/01/23 documented as of this encounter
--- OUTSIDE RECORDS SUMMARY | 2024-02-09 12:40 | XMS_ITS | Encounter Summary ---
Author Organization [facility] Address [facility] [place] [address] Care Team Providers Care Solo Truck Driver Name Role Phone Juanita Colon MD Primary Care Provider [phone] Encounter Details Date Type Department Care Team (Latest Contact Info) Description 10/24/2013 12:33 PM EDT - 10/24/2013 2:30 PM EDT Hospital Encounter Out[place] [address] uRth Langston MD [facility] [place] [address] Age related cataract Discharge Disposition: Home Social History Tobacco Use [...] surgery Ruth Langston MD Section of Opthalmology [facility] [phone] -Keep your eye patched, shielded, clean and dry overnight. The patch will be removed during your follow-up visit with Dr. Langston tomorrow. -The surgery center nurses should confirm time of your follow-up appointment for tomorrow with Dr. Langston. This appointment will be at the Eye Clinic in the main building at [facility]. -Mild discomfort is normal, but if you have any severe eye pain or bleeding call [phone] and ask to speak with the eye doctor manager of investigations. -Call your Primary Care Doctor or the [...] Langston MD - 10/24/2013 2:14 PM EDT [facility] Operative Note Patient Name: Princess Alston : [id number] MR#: [id number] Case Date: 10/24/2013 Surgeon: Surgeon(s) and Role: [...] Diagnosis Age related cataract Senile cataract, unspecified documented [...] Wed10/24/13 at 1248, Until Wed10/24/13 at 1416, Pain, Hold for respiratory rate [...] Starting on e 10/24/13 at 1248, Until Wed10/24/13 at 1416, Anxiety, [...] Eye, ONCE, 1 dose, On Wed10/24/13 at 1315, 1 drop to the operative [...] on 10/24/13 at 1315, Last dose on Tu10/24/13 at 1325, 1 drop to the operative [...] ONCE, 1 dose, On e 10/24/13 at 1330, Day of Surgery (Day [...] on 10/24/13 at 1315, Last dose on Tu10/24/13 at 1325, 1 drop to the operative [...] Eye, ONCE, 1 dose, On Wed10/24/13 at 1315, 1 drop to the operative [...] Wed10/24/13 at 1248, Until Wed10/24/13 at 1416, Pain, Hold for respiratory rate less than 8 breaths per minute. (maximum dose 100 mcg) , Intra-Operative (Intra-Procedure), Routine 1300 (Given - Provid er: Solomon Mcnamara RN)1355 (Given - Provider: Solomon Mcnamara RN)1357 (Given - Provider: Solomon Mcnamara, RN) midazolam (PF) (VERSED) 1 mg/mL injection 0.25-1 mg (CANCELED) 0.25-1 mg, Intravenous, EVERY 5 MIN PRN, Starting on Wed10/24/13 at 1248, Until Wed10/24/13 at 1416, Anxiety, Hold for delirium/agitation. (Maximum dose 4 mg.), Intra-Operative (Intra-Procedure), Routine 1300 (Given - Provid er: Solomon Mcnamara RN)1356 (Given - Provider: Solomon Mcnamara, RN) documented in this encounter Care Teams Solo Truck Driver Relationship Specialty Start Date End Date Juanita Colon MD [address] [place] [address] PCP - General 06/03/10 03/26/20 documented as of this encounter
--- OUTSIDE RECORDS SUMMARY | 2024-02-09 12:40 | XMS_ITS | Encounter Summary ---
Author Organization [facility] Address [facility] [place] [address] Care Team Providers Care Branch Service Leader Name Role Phone Solomon Leslie MD Primary Care Provider [phone] Reason for Visit * Consultation (Routine) - Closed Specialty Diagnoses / Procedures Referred By Contbeth t Referred To Contact Rheumatology Diagnoses Elevated erythrocyte sedimentation rate Polymyalgia rheumatica PMR, elevated sed rate Procedures consult and treat Solomon Leslie MD [address] [place] [address] [place] [address] [facility] Rheumatology [address] [place] [phone] Referral ID Status Reason Start Date Expiration Date Visits Re quested Visits Authorized [id number] Closed 12/26/2020 12/26/2021 6 6 Encounter Details Date Type Department Care Team (Late st Contact Info) Description 02/13/2021 1:15 PM EDT Office [place] [address] Joe Mendoza, [facility] [place] [address] Elevated sed rate (Primary Dx); Acute bursitis of right shoulder Social History Tobacco Use Types Packs/Day Years [...] Sign Reading Time Taken Comments Blood Pressure 122/56 02/13/2021 1:14 PM EDT Pulse 66 02/13/2021 1:14 PM EDT Temperature 36.8 ??C (98.3 ??F) 02/13/2021 1:14 PM ED T Respiratory Rate 16 02/13/2021 1:14 PM EDT Oxygen Saturation 99% 02/13/2021 1:14 PM EDT Inhaled Oxygen Concentration - - Weight 83.7 kg (184 lb 8 oz) 02/13/2021 1:14 PM EDT Height 160 cm (5' 3) 02/13/2021 1:14 PM EDT Body Mass Index 32.68 02/13/2021 1:14 PM EDT documented in this encounter Progress Notes * Reji Joe J, DO - 02/13/2021 1:15 PM EDT Rheumatology Outpatient Consultation Note Reason for Consult: The patient is seen at the request of Dr. Solomon Leslie MD for evaluation and treatment of polymyalgia rheumatica (PMR). History of Present Illness: Princess Alston is a 80 y.o. female who presents today for evaluation of PMR. Princess reports that her symptoms began at least a year ago First she experienced leg cramps that gradually worsened and occurred intermittently at night or when exposed to cold The cramping occurred in her calfs, inner thighs - very painful Heat helps, CBD gummies help some with the cramping She then developed Pain in neck and R shoulder which is constant, this developed a few weeks ago - Turning head R or L is painful; cervical flexion is also painful in upper back - Moving R shoulder worsens the pain - arm abduction is worst - Pain improves with rest - R shoulder and neck feels very sore and stiff in AM - gets a little better throughout the day butnever resolves. - heat helps to some degree She denies hip stiffness or ache. Meds: - Ibuprofen - sometimes helps - 400mg BID as needed - Tylenol - sometimes helps - Medrol dose pack did not help with symptoms - Previous severe abdominal pain and vomiting with prednisone, had been treated for H pylori since then H/o R shoulder rotator cuff repair 40 yrs ago H/o R shoulder injury ROS: All systems reviewed and are negative except as in HPI No recent infections, fever, chills nor night sweats. Past Medical History - Glaucoma - HTN - Colonoscopy planned for every 5 years - due - Mammogram - 1 year ago - Complete hysterectomy Social - no tobacco - occ alcohol Family Hx: M: CVA F: Hodgkins lymphoma Children - diabetes X3 Physical Examination: BP 122/56 Pulse 66 Temp 36.8 ??C (98.3 ??F) (Temporal) Resp 16 Ht 160 cm (5' 3) Wt 83.7 kg (184 lb 8 oz) SpO2 99% BMI 32.68 kg/m?? General: Plesasnt NAD Mouth: MMM no ulcerations or pharyngeal erythema Skin: (-)ulcers, (-)rash Lymph: no anterior or posterior cervical LAD Cardiovascular: RR, (-)murmurs, rubs, or gallops. Lungs: Clear to auscultation bilaterally. (-)R/R/W Neuro: Alert and oriented x3. Non focal Extremities: No cyanosis, clubbing or edema MSK: Shoulders: FROM on left; reduced abduction and extension on right. TTP on right subacromial bursa with bursal thickening Elbows:FROM, (-)pain, (-)nodules Wrists: FROM, no swelling, non-tender Hands: No synovitis, no MCP compression tenderness, full claw and fist Hips: FROM Knees: (-)effusions, non-tender ROM Ankles: FROM, non-tender, no swelling Feet: no MTP compression tenderness The right shoulder was prepped in sterile fashion. Ethyl chloride was used as local anesthetic. Theright subacromial bursa was entered and 40 mg of triamcinolone was injected with 1cc of lidocaine. The patient tolerated the procedure well with no immediate complications. Patient was advised to rest and ice the joint and watch for signs of infection including fever. Laboratory Data: ESR 46 (09/2019) 45 (03/2020) 53 (11/2020) - scanned docs Impression: Princess Alston is a 80 y.o. female who presents today for rheumatology consultation regarding possible PMR. Princess's history and physical exam is consistent with right subacromial bursitis, and thoracic muscle tension. Injected the R subacromial bursa with 40mg kenalog today, as well as prescribed a 2 week supply of flexeril for thoracic and cervical muscle spasms. Additionally she has intermittent cramping of the proximal and distal lower extremities. These symptoms are not consistent with PMR, which typically presents with symmetric involvement of bilateral shoulders and hip girdles. The intermittent cramping nature of her lower extremity pain is not expected in PMR. Princess's history of chronically elevated ESR raises the question of an inflammatory etiology to her musculoskeletal complaints however her findings are not consistent with PMR. Other etiologies for elevated inflammatory markers should be sought, and malignancy screening should be updated as appropriate for her age. Recommendations: S/p kenalog injection to R subacromial bursa today - consider repeating PT for R shoulder Flexeril 5mg qhs PRN for cervical, thoracic muscle tension Repeat ESR resulted at 54 (CRP normal) today which is mildly elevated and unlikely to be related toher MSK complaints Basic labs repeated today are normal, and SPEP is pending Follow up as needed Thank you for involving me in the care of Princess Alston . If you have additional questions or if I can be of further assistance, please do not hesitate to contact me. Joe Mendoza DO [facility] Rheumatology 60 minutes were spent on face to face care, chart review, and documentation today CC: Solomon Leslie MD documented in this encounter Plan of Treatment Not on file documented as of this encounter Procedures Procedure Name Priority Date/Time Associated Diagnosis Comments HC C-REACTIVE PROTEIN Routine 02/13/2021 2:25 PM EDT Elevated sed rate HEMOGRAM Routine 02/13/2021 2:25 PM EDT Elevated sed rate DIFFERENTIAL, AUTOMATED Routine 02/14/20 2:25 PM EDT Elevated sed rate HC CREATININE Routine 02/13/2021 2:25 PM EDT Elevated sed rate HC ESR-SEDIMENTATION RATE, BLOOD Routine 02/13/2021 2:25 PM EDT Elevated sed rate HC CBC,PLT & AUTO DIFF Routine 2:25 PM EDT Elevated sed rate HC ALANINE AMINO TRANSFERASE (ALT) Routine 02/13/2021 2:25 PM EDT Elevated sed rate HC ASPARTATE AMINOTRANSFERASE (AST) Routine 02/13/2021 2:25 PM EDT Elevated sed rate HC VENIPUNCTURE Routine 02/13/2021 2:25 PM EDT Elevated sed rate documented in this encounter Results * Differential, Automated (02/13/2021 2:25 PM EDT) Neutrophils % 52.5 % [facility] Neutr Abs (ANC) 4.51 1.70 - 6.10 x10(3)/[facility] Lymphocytes % 35.5 % [facility] Lymphocytes Abs 3.1 0.9 - 3.2 x10(3)/[facility] Monocytes % 8.8 % [facility] Monocyte Abs 0.8 0.3 - 0.9 x10(3)/[facility] Eosinophils % 2.0 % [facility] Eosinophils Abs 0.2 0.0 - 0.4 x10(3)/[facility] Basophils % 1.0 % [facility] Basophils Abs 0.1 0.0 - 0.1 x10(3)/[facility] Immature Gran % 0.20 % [facility] Comment: Immature granulocytes(IG's)percentage and absolute count will include metamyelocytes, myelocytes, and promyelocytes. Blood smears from CBCs yielding IG's will be scanned manually for concordance. If this scan disagrees with the automated IG or if promyelocytes are noted, a manual differential will be performed. Sayra Gran Abs 0.02 0.00 - 0.04 x10(3)/[facility] Blood 02/13/2021 2:25 PM EDT 02/13/2021 2:32 PM EDT Narrative Resulting Agency Comment Spec In Lab Joe Brown Reji GREEN HEMATOLOGY ORDERABLE S [facility] [place] [address] * Hemogram (02/13/2021 2:25 PM EDT) WBC 8.6 4.0 - 9.5 x10(3)/[facility] RBC 4.39 4.00 - 5.21 x10(6)/[facility] Hemoglobin 12.3 11.7 - 15.5 gm/dL [facility] Hematocrit 38.3 35.7 - 45.8 % [facility] MCV 87.2 82.6 - 94.4 [facility] MCH 28.0 27.1 - 32.0 pg [facility] MCHC 32.1 31.7 - 35.0 gm/dL [facility] Platelets 293 145 - 357 x10(3)/[facility] RDWSD 41.1 37.0 - 46.0 [facility] RDWCV 12.9 11.5 - 14.1 % [facility] MPV 9.6 7.6 - 12.9 [facility] nRBC % Auto 0.0 % [facility] nRBC Abs Auto 0.000 0.000 - 0.000 x10(3)/[facility] Blood 02/13/2021 2:25 PM EDT 02/13/2021 2:32 PM EDT Narrative Resulting Agency Comment Spec In Lab Joe Brown Reji GREEN HEMATOLOGY ORDERABLE S [facility] [place] [address] * Protein Electrophoresis, serum (02/13/2021 2:25 PM EDT) Total Prot Elec 6.9 6.1 - 8.0 gm/dL [facility] Albumin Elect 4.16 3.60 - 6.00 gm/dL [facility] Alpha1-Globul in 0.20 0.10 - 0.30 gm/dL [facility] Alpha2-Globul in 0.79 0.40 - 0.90 gm/dL [facility] Beta Globulin 0.90 0.50 - 1.00 gm/dL [facility] Gamma Globulin 0.86 0.50 - 1.30 gm/dL [facility] M1 Band None Detected None Detected [facility] Blood 02/13/2021 2:25 PM EDT 02/13/2021 2:32 PM EDT Narrative Resulting Agency Comment Spec In Lab Joe Mendoza DO CHEMISTRY ORDERABLES Performing Organization Address [facility] de Phone Number [facility] [place] [address] * Alanine Aminotransferase (02/13/2021 2:25 PM EDT) ALT 9 0 - 30 unit/L [facility] Blood 02/13/2021 2:25 PM EDT 02/13/2021 2:32 PM EDT Narrative Resulting Agency Comment Spec In Lab Joe Mendoza DO CHEMISTRY ORDERABLES Performing Organization Address [facility] Co de Phone Number [facility] [place] [address] * Aspartate Aminotransferase (02/13/2021 2:25 PM EDT) AST 13 0 - 30 unit/L [facility] Blood 02/13/2021 2:25 PM EDT 02/13/2021 2:32 PM EDT Narrative Resulting Agency Comment Spec In Lab Joe Mendoza DO CHEMISTRY ORDERABLES Performing Organization Address [facility] Co de Phone Number [facility] [place] [address] * (ABNORMAL) Creatinine (02/13/2021 2:25 PM EDT) Creatinine 1.08 0.70 - 1.20 mg/dL [facility] Estimated GFR 49(L) >=60 mL/min/1. 73 m?? [facility] Comment: This patient? s estimated glomerular filtration rate (eGFR) is between 49 mL/min/1.73 m2 (patients with less muscle mass) and 57 mL/min/1.73 m2 (patients with more muscle mass) as determined by the CKD-EPI equation. Assessment of eGFR is not appropriate when creatinine concentrations are rapidly changing. For clinical decisions where creatinine clearance will affect therapy, a 24-hour urine creatinine clearance may be advised. Assignment of CKD stage 1 - 5 for patients with an eGFR near the transition point between stages may be based on clinical assessment of muscle mass and symptoms in addition to eGFR. Blood 02/13/2021 2:25 PM EDT 02/13/2021 2:32 PM EDT Narrative Resulting Agency Comment Spec In Lab Joe Mendoza DO CHEMISTRY ORDERABLES Performing Organization Address [facility]/ZIP Co de Phone Number [facility] [place] [address] * CRP, acute inflammation (02/13/2021 2:25 PM EDT) CRP 3.5 <=4.9 mg/L [facility] Blood 02/13/2021 2:25 PM EDT 02/13/2021 2:32 PM EDT Narrative Resulting Agency Comment Spec In Lab Joe Mendoza DO CHEMISTRY ORDERABLES Performing Organization Address [facility]/ZIP Co de Phone Number [facility] [place] [address] * (ABNORMAL) Sedimentation rate (02/13/2021 2:25 PM EDT) Sed Rate 55(H) 3 - 46 mm/hr [facility] Comment: Effective June 21, 2019 new capillary photometric technology has resulted in a change in reference ranges. It is recommended that each ESR result be reviewed with its own age appropriate reference range. Blood 02/13/2021 2:25 PM EDT 02/13/2021 2:32 PM EDT Narrative Resulting Agency Comment Spec In Lab Joe Mendoza DO HEMATOLOGY ORDERABLE S [facility] [place] [address] documented in this encounter Visit Diagnoses Diagnosis Elevated sed rate- Primary Elevated sedimentation rate Acute bursitis of right shoulder documented in this encounter Administered Medications Inactive Administered Medications - up to 3 most recent administrations Medication Order MAR Action Action Date Dose Rate Site triamcinolone acetonide (Kenalog-40) (40 mg/mL) injection 40 mg 40 mg, Intra-articular, ONCE, 1 dose, On Dyana 02/13/21 at 1430, Routine Given 02/13/2021 4:38 PM EDT 40 mg documented in this encounter Care Teams Branch Service Leader Relationship Specialty Start Date End Date Solomon Leslie MD [address] [place] [id number] PCP - General Family Medicine 03/27/20 09/30/23 documented as of this encounter
--- OUTSIDE RECORDS SUMMARY | 2024-02-09 12:40 | XMS_ITS | Encounter Summary ---
Author Organization [facility] [place] [address] Care Team Providers Care Workers Compensation Claims Adjuster Name Role Phone Juanita Colon MD Primary Care Provider [phone] Reason for Visit * Reason Onset Date Comments Procedure Here for POM, an ticipating CE, OD Procedure 09/21/2013 Encounter Details Date Type Department Care Team (Latest Contact Info) Description 09/14/2013 10:00 AM EST Clinical Support [place] [address] CLINIC, DR HAMPTON Age related cataract (Primary Dx) Discharge Disposition: [...] as of this encounter Progress Notes * Ruth Langston MD - 09/21/2013 4:06 PM EDT Please see procedure note for details. RUTH LANGSTON MD documented in this encounter Plan of Treatment Not on file documented as of this encounter Procedures Procedure Name Priority Date/Time Associated Diagnosis Comments [id number] CALC BY LASER INTERFEROMETRY - OD - RIGHT EYE Routine 09/21/2013 4:06 PM EDT Age related cataract documented in this encounter Results * [id number] CALC BY LASER [id number] EYE (09/21/2013 4:06 PM EDT) Anatomical Region Laterality Modality Other Narrative 09/21/2013 4:06 PM EDT POM done on 09/14/13 Procedure Note Ruth Langston MD - 09/21/2013 POM done on 09/14/13 Ruth Langston MD OPHTHALMOLOGY SERVIC ES ORDERABLES documented in this encounter Visit Diagnoses Diagnosis Age related cataract- Primary Senile cataract, unspecified documented in this encounter Care Teams Workers Compensation Claims Adjuster Relationship Specialty Start Date End Date Juanita Colon MD [address] [place] [address] PCP - General 06/03/10 03/26/20 documented as of this encounter
--- OUTSIDE RECORDS SUMMARY | 2024-02-09 12:40 | XMS_ITS | Encounter Summary ---
[place] [address] Care Team Providers Care Plate Worker Helper Name Role Phone Lauren Tee Primary Care Provider + Reason for Visit * Auth/Cert (Routine) Specialty Diagnoses / Procedures Referred By Contac t Referred To Contact Diagnoses Cholangitis R/o cholangitis [place] [address] [facility] Referral ID Status Reason Start Date Expiration Date Visits Re quested Visits Authorized [id number] 1 1 Encounter Details Date Type Department Care Team (Latest Contact Info) Description 10/01/2023 11:54 PM EDT - 10/04/2023 3:00 PM EDT Hospital Encounter Hematology Special Care Unit Level 1 [place] [id number] [place] [address] [place] [address] Discharge Disposition: Home Social History Tobacco Use Types Packs/Day Years Used Date Smoking Tobacco: Never Smokeless Tobacco: Never Tobacco Cessation:Counseling Given: Not Answered Comments:Denies vaping Alcohol Use Standard Drinks/Week Comments No 0 (1 standard drink = 0.6 oz pur e alcohol) [facility] Utilities Answer Date Recorded In the [...] place to sleep or slept in a intermediate (including now)? No 10/03/2023 DH IPV Inpatient [...] please contact your inpatient physician through the [facility] Roofing Foreman . Issues afterhours and on weekends will [...] and anxiety who is a transfer from [facility] for possible cholangitis. She has been struggling [...] showed pneumobilia. She is now transferred to [facility] out of concern for cholangitis with need for ERCP. On arrival to [facility], she is hemodynamically stable and afebrile. She [...] Weight: 76.2 kg (167 lb 15.9 oz) (10/02/2311) Functional and Cognitive Status: Princess Alston is awake, alert, and oriented to person, place, and time, and able to return to normal activity with exceptions as outlined in the instructions below. Important Studies and Lab Data: Labs: Recent Labs 10/04/23 0406 10/03/23 0336 10/02/23 0133 WBC 6.7 8.6 10.1* HGB 7.9* 8.3* 8.2* HCT 25.3* 26.9* 27.0* PLATELET 249 247 234 Recent Labs 10/04/2340510/03/23 03310/02/23 0133 NA 137 138 134* K 3.4* 3.9 3.5 CL 107 106 103 CO2 22 22 19* BUN 9 10 13 CREATININE 0.84 0.91 0.94 Recent Labs 10/04/23 0406 10/03/23 03310/02/23 0133 AST 22 16 42* ALT 26 33* 55* ALKPHOS 241* 223* 286* BILITOT 0.4 0.5 1.1 BILIDIR 0.2 0.3 0.7* Recent Labs 10/04/23 04010/03/23 03310/02/23 0133 CALCIUM 8.1* 8.4* 8.1* MAGNESIUM -- [...] drug: pravastatin Your Inpatient Medical Team at [facility] Name(s) of your inpatient provider(s): Dr. Garcia Attending: Residents: For questions regarding issues relating to your hospitalization on the Hospital Medicine Service, please contact your inpatient physician through the [facility] Roofing Foreman [phone]. Issues after hours and on weekends will be handled by the Hospitalist staff on-call. Your Primary Care Provider KEKE Porter [phone] Holly Flanagan, Internal Medicine, PGY-1 10/04/2023 General [...] the day after the procedure, use an agst-zzg-zdyxbex spray to numb your throat. Sucking on [...] occurs, please contact your Doctor. Please call [phone] before 8pm Mon-Fri with problems, questions or concerns. If you call after 8pm or on weekends, call the Hospital at [phone] and ask to speak to the Sleeve Baster authorization specialist and the hot plate plywood press operator will contact that person for you. When should you call for help? Call [phone] anytime you think you may need emergency [...] problems, like Where can you learn more? [facility] View your After Visit Summary and more online at [email or web address] If you would like to provide feedback about your hospital experience, please call the Office of Patient and Family Relations at . If you have received this After Visit Summary in error, please immediately return it in person to the department, or notify the [facility] Privacy Office by calling toll free at between the hours of 8AM and 5PM to arrange for our retrieval of the documents at no cost to you. Content Version: 12.2 ?? 0157-9631 [employer]. Care instructions adapted under license by [facility]. If you have questions about a medical condition or this instruction, always ask your healthcare professional. [employer] disclaims any warranty or liability for your use of this information. YOU ARE SCHEDULED FOR FOLLOW UP APPOINTMENT WITH YOUR PRIMARY CARE PROVIDER, LAUREN DAVIES, ON 10/11/2023 AT 10:10AM Discharge References/Attachments None documented in this encounter Discharge Instructions * Discharge Instructions* Rhoda Lind, INTERNAL GRINDER SET UP OPERATOR - 10/04/2023 11:21 AM EDT Endoscopic Retrograde [...] the day after the procedure, use an ilzm-xwe-uiwzxky spray to numb your throat. Sucking on [...] occurs, please contact your Doctor. Please call [phone] before 8pm Mon-Fri with problems, questions or concerns. If you call after 8pm or on weekends, call the Hospital at [phone] and ask to speak to the Sleeve Baster authorization specialist and the hot plate plywood press operator will contact that person for you. When [...] problems, like Where can you learn more? [facility] View your After Visit Summary and more online at [email or web address] If you would like to provide feedback about your hospital experience, please call the Office of Patient and Family Relations at . If you have received this After Visit Summary in error, please immediately return it in person to the department, or notify the [facility] Privacy Office by calling toll free at between the hours of 8AM and 5PM to arrange for our retrieval of the documents at no cost to you. Content Version: 12.2 ?? [id number] [employer]. Care instructions adapted under license by [facility]. If you have questions about a medical condition or this instruction, always ask your healthcare professional. [employer] disclaims any warranty or liability for your [...] drug: pravastatin Your Inpatient Medical Team at [facility] Name(s) of your inpatient provider(s): Dr. Garcia Attending: Residents: For questions regarding issues relating to your hospitalization on the Hospital Medicine Service, please contact your inpatient physician through the [facility] Roofing Foreman [phone]. Issues after hours and on weekends will be handled by the Hospitalist staff on-call. Your Primary Care Provider KEKE Porter [phone] Tye Aburto MD Internal Medicine, PGY-1 10/04/2023 [...] spent <30 minutes (Day of Discharge Code 40854) involved in the final examination of the [...] IV ABX continued. VSS. Report given to YUSUF Bartlett. At 1100. * Haily Rudolph MD - 10/03/2023 8:40 AM EDT MEDICINE PAGER [phone] - [facility] Daily Progress Note Page [phone] to reach [...] who have questions please contact the health director of home care hospice that requested your imaging first. Angiogram Chest for Pulmonary Embolus w Contrast [...] who have questions please contact the health director of home care hospice that requested your imaging first. A/P 2nd [...] Resuscitation - Inpatient PCP Solomon Leslie MD [phone] Active Hospital Problems Diagnosis Cholangitis Resolved Hospital [...] of two midnights or is on the [facility] inpatient only procedure list (status C) due [...] Continuous Infusions: sodium chloride 0.9% 1,000 mL (10/02/232203) PRN Meds:.sodium chloride 0.9 % (flush), lidocaine, [...] who have questions please contact the health director of home care hospice that requested your imaging first. Request For [...] who have questions please contact the health director of home care hospice that requested your imaging first. Impression: 83 yo female with hx of CCY two days of RUQ abdominal pain and chills sent from her PCP's office tot ER after a finding of abnormal LFTs [...] D.O. Fellow in Gastroenterology & Hepatology Pager #[phone] 10/03/2023 I have seen and evaluated the [...] for d/c afterwards. Alcides Jonas MD, MS staffing operations manager Consumer Insight Manager, Gastroenterology and Hepatology * Deanna Richard RN [...] today. Regular diet. Will be NPO at [place] for ERCP tomorrow. PLAN MOVING FORWARD: Monitor [...] N/A CPG GOAL OUTCOME EVALUATION: * Holly Flanagan DO - 10/02/2023 1:48 PM EDT MEDICINE PAGER [phone] - [facility] Daily Progress Note Page [phone] to reach [...] who have questions please contact the health director of home care hospice that requested your imaging first. Angiogram Chest for Pulmonary Embolus w Contrast [...] who have questions please contact the health director of home care hospice that requested your imaging first. ULTANTS: IP [...] 2 months #Pneumobilia on CT c/a/p at [facility] -- pip/tazo -- repeat CBC, CMP -- [...] Resuscitation - Inpatient PCP Solomon Leslie MD [phone] Active Hospital Problems Diagnosis Cholangitis Resolved Hospital [...] from the original note were not included. [facility] Medicine H&P Patient info: Name: Princess Alston : 1940 PCP: Solomon Leslie MD PCP phone number: [phone] Date of Admission: 10/01/2023 ( Hospital Day [...] and anxiety who is a transfer from [facility] for possible cholangitis. She has been struggling [...] showed pneumobilia. She is now transferred to [facility] out of concern for cholangitis with need for ERCP. On arrival to [facility], she is hemodynamically stable and afebrile. She [...] Hyperlipidemia Hypertension Strabismus Patched as a child PSH Past Surgical History: Procedure Laterality Date CATARACT [...] - Nausea/Vomiting Prednisone Nausea And Vomiting [place] CIS - contact dermatitis Objective: Vitals Last [...] Necessity fluid therapy intermittent;medication therapy intermittent 10/02/23 Site Preparation/Maintenance dressing: dry and intact 10/02/23 Securement catheter stabilization device, secured with 10/02/23 [...] in the last 7068 hours. Invalid input(s): [id number] No results for input(s): POCGLU in the last 168 hours. Heme No results for input(s): LDH, HAPTOGLOBIN, URICACID in the last 168 hours. ABG (Arterial Blood Gas) No results found for: PHART, PO2ART, DPH3WOD, GDS9ITS Microbiology: Microbiology Results (Last 30 days) No results found for the last 720 hours. Imaging: No results found for this visit on 10/01/23. Medications See [facility] Assessment & Plan: Princess Alston is a [...] course Smiley Martin MD Internal Medicine, PGY-3 [facility] Medicine, #[id number] 10/02/23 1:29 AM Associated attestation [...] of two midnights or is on the [facility] inpatient only procedure list (status C) due [...] Lauren Tee PA Relationship: PCP - General [facility] [address] [place] [address] Transportation: family or friend will provide *Jhonny [...] agreement with plan. Joanne Chin RN, BSN [employer] - Medicine Office of Care Management Office: Pager: [phone] * Plan of Care - Gisele Javier [...] Admitted From: Transfer from another hospital Location: [facility] Reason for Hospitalization: I've lost a lot [...] In the past 12 months has the electric, gas, oil, or water [employer] threatened to shut off services in your [...] needed for daily living?: No Current DME: walker - standard Home Address confirmed as: [address] [place] [address] [place] [address] Social & Family Supports: All names listed [...] Yes ; Prescription Coverage: Yes Preferred Pharmacy: [id number] - [place], [place] - [address] [place] [id number] [facility] - [place], [place] - [address] [facility] [address] [facility] [address] Status: Patient is a : No Primary Care Provider listed: KEKE Calvin out of [facility] in [facility].-email sent to yoel to update Patient/Caregiver Goals of Treatment: to d/c home with family when medically ready. Potential Needs for Transition of Care: none Agency Referrals: Not Applicable Transportation: no concerns Transportation Anticipated: family or friend will provide Concerns to be Addressed: no discharge needs identified Assessment: Patient is admitted to medicine service for Cholangitis [K83.09]. Custody Officer called patient's daughter (Belkys) to obtain all [...] of care planning. Mague Hensley RN, CM Pager-[phone] * Plan of Care - Letitia Godinez RN - 10/03/2023 5:04 PM EDT OUTCOME EVALUATION NOTE: OUTCOME SUMMARY: Assumed care of patient at 1100, report from Cristina GOLDBERG. VSS on RA. Denied pain, nausea. Continues on IVF and zosyn. NPO for possible ERCP - changed to regular diet around lunch and plan for NPO at MN/25 for ERCP. Family at bedside. Washed up [...] 10/02/2023 9:34 PM EDT Nutrition Consult Note Princess Alston is a 83 y.o. female admitted [...] encounter: 76.2 kg (167 lb 15.9 oz). Velpen Body Weight (IBW) (kg): 53.15 Usual Body [...] Malnutrition Diagnosis: Not enough data to assess (FRANTZ Michaud J Parenteral Enteral Nutr. 2012 November; 36(3): 273-83) Nutrition to continue to follow [...] - Nausea/Vomiting Prednisone Nausea And Vomiting [place] CIS - contact dermatitis SOCIAL HISTORY Social [...] D.O. Fellow in Gastroenterology & Hepatology Pager #[phone] 10/02/2023' I have seen and evaluated the patient with Dr. Morelos. I have reviewed the fellow's history during the encounter and I agree with the details as written above. My physical examination confirms the above findings. The assessment and plan were formulated in discussion with me at the time of the encounter and I agree with them as documented. Alcides Jonas MD, MS staffing operations manager Consumer Insight Manager, Gastroenterology and Hepatology documented in this encounter Plan of Treatment Not on file documented as of this encounter Procedures Procedure Name Priority Date/Time Associated Diagnosis Comments XR ERCP Routine 10/04/2023 12:23 PM EDT Ercp, W/Removal Stone, Raman/Pancr Ducts ([id number]) 10/04/2023 9:54 AM EDT cholangitis Ercp, Sphincterotomy (65490) 10/04/2023 9:54 AM EDT cholangitis CHOLANGIOGRAM 10/04/2023 9:54 AM EDT cholangitis Ercp, Diagnostic ([id number]) 10/04/2023 9:54 AM EDT cholangitis ERCP Routine [...] XR ERCP (10/04/2023 12:23 PM EDT) Narrative [facility] - 10/04/2023 12:25 PM EDT See PACS for result report. Salvador Perea MD IM FILM LIBRARY ORD ERABLES [place], [place] * ERCP (10/04/2023 9:08 AM EDT) ERCP [facility] Endoscopy Procedure Date: 10/04/2023 9:08 AM ? Patient Name: Princess Alston ? Date of : 1940 ? Age: 83 ? Order #: [id number] ? Instrument Name: [id number] ? Procedure: ? ERCP Indications: ? Evaluation and possible treatment ? of bile duct stone(s) Providers: ? Brijesh Fisher MD, Terrance Moya ? Freeman Rosario, ? Tye Gonzales Referring MD: ?Salvador Garcia Medicines: ? General Anesthesia Complications: ? No immediate [...] the procedure well. ? Findings: ? The net washer film was normal. The esophagus was ? [...] Bili, Direct 0.2 0.0 - 0.3 mg/dL [facility] Blood 10/04/2023 4:06 AM EDT 10/04/2023 4:25 AM EDT Narrative Resulting Agency Comment Spec In Lab Holly Flanagan DO CHEMISTRY ORDERABL ES Performing Organization Address City/[facility]/ZIP Co de Phone Number [facility] [place] [address] * Differential, Automated (10/04/2023 4:06 AM EDT) Neutrophils % 64.3 % [facility] Neutr Abs (ANC) 4.33 1.70 - 6.10 x10(3)/[facility] Lymphocytes % 21.5 % [facility] Lymphocytes Abs 1.4 0.9 - 3.2 x10(3)/[facility] Monocytes % 11.1 % [facility] Monocyte Abs 0.8 0.3 - 0.9 x10(3)/[facility] Eosinophils % 1.6 % [facility] Eosinophils Abs 0.1 0.0 - 0.4 x10(3)/[facility] Basophils % 0.9 % [facility] Basophils Abs 0.1 0.0 - 0.1 x10(3)/[facility] Immature Gran % 0.60 % [facility] Comment: Immature granulocytes(IG's)percentage and absolute count will include metamyelocytes, myelocytes, and promyelocytes. Blood smears from CBCs yielding IG's will be scanned manually for concordance. If this scan disagrees with the automated IG or if promyelocytes are noted, a manual differential will be performed. Sayra Gran Abs 0.04 0.00 - 0.04 x10(3)/[facility] Blood 10/04/2023 4:06 AM EDT 10/04/2023 4:26 AM EDT Narrative Resulting Agency Comment Spec In Lab Sebastian Dumont MD HEMATOLOG Y ORDERABLES [facility] [place] [address] * (ABNORMAL) Hemogram (10/04/2023 4:06 AM EDT) WBC 6.7 4.0 - 9.5 x10(3)/[facility] RBC 3.08(L) 4.00 - 5.21 x10(6)/[facility] Hemoglobin 7.9(L) 11.7 - 15.5 g/dL [facility] Hematocrit 25.3(L) 35.7 - 45.8 % [facility] MCV 82.1(L) 82.6 - 94.4 fL [facility] MCH 25.6(L) 27.1 - 32.0 pg [facility] MCHC 31.2(L) 31.7 - 35.0 g/dL [facility] Platelets 249 145 - 357 x10(3)/[facility] RDWSD 52.6(H) 37.0 - 46.0 fL [facility] RDWCV 17.5(H) 11.5 - 14.1 % [facility] MPV 9.8 7.6 - 12.9 fL [facility] nRBC % Auto 0.0 % [facility] nRBC Abs Auto 0.000 0.000 - 0.000 x10(3)/mcL [facility] Blood 10/04/2023 4:06 AM EDT 10/04/2023 4:26 AM EDT Narrative Resulting Agency Comment Spec In Lab Sebastian Dumont MD HEMATOLOG Y ORDERABLES [facility] [place] [address] * (ABNORMAL) Comprehensive metabolic panel (non-fasting) (10/04/2023 4:06 AM EDT) Glucose Lvl 110 65 - 199 mg/dL [facility] Comment:Diabetes: >=200 mg/d L plus symptoms BUN 9 8 - 18 mg/dL [facility] Creatinine 0.84 0.70 - 1.20 mg/dL [facility] Sodium 137 135 - 145 mmol/L [facility] Potassium 3.4(L) 3.5 - 5.0 mmol/L [facility] Comment: Please note: ??Patients with WBC >100,000 may have falsely elevated Potassium levels. ??For accurate Potassium quantification in these patients send serum separator tube (gold top) for subsequent determinations. ??Contact the Clinical Chemistry Laboratory if there are any questions. Chloride 107 98 - 107 mmol/L [facility] CO2 22 22 - 31 mmol/L [facility] Anion Gap 8 5 - 15 mmol/L [facility] Calcium 8.1(L) 8.5 - 10.5 mg/dL [facility] Total Protein 5.5(L) 6.1 - 8.0 g/dL [facility] Albumin 2.6(L) 3.2 - 5.2 g/dL [facility] AST 22 0 - 30 unit/L [facility] ALT 26 0 - 30 unit/L [facility] Alk Phos 241(H) 35 - 105 unit/L [facility] Total Bilirubin 0.4 0.2 - 1.3 mg/dL [facility] Estimated GFR 70 >=60 mL/min/1. 73 m?? [facility] Comment: This patient's estimated GFR [...] In Lab Sebastian Dumont MD CHEMISTRY ORDERABLES [facility] [place] [address] * Bilirubin, Direct (10/03/2023 3:36 AM EDT) Bili, Direct 0.3 0.0 - 0.3 mg/dL [facility] Blood 10/03/2023 3:36 AM EDT 10/03/2023 4:12 AM EDT Narrative Resulting Agency Comment Spec In Lab Holly Flanagan DO CHEMISTRY ORDERABL ES [facility] [place] [address] * (ABNORMAL) Differential, Automated (10/03/2023 3:36 AM EDT) Neutrophils % 73.1 % [facility] Neutr Abs (ANC) 6.27(H) 1.70 - 6.10 x10(3)/mc L [facility] Lymphocytes % 14.8 % [facility] Lymphocytes Abs 1.3 0.9 - 3.2 x10(3)/[facility] Monocytes % 9.9 % [facility] Monocyte Abs 0.8 0.3 - 0.9 x10(3)/[facility] Eosinophils % 1.3 % [facility] Eosinophils Abs 0.1 0.0 - 0.4 x10(3)/[facility]OR[facility] Basophils % 0.6 % [facility] Basophils Abs 0.0 0.0 - 0.1 x10(3)/[facility] Immature Gran % 0.30 % [facility] Comment: Immature granulocytes(IG's)percentage and absolute count will include metamyelocytes, myelocytes, and promyelocytes. Blood smears from CBCs yielding IG's will be scanned manually for concordance. If this scan disagrees with the automated IG or if promyelocytes are noted, a manual differential will be performed. Sayra Gran Abs 0.03 0.00 - 0.04 x10(3)/[facility] Blood 10/03/2023 3:36 AM EDT 10/03/2023 4:11 AM EDT Narrative Resulting Agency Comment Spec In Lab Sebastian Dumont MD HEMATOLOG Y ORDERABLES [facility] [place] [address] * (ABNORMAL) Hemogram (10/03/2023 3:36 AM EDT) WBC 8.6 4.0 - 9.5 x10(3)/[facility] RBC 3.28(L) 4.00 - 5.21 x10(6)/[facility] Hemoglobin 8.3(L) 11.7 - 15.5 g/dL [facility] Hematocrit 26.9(L) 35.7 - 45.8 % [facility] MCV 82.0(L) 82.6 - 94.4 fL [facility] MCH 25.3(L) 27.1 - 32.0 pg [facility] MCHC 30.9(L) 31.7 - 35.0 g/dL [facility] Platelets 247 145 - 357 x10(3)/[facility] RDWSD 51.8(H) 37.0 - 46.0 [facility] LABORATORY RDWCV 17.5(H) 11.5 - 14.1 % [facility] MPV 9.8 7.6 - 12.9 [facility] nRBC % Auto 0.0 % [facility] nRBC Abs Auto 0.000 0.000 - 0.000 x10(3)/[facility] Blood 10/03/2023 3:36 AM EDT 10/03/2023 4:11 AM EDT Narrative Resulting Agency Comment Spec In Lab Sebastian Dumont MD HEMATOLOG Y ORDERABLES [facility] [place] [address] * (ABNORMAL) Reticulocyte Count (10/03/2023 3:36 AM EDT) Retic Ct % 0.9 0.7 - 2.5 % [facility] Retic Ct Abs 0.030 0.020 - 0.110 x10(6)/[facility] Immature Retic% 16.3(H) 0.5 - 13.8 % [facility] Reticulated Hgb 26.6(L) 29.8 - 39.4 pg [facility] Blood 10/03/2023 3:36 AM EDT 10/03/2023 4:11 AM EDT Narrative Resulting Agency Comment Spec In Lab Salvador Perea MD HEMATOLOGY ORDERABLE S Performing Organization Address [facility] [facility] de Phone Number [facility] [place] [address] * (ABNORMAL) Haptoglobin (10/03/2023 3:36 AM EDT) Haptoglobin 376(H) 30 - 200 mg/dL [facility] Comment: Haptoglobin concentrations in newborns is low to undetectable; however, adult concentrations are usually attained by 4 months of age. ??No sex-related differences for haptoglobin have been detected. Blood 10/03/2023 3:36 AM EDT 10/03/2023 4:11 AM EDT Narrative Resulting Agency Comment Spec In Lab Salvador Perea MD CHEMISTRY ORDERABLES Performing Organization Address [facility] de Phone Number [facility] [place] [address] * (ABNORMAL) Lactate Dehydrogenase (10/03/2023 3:36 AM EDT) LDH 96(L) 110 - 220 unit/L [facility] Blood 10/03/2023 3:36 AM EDT 10/03/2023 4:12 AM EDT Narrative Resulting Agency Comment Spec In Lab Salvador Perea MD CHEMISTRY ORDERABLES Performing Organization Address [facility] Co de Phone Number [facility] [place] [address] * Ferritin (10/03/2023 3:36 AM EDT) Ferritin 142 11 - 328 ng/mL [facility] Comment: Please note that as of 06/16/2023, the reference intervals for Ferritin have been updated. Blood 10/03/2023 3:36 AM EDT 10/03/2023 4:11 AM EDT Narrative Resulting Agency Comment Spec In Lab Salvador Perea MD CHEMISTRY ORDERABLES Performing Organization Address City/[facility]/ZIP Co de Phone Number [facility] [place] [address] * (ABNORMAL) Iron and TIBC (10/03/2023 3:36 AM EDT) Iron 18(L) 30 - 150 mcg/dL [facility] TIBC 178(L) 250 - 450 mcg/dL [facility] Iron Saturation 10(L) 20 - 50 % [facility] Blood 10/03/2023 3:36 AM EDT 10/03/2023 4:12 AM EDT Narrative Resulting Agency Comment Spec In Lab Salvador Perea MD CHEMISTRY ORDERABLES Performing Organization Address [facility] Co de Phone Number [facility] [place] [address] * (ABNORMAL) Comprehensive metabolic panel (non-fasting) (10/03/2023 3:36 AM EDT) Glucose Lvl 98 65 - 199 mg/dL [facility] Comment:Diabetes: >=200 mg/d L plus symptoms BUN 10 8 - 18 mg/dL [facility] Creatinine 0.91 0.70 - 1.20 mg/dL [facility] Sodium 138 135 - 145 mmol/L [facility] Potassium 3.9 3.5 - 5.0 mmol/L [facility] Comment: Please note: ??Patients with WBC >100,000 may have falsely elevated Potassium levels. ??For accurate Potassium quantification in these patients send serum separator tube (gold top) for subsequent determinations. ??Contact the Clinical Chemistry Laboratory if there are any questions. Chloride 106 98 - 107 mmol/L [facility] CO2 22 22 - 31 mmol/L [facility] Anion Gap 10 5 - 15 mmol/L [facility] Calcium 8.4(L) 8.5 - 10.5 mg/dL [facility] Total Protein 5.9(L) 6.1 - 8.0 g/dL [facility] Albumin 2.6(L) 3.2 - 5.2 g/dL [facility] AST 16 0 - 30 unit/L [facility] ALT 33(H) 0 - 30 unit/L [facility] Alk Phos 223(H) 35 - 105 unit/L [facility] Total Bilirubin 0.5 0.2 - 1.3 mg/dL [facility] Estimated GFR 63 >=60 mL/min/1. 73 m?? [facility] Comment: This patient's estimated GFR [...] In Lab Sebastian Dumont MD CHEMISTRY ORDERABLES [facility] [place] [address] * Urine Hold (10/02/2023 8:50 PM EDT) Urine Hold Sample in lab. [facility] Comment: Collection date/time has been modified to: 20:50:00. ??Previous collection date/time: 20:36:00. Corrected from Sample in lab. [NA] on 10/02/23 21:00:54 EDT by Fredy Curtis. Urine Urine / Unknown 10/02/2023 8 :50 PM EDT 10/02/2023 9:00 PM EDT Holyl Flanagan DO URINE ORDERABLES Performing Organization Address [facility]/ZIP Co de Phone Number [facility] [place] [address] * Urinalysis with reflex Culture (10/02/2023 8:50 PM EDT) Glucose UA Negative Negative mg/dL [facility] Protein UA Negative Negative mg/dL [facility] Bilirubin UA Negative Negative mg/dL [facility] Comment: Clinical correlation required for positive Urine Bilirubin results as false positive may occur with some drugs and drug related products. If a false positive is suspected a serum total bilirubin should be considered if clinically indicated. Urobilinogen UA Normal Normal mg/dL [facility] pH UA 6.5 5.0 - 8.0 [facility] Blood UA Negative Negative mg/dL [facility] Ketones UA Negative Negative mg/dL [facility] Nitrite UA Negative Negative [facility] Leukocytes UA Negative Negative [facility] Appearance UA Clear Clear [facility] Spec [place] UA 1.017 1.005 - 1.030 [facility] Color UA Yellow Yellow [facility] Culture Reflexed No [facility] Clean Catch Urine 10/02/2023 8:50 PM EDT 10/02/2023 9:00 PM EDT Narrative Resulting Agency Comment Spec In Lab Salvador Perea MD URINE ORDERABLES Performing Organization Address City/[facility]/ZIP Co de Phone Number [facility] [place] [address] * CT Angiogram Chest for Pulmonary Embolus [...] who have questions please contact the health director of home care hospice that requested your imaging first. ? Narrative [...] patients who have questions please contactthe health director of home care hospice that requested your imaging first. Salvador Perea MD IM CT ORDERABLES * Request For 2nd Read [...] who have questions please contact the health director of home care hospice that requested your imaging first. ? Narrative 10/02/2023 1:28 PM EDT EXAMINATION: REQUEST FOR 2ND READ CT CHEST ABDOMEN PELVIS CLINICAL HISTORY: c/f cholangitis iso ongoin fevers/chills, RUQ tenderness; Sending Institution [facility]; Date of exam 20231001; I believe a reinterpretation of this exam may alter care of Patient. Yes TECHNIQUE: Helical CT angiogram of the chest, abdomen and pelvis following the intravenous administration of contrast. 100 cc Omnipaque 350 intravenous contrast. Maximum intensity projection (MIP) were reformatted. Study performed October 01, 2023 at [facility]. COMPARISON: None FINDINGS: VASCULAR FINDINGS Heart: Normal [...] cholangitis iso ongoin fevers/chills, RUQtenderness; Sending Institution [facility]; Date of exam 20231001; I believe a reinterpretation of this exam may alter care ofPatient. Yes TECHNIQUE: Helical CT angiogram of the chest, abdomen and pelvis followingthe intravenous administration of contrast. 100 cc Omnipaque 350 intravenous contrast. Maximum intensity projection (MIP) were reformatted. Studyperformed October 01, 2023 at [facility]. COMPARISON: None FINDINGS: VASCULAR FINDINGS Heart: Normal [...] patients who have questions please contactthe health director of home care hospice that requested your imaging first. Salvador Perea MD IMG OUTSIDE INTERPRE TATION ORDERABLES * Green Tube HOLD (10/02/2023 1:33 AM EDT) Green Hold Sample in lab. [facility] Blood Venous Draw / Unknown 10/02/2023 1:33 AM EDT 10/02/2023 1:41 AM EDT Sebastian Dumont MD CHEMISTRY ORDERABLES [facility] [place] [address] * (ABNORMAL) Differential, Automated (10/02/2023 1:33 AM EDT) Neutrophils % 75.7 % [facility] Neutr Abs (ANC) 7.65(H) 1.70 - 6.10 x10(3)/[facility] Lymphocytes % 14.1 % [facility] Lymphocytes Abs 1.4 0.9 - 3.2 x10(3)/[facility] Monocytes % 8.3 % [facility] Monocyte Abs 0.8 0.3 - 0.9 x10(3)/[facility] Eosinophils % 0.7 % [facility] Eosinophils Abs 0.1 0.0 - 0.4 x10(3)/[facility] Basophils % 0.6 % [facility] Basophils Abs 0.1 0.0 - 0.1 x10(3)/[facility] Immature Gran % 0.60 % [facility] Comment: Immature granulocytes(IG's)percentage and absolute count will include metamyelocytes, myelocytes, and promyelocytes. Blood smears from CBCs yielding IG's will be scanned manually for concordance. If this scan disagrees with the automated IG or if promyelocytes are noted, a manual differential will be performed. Sayra Gran Abs 0.06(H) 0.00 - 0.04 x10(3)/ L [facility] Blood 10/02/2023 1:33 AM EDT 10/02/2023 1:40 AM EDT Narrative Resulting Agency Comment Spec In Lab Sebastian Dumont MD HEMATOLOG Y ORDERABLES [facility] [place] [address] * (ABNORMAL) Hemogram (10/02/2023 1:33 AM EDT) WBC 10.1(H) 4.0 - 9.5 x10(3)/[facility]ORATORY RBC 3.30(L) 4.00 - 5.21 x10(6)/[facility] Hemoglobin 8.2(L) 11.7 - 15.5 g/dL [facility] Hematocrit 27.0(L) 35.7 - 45.8 % [facility] MCV 81.8(L) 82.6 - 94.4 fL [facility] MCH 24.8(L) 27.1 - 32.0 pg [facility] MCHC 30.4(L) 31.7 - 35.0 g/dL [facility] Platelets 234 145 - 357 x10(3)/[facility] LABORATORY RDWSD 50.5(H) 37.0 - 46.0 fL [facility] RDWCV 17.0(H) 11.5 - 14.1 % [facility] MPV 9.5 7.6 - 12.9 fL [facility] nRBC % Auto 0.0 % [facility] nRBC Abs Auto 0.000 0.000 - 0.000 x10(3)/[facility] Blood 10/02/2023 1:33 AM EDT 10/02/2023 1:40 AM EDT Narrative Resulting Agency Comment Spec In Lab Sebastian Dumont MD HEMATOLOG Y ORDERABLES [facility] [place] [address] * Lactate, whole blood, send to lab ([facility] [place]) (10/02/2023 1:33 AM EDT) Lactate WB 1.2 0.5 - 2.2 mmol/L [facility] Blood 10/02/2023 1:33 AM EDT 10/02/2023 1:40 AM EDT Narrative Resulting Agency Comment Spec In Lab Sebastian Dumont MD CHEMISTRY ORDERABLES [facility] [place] [address] * Magnesium (10/02/2023 1:33 AM EDT) Magnesium 0.82 0.69 - 1.07 mmol/L [facility] Blood 10/02/2023 1:33 AM EDT 10/02/2023 1:40 AM EDT Narrative Resulting Agency Comment Spec In Lab Sebastian Dumont MD CHEMISTRY ORDERABLES Performing Organization Address [facility] Co de Phone Number [facility] [place] [address] * (ABNORMAL) Hepatic Function Panel (10/02/2023 1:33 AM EDT) Total Protein 5.9(L) 6.1 - 8.0 g/dL [facility] Albumin 2.6(L) 3.2 - 5.2 g/dL [facility] AST 42(H) 0 - 30 unit/L [facility] ALT 55(H) 0 - 30 unit/L [facility] Alk Phos 286(H) 35 - 105 unit/L [facility] Total Bilirubin 1.1 0.2 - 1.3 mg/dL [facility] Bili, Direct 0.7(H) 0.0 - 0.3 mg/dL [facility] Blood 10/02/2023 1:33 AM EDT 10/02/2023 1:40 AM EDT Narrative Resulting Agency Comment Spec In Lab Sebastian Dumont MD CHEMISTRY ORDERABLES [facility] [place] [address] * (ABNORMAL) Basic Metabolic Panel (non-fasting) (10/02/2023 1:33 AM EDT) Glucose Lvl 107 65 - 199 mg/dL [facility] Comment:Diabetes: >=200 mg/d L plus symptoms BUN 13 8 - 18 mg/dL [facility] Creatinine 0.94 0.70 - 1.20 mg/dL [facility] Sodium 134(L) 135 - 145 mmol/L [facility] Potassium 3.5 3.5 - 5.0 mmol/L [facility] Comment: Please note: ??Patients with WBC >100,000 may have falsely elevated Potassium levels. ??For accurate Potassium quantification in these patients send serum separator tube (gold top) for subsequent determinations. ??Contact the Clinical Chemistry Laboratory if there are any questions. Chloride 103 98 - 107 mmol/L [facility] CO2 19(L) 22 - 31 mmol/L [facility] Anion Gap 12 5 - 15 mmol/L [facility] Calcium 8.1(L) 8.5 - 10.5 mg/dL [facility] Estimated GFR 61 >=60 mL/min/1. 73 m?? [facility] Comment: This patient's estimated GFR [...] In Lab Sebastian Dumont MD CHEMISTRY ORDERABLES [facility] [place] [address] documented in this encounter Visit Diagnoses Diagnosis Cholangitis- Primary documented in this encounter Admitting Diagnoses Diagnosis Cholangitis [...] Until 10/04/23 at 1717, Per Protocol, Routine iohexoL (Omnipaque) (350 mg/mL) solution 0-200 mL 0-200 mL, Intravenous, ONCE PRN, 1 dose, Starting on 10/02/23 at 1224, Until 10/02/23 at 1224, Per Protocol, Warning Vesicant/Irritant Medication , Radiology Contrast, Routine Given 10/02/2023 12:24 PM EDT 51 mLs lactated ringers infusion 100 mL/hr, Intravenous, CONTINUOUS, Starting on 10/03/24 at 0930, Until Wed10/04/23 at 1121, Endoscopy (Day of Procedure) New Bag 10/04/2023 9:07 AM EDT 100 mL/hr 100 mL/hr pantoprazole EC (Protonix) tablet 40 mg 40 mg, Oral, DAILY, First dose on 10/02/23 at 0900, Until Discontinued, DO NOT CRUSH OR OPEN, Routine Given 10/04/2023 8:23 AM EDT 40 mg Given 10/03/2023 8:33 AM EDT 40 mg Given 10/02/2023 9:09 AM EDT 40 mg piperacillin-tazobactam (Zosyn) 3.375 g vial attach to sodium chloride 0.9% 50 mL Mini-Bag Plus 3.375 g, Intravenous, EVERY 8 HOURS, First dose on 10/02/23 at 0130, Until Discontinued, Administer over 4 Hours, Warning Vesicant/Irritant Medication Do not administer or Y-site with lactated ringers., Indication for (Active or Suspected): GI/Intra-abdominal New Bag 10/04/2023 11:35 AM EDT 3.375 g 12.5 mL/hr New Bag 10/04/2023 1:07 AM EDT 3.375 g 12.5 mL/hr New Bag 10/03/2023 5:29 PM EDT 3.375 g 12.5 mL/hr polyethylene glycoL (Miralax) packet 17 g 17 g, Oral, DAILY, First dose on 10/02/23 at 0900, Until Discontinued, Routine Given 10/03/2023 5:41 PM EDT 17 g Given 10/02/2023 2:23 PM EDT 17 g potassium chloride ER (Klor-Con M) crystal tablet 40 mEq 40 mEq, Oral, ONCE, 1 dose, On 10/04/23 at 0630, potassium chloride ER particle/crystal tablets (Klor-Con M) may be broken in half and each half swallowed separately. Tablets can be dissolved in ~4 ounces of water; allow ~2 minutes to dissolve, stir well and drink immediately. Do not crush, chew, or suck on tablet., Routine Given 10/04/2023 6:35 AM EDT 40 mEq sodium chloride 0.9 % (flush) (BD PosiFlush [...] (Given - Provider: Marlee Bueno RN)0900 ([facility] Hold - Provider: Admin Adt [...] Provider: Cristina Daniel RN)1352 (Stopped - Provider: Letitia Godinez, YUSUF)1729 (New Bag - Provider: Letitia [...] Marlee Bueno RN)1323 (Stopped - Provider: Marlee Bueno RN - Comment: Time automatically adjusted from [...] Richard, RN) 0825 (New Bag - Provider: Ttee Valle, YUSUF)1729 (New Bag - Provider: Letitia [...] Reason: Transfer to a Procedural area)1132 ([facility] Unhold - Provider: Admin Adt) [...] discomfort with PIV insertion, Routine 0900 ([facility] Hold - Provider: Admin Adt - Reason: Transfer to a Procedural area)1132 ([facility] Unhold - Provider: Admin Adt) melatonin tablet 3 mg 3 mg, Oral, NIGHTLY PRN, Starting on 10/02/23 at 0042, Until 10/04/23 at 1717, Sleep, Sleep, Routine 0900 ([facility] Hold - Provider: Admin Adt - Reason: Transfer to a Procedural area)1132 ([facility] Unhold - Provider: Admin Adt) sodium chloride 0.9 % (flush) (BD PosiFlush Normal Saline 0.9) flush 5-20 mL 5-20 mL, Intravenous, EVERY 1 MIN PRN, Starting on 10/02/23 at 0042, Until 10/04/23 at 1717, flush, Flush pertains to all indwelling lines. Flush per protocol found in the job aid using the link provided on this medication record., Routine 0900 ([facility] Hold - Provider: Admin Adt - Reason: Transfer to a Procedural area)1132 ([facility] Unhold - Provider: Admin Adt) documented in this encounter Care Teams Plate Worker Helper Relationship Specialty Start Date End Date Lauren Tee [place] [facility] [place] [address] PCP - General Internal Medicine 10/01/23 documented as of this encounter
--- OUTSIDE RECORDS SUMMARY | 2024-02-09 12:40 | XMS_ITS | Referral Summary ---
Author Organization [facility] Address [address] [place] [address] Care Team Providers Care Photography Coordinator Name Role Phone Unknown, Provider Primary Care Provider Social History Tobacco Use Types Packs/Day Years Used Date Smoking Tobacco: Never Assessed Sex and Gender Information Value Date Recorded Sex Assigned at Not on file Gender Identity Not on file Sexual Orientation Not on file Plan of Treatment Not on file Care Teams Photography Coordinator Relationship Specialty Start Date End Date Unknown, Provider, PCP - General 05/31/15
--- OUTSIDE RECORDS SUMMARY | 2024-02-09 12:40 | XMS_ITS | Encounter Summary ---
Author Organization Count Includes [facility] [address] Care Team Providers Care Respite Provider Name Role Phone Justin Tee Primary Care Provider + Encounter Details Date Type Department Care Team (Late st Contact Info) Description 10/01/2023 8:25 PM EDT Ancillary Procedure [place] [phone] Solomon Leslie MD [facility] [place] [id number] Social History Tobacco Use Types Packs/Day Years Used Date Smoking Tobacco: Never Smokeless Tobacco: Never Alcohol Use Standard Drinks/Week Comments No 0 (1 standard drink = 0.6 oz pur e alcohol) IPV Inpatient Questions Answer Date Recorded Does [...] Procedure Name Priority Date/Time Associated Diagnosis Comments FILM LIBRARY STORAGE ONLY CT CHEST ABDOMEN PELVIS Routine 10/01/2023 8:21 PM EDT documented in this encounter Results * Film Library- Storage Only CT Chest Abdomen Pelvis (10/01/2023 8:21 PM EDT) Narrative [facility] - 10/01/2023 8:21 PM EDT This exam is auto-finalizing. It's purpose is for storage only. Solomon Leslie MD IMG FILM LIBRARY ORD ERABLES [place], [place] documented in this encounter Visit Diagnoses Not on filedocumented in this encounter Care Teams Respite Provider Relationship Specialty Start Date End Date Justin [place] [address] [place] [address] PCP - General Internal Medicine 10/01/23 documented as of this encounter
--- OUTSIDE RECORDS SUMMARY | 2024-02-09 12:40 | XMS_ITS | Encounter Summary ---
Author Organization [facility] [place] [address] Care Team Providers Care Kaiawhina Kohanga Reo Name Role Phone Juanita Colon MD Primary Care Provider [phone] Encounter Details Date Type Department Care Team (Late st Contact Info) Description 08/11/2013 Abstract [place] [address] Libby Cintron MD [facility] [place] [address] Social History Tobacco Use Types Packs/Day Years [...] on filedocumented in this encounter Care Teams Kaiawhina Kohanga Reo Relationship Specialty Start Date End Date Juanita Colon MD [address] [place] [address] PCP - General 06/03/10 03/26/20 documented as of this encounter
--- OUTSIDE RECORDS SUMMARY | 2024-02-09 12:40 | XMS_ITS | Encounter Summary ---
Author Organization [facility] Address [facility] [place] [address] Care Team Providers Care Manager Intensive Care Unit Name Role Phone Juanita Colon MD Primary Care Provider Reason for Visit * Reason Onset Date Comments Post Op 1 month CE IOL O D Follow-up 12/05/2013 Post Op Cataract Encounter Details Date Type Department Care Team (Late st Contact Info) Description 12/05/2013 10:00 AM EDT Office [place] [address] Libby Cintron MD [facility] [address] OPHTHALMOLOGY DEPT. [place] [id number] Pseudophakia (Primary Dx); Status post cataract extraction and [...] Progress Notes * Libby Cintron MD - 12/05/2013 10:51 AM EDT Assessment: Encounter Diagnosis Name Primary? Pseudophakia Yes Princess Alston is status post cataract surgery approximately 4 weeks ago in her right eye Doing well with a normal post operative appearance. No patient complaints or problems Plan: - Subjective refraction given - Stop all drops - assistant terminal manager post op risks included retinal detachment and posterior capsular opacification reviewed. Follow up: - 6 months or as needed. Upon Return CEE documented in this encounter Plan of Treatment Not on file documented as of this encounter Visit Diagnoses Diagnosis Pseudophakia- Primary Lens replaced by other means Status post cataract extraction and insertion of intraocular lens, right documented in this encounter Care Teams Manager Intensive Care Unit Relationship Specialty Start Date End Date Juanita Colon MD [address] [place] [address] PCP - General 06/03/10 03/26/20 documented as of this encounter
[2024-02-09 15:46] LABS: Abs Immature Grans 0.01 10^3/uL (0.0-0.06); Absolute Basophil Count 0.09 10^3/uL (0.0-0.2); Absolute Eosinophil Count 0.15 10^3/uL (0.0-0.7); Absolute Lymphocyte Count 2.19 10^3/uL (1.2-3.4); Absolute Monocyte Count 0.41 10^3/uL (0.1-0.8); Absolute Neutrophil Count 3.39 10^3/uL (1.2-6.7); Basophils % 1.4 %; Eosinophils % 2.4 %; HCT 35.4 % (36.0-46.0); HGB 10.7 g/dL (11.2-15.7); Immature Grans % 0.2 %; Lymphocytes % 35.1 %; MCH 25.4 pg (27.0-33.0); MCHC 30.2 % (32.0-36.0); MCV 84 fL (80-95); MPV 10.3 fL (8.0-11.0); Monocytes % 6.6 %; Neutrophils % 54.3 %; Platelet Count 321 10^3/uL (130-400); RBC 4.22 10^6/uL (3.93-5.22); RDW 15.3 % (11.7-14.6); WBC 6.24 10^3/uL (4.4-10.8)
[2024-02-09 16:09] LABS: Iron 35 ug/dL (50-170); Total Iron Binding Capacity 398 ug/dL (250-450); Transferrin Sat 9 % (15-50)
[2024-02-09 16:22] LABS: Anion Gap 8.9 mmol/L (3-11); BUN 18 mg/dL (7-18); CO2 28.1 mmol/L (21.0-32.0); Calcium 9.2 mg/dL (8.5-10.1); Chloride 102 mmol/L (98-107); Ferritin 14 ng/mL (8-252); Glucose 93 mg/dL (74-106); Sodium 139 mmol/L (136-145)
[2024-02-09 17:04] LABS: Microalb ug/mg Crea 5.8 ug/mg Cr
== END 2024-02-09 12:37 | disposition home or self-care (01) ==
LOC: NCHCN 12:36
PROVIDERS: Visit Provider Student in an Organized Health Care Education/Training Program
DX: D64.9 Anemia, unspecified (principal); E11.9 Type 2 diabetes mellitus without complications
CPT/HCPCS: 80048; 82043; 82570; 82728; 83540; 83550; 85025

== ENCOUNTER 2024-06-13 13:45 | Outpatient (REF) | payer MEDICARE, OTHER, SELFPAY ==
[2024-06-13 15:50] LABS: Abs Immature Grans 0.01 10^3/uL (0.0-0.06); Absolute Eosinophil Count 0.21 10^3/uL (0.0-0.7); Absolute Lymphocyte Count 2.41 10^3/uL (1.2-3.4); Absolute Neutrophil Count 3.93 10^3/uL (1.2-6.7); Basophils % 1.4 %; Eosinophils % 2.9 %; HCT 36.8 % (36.0-46.0); HGB 11.5 g/dL (11.2-15.7); Immature Grans % 0.1 %; Lymphocytes % 33.7 %; MCH 26.3 pg (27.0-33.0); MCHC 31.3 % (32.0-36.0); MCV 84 fL (80-95); MPV 10.2 fL (8.0-11.0); Neutrophils % 54.9 %; Platelet Count 356 10^3/uL (130-400); RBC 4.37 10^6/uL (3.93-5.22); RDW 15.1 % (11.7-14.6); RDW-SD 45.9 fL; WBC 7.16 10^3/uL (4.4-10.8)
[2024-06-13 16:21] LABS: BUN 19 mg/dL (7-18); CREATININE 1.1 mg/dL (0.55-1.02); Chloride 104 mmol/L (98-107); Estimated GFR 50.17 (mL/min/1.73m2); Ferritin 21 ng/mL (8-252); Glucose 96 mg/dL (74-106); Magnesium 2.1 mg/dL (1.8-2.4); Potassium 4.8 mmol/L (3.5-5.1); Sodium 141 mmol/L (136-145)
[2024-06-13 16:27] LABS: Hemoglobin A1C 6.6 % (<5.7)
[2024-06-13 16:46] LABS: Iron 44 ug/dL (50-170)
== END 2024-06-13 13:46 | disposition home or self-care (01) ==
LOC: NCHCN 13:45
PROVIDERS: PCP Student in an Organized Health Care Education/Training Program; Visit Provider Student in an Organized Health Care Education/Training Program
DX: E11.9 Type 2 diabetes mellitus without complications; I10 Essential (primary) hypertension
CPT/HCPCS: 80048; 82728; 83036; 83540; 83735; 85025

== ENCOUNTER 2024-10-30 11:50 | Emergency (ER) | payer MEDICARE, OTHER, SELFPAY ==
[2024-10-30 11:56] VITALS: BP 145/72; PULSE 67; RESP 14; TEMP 36.4; O2SAT 97
--- NOTE | 2024-10-30 12:18 | ED.GENADUL_ITS ---
Discharge Plan Disposition Patient Disposition: Home Condition: Stable Discharge Details Clinical Impression: Lumbar back pain Primary Care Provider: Justin Tee ED Provider: Jocy Melendrez Home Meds and New Rx's Prescriptions: New cyclobenzaprine 5 mg tablet 5 mg PO TID PRN (Reason: muscle spasm) Qty: 10 0RF Rx Instructions: Please take 1 tablet up to 3 times daily as needed for muscle spasm and lower back pain lidocaine 5 % adhesive patch,medicated 1 patch topical DAILY Qty: 15 0RF Rx Instructions: leave on most painful area for up to 12 hrs Continued acetaminophen 325 mg capsule 325 mg PO ONCE PRN omeprazole 20 MG capsule,delayed release(DR/EC) 20 mg PO DAILY Qty: 90 12RF escitalopram oxalate [Lexapro] 10 MG tablet 10 mg PO DAILY Qty: 90 11RF Lumigan 0.01 % drops 1 drp ophthalmic (eye) DAILY lisinopril 10 mg tablet 10 mg PO DAILY Vyzulta 0.024 % drops 1 drp ophthalmic (eye) .QHS Patient Comments: INSTILL 1 DROP IN BOTH EYES EVERY EVENING DIRECTED magnesium 250 mg Tablet 250 mg PO DAILY polyethylene glycol 3350 [Miralax] 17 gram/dose powder 17 g PO PRN PRN Patient Comments: Take by mouth as needed prn for bowel movements cyclosporine [Restasis] 0.05 % dropperette 1 drp ophthalmic (eye) BID Patient Comments: Instill 1 drop into both eyes twice a day as directed Discharge Instructions Instructions: Low Back Pain ED Additional Instructions: X-rays of your lower back show degenerative changes and some disc narrowing at L2-L4. Alignment is within normal limits. Please use the lidocaine patches once daily as directed and the Flexeril or muscle relaxer tablets up to 3 times daily as needed. A prescription was sent to the pharmacy on file. Alternate ice and heat. Please take Tylenol or Ibuprofen with food every 4-6 hours as needed for pain and swelling. Follow up with primary care provider in 3-5 days. Return to ED sooner if any worsening pain, loss of bowel or bladder control, numbness tingling or weakness in your lower extremities or groin numbness. Or concerns. Thank you for allowing us to care for you today. Referrals: Justin Tee [Primary Care Provider] - 5 days HPI General Mode of arrival: ambulatory . Date/Time Provider Initiated Documentation: 10/30/24 11:55 . Limitations to Documentation: no limitations . Information obtained by: patient, RN notes reviewed and old records reviewed . HPI Narrative: 84-year-old female presents to the ER with a chief complaint of lower back pain which began on morning after sleeping on a hard mattress. She reports that she took 2 extra strength Tylenol this morning around 730 and 3 tablets approximately 45 minutes ago with little to no relief. She reports no loss of bowel or bladder control, no numbness tingling, no recent known injuries or heavy lifting. She does have a history of a fractured coccyx and osteoarthritis. She denies any problems urinating or burning with urination. She is alert and oriented. She does have a past medical history of GERD, hypertension, migraine vertigo. Related Data Home Medications ?Medication ?Instructions ?Recorded ?Confirmed omeprazole 20 mg capsule,delayed 20 mg PO DAILY #90 tab-caps 07/29/17 10/30/24 release escitalopram oxalate 10 mg tablet 10 mg PO DAILY #90 tab-caps 11/09/17 10/30/24 (Lexapro) acetaminophen 325 mg capsule 325 mg PO ONCE PRN 04/26/20 10/30/24 latanoprostene bunod 0.024 % eye 1 drp ophthalmic (eye) .QHS 09/09/21 10/30/24 drops (Vyzulta) magnesium 250 mg tablet 250 mg PO DAILY 09/09/21 10/30/24 polyethylene glycol 3350 17 17 g PO PRN PRN 09/10/21 10/30/24 gram/dose oral powder (Miralax) bimatoprost 0.01 % eye drops 1 drp ophthalmic (eye) DAILY 09/22/21 10/30/24 (Lumigan) lisinopril 10 mg tablet 10 mg PO DAILY 08/25/23 10/30/24 cyclobenzaprine 5 mg tablet 5 mg PO TID PRN muscle spasm #10 10/30/24 tabs cyclosporine 0.05 % eye drops in a 1 drp ophthalmic (eye) BID 10/30/24 10/30/24 dropperette (Restasis) lidocaine 5 % topical patch 1 patch topical DAILY #15 ea 10/30/24 Previous Rx's ?Medication ?Instructions ?Recorded omeprazole 20 mg capsule,delayed 20 mg PO DAILY #90 tab-caps 07/29/17 release escitalopram oxalate 10 mg tablet 10 mg PO DAILY #90 tab-caps 11/09/17 (Lexapro) cyclobenzaprine 5 mg tablet 5 mg PO TID PRN muscle spasm #10 10/30/24 tabs lidocaine 5 % topical patch 1 patch topical DAILY #15 ea 10/30/24 Allergies Allergy/AdvReac Type Severity Reaction Status Date / Time celecoxib Allergy Intermediate Skin Rash Verified 10/30/24 12:00 codeine Allergy Unknown Other (See Verified 10/30/24 12:00 Comment) morphine AdvReac Intermediate Nausea Verified 10/30/24 12:00 prednisone AdvReac Intermediate Other (See Verified 10/30/24 12:00 Comment) methylprednisolone (From AdvReac Nausea Verified 10/30/24 12:00 Medrol) General Stated Complaint: Nk/Back Pain CIPRIANO: 4 Review of Systems Musculoskeletal Musculoskeletal: Reports as per HPI, Reports back pain and Reports radiating pain into limb Exam Back/Spine/Pelvis Back: no CVA tenderness Thoracic/Lumbar Spine: thoraco-lumbar ROM limited and lumbar spinal tenderness Course Vital Signs Vital signs: Vital Signs Temperature 36.4 C 10/30/24 11:56 Pulse 67 10/30/24 11:56 Respiratory Rate 14 10/30/24 11:56 Blood Pressure 145/72 H 10/30/24 11:56 Pulse Oximetry 97 10/30/24 11:56 Temperature 36.4 C 10/30/24 11:56 Temperature Source Oral 10/30/24 11:56 Pulse 67 10/30/24 11:56 Respiratory Rate 14 10/30/24 11:56 Blood Pressure 145/72 H 10/30/24 11:56 Blood Pressure Position Sitting 10/30/24 11:56 Pulse Oximetry 97 10/30/24 11:56 Pain Level 8 10/30/24 11:56 Medical Decision Making 84-year-old female presents to the ER with a chief complaint of lower back pain which began on morning after sleeping on a hard mattress. She reports that she took 2 extra strength Tylenol this morning around 730 and 3 tablets approximately 45 minutes ago with little to no relief. She reports no loss of bowel or bladder control, no numbness tingling, no recent known injuries or heavy lifting. She does have a history of a fractured coccyx and osteoarthritis. She denies any problems urinating or burning with urination. She is alert and oriented. She does have a past medical history of GERD, hypertension, migraine vertigo. L-spine x-rays ordered, lidocaine patch and 5 mg of Flexeril. Informed by balance staff inspector that patient reports that the tablet of Flexeril helped her pain. X-ray shows no acute fracture or subluxation, mild degenerative changes seen in the L-spine. Some disc space narrowing at L2-L4. And degenerative changes at L5-S1. Will give Flexeril tablets to go and a prescription for couple of days with lidocaine patches. Will instruct on alternating ice and heat and follow-up care and strict return instructions. This text was generated using [employer] system, please disregard any oddities of phrase or misspellings. Imaging Data Radiologic Study: Imaging: X-Ray Radiologist's impression: EXAM: XR LUMBAR SPINE COMPLETE CLINICAL HISTORY: Increased pain. TECHNIQUE: 2D digital imaging was performed of the lumbar spine. Five images were obtained. AP, lateral, right oblique, left oblique and L5-S1 spot views were obtained. COMPARISON: CR LUMBAR SPINE COMPLETE from 12/21/[address] CHEST PE ABD PELVIS W from 10/01/2023 FINDINGS: BONES: No fracture or destructive lesion. There are endplate osteophytes seen at several levels of the lumbar spine. Degenerative changes of the facets are seen at L5-S1. DISKS: Mild disc space narrowing is seen at L2-L3 and L3-L4. ALIGNMENT: Lumbar spinal alignment is within normal limits. No spondylolysis or spondylolisthesis. SOFT TISSUE: Atherosclerotic calcification is present. IMPRESSION: 1. No acute fracture or subluxation. 2. Mild degenerative changes seen in the lumbar spine. Quality:SDOH Health Related Social Needs: No Data to Display PFSH All Active Problems (Updated 10/30/24 @ 13:15 by Jocy Melendrez NP) Lumbar back pain (Acute) Osteoarthritis of right knee (Acute) DEPO MEDROL 09/09/23 Rotator cuff syndrome (Acute 04/25/13) Herpes zoster (Acute 10/10/03) Soft tissue lesion of foot (Acute 07/04/15) Essential hypertension (Acute 04/24/13) Acute pain of right knee (Acute 12/05/15) Heart murmur (Acute) Diverticulosis of colon without diverticulitis (Acute) Anemia (Chronic) Concussion (Acute) Contusion of knee (Acute) Breast pain, left (Acute) Breast pain, right (Acute 03/01/18) Insomnia (Acute) Lumbar back pain (Acute 12/17/14) Memory changes (Acute 12/17/14) Polyp of colon (Acute) adenoma Radicular pain of left lower extremity (Acute 12/17/14) Right hip pain (Acute 12/05/15) Soft tissue lesion of foot (Acute 07/04/15) Tachycardia (Acute 11/09/17) Tremor (Acute) Trochanteric bursitis, right hip (Acute 05/22/16) Tubular adenoma (Acute) Breast mass (Acute) Elevated sed rate (Acute) Depressive disorder (Acute 06/10/02) Hyperlipidemia (Acute) Reactive airway disease (Acute 06/04/14) Glaucoma (Chronic) Essential tremor (Acute) Medical History Closed fracture of humerus (09/12/12) Migraine headache with aura Chronic headache Syncope Episode of syncope Vertigo (03/01/18) Elevated blood pressure reading in office without diagnosis of hypertension (07/29/17) Seasonal allergic rhinitis GERD (gastroesophageal reflux disease) Surgical History Status post rotator cuff repair History of surgical procedure History of repair of hiatal hernia History of esophagogastroduodenoscopy (EGD) History of tonsillectomy History of cholecystectomy History of colonoscopy Rotator Cuff Repair RIGHT Hysterectomy, Laproscopic RADICAL; FOR FIBROIDS Extraction of cataract 08/2013 Family History Mother Essential hypertension Personal history of malignant neoplasm SKIN Depression Heart disease Stroke Father Personal history of malignant neoplasm HODGKINS Grandfather Arthritis Grandfather , IN A FIRE at age 80. Diabetes Stroke Grandmother No problems noted. Grandmother Essential hypertension Personal history of malignant neoplasm BREAST Stroke Son Diabetes Son Essential hypertension Hyperlipidemia Daughter Essential hypertension Fibromyalgia Heart disease Hyperlipidemia Social History Smoking/Tobacco Use Status: Never Smoking risk assessment performed?: Yes Alcohol Intake: never Drug use: Never Do you feel safe at home: Yes Do you feel safe in your relationship?: Yes
[2024-10-30] MEDS: Lidocaine 5% Patch 1 PATCH TP (12:22)
[2024-10-30] MEDS: Cyclobenzaprine 10 MG TAB 5 MG PO (12:22)
--- NOTE | 2024-10-30 12:49 | DI.RAD_ITS ---
Exam(s) XR LUMBAR SPINE COMPLETE EXAM: XR LUMBAR SPINE COMPLETE CLINICAL HISTORY: Increased pain. TECHNIQUE: 2D digital imaging was performed of the lumbar spine. Five images were obtained. AP, la teral, right oblique, left oblique and L5-S1 spot views were obtained. COMPARISON: CR LUMBAR SPINE COMPLETE from 12/21/[address] CHEST PE ABD PELVIS W from 10/01/2023 FINDINGS: BONES: No fracture or destructive lesion. There are endplate osteophytes seen at several levels of th e lumbar spine. Degenerative changes of the facets are seen at L5-S1. DISKS: Mild disc space narrowing is seen at L2-L3 and L3-L4. ALIGNMENT: Lumbar spinal alignment is within normal limits. No spondylolysis or spondylolisthesis. SOFT TISSUE: Atherosclerotic calcification is present. IMPRESSION: 1. No acute fracture or subluxation. 2. Mild degenerative changes seen in the lumbar spine. DATA REPOSITORY: RADIATION DOSE DELIVERED:
[2024-10-30 13:38] VITALS: BP 111/66; PULSE 64; RESP 15; TEMP 36.6; O2SAT 97
== END 2024-10-30 13:39 | disposition home or self-care (01) ==
LOC: ER 13:53
PROVIDERS: Emergency Provider Registered Nurse Emergency; PCP Student in an Organized Health Care Education/Training Program
DX: M54.50 Low back pain, unspecified (principal); I10 Essential (primary) hypertension; E78.5 Hyperlipidemia, unspecified
CPT/HCPCS: 99283; 72110

== ENCOUNTER 2025-01-04 15:13 | Outpatient (REF) | payer MEDICARE, OTHER, SELFPAY ==
[2025-01-04 20:54] LABS: Bilirubin Negative (Negative); Blood Moderate (Negative); Clarity Clear (Clear); Glucose Negative (Negative); Ketones Negative (Negative); Leukocyte Esterase Moderate (Negative); Nitrite Negative (Negative); Specific Gravity 1.015 (1.005-1.025); Urobilinogen 0.2 mg/dL (Up to 0.2)
[2025-01-04 21:14] LABS: WBC 20-50 HPF (0-5)
[2025-01-04 21:15] LABS: Bacteria Many HPF (Negative); C & S Indicated? Yes; Casts Negative LPF (Negative); Crystals Negative HPF (Negative); Epithelial Cells Few HPF (Negative); Mucus Negative (Negative)
== END 2025-01-04 15:14 | disposition home or self-care (01) ==
LOC: LBN 15:13
PROVIDERS: PCP Student in an Organized Health Care Education/Training Program; Visit Provider Nurse Practitioner Family
DX: R39.9 Unspecified symptoms and signs involving the genitourinary system (principal); B96.29 Other Escherichia coli [E. coli] as the cause of diseases classified elsewhere
CPT/HCPCS: 87077; 81003; 81015; 87086; 87186

== ENCOUNTER 2025-01-15 14:14 | Outpatient (CLI) | payer MEDICARE, OTHER, SELFPAY ==
--- NOTE | 2025-01-15 11:39 | DI.RAD_ITS ---
Exam(s) XR KNEE LT 4V AP,LAT,RANDALL,PAT EXAM: XR KNEE LT 4V AP,LAT,RANDALL,PAT CLINICAL HISTORY: LEFT KNEE PAIN. TECHNIQUE: 2D digital imaging was performed. Three views. COMPARISON: CR XR KNEE RT 3V AP,LAT,RANDALL from 09/09/2023 FINDINGS: BONES: No acute fracture is present. No bony destructive lesion is seen. JOINTS: Moderate narrowing of the lateral femoral tibial joint space. Severe narrowing of the lateral patellofemoral joint. Lateral patellar subluxation. Mild periarticular spurring throughout. No joint effusion is seen. Chondrocalcinosis. SOFT TISSUE: Normal. IMPRESSION: Degenerative changes of the lateral patellofemoral joint and lateral femoral tibial joint. Chondrocalcinosis. DATA REPOSITORY: RADIATION DOSE DELIVERED:
== END 2025-01-15 14:15 | disposition home or self-care (01) ==
LOC: DIORS 14:15
PROVIDERS: PCP Student in an Organized Health Care Education/Training Program; Referring Provider Student in an Organized Health Care Education/Training Program; Visit Provider Student in an Organized Health Care Education/Training Program
DX: M25.562 Pain in left knee (principal); M17.0 Bilateral primary osteoarthritis of knee; M48.061 Spinal stenosis, lumbar region without neurogenic claudication
CPT/HCPCS: 99213; 20610; J1010; 73564

== ENCOUNTER 2025-02-06 03:36 | Outpatient (CLI) | payer MEDICARE, OTHER, SELFPAY ==
--- NOTE | 2025-02-06 07:30 | DI.MRI_ITS ---
Exam(s) MR LUMBAR SPINE WO EXAM: MR LUMBAR SPINE WO CLINICAL HISTORY: PAIN, spinal stenosis, M48.00. TECHNIQUE: Multiplanar multisequence MRI of the Lumbar spine was performed. COMPARISON: MR MRI - LUMBAR SPINE WO CONTRAST from 10/01/2010 CR XR LUMBAR SPINE COMPLETE from 10/30/2024 FINDINGS: Conus medullaris is at normal level. There is no evidence of conus mass nor subjacent clumping of intrathecal nerve roots to suggest arachnoiditis. The distal thecal sac appears unremarkable.There is no evidence of Tarlov intrasacral cysts nor other significant findings within the sacral canal Bones:There are no fractures nor ominous osseous lesions in the lumbar vertebral bodies and visualized sacrum. With respect to the individual levels... T12-L1: Slightly decreased disc height. Mild central-left of center annular bulging but actually decreased when compared to the prior MRI scan of 2010. There is no significant spinal canal stenosis at this level. No foraminal stenosis. No significant facet arthropathy. L1-2: Normal disc height and signal. No disc herniation nor central canal stenosis.No foraminal stenosis L2-3: There is moderate disc space narrowing at this level now evident, not previously present in 2011. There is some annular bulging which is most prominent at the level the floor of the exiting neural foramina bilaterally, slightly more so on the left side. There is mild left-sided foraminal stenosis. There is even milder foraminal stenosis on the opposite-right side at this level. No significant facet arthropathy at this level. No significant ligamentum flavum hypertrophy. L3-4: This level also exhibits loss of disc height when compared to the 2011 study. Posteriorly there is mild annular bulging. There is no central spinal canal stenosis. The annular bulging extends into the floor of both exiting neural foramina but there does not appear to be significant foraminal stenosis on either side.There is also no significant facet arthropathy. No ligamentum flavum hypertrophy. L4-5: This level exhibits preserved disc height. There is mild degenerative anterolisthesis of L4 upon L5 with approximately 1-2 mm anterior slippage of L4 upon L5, slightly increased from 2011. This is related to degenerative facet joint changes. There are no pars interarticularis defects at this level. There is no disc herniation or central canal stenosis and there is also no significant foraminal stenosis at this level. There is increased synovial signal within both facet joints when compared to 2011 L5-S1: Normal disc height and signal. No disc herniation or central spinal canal stenosis. There is moderate facet arthrosis bilaterally. There is also increased signal within the synovial cavity is a both facet joints at this level when compared to 2011. There is no foraminal stenosis on either side at this level. Soft tissues: paraspinal soft tissues appear unremarkable. IMPRESSION: 1. Compared to the prior lumbar spine MRI examination of September 2010 there has been some deterioration as described per individual level above. 2. However, there is no large dominant disc herniation nor significant central spinal canal stenosis and there is only mild foraminal stenosis (which is evident at L2-3 level). This is most related to annular bulging at level the floor of the exiting neural foramina at this level. 3. There is mild grade 1 anterolisthesis of L4 upon L5 related to facet arthropathy. This has slightly progressed from 2011. 4. There is bilateral facet arthropathy evident at L4-5 and L5-S1 levels. Although there was some degenerative change in the facet joints previously, there is now some symmetrical increased signal within the synovial compartments of these facet joints bilaterally at these 2 levels, indicating ongoing degenerative change. However, there is no evidence of degenerative synovial cysts extending outward from these articulations (which can cause compression upon the thecal sac in similar fashion to disc herniations). DATA REPOSITORY:
== END 2025-02-06 03:56 ==
LOC: DI 03:36
PROVIDERS: PCP Student in an Organized Health Care Education/Training Program; Visit Provider Student in an Organized Health Care Education/Training Program
DX: M48.00 Spinal stenosis, site unspecified (principal)
CPT/HCPCS: 72148

== ENCOUNTER 2025-03-20 08:55 | Emergency (ER) | payer MEDICARE, OTHER, SELFPAY ==
[2025-03-20] VITALS (38 sets, daily range): BP systolic 107–169; BP diastolic 47–86; PULSE 63–84; RESP 9–26; TEMP 37.1; O2SAT 93–99
--- NOTE | 2025-03-20 08:45 | RT.EKG_ITS ---
APPROVED REPORT Exam: Resting ECG Reason for Exam: midsternal chest pain Patient Location: E HR:72 bpm ECG Measurements Heart Rate 72 AXIS MN 143 P 44 QRSd 77 QRS 1 QT 400 T 49 QTc 437 Conclusion Sinus rhythm...normal P axis, V-rate 60- 99 No STEMI
--- NOTE | 2025-03-20 09:12 | ED.GENADUL_ITS ---
Discharge Plan Disposition Patient Disposition: Home Condition: Good Discharge Details Clinical Impression: Chest pain, GERD (gastroesophageal reflux disease), Anxiety, Chronic back pain Primary Care Provider: Justin Tee ED Provider: Xuan Diaz Home Meds and New Rx's Prescriptions: New pantoprazole 40 mg tablet,delayed release (DR/EC) 40 mg PO DAILY Qty: 14 0RF Continued acetaminophen 325 mg capsule 325 mg PO ONCE PRN cyclobenzaprine 5 mg tablet 5 mg PO QHS PRN omeprazole 20 MG capsule,delayed release(DR/EC) 20 mg PO DAILY Qty: 90 12RF escitalopram oxalate [Lexapro] 10 MG tablet 10 mg PO DAILY Qty: 90 11RF Lumigan 0.01 % drops 1 drp ophthalmic (eye) DAILY lisinopril 10 mg tablet 10 mg PO DAILY polyethylene glycol 3350 [Miralax] 17 gram/dose powder 17 g PO PRN PRN Patient Comments: Take by mouth as needed prn for bowel movements magnesium 250 mg tablet 500 mg PO DAILY lidocaine 5 % adhesive patch,medicated 1 patch topical DAILY Qty: 15 0RF Rx Instructions: leave on most painful area for up to 12 hrs Discharge Instructions Instructions: Chest Pain, Adult ED, Anxiety, Adult ED Additional Instructions: As we discussed, your labs and imaging are reassuring here today. There is no evidence that you have heart attack, aortic issue. However, I am concerned that some of this may be associated with your known heartburn. Sometimes switching medications can help with your symptoms so I recommend stopping the omeprazole and beginning pantoprazole, this is gone to your pharmacy of choice. Please call your primary care provider and follow-up with them in the next 1 to 2 weeks for reevaluation. They also call and let them know about our findings here today. I encourage you to discuss your anxiety with them as well as this does seem to be a contributing factor. If you develop any new or worsening symptoms please seek care urgently once again. Keeping a journal of your symptoms as well as what may have exacerbated such as certain types of food, can also be very helpful. Referrals: Justin Tee [Primary Care Provider, Medicine] Discharge Data Discharge Date/Time-TO BE ENTERED AT DEPARTURE: 03/20/25 12:50 HPI General Date/Time Provider Initiated Documentation: 03/20/25 08:56 . Limitations to Documentation: no limitations . Information obtained by: patient, family (daughter) and RN notes reviewed . History of Present Illness 84 year old F presents to the emergency department with the chief complaint of chest pain with pain radiating to the back, described as moderate, Quality is described as aching and other (pressure), and is localized to the chest. Patient reports radiation to back. Patient started experiencing this week(s) and it has been constant. No relieving factors improve symptom(s), No exacerbating factors reported . Patient notes chest pain; denies cough, fever/chills, headaches, loss of appetite, malaise, nausea/vomiting, rash, shortness of breath, syncope and weakness. Patient did receive the following treatments prior to arrival, none Related Data Home Medications ?Medication ?Instructions ?Recorded ?Confirmed omeprazole 20 mg capsule,delayed 20 mg PO DAILY #90 ta b-caps 07/29/17 03/20/25 release escitalopram oxalate 10 mg tablet 10 mg PO DAILY #90 t ab-caps 11/09/17 03/20/25 (Lexapro) acetaminophen 325 mg capsule 325 mg PO ONCE PRN 03/20/25 polyethylene glycol 3350 17 17 g PO PRN PRN 09/10/21 0 03/20/25 gram/dose oral powder (Miralax) bimatoprost 0.01 % eye drops 1 drp ophthalmic (eye) DA LEXUS 09/22/21 03/20/25 (Lumigan) lisinopril 10 mg tablet 10 mg PO DAILY 08/25/2304/05 lidocaine 5 % topical patch 1 patch topical DAILY #15 ea 10/30/24 03/20/25 cyclobenzaprine 5 mg tablet 5 mg PO QHS PRN 03/15/25 0 03/20/25 magnesium 250 mg tablet 500 mg PO DAILY 03/15/2504/05 pantoprazole 40 mg tablet,delayed 40 mg PO DAILY #14 t abs 03/20/25 release Previous Rx's ?Medication ?Instructions ?Recorded omeprazole 20 mg capsule,delayed 20 mg PO DAILY #90 ta b-caps 07/29/17 release escitalopram oxalate 10 mg tablet 10 mg PO DAILY #90 t ab-caps 11/09/17 (Lexapro) lidocaine 5 % topical patch 1 patch topical DAILY #15 ea 10/30/24 pantoprazole 40 mg tablet,delayed 40 mg PO DAILY #14 t abs 03/20/25 release Allergies Allergy/AdvReac Type Severity Reaction Status Date / Time celecoxib Allergy Intermediate Skin Rash Verified 03/20/25 09:13 codeine Allergy Unknown Other (See Verified 03/20/25 09:13 Comment) morphine AdvReac Intermediate Nausea Verified 03/20/25 09:13 prednisone AdvReac Intermediate Other (See Verified 03/20/25 09:13 Comment) methylprednisolone (From AdvReac Nausea Verified 03/20/25 09:13 Medrol) General Stated Complaint: Chest Pain CIPRIANO: 2 Review of Systems Constitutional Constitutional: Reports as per HPI, Denies fever(s), Denies headache(s) and Denies poor appetite Eyes Eyes: Denies change in vision ENT Ears, Nose, Mouth, and Throat: Denies dizziness and Denies headache(s) Cardiovascular Cardiovascular: Reports as per HPI, Denies dyspnea and Denies dyspnea on exertion Respiratory Respiratory: Reports as per HPI, Denies chest congestion, Denies cough, Denies pain on inspiration, Denies pain with cough, Denies dyspnea and Denies dyspnea on exertion Gastrointestinal Gastrointestinal: Reports as per HPI, Denies abdominal pain, Denies diarrhea, Denies nausea and Denies vomiting Musculoskeletal Musculoskeletal: Reports as per HPI Integumentary/Breasts Skin/Breast: Reports as per HPI and Denies rash Neurologic Neurologic: Reports as per HPI, Denies dizziness and Denies headache(s) Exam Const General: cooperative, healthy appearing, comfortable, no acute distress and well developed Nutritional Appearance: well nourished and overweight Orientation: alert, awake and oriented x3 Chest Chest: normal inspection of the chest, normal palpation of entire chest wall and no crepitus Resp Effort & Inspection: normal respiratory effort, able to speak in complete sentences and no respiratory distress Auscultation: clear to auscultation bilaterally, no rales, no rhonchi and no wheezes Cardio Rate: regular rate Rhythm: regular rhythm Heart Sounds: murmur GI Inspection: normal to inspection, no edema and non-distended Palpation: soft, no guarding, not rigid and nontender Auscultation: normal bowel sounds Back/Spine/Pelvis Back: no CVA tenderness Thoracic/Lumbar Spine: thoracic and lumbar spine normal to inspection Skin General skin exam: no rashes or lesions noted Trauma: no lacerations or abrasions Neuro General: patient alert, patient awake and patient oriented x3 Cognition: normal cognition Speech: speech normal Gait: normal gait Extrem General: normal to inspection, capillary refill normal, no calf tenderness and normal gait Psych Appearance: grossly normal and well kempt Mental Status: mental status grossly normal Speech and Movement: speech and movement normal Course Vital Signs Vital signs: Vital Signs Temperature 37.1 C 03/20/25 09:07 Pulse 76 03/20/25 09:07 Respiratory Rate 20 03/20/25 09:07 Blood Pressure 169/83 H 03/20/25 09:07 Pulse Oximetry 97 03/20/25 09:07 Temperature 37.1 C 03/20/25 09:07 Temperature Source Tympanic 03/20/25 09:07 Pulse 76 03/20/25 09:07 Respiratory Rate 20 03/20/25 09:07 Blood Pressure 169/83 H 03/20/25 09:07 Blood Pressure Position Sitting 03/20/25 09:07 Pulse Oximetry 97 03/20/25 09:07 Oxygen Delivery Method Room Air 03/20/25 09:07 Oxygen Flow Rate 0 03/20/25 09:07 Pain Level 4 03/20/25 09:07 Comment 7-8 in her back 03/20/25 09:07 Medical Decision Making Patient is a pleasant 84-year-old female with past medical history significant for hypertension, systolic murmur, anemia, lumbar back pain, depression, hyperlipidemia, reactive airway, tremor, brought in by her daughter with chief complaint of chest pressure with pain radiating into the back. She reports that she has had this chest pressure for about the past month has been fairly consistent and centralized. She is not noting that anything makes this better or worse. However, last night she woke at night with a sudden onset of the pain beginning to radiate into the back which is new. She describes it as gas pain or similar to gallbladder pain she is experience in the past. However, she reports that this is late in the evening and was not associated with laying down or what she had eaten for dinner. Normal appetite and meal last night. She denies any change in her breathing. She was noted to have a increased diameter of the left lower extremity compared to the right about a week ago but she is not having any pain or has not noticed this. She denies any abdominal pain, no nausea, vomiting, diarrhea. No recent illness. No cough, cold, fevers chills. Her primary care did call us prior to her arrival and he was concerned for potential dissection. He felt that her murmur had increased and reports that she did have an echo which did confirm mild aortic stenosis but he feels that this is now more pansystolic which increases concern for possible dissection. On exam, patient appears nontoxic. She is resting comfortably no acute distres s. She is hemodynamically stable. She reports that currently, she is having mild chest discomfort but her primary issue is being uncomfortable in the bed as she has chronic lumbar back pain and is due for spinal injections with pain management once again. She has not taken any analgesics, no medications this morning. She does have a murmur noted but this does not seem to be profoundly loud, no radiation. Otherwise a normal sinus rhythm. She is to persist a pulse in all of her extremities. She does have a slight increase diameter over the left calf compared to the right but nontender, no significant edema. Abdomen is benign, mild discomfort but she feels that this is more associated with me pressing with the chronic lumbar back pain. I do agree with the patient rate care is concerned of a potential aortic dissection given the patient's acute on chronic pain that woke her from sleep, particularly with the radiation into the back. Will move forward with a CTA. I did review her previous renal studies, last completed in July. She has never had a GFR that would preclude her from having studies completed so I do feel appropriate moving forward with this note. And also obtain baseline labs, considered ACS versus noncardiac etiology as well. The murmur seems to be too faint to likely have a hemodynamic effect or be causing any significant discomfort but if this is worse than it had been previously, as her primary had reported, they did feel that it could potentially be linked to a dissection but unlikely to cause an acute decompensation at this point based on exam. Labs are reassuring, no acute abnormality. CT reviewed by [id number]: IMPRESSION: 1. No evidence of aortic dissection nor pericardial effusion. No aneurysms. 2. No obvious pulmonary emboli. No acute pulmonary findings. 3. Small hiatal hernia noted. 4. There is air again noted within intrahepatic ducts and within the CBD in this patient who has had prior cholecystectomy. Correlation with any prior ERCP/instrumentation of the biliary tract recommended 5. sigmoid diverticulosis. No diverticulitis. Discussed with patient and family. No acute process today. With the radiation to the back, also considered esophageal abnormality. Patient has been on omeprazole for quite some time. Patient now is able to reflect and state that some of these that seem to be worsened with p.o. intake. Will challenge with GI cocktail. Patient does feel improved after GI cocktail. Again, labs are reviewed and reassuring. Patient is now reporting that she has had increasing anxiety and is questioning if this could contribute to some of her symptoms. Her daughter reports that she has noted a large amount of anxiety, particularly around her chronic confusion which is being monitored by primary care and family. She reports that she feels that should be addressed further and encourages follow-up with primary care for further discussion. Patient has had some other symptoms such as numbness in her fingers that seem to be anxiety associated. I did contact the primary care office after the patient had labs and relayed these concerns around anxiety as well as the imaging findings today. They advised PATIENT and for the next 1 to 2 weeks. As patient was improved with the GI cocktail, will update PPI per up-to-date recommendations and transition from omeprazole to pantoprazole. Patient I discussed disposition, daughter was involved with the discussion as well. Family is supportive and live in the home with the patient. They are agreeable to taking her home at this point continue monitoring symptoms. Again, they are concerned that a large amount of this is associated with anxiety will discharge to discuss this with primary care. Strict return precautions were discussed. All the questions and concerns were addressed and they are in agreement this plan. [facility] All Active Problems (Updated 03/20/25 @ 12:17 by KEKE Coffman) Chronic back pain (Acute) Anxiety (Chronic) GERD (gastroesophageal reflux disease) (Chronic) Chest pain (Acute) Sacroiliac joint dysfunction of both sides (Acute) Primary osteoarthritis of left knee (Acute) Lumbar spinal stenosis (Acute) Osteoarthritis of right knee (Acute) DEPO MEDROL 01/15/25; 09/09/23 Rotator cuff syndrome (Acute 04/25/13) Herpes zoster (Acute 10/10/03) Soft tissue lesion of foot (Acute 07/04/15) Essential hypertension (Acute 04/24/13) Acute pain of right knee (Acute 12/05/15) Heart murmur (Acute) Diverticulosis of colon without diverticulitis (Acute) Anemia (Chronic) Concussion (Acute) Contusion of knee (Acute) Breast pain, left (Acute) Breast pain, right (Acute 03/01/18) Insomnia (Acute) Lumbar back pain (Acute 12/17/14) Memory changes (Acute 12/17/14) Polyp of colon (Acute) adenoma Radicular pain of left lower extremity (Acute 12/17/14) Right hip pain (Acute 12/05/15) Soft tissue lesion of foot (Acute 07/04/15) Tachycardia (Acute 11/09/17) Tremor (Acute) Trochanteric bursitis, right hip (Acute 05/22/16) Tubular adenoma (Acute) Breast mass (Acute) Elevated sed rate (Acute) Depressive disorder (Acute 06/10/02) Hyperlipidemia (Acute) Reactive airway disease (Acute 06/04/14) Glaucoma (Chronic) Essential tremor (Acute) Medical History Closed fracture of humerus (09/12/12) Migraine headache with aura Chronic headache Syncope Episode of syncope Vertigo (03/01/18) Elevated blood pressure reading in office without diagnosis of hypertension (07/29/17) Seasonal allergic rhinitis GERD (gastroesophageal reflux disease) Surgical History Status post rotator cuff repair History of surgical procedure History of repair of hiatal hernia History of esophagogastroduodenoscopy (EGD) History of tonsillectomy History of cholecystectomy History of colonoscopy Rotator Cuff Repair RIGHT Hysterectomy, Laproscopic RADICAL; FOR FIBROIDS Extraction of cataract 08/2013 Family History Mother Essential hypertension Personal history of malignant neoplasm SKIN Depression Heart disease Stroke Father Personal history of malignant neoplasm [place]INS Grandfather Arthritis Grandfather , IN A FIRE at age 80. Diabetes Stroke Grandmother No problems noted. Grandmother Essential hypertension Personal history of malignant neoplasm BREAST Stroke Son Diabetes Son Essential hypertension Hyperlipidemia Daughter Essential hypertension Fibromyalgia Heart disease Hyperlipidemia Social History Smoking/Tobacco Use Status: Never Smoking risk assessment performed?: Yes Alcohol Intake: never Drug use: Never Do you feel safe at home: Yes Do you feel safe in your relationship?: Yes
[2025-03-20] MEDS: Normal Saline Flush 10 ML SYR IVP (09:19)
[2025-03-20] MEDS: Omnipaque 350 MG/ML 100 ML BTL IJ (09:20)
[2025-03-20] MEDS: Normal Saline - Diluent 50 ML VIAL IJ (09:20)
[2025-03-20 09:30] LABS: Abs Immature Grans 0.02 10^3/uL (0.0-0.06); HCT 39.6 % (36.0-46.0); HGB 12.4 g/dL (11.2-15.7); Immature Grans % 0.3 %; MCH 27.6 pg (27.0-33.0); MCHC 31.3 % (32.0-36.0); MCV 88 fL (80-95); MPV 9.2 fL (8.0-11.0); Platelet Count 303 10^3/uL (130-400); RBC 4.49 10^6/uL (3.93-5.22); RDW 14.0 % (11.7-14.6); RDW-SD 45.1 fL; WBC 7.85 10^3/uL (4.4-10.8)
--- NOTE | 2025-03-20 09:30 | DI.CT_ITS ---
Exam(s) CT THORAX ABD/PEL CTA EXAM: CT THORAX ABD/PEL CTA CLINICAL HISTORY: CP rad to back, hx of HTN. TECHNIQUE: Imaging Protocol: Axial computed tomography images with coronal and sagittal reformatted images were created and reviewed CONTRAST MATERIAL: Intravenous: Omnipaque 350 Contrast volume:100 ml Oral: None COMPARISON: CT CT CHEST PE ABD PELVIS W from 10/01/2023 FINDINGS: CHEST: AORTA: The ascending thoracic aorta is not enlarged. there is moderate atherosclerotic involvement of the aortic arch and descending thoracic aorta but there is no evidence of aortic dissection. The abdominal aorta is peripherally calcified but not enlarged and there is also mild atherosclerotic involvement but no aneurysmal dilatation of the common iliac arteries. No aneurysms evident of the external and internal iliac arteries nor of the common femoral arteries. No dissection flaps. PULMONARY ARTERIES: No obvious intraluminal filling defects to suggest the presence of pulmonary emboli LUNGS: No infiltrates nor pleural effusions. No ominous pulmonary nodules. No significant focal findings in the trachea and mainstem bronchi. No bronchiectasis.. MEDIASTINUM: There is no hilar nor mediastinal adenopathy. Visualized thyroid unremarkable.There is a small hiatal hernia. CARDIAC: Heart size is normal. There is no pericardial effusion. No significant shift of the interventricular septum. OSSEOUS: No fractures. No significant osseous lesions. ABDOMEN: There is no ascites. LIVER: There are no focal hepatic lesions. There is air within the intrahepatic ducts of both lobes again noted as well as within the CBD. CBD diameter is upper normal for this age group. GALLBLADDER/BILIARY: Gallbladder is again noted be surgically absent. PANCREAS: No evidence of pancreatic mass nor dilatation of the pancreatic duct. SPLEEN: Spleen is not enlarged. There are no intrasplenic lesions. Splenic and portal veins are patent. ADRENALS: There are no significant adrenal masses. KIDNEYS: No cysts evident. No calculi nor hydronephrosis. No solid renal masses. ABDOMINAL AORTA: The abdominal aorta is not enlarged. LYMPH NODES: There is no retroperitoneal nor para-aortic adenopathy. No obvious mesenteric masses. ABDOMINAL WALL: No evidence of significant anterior abdominal wall hernia. GI: There is no evidence of bowel obstruction, free air, nor abscess. PELVIS: LYMPH NODES: There is no intrapelvic nor inguinal adenopathy. GI: No evidence of appendicitis.There diverticuli in the sigmoid but no evidence of acute diverticulitis. URINARY BLADDER: No calculi nor masses evident REPRODUCTIVE: Uterus is surgically absent. There are no abnormal adnexal masses and no free fluid in the pelvis. OSSEOUS: No significant osseous lesions. Mild degenerative anterolisthesis L4 upon L5 related to facet arthropathy. No significant disc space narrowing at this level. IMPRESSION: 1. No evidence of aortic dissection nor pericardial effusion. No aneurysms. 2. No obvious pulmonary emboli. No acute pulmonary findings. 3. Small hiatal hernia noted. 4. There is air again noted within intrahepatic ducts and within the CBD in this patient who has had prior cholecystectomy. Correlation with any prior ERCP/instrumentation of the biliary tract recommended 5. sigmoid diverticulosis. No diverticulitis. Report called by myself to ER provider on 03/20/2025 at 10:25 a.m. RADIATION DOSE DELIVERED: 1,254.29mGy.cm Total DLP DATA REPOSITORY: All CT scans at this facility are submitted to the National Radiology Data Registry (NRDR) Dose Index Registry (DIR) with the [employer] (A[employer]). RADIATION OPTIMIZATION: All CT scans at this facility use at least one of these dose optimization techniques: automated exposure control; mA and/or kV adjustment per patient size (includes targeted exams where dose is matched to clinical indication); or iterative reconstruction.
[2025-03-20] MEDS: Acetaminophen 500 MG TAB 1000 MG PO (09:49)
[2025-03-20 09:53] LABS: Magnesium 2.1 mg/dL (1.8-2.4); NT-proBNP 247 pg/mL (<300); Troponin I 7 ng/L (<or=51)
[2025-03-20] MEDS: Lidocaine 5% Patch 1 PATCH TP (10:10)
[2025-03-20 11:05] LABS: INR 1.0 (0.9-1.1); PTT Activated 24.3 sec (20.6-30.2); Prothrombin Time 10.1 sec (9.1-11.1)
[2025-03-20] MEDS: MYLANTA 30 ML, LIDOCAINE 2% VISCOUS UD 15 ML PO (11:10)
[2025-03-20 11:58] LABS: ALT 15 U/L (14-59); AST 19 U/L (15-37); Albumin 3.2 g/dL (3.4-5.0); Alkaline Phosphatase 96 U/L (46-116); Anion Gap 7.3 mmol/L (3-11); BUN 18 mg/dL (7-18); Bilirubin, Total 0.3 mg/dL (0.2-1.0); CO2 28.7 mmol/L (21.0-32.0); Calcium 9.2 mg/dL (8.5-10.1); Chloride 102 mmol/L (98-107); Estimated GFR 50.17 (mL/min/1.73m2); Glucose 108 mg/dL (74-106); Potassium 4.4 mmol/L (3.5-5.1); Sodium 138 mmol/L (136-145); Total Protein 7.3 g/dL (6.4-8.2)
[2025-03-20 12:05] LABS: Troponin I 7 ng/L (<or=51)
== END 2025-03-20 12:50 | disposition home or self-care (01) ==
PROVIDERS: Emergency Provider Physician Assistant; PCP Student in an Organized Health Care Education/Training Program
DX: R07.9 Chest pain, unspecified (principal); K21.9 Gastro-esophageal reflux disease without esophagitis; F41.9 Anxiety disorder, unspecified; M54.9 Dorsalgia, unspecified; G89.29 Other chronic pain
CPT/HCPCS: 99285; 99284; 36415; 71275; 80053; 93005; 74174; 83735; 83880; 84484; 85025; 85610; 85730; 93010; J3490

== ENCOUNTER 2025-03-20 15:09 | Outpatient (REF) | payer MEDICARE, OTHER, SELFPAY ==
[2025-03-20 15:59] LABS: COMMENT (LAB VIEW ONLY) 54.73 mg/dL; Microalb ug/mg Crea 5.1 ug/mg Cr
== END 2025-03-20 15:10 | disposition home or self-care (01) ==
LOC: NCHCN 15:09
PROVIDERS: PCP Student in an Organized Health Care Education/Training Program; Visit Provider Student in an Organized Health Care Education/Training Program
DX: E11.9 Type 2 diabetes mellitus without complications (principal)
CPT/HCPCS: 82043; 82570

== ENCOUNTER 2025-05-23 08:46 | Outpatient (CLI) | payer MEDICARE, OTHER, SELFPAY ==
--- NOTE | 2025-05-23 06:00 | DI.RAD_ITS ---
Exam(s) XR PAIN CLINIC SACRIOILIAC 2V EXAM: XR PAIN CLINIC SACRIOILIAC 2V CLINICAL HISTORY: DX: Sacroiliac Dysfunction. TECHNIQUE: Fluoroscopy was provided for the referring physician for guidance with performing pain clinic injection procedure. COMPARISON: No exams were available for comparison FINDINGS: Please see procedure note for details. Fluoro time: 27.2 seconds RADIATION DOSE DELIVERED: Ka,r=8.95 mGy
[2025-05-23 09:20] VITALS: BP 128/63; PULSE 76; RESP 20; TEMP 36.9; O2SAT 96
--- NOTE | 2025-05-23 09:47 | PDOC.PAIN ---
Date of service: 05/23/25 Time of Service: 09:47 Pain Managment Procedure Note Procedure Note Procedure Note: PROCEDURE NOTE BILATERAL INTRA-ARTICULAR SACROILIAC JOINT INJECTIONS Date of Service: May 23, 2025 Patient: Princess Alston Provider: Ian Collazo DO, MPH COMMENTS: I previously evaluated the patient in the office and their symptoms in relation to the sacroiliac joint pain have remained the same. Pre-operative diagnosis: Sacroiliac joint dysfunction ICD-10 M53.3 Post-operative diagnosis: Same Pre-procedure pain: VAS= 8/10 Princess Alston has been referred to our [facility] for a Bilateral intra-articular Sacroiliac joint injection. Princess was interviewed and the medical record reviewed. There were no medical, pharmacologic, radiographic or other structural contraindications to attempting a fluoroscopically-guided, contrast-enhanced, intra-articular Sacroiliac joint injection. The risks, benefits, and potential side effects of this procedure were reviewed with the patient. Questions and concerns were addressed. After it was clear that Princess was fully informed about the procedure, the printed consent form was signed by the patient and myself. Princess was placed in the prone position on the fluoroscopy table and an automated blood pressure cuff, 3 lead EKG, and pulse oximeter were applied. The skin entry point for approaching the Left sacroiliac joint was identified under the most advantageous fluoroscopic view and marked. Following thorough Chlorhexadine preparation of the skin and draping with sterile surgical drapes, 2 mls of 1% lidocaine was infiltrated into the skin at the entry point and the surrounding subcutaneous tissues. Next, a 3.5 22G spinal needle was placed under fluoroscopic guidance into the Left sacroiliac joint. Intra-articular placement was confirmed by a clear arthrogram resulting from the injection of 0.25ml of Omnipaque-240. Next, 1 ml of Depo- Medrol 40 mg/ml was injected intra-articularly with an initial reproduction of a significant component of the usual pain. This was followed with 1 ml of 1% Lidocaine. The needle was then removed without difficulty. (49 ml of Omnipaque-240 was wasted). The exact procedure was completed on the opposite sacroiliac joint. Princess's vital signs were stable throughout the procedure and were as recorded in nursing records. Follow up plans and appointments were discussed with Princess. Post procedure instructions were given as documented in nursing records. Having met discharge criteria, Princess was [facility] from the [facility]. COMMENTS: Post-procedure pain: VAS= 0/10. If the patient receives at least 50% improvement in pain and/or function for at least 3 months, this procedure can be repeated if needed. I personally performed this entire procedure. IAN COLLAZO DO, MPH ABPMR-subspecialty board certification in Pain Medicine [facility] Coding Conscious Sedation used for procedure: No CPT Codes: SI Joint Inj; incl Fluoro * BILATERAL* - [id number] ([id number]) Additional Codes: Date of Service () Diagnoses: Sacroiliac joint dysfunction
[2025-05-23 09:49] VITALS: BP 155/81; PULSE 75; RESP 13; O2SAT 97
[2025-05-23] MEDS: methylPREDNISolone ACETATE 40 MG/ML VIAL IJ (09:50)
[2025-05-23] MEDS: Omnipaque 240 MG/ML 50 ML BTL IJ (09:50)
[2025-05-23] MEDS: Nerve Block Tray 1 EACH MC (09:50)
== END 2025-05-23 08:47 | disposition home or self-care (01) ==
LOC: PC 08:47
PROVIDERS: PCP Student in an Organized Health Care Education/Training Program; Visit Provider Preventive Medicine Occupational Medicine
DX: M54.50 Low back pain, unspecified (principal); M53.3 Sacrococcygeal disorders, not elsewhere classified
CPT/HCPCS: 27096; 72200; J1010; Q9967